=== PATIENT | female | born 1940 | race Caucasian/White ===

== ENCOUNTER → 2016-07-18 | Day surgery (SDC) | payer BC ==
[2016-07-10 12:28] VITALS: Ht 168.9 cm; Wt 61.4 kg
[~2016-07-18] VITALS: Ht 168.9 cm; Wt 61.4 kg
[~2016-07-18] MED LIST: ASCO500T16 PO; ASPEC81 PO; ASPI81TA28 PO; CHOL100010 PO; CHOL20009 PO; FENTANYL CITRATE INJ 50 MCG/1 ML 2 ML VIAL ONE; GLIM1TAB2 PO; LEVO-366 PO; LEVO75TA5 PO; LIDOCAINE HCL 2% 2 ML VIAL (20MG/ML) ONE; NAPR1TAB9 PO; PRED20TA PO; PROPOFOL IV EMULSION 10 MG/ML 20 ML VIAL IV ONE; SIMV20TA2 PO; SITA100T3 PO; SPRIN/30 INH
--- NOTE | 2016-07-18 09:51 | Endo History and Physical ---
History & Physical Date of Service: Jul 18, 2016. Chief Complaint: screening Referring Physician: Dr. Dominik Wilhelm History of Present Illness 76 yo CF who presents for screening colonoscopy. Past Medical History Diabetes, High Cholesterol, COPD, Thyroid Disease Past Surgical History Hx Cardiac Surgery: No Hx Internal Defibrillator: No Hx Pacemaker: No Hx Abdominal Surgery: Yes (TUBAL LIGATION) Hx of Implantable Prosthesis: No Hx Post-Op Nausea and Vomiting: No Hx Cancer Surgery: No Hx Thoracic Surgery: No Hx Orthopedic: Yes (BACK SURGERY) Hx Urinary Tract Surgery: No Family History None Social History Smoking Status: Current Every Day Smoker Hx Substance Use: No Hx Alcohol Use: No Allergies Coded Allergies: Metformin (Verified Adverse Reaction, Intermediate, NAUSEA AND DIARRHEA, ) Varenicline (Verified Adverse Reaction, Unknown, DEPRESSION, BAD DREAMS, ) Current Medications Reported Home Medications Medications Dose Route/Sig Max Daily Dose Days Date Category Spiriva Handihaler (Tiotropium [place]) 30 Puff/540 Mcg Aerp 1 Cap INH DAILY 07/10/16 Reported Januvia (Sitagliptin Phosphate) 100 Mg Tab 100 Mg PO QAM 07/10/16 Reported Vitamin D (Cholecalciferol) 1,000 Inter.unit Tab 2,000 Inter.unit PO BID 03/21/15 Reported Levothyroxine Sodium 75 Mcg Tab 75 Mcg PO QAM 03/21/15 Reported Glimepiride 1 Mg Tab 2 Tabs PO BID 12/01/13 Reported Zocor (Simvastatin) 20 Mg Tab 20 Mg PO HS 12/01/13 Reported Ascorbic Acid 500 Mg Tab 500 Mg PO HS 03/04/13 Reported Ecotrin Or Generic * (Aspirin) 81 Mg Ectab 81 Mg PO HS 02/09/08 Reported Vital Signs Weight (Kilograms): 61.36 Height (Feet): 5 Height (Inches): 6.5 Date Time Temp Pulse Resp B/P Pulse Ox O2 Delivery O2 Flow Rate FiO2 07/18/16 09:14 36.5 70 16 158/79 95 Room Air Physical Exam General Appearance: WD/WN, no apparent distress Respiratory/Chest: Auscultation: breath sounds normal Cardiovascular: Heart Auscultation: RRR Abdomen: Bowel Sounds: normal Inspection & Palpation: soft, non-distended, no tenderness, guarding & rebound Assessment and Plan Assessment: 76 yo CF who presents for screening colonoscopy. Plan: Proceed with colonoscopy.
--- NOTE | 2016-07-18 10:32 | Discharge Instructions ---
Endoscopy Patient Instructions Date / Procedure(s) Performed Jul 18, 2016. Colonoscopy Allergy Information Coded Allergies: Metformin (Verified Adverse Reaction, Intermediate, NAUSEA AND DIARRHEA, ) Varenicline (Verified Adverse Reaction, Unknown, DEPRESSION, BAD DREAMS, ) Discharge Date / Findings Jul 18, 2016. Rectal polyp Diverticulosis Medication Instructions Stopped Medication(s): stopped ASA Sunday OK to resume all medications today as prescribed Reported Home Medications Medications Dose Route/Sig Max Daily Dose Days Date Category Spiriva Handihaler (Tiotropium [place]) 30 Puff/540 Mcg Aerp 1 Cap INH DAILY 07/10/16 Reported Januvia (Sitagliptin Phosphate) 100 Mg Tab 100 Mg PO QAM 07/10/16 Reported Vitamin D (Cholecalciferol) 1,000 Inter.unit Tab 2,000 Inter.unit PO BID 03/21/15 Reported Levothyroxine Sodium 75 Mcg Tab 75 Mcg PO QAM 03/21/15 Reported Glimepiride 1 Mg Tab 2 Tabs PO BID 12/01/13 Reported Zocor (Simvastatin) 20 Mg Tab 20 Mg PO HS 12/01/13 Reported Ascorbic Acid 500 Mg Tab 500 Mg PO HS 03/04/13 Reported Ecotrin Or Generic * (Aspirin) 81 Mg Ectab 81 Mg PO HS 02/09/08 Reported Provider Instructions Activity Restrictions - No exercising or heavy lifting for 24 hours. - Do not drink alcohol the day of the procedure. - Do not drive a car or operate machinery until the day after the procedure. - Do not make any important decisions or sign important papers in 24 hours after the procedure. Following Day: - Return to full activity which may include returning to work/school. Diet Start your diet with liquids and light foods (jello, soup, juice, toast). Then eat your usual diet if not nauseated. Treatment For Common After Affects For mild abdominal pain, bloating, or excessive gas: - Rest - Eat lightly - Lie on right side Follow-Up Information Follow-up with Dr. Dominik Wilhelm as scheduled Anesthesia Information What You Should Know You have had a procedure that required some medicine to reduce anxiety and discomfort. This treatment is called moderate sedation. After receiving the treatment, you may be sleepy, but you will be able to breathe on your own. The effects of the treatment may last for several hours. Follow these instructions along with Activity/Diet recommendations noted above: * Do NOT do anything where dizziness or clumsiness would be dangerous. * Rest quietly at home today, then you can be up and about tomorrow. * Have a responsible person stay with you the rest of today. * You may have had an I.V. today. If so, you may take the dressing off later today. Recommendations Call your doctor if: * Trouble breathing * Continuous vomiting for more than 24 hours * Temperature above 101 degrees * Severe abdominal pain or bloating * Pain not relieved by pain medicine ordered * There is increased drainage or redness from any incision * A large amount of rectal bleeding greater than 2-3 tablespoons. (If you had a polyp/s removed or have hemorrhoids, a small amount of blood - from the rectum is to be expected.) * You have any unanswered questions or concerns. IN THE EVENT OF A SERIOUS EMERGENCY, GO TO THE NEAREST EMERGENCY ROOM Your discharge instructions were prepared by provider Justus Jordan. Patient Instructions Signature Page Madison Mckenna Patient (or Guardian) Signature/Date: I have read and understand the instructions given to me by my caregivers. Caregiver/RN/Doctor Signature/Date: The above-named patient and/or guardian has received patient instructions on this date. + Original Patient Signature Page (only) stays with chart. Please make copy for patient.
--- NOTE | 2016-07-18 10:40 | GI REPORT ---
Procedure Date: 07/18/2016 9:31 AM Procedure: Colonoscopy Indications: Screening for colorectal malignant neoplasm Medicines: Monitored Anesthesia Care Complications: No immediate complications. Estimated Blood Loss: Estimated blood loss: none. Procedure: Pre-Anesthesia Assessment: - Prior to the procedure, a History and Physical was performed, and patient medications and allergies were reviewed. The patient's tolerance of previous anesthesia was also reviewed. The risks and benefits of the procedure and the sedation options and risks were discussed with the patient. All questions were answered, and informed consent was obtained. Prior Anticoagulants: The patient has taken aspirin, last dose was 2 days prior to procedure. ASA Grade Assessment: III - A patient with severe systemic disease. After reviewing the risks and benefits, the patient was deemed in satisfactory condition to undergo the procedure. After I obtained informed consent, the scope was passed under direct vision. Throughout the procedure, the patient's blood pressure, pulse, and oxygen saturations were monitored continuously. The Scope was introduced through the anus and advanced to the terminal ileum. The colonoscopy was performed without difficulty. The patient tolerated the procedure well. The quality of the bowel preparation was good. The terminal ileum, ileocecal valve, appendiceal orifice, and rectum were photographed. Findings: Multiple small-mouthed diverticula were found in the sigmoid colon. A 8 mm polyp was found in the rectum. The polyp was sessile. The polyp was removed with a hot snare. Resection and retrieval were complete. Impression: - Diverticulosis in the sigmoid colon. - One 8 mm polyp in the rectum, removed with a hot snare. Resected and retrieved. Recommendation: - Resume previous diet. - Continue present medications. - Repeat colonoscopy for surveillance based on pathology results. - Return to primary care physician as previously scheduled. Justus Jordan DO 07/18/2016 10:39:28 AM This report has been signed electronically. Note Initiated On: 07/18/2016 9:31 AM
[2016-07-18 10:50] VITALS: BP 168/74; PULSE 56; O2SAT 96
--- NOTE | 2016-07-18 11:20 | Anesthesiology Progress Note ---
Anesthesia Post Op Note Date & Time Jul 18, 2016 at 11:21 Vital Signs Pain Intensity: 0 Vital Signs Past 12 Hours Date Time Temp Pulse Resp B/P Pulse Ox O2 Delivery O2 Flow Rate FiO2 07/18/16 10:50 56 16 168/74 96 Room Air 07/18/16 10:33 56 18 163/77 96 Room Air 07/18/16 10:18 63 18 121/59 95 Room Air 07/18/16 09:14 36.5 70 16 158/79 95 Room Air Notes Mental Status: alert / awake / arousable, participated in evaluation Pt Amnestic to Procedure: Yes Nausea / Vomiting: adequately controlled Pain: adequately controlled Airway Patency, RR, SpO2: stable & adequate BP & HR: stable & adequate Hydration State: stable & adequate Anesthetic Complications: no major complications apparent
== END | disposition home or self-care (01) ==
LOC: C.GI 08:44
PROVIDERS: ATTEND Internal Medicine
DX: Z12.11 Encounter for screening for malignant neoplasm of colon (principal); K62.1 Rectal polyp; K57.30 Diverticulosis of large intestine without perforation or abscess without bleeding; Z79.82 Long term (current) use of aspirin; Z88.8 Allergy status to other drugs, medicaments and biological substances

== ENCOUNTER → 2016-08-10 | Outpatient (CLI) | payer BC ==
[~2016-08-10] MED LIST changes: -FENTANYL CITRATE INJ 50 MCG/1 ML 2 ML VIAL ONE; -LIDOCAINE HCL 2% 2 ML VIAL (20MG/ML) ONE; -PROPOFOL IV EMULSION 10 MG/ML 20 ML VIAL IV ONE
[2016-08-10 10:40] LABS: ESTIMATED AVERAGE GLUCOSE 143 mg/dl; HA1C FLAG Normal (Normal)
== END | disposition home or self-care (01) ==
LOC: C.LAB 09:01
PROVIDERS: ATTEND Internal Medicine
DX: E11.9 Type 2 diabetes mellitus without complications (principal)

== ENCOUNTER → 2016-10-09 | Outpatient (CLI) | payer BC ==
[~2016-10-09] MED LIST changes: +GADAVIST IV PRN
[2016-10-09 10:07] LABS: BLOOD UREA NITROGEN 10 mg/dl (7-18); CREATININE 0.65 mg/dl (0.60-1.20)
--- NOTE | 2016-10-09 14:09 | DIAGNOSTIC IMAGING REPORT ---
MRI OF THE LUMBAR SPINE WITH AND WITHOUT CONTRAST CLINICAL HISTORY: Low back pain with bilateral radiculopathy. Prior lumbar spine surgery. COMPARISON STUDY: No previous studies for comparison. TECHNIQUE: Utilizing a 1.5 Annie magnet and dedicated coil, multiplanar, multiecho imaging of the lumbar spine was performed before and after uneventful IV administration of 6.5 mL of Gadavist. FINDINGS: For purposes of numbering on since exam, the L5-S1 disc space is assigned to axial image 27 of 30. Alignment of lumbar spine is anatomic. The conus terminates at the T12-L1 level. The paravertebral soft tissues are unremarkable. There are findings suggestive of a right hemilaminectomy at the L5-S1 level. L1-2: The central canal and neural foramen are patent. L2-3: There is minimal disc bulge. There is ligamentous hypertrophy. The central canal and neural foramen are patent. L3-4: There is disc bulge with a central annular tear. Facet arthrosis is noted. There is mild narrowing of the central canal, lateral recesses and neural foramen. L4-5: There is disc bulge with ligamentous hypertrophy and facet arthrosis. Note is made of an 8 x 6 mm T1 and T2 hypointense right paracentral abnormality which suggests disc material. There is severe narrowing of the central canal and lateral recesses at this level. L5-S1: There is disc space narrowing. There is no residual central canal stenosis. There is mild narrowing of both neural foramen. IMPRESSION: 1. Disc bulge with ligamentous hypertrophy and facet arthrosis at L4-L5 with an 8 mm x 6 mm right paracentral abnormality with inferior migration. This could reflect a sequestered disc fragment or extruded disc herniation. Severe narrowing of the central canal and lateral recesses at this level. 2. Otherwise, mild multilevel degenerative changes of the lumbar spine. 3. Findings suggestive of a right hemilaminectomy at the L5-S1 level. Electronically signed by: Miguel Angel Arguelles M.D. 10/09/2016 2:06 PM Dictated Date/Time: 10/09/2016 11:36 AM
== END | disposition home or self-care (01) ==
LOC: C.MRI 09:06
PROVIDERS: ATTEND Nurse Practitioner
DX: M54.40 Lumbago with sciatica, unspecified side (principal)

== ENCOUNTER 2016-10-29 20:40 | Emergency (ER) | payer BC ==
[~2016-10-29] VITALS: Ht 167.6 cm; Wt 65.7 kg
[~2016-10-29 20:40] MED LIST changes: -ASPI81TA28 PO; -CHOL20009 PO; -GADAVIST IV PRN; -LEVO-366 PO; -NAPR1TAB9 PO; -PRED20TA PO
[2016-10-29 20:43] VITALS: TEMP 36.6; Ht 167.6 cm; Wt 65.7 kg
[2016-10-29] MEDS ORDERED: ASPI81TA28 PO (21:20)
[2016-10-29] MEDS ORDERED: CHOL20009 PO (21:20)
[2016-10-29] MEDS ORDERED: NAPR1TAB9 PO (21:20)
--- NOTE | 2016-10-29 21:21 | EMERGENCY ROOM VISIT NOTE ---
History Report prepared by Julien: Sis Acevedo Under the Supervision of: Chastiy Rossi.O. First contact with patient: 20:49 Chief Complaint: COUGH Stated Complaint: COUGHING UP BLOOD History of Present Illness The patient is a 76 year old female who presents to the Emergency Room with complaints of a worsening cough that began 3-4 weeks ago. She states that her symptoms started with a sore throat. She developed a productive cough with green sputum. This morning she noticed blood in her sputum. Tonight she coughed up a dime-sized clot. The patient fees short of breath and has pain in her chest secondary to coughing. She is a former smoker and quit about 1 year ago. She currently uses Spiriva. She does have a history of pneumonia. The patient denies fevers, chills, rhinorrhea, nausea, vomiting, diarrhea, melena, and hematochezia. She denies any significant cardiac history. The patient has lower back pain and sciatica and follows with her PCP and pain management for that. She takes a daily baby aspirin and denies any other blood thinners. Source of History: patient, family (daughter) Onset: 3-4 weeks ago Position: chest Quality: other (cough) Timing: worsening Associated Symptoms: + SOB, + chest pain, + sorethroat, No chills, No diarrhea, No fevers, No hematochezia, No melena, No nausea, No vomiting Review of Systems See HPI for pertinent positives & negatives. A total of 10 systems reviewed and were otherwise negative. Past Medical & Surgical Medical Problems: (1) COPD (chronic obstructive pulmonary disease) (2) COPD exacerbation (3) DIAB EARL WO COMPL, TYPE II OR UNSPEC TYPE, NOT UNCNTRLD (4) HYPERLIPIDEMIA NEC/NOS (5) HYPOTHYROIDISM NOS (6) Hypoxia Family History No pertinent history stated. Social History Smoking Status: Former Smoker Alcohol Use: none Drug Use: none Marital Status: Housing Status: lives with significant other Current/Historical Medications Scheduled Ascorbic Acid (Ascorbic Acid), 500 MG PO HS Aspirin (Aspirin Ec), 81 MG PO DAILY Cholecalciferol (Vitamin D), 4,000 UNITS PO BID Glimepiride (Glimepiride), 2 TABS PO BID Levofloxacin (Levaquin), 750 MG PO DAILY Levothyroxine Sodium (Levothyroxine Sodium), 75 MCG PO QAM Naproxen (Aleve), 220 MG PO PRN UD Prednisone (Prednisone), 0 PO DAILY Simvastatin (Zocor), 20 MG PO HS Sitagliptin Phosphate (Januvia), 100 MG PO QAM Tiotropium [place] (Spiriva Handihaler), 1 CAP INH DAILY Allergies Coded Allergies: Metformin (Verified Adverse Reaction, Intermediate, NAUSEA AND DIARRHEA, ) Varenicline (Verified Adverse Reaction, Unknown, DEPRESSION, BAD DREAMS, ) Physical Exam Vital Signs Date Time Temp Pulse Resp B/P Pulse Ox O2 Delivery O2 Flow Rate FiO2 10/29/16 22:55 72 20 167/63 92 Room Air 10/29/16 22:28 66 20 154/71 92 Room Air 10/29/16 21:27 64 10/29/16 20:52 92 Room Air 10/29/16 20:43 36.6 66 24 176/84 92 Room Air Physical Exam GENERAL: alert, well appearing, well nourished, no distress, non-toxic EYE EXAM: normal conjunctiva, PERRL and EOM's grossly intact OROPHARYNX: no exudate, no erythema, lips, buccal mucosa, and tongue normal and mucous membranes are moist NECK: supple, no nuchal rigidity, no adenopathy, non-tender LUNGS: Markedly decreased breath sounds. No wheezes, rhonchi, or rales. During the exam the patient coughed up sputum that appears yellowish with small flecks of blood. Normal chest wall mechanics HEART: no murmurs, S1 normal and S2 normal ABDOMEN: abdomen soft, non-tender, normo-active bowel sounds, no masses, no rebound or guarding. BACK: Back is symmetrical on inspection and there is no deformity, no midline tenderness, no CVA tenderness. SKIN: no rashes and no bruising UPPER EXTREMITIES: upper extremities are grossly normal. LOWER EXTREMITIES: No pitting edema. NEURO EXAM: Normal sensorium, cranial nerves II-XII grossly intact, normal speech, no gross weakness of arms, no gross weakness of legs. Medical Decision & Procedures ER Provider Diagnostic Interpretation: Radiology results have been interpreted by the radiologist and reviewed by me. CHEST CTA for PULMONARY ARTERIES CT DOSE: 204.83 mGy.cm HISTORY: Hemoptysis. TECHNIQUE: Multiaxial CT images of the chest were performed following the intravenous administration of contrast to evaluate the pulmonary arteries. Maximal intensity projection images were also obtained. COMPARISON STUDY: Chest CT 04/11/2016. FINDINGS: No evidence for an aortic dissection or pulmonary embolus. Bilateral breast implants. The visualized liver and spleen are unremarkable. No pleural or pericardial effusions. No mediastinal or hilar lymphadenopathy. Mild emphysema. No pneumothorax. Stable 4 mm nodule within the left upper lobe in image 215. Opacified distal left lower lobe bronchus and left lower lobe segmental and subsegmental bronchi. There is small patchy airspace opacities within the center aspect of the left lower lobe. There are also a few opacified right lower lobe subsegmental bronchi. Linear density within the right upper lobe anteriorly. This favors scarring and is not significant changed. IMPRESSION: 1. No evidence for pulmonary embolus. 2. Opacified left lower lobe bronchus and left lower lobe segmental and subsegmental bronchi. There are also a few opacified right lower lobe subsegmental bronchi. Therefore, this favors an infectious process. There is also small focus of airspace opacity within the left lower lobe. However, an occult obstructing endobronchial lesion within the left lower lobe could also have a similar appearance. Therefore, 2-[address] follow-up or bronchoscopy is recommended for further evaluation. 3. Emphysema. Electronically signed by: Adilson Burgess M.D. 10/29/2016 10:32 PM Dictated Date/Time: 10/29/2016 10:23 PM Laboratory Results 10/29/16 21:16 Red Blood Count 4.08, Mean Corpuscular Volume 97.3, Mean Corpuscular Hemoglobin 32.4, Mean Corpuscular Hemoglobin Concent 33.2, Mean Platelet Volume 10.0, Neutrophils (%) (Auto) 54.4, Lymphocytes (%) (Auto) 35.3, Monocytes (%) (Auto) 7.4, Eosinophils (%) (Auto) 2.3, Basophils (%) (Auto) 0.3, Neutrophils # (Auto) 6.47, Lymphocytes # (Auto) 4.20, Monocytes # (Auto) 0.88, Eosinophils # (Auto) 0.27, Basophils # (Auto) 0.03 10/29/16 21:16 Test 10/29/16 21:16 White Blood Count 11.89 K/uL (4.8-10.8) Red Blood Count 4.08 M/uL (4.2-5.4) Hemoglobin 13.2 g/dL (12.0-16.0) Hematocrit 39.7 % (37-47) Mean Corpuscular Volume 97.3 fL (80-100) Mean Corpuscular Hemoglobin 32.4 pg (25-34) Mean Corpuscular Hemoglobin Concent 33.2 g/dl (32-36) Platelet Count 260 K/uL (130-400) Mean Platelet Volume 10.0 fL (7.4-10.4) Neutrophils (%) (Auto) 54.4 % Lymphocytes (%) (Auto) 35.3 % Monocytes (%) (Auto) 7.4 % Eosinophils (%) (Auto) 2.3 % Basophils (%) (Auto) 0.3 % Neutrophils # (Auto) 6.47 K/uL (1.4-6.5) Lymphocytes # (Auto) 4.20 K/uL (1.2-3.4) Monocytes # (Auto) 0.88 K/uL (0.11-0.59) Eosinophils # (Auto) 0.27 K/uL (0-0.5) Basophils # (Auto) 0.03 K/uL (0-0.2) RDW Standard Deviation 47.1 fL (36.4-46.3) RDW Coefficient of Variation 13.2 % (11.5-14.5) Immature Granulocyte % (Auto) 0.3 % Immature Granulocyte # (Auto) 0.04 K/uL (0.00-0.02) Prothrombin Time 10.7 SECONDS (9.0-12.0) Prothromb Time International Ratio 1.0 (0.9-1.1) Anion Gap 8.0 mmol/L (3-11) Est Creatinine Clear Calc Drug Dose 46.2 ml/min Estimated GFR () 65.8 Estimated GFR (Non- 56.7 BUN/Creatinine Ratio 13.1 (10-20) Calcium Level 9.2 mg/dl (8.5-10.1) Total Bilirubin 0.6 mg/dl (0.2-1) Aspartate Amino Transf (AST/SGOT) 14 U/L (15-37) Alanine Aminotransferase (ALT/SGPT) 17 U/L (12-78) Alkaline Phosphatase 57 U/L (45-117) Troponin I < 0.015 ng/ml (0-0.045) Pro-B-Type Natriuretic Peptide 140 pg/ml (0-1800) Total Protein 7.2 gm/dl (6.4-8.2) Albumin 3.7 gm/dl (3.4-5.0) Globulin 3.5 gm/dl (2.5-4.0) Albumin/Globulin Ratio 1.1 (0.9-2) Laboratory results per my review. Medications Administered Medications (Trade) Dose Ordered Sig/Leonidas Route Start Time Stop Time Status Last Admin Dose Admin Albuterol/ Ipratropium (Duoneb) 3 ml NOW STAT INH 10/29/16 21:33 10/29/16 21:34 DC 10/29/16 21:40 3 ML Albuterol/ Ipratropium (Duoneb) 3 ml NOW STAT INH 10/29/16 22:31 10/29/16 22:32 DC 10/29/16 22:38 3 ML Benzonatate (Tessalon Perles Cap) 100 mg NOW ONCE PO 10/29/16 22:45 10/29/16 22:46 DC 10/29/16 22:38 100 MG Levofloxacin (Levaquin Tab) 750 mg NOW STAT PO 10/29/16 22:42 10/29/16 22:43 DC 10/29/16 22:53 750 MG Albuterol (Ventolin Hfa Inhaler) 2 puffs NOW ONCE INH 10/29/16 23:00 10/29/16 23:01 DC 10/29/16 23:01 2 PUFFS Prednisone (PredniSONE TAB) 60 mg NOW STAT PO 10/29/16 22:54 10/29/16 22:56 DC 10/29/16 23:00 60 MG ECG Indication: SOB/dyspnea Rate (beats per minute): 62 Rhythm: normal sinus Findings: 1st degree AV block, RBBB (appearance of incomplete), no acute ischemic change, no ectopy, other (normal axis, normal intervals) ED Course 2048: The patient was evaluated in room A2. A complete history and physical exam was performed. 2132: Duoneb 3 ml INH 2230: Duoneb 3 ml ING 2238: I reassessed the patient at this time. She is feeling better and resting comfortably. I discussed the results and treatment plan with the patient. I answered all pertaining questions that she had. She expressed understanding and verbalized agreement. She would like to follow-up as an outpatient. The patient will be discharged home. 2242: Levofloxacin 750 mg PO 2244: Benzonatate 100 mg PO 4: Prednisone 60 mg PO 0: Albuterol 2 puffs INH 2313: I reassessed the patient and she is doing well after her second breathing treatment. She is moving more air and feeling better. Medical Decision Differential diagnoses includes but is not limited to pneumonia, bronchitis, COPD/Asthma exacerbation, pneumothorax, pulmonary embolism, congestive heart failure, acute coronary syndrome. Patient well-appearing here throughout, no increased work of breathing, no hypoxia, no fevers. Mild leukocytosis noted, however doubt bacteremia/sepsis. Discussed with patient and daughter affront starting with CAT scan of the chest to better evaluate her increasing cough as well as the hemoptysis. Patient with prior history of pneumonia and is a reformed smoker. Likely given chronicity of symptoms, hemoptysis secondary to irritation from frequent coughing. Patient with no other anticoagulation to put her at risk for additional bleeding. Patient with improved respiratory exam following nebulizer treatments. Was given instruction on MDI and spacer usage. 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 Discussed with patient and family all results, need for close follow-up to assure resolution of pneumonia, concern for other findings on CAT scan, possible need for bronchoscopy. Patient with no increased work of breathing while here and ambulate into the bathroom. Patient started on antibiotics, has previously used steroids with respiratory infections. Discussed with her risks of hyperglycemia, and need for more frequent blood glucose checks. Patient verbalized understanding of all this is due to daughter bedside, and they were agreeable with plan. Discussed symptoms to watch and return to the ER for, they verbalized understanding. Likely COPD exacerbation with pneumonia, concern for possible postobstructive pneumonia, no evidence for PE or cardiac etiology contributing to shortness of breath. Doubt ACS given chronicity of symptoms and negative troponin, BNP within normal range and no evidence of pulmonary edema Patient's risks include prior tobacco use and this was discussed with him at bedside. Labs otherwise reassuring, vital signs reassuring at bedside. Patient's curb 65 score 1, low risk. Impression Primary Impression: COPD exacerbation Additional Impressions: Pneumonia Hemoptysis Scribe Attestation The scribe's documentation has been prepared under my direction and personally reviewed by me in its entirety. I confirm that the note above accurately reflects all work, treatment, procedures, and medical decision making performed by me. Departure Information Dispostion Home / Self-Care Prescriptions Prednisone (Prednisone) 20 Mg Tab 0 PO DAILY, #18 TAB 3 DAILY FOR 3 DAYS, THEN 2 DAILY FOR 3 DAYS, THEN 1 DAILY FOR 3 DAYS. Prov: Charlotte Arellano, DO 10/29/16 Levofloxacin (Levaquin) 500 Mg Tab 750 MG PO DAILY for 5 Days, #8 TAB Prov: Charlotte Arellano, DO 10/29/16 Referrals Dominik Wilhelm M.D. (PCP) Forms HOME CARE DOCUMENTATION FORM, IMPORTANT VISIT INFORMATION Patient Instructions My [facility] Additional Instructions Please take the antibiotics and steroids as prescribed and continue using your regular home medications. Please drink plenty of water to stay well-hydrated. Please follow up with her family doctor this week as well as your lung specialist. You will need additional follow-up to assure that the infection has cleared, and also potential additional evaluation for the possible nodule noted on the CAT scan. If you have any worsening trouble breathing, worsening cough, develop fevers, vomiting, chest pain, diarrhea, or any other new concerns , please return the emergency room. Please keep the inhaler with you at all times, and use it with a spacer. You may use the inhaler up to every 4 hours as needed for trouble breathing in frequent coughing. Problem Qualifiers Additional Impressions: Pneumonia Pneumonia type: due to unspecified organism Laterality: bilateral Lung location: lower lobe of lung Qualified Codes: J18.9 - Pneumonia, unspecified organism
[2016-10-29] MEDS ORDERED: OPTIRAY 320 IV PRN (21:30)
[2016-10-29] MEDS ORDERED: ALBUT/IPRATROP 3MG/0.5MG NEB 3 ML VIAL INH STA ×2 (21:33→22:31)
[2016-10-29 21:35] LABS: BASO % 0.3 %; BASO ABS # 0.03 K/uL (0-0.2); COMPLETE YES; EOS % 2.3 %; HEMATOCRIT 39.7 % (37-47); IG% 0.3 %; LYMPH % 35.3 %; MEAN CELL VOLUME 97.3 fL (80-100); MEAN CORPUSCULAR HEMOGLOBIN 32.4 pg (25-34); MEAN CORPUSCULAR HGB CONC 33.2 g/dl (32-36); MONO % 7.4 %; NEUT % 54.4 %; PLATELET COUNT 260 K/uL (130-400); RED BLOOD COUNT 4.08 M/uL (4.2-5.4); WHITE BLOOD COUNT 11.89 K/uL (4.8-10.8)
[2016-10-29 21:43] LABS: PROTHROMBIN TIME (PATIENT) 10.7 SECONDS (9.0-12.0)
[2016-10-29 21:45] LABS: ALT/SGPT 17 U/L (12-78); BLOOD UREA NITROGEN 13 mg/dl (7-18); BUN/CREATININE RATIO 13.1 (10-20); CARBON DIOXIDE 30 mmol/L (21-32); CHLORIDE 106 mmol/L (98-107); CREATININE 0.97 mg/dl (0.60-1.20); GLUCOSE 123 mg/dl (70-99); POTASSIUM 4.1 mmol/L (3.5-5.1); SODIUM 144 mmol/L (136-145)
[2016-10-29 21:49] LABS: ALB/GLOB RATIO 1.1 (0.9-2); ALKALINE PHOSPHATASE 57 U/L (45-117); AST/SGOT 14 U/L (15-37)
[2016-10-29 22:26] LABS: CALCIUM 9.2 mg/dl (8.5-10.1)
--- NOTE | 2016-10-29 22:33 | DIAGNOSTIC IMAGING REPORT ---
CHEST CTA for PULMONARY ARTERIES CT DOSE: 204.83 mGy.cm HISTORY: Hemoptysis. TECHNIQUE: Multiaxial CT images of the chest were performed following the intravenous administration of contrast to evaluate the pulmonary arteries. Maximal intensity projection images were also obtained. COMPARISON STUDY: Chest CT 04/11/2016. FINDINGS: No evidence for an aortic dissection or pulmonary embolus. Bilateral breast implants. The visualized liver and spleen are unremarkable. No pleural or pericardial effusions. No mediastinal or hilar lymphadenopathy. Mild emphysema. No pneumothorax. Stable 4 mm nodule within the left upper lobe in image 215. Opacified distal left lower lobe bronchus and left lower lobe segmental and subsegmental bronchi. There is small patchy airspace opacities within the center aspect of the left lower lobe. There are also a few opacified right lower lobe subsegmental bronchi. Linear density within the right upper lobe anteriorly. This favors scarring and is not significant changed. IMPRESSION: 1. No evidence for pulmonary embolus. 2. Opacified left lower lobe bronchus and left lower lobe segmental and subsegmental bronchi. There are also a few opacified right lower lobe subsegmental bronchi. Therefore, this favors an infectious process. There is also small focus of airspace opacity within the left lower lobe. However, an occult obstructing endobronchial lesion within the left lower lobe could also have a similar appearance. Therefore, 2-[address] follow-up or bronchoscopy is recommended for further evaluation. 3. Emphysema. Electronically signed by: Adilson Burgess M.D. 10/29/2016 10:32 PM Dictated Date/Time: 10/29/2016 10:23 PM
[2016-10-29] MEDS ORDERED: LEVOFLOXACIN 250 MG TAB PO STA (22:42)
[2016-10-29] MEDS ORDERED: BENZONATATE 100MG CAP PO ONE (22:45)
[2016-10-29 22:55] VITALS: BP 167/63; PULSE 72; O2SAT 92
[2016-10-29] MEDS ORDERED: ALBUTEROL HFA 8 GM INHALER INH ONE (23:00)
[2016-10-29] MEDS ORDERED: LEVO-366 PO (23:05)
[2016-10-29] MEDS ORDERED: PRED20TA PO (23:05)
== END 2016-10-29 23:25 | disposition home or self-care (01) ==
LOC: C.EDB 20:42 → C.EDA 23:25
DX: J44.1 Chronic obstructive pulmonary disease with (acute) exacerbation (principal); J18.9 Pneumonia, unspecified organism; R04.2 Hemoptysis; M54.40 Lumbago with sciatica, unspecified side; E11.9 Type 2 diabetes mellitus without complications; E78.5 Hyperlipidemia, unspecified; E03.9 Hypothyroidism, unspecified; Z87.891 Personal history of nicotine dependence; Z79.82 Long term (current) use of aspirin

== ENCOUNTER → 2016-12-23 | Outpatient (CLI) | payer BC ==
[~2016-12-23] MED LIST changes: -ASPEC81 PO; +ASPI81TA28 PO; -CHOL100010 PO; +CHOL20009 PO; +NAPR1TAB9 PO; +PRED20TA PO
[2016-12-23 10:54] LABS: ESTIMATED AVERAGE GLUCOSE 160 mg/dl; HA1C FLAG Normal (Normal)
[2016-12-23 11:04] LABS: THYROID STIMULATING HORMONE 3.76 uIu/ml (0.300-4.500)
== END | disposition home or self-care (01) ==
LOC: C.LAB 09:06
PROVIDERS: ATTEND Internal Medicine
DX: E11.9 Type 2 diabetes mellitus without complications (principal); E03.9 Hypothyroidism, unspecified

== ENCOUNTER → 2017-02-12 | Outpatient (CLI) | payer BC ==
--- NOTE | 2017-02-12 11:27 | DIAGNOSTIC IMAGING REPORT ---
(CHEST) THORAX WITHOUT CLINICAL HISTORY: 76 years-old Female presenting with R93.[address]to be done in mid January. TECHNIQUE: Multidetector CT imaging of the chest was performed without the use of intravenous contrast. IV contrast: None. A dose lowering technique was used consistent with the principles of ALARA (as low as reasonably achievable). COMPARISON: 10/29/2016. CT DOSE (mGy.cm): The estimated cumulative dose is 213.86 mGy.cm. 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 On soft tissue windows, bilateral breast implants with densely calcified capsules. Normal thyroid and thoracic inlet. Scattered subcentimeter mediastinal lymph nodes, likely reactive. Evaluation of the dax is limited without intravenous contrast. Atherosclerosis of the aortic arch. Normal heart size. Coronary artery calcification. No pericardial or pleural effusion. Upper abdomen normal. On lung windows, focal irregular nodular consolidation in the perifissural right middle lobe, unchanged from prior and likely representing scarring. Mild emphysema. Left upper lobe subpleural solid 4 mm nodule (series 4 image 67), unchanged from prior. Airways patent. On bone windows, normal osseous structures. IMPRESSION: 1. Emphysema. 2. Persistent scarring in the right middle lobe. 3. Solid 4 mm pulmonary nodule in the left upper lobe stable since 10/29/2016. Follow-up per [employer] Society 2017 recommendations below. Please refer to below summary of Fleischner Society 2017 recommendations for follow-up of incidental CT nodules (H Tia et al. Guidelines for management of incidental pulmonary nodules detected on CT images: From the Fleischner Society 2017. Radiology 2017; 284: 228-243.) SOLID NODULES Single nodule; size <6 mm * Low risk patients: No routine follow-up * High risk patients: Optional CT at 12 months Single nodule; size 6-8 mm * Low risk patients: CT at 6-12 months, then consider CT at 18-24 months * High risk patients: CT at 6-12 months, then at 18-24 months Single nodule; size >8 mm * Either low or high risk patients: Considered CT at 3 months, PET/CT, or tissue sampling Multiple nodules; size <6 mm * Low risk patients: No routine follow up * High risk patients: Optional CT at 12 months Multiple nodules; size 6-8 mm * Low risk patients: CT at 3-6 months, then consider CT at 18-24 months * High risk patients: CT at 3-6 months, then at 18-24 months Multiple nodules; size >8 mm * Low risk patients: CT at 3-6 months, then consider at 18-24 months * High risk patients: CT at 3-6 months, then at 18-24 months Note: These guidelines apply to incidental nodules. These guidelines did not apply to patients younger than 35 years, immunocompromised patients, or patients with cancer. * Low risk patients: Minimal or absent history of smoking and/or other known risk factors * High risk patients: History of smoking, exposure to other carcinogens, emphysema, fibrosis, upper lobe location, family history of lung cancer, etc. * If a nodule up to 8 mm is partly solid or is ground glass further follow-up is required after 24 months to exclude possible slow growing adenocarcinoma SUBSOLID NODULES Single ground-glass nodule * Nodule size < 6 mm: No routine follow-up * Nodule size > or = 6 mm: CT at 6-12 months to confirm persistence, then CT every 2 years until 5 years Single part-solid nodule * Nodule size < 6 mm: No routine follow-up * Nodules size > or = 6 mm: CT at 3-6 months to confirm persistence. If unchanged and solid component remains < 6 mm, annual CT should be performed for 5 years Multiple nodules * Nodule size < 6 mm: CT at 3-6 months. If stable, consider CT at 2 and 4 years. * Nodules size > or = 6 mm: CT at 3-6 months. Subsequent management based on the most suspicious nodule(s) Electronically signed by: Sd Wright M.D. 02/12/2017 11:26 AM Dictated Date/Time: 02/12/2017 11:18 AM
== END | disposition home or self-care (01) ==
LOC: C.CTS 10:57
PROVIDERS: ATTEND Internal Medicine Pulmonary Disease
DX: R93.8 Abnormal findings on diagnostic imaging of other specified body structures (principal)

== ENCOUNTER → 2017-02-28 | Outpatient (CLI) | payer BC | LOC: C.LABBFT 15:29 | PROVIDERS: ATTEND Physician Assistant Medical | DX: J02.9 Acute pharyngitis, unspecified (principal) ==

== ENCOUNTER → 2017-04-26 | Outpatient (CLI) | payer BC ==
[2017-04-26 12:41] LABS: URINE APPEARANCE CLEAR (CLEAR); URINE BILIRUBIN NEG (NEG); URINE COLOR DK YELLOW; URINE EPITHELIAL CELL AUTO >30 /lpf (0-5); URINE NITRITE NEG (NEG); URINE SPECIFIC GRAVITY 1.029 (1.000-1.030); UROBILINOGEN NEG (NEG); ZZUR CULT IF INDIC CLEAN CATCH NO
[2017-04-26 12:42] LABS: BASO % 0.5 %; BASO ABS # 0.04 K/uL (0-0.2); COMPLETE YES; IG% 0.2 %; LYMPH % 28.3 %; LYMPH ABS # 2.38 K/uL (1.2-3.4); MEAN CELL VOLUME 98.3 fL (80-100); MEAN CORPUSCULAR HEMOGLOBIN 32.4 pg (25-34); MEAN PLATELET VOLUME 10.5 fL (7.4-10.4); MONO % 7.6 %; NEUT % 61.4 %; PLATELET COUNT 315 K/uL (130-400); RED BLOOD COUNT 4.07 M/uL (4.2-5.4); WHITE BLOOD COUNT 8.41 K/uL (4.8-10.8)
[2017-04-26 12:44] LABS: MANUAL MICROSCOPIC REQUIRED? NO; REVIEW REQ? NO
[2017-04-26 12:45] LABS: ALT/SGPT 22 U/L (12-78); AST/SGOT 18 U/L (15-37); BLOOD UREA NITROGEN 17 mg/dl (7-18); BUN/CREATININE RATIO 19.4 (10-20); CALCIUM 9.4 mg/dl (8.5-10.1); CARBON DIOXIDE 24 mmol/L (21-32); CHLORIDE 106 mmol/L (98-107); CREATININE 0.87 mg/dl (0.60-1.20); GLUCOSE 113 mg/dl (70-99); POTASSIUM 4.4 mmol/L (3.5-5.1); SODIUM 136 mmol/L (136-145)
[2017-04-26 12:47] LABS: ALB/GLOB RATIO 1.1 (0.9-2); ALKALINE PHOSPHATASE 66 U/L (45-117)
[2017-04-26 13:25] LABS: RATIO 7.5 mcg/mg (0-30.0)
[2017-04-26 13:44] LABS: ESTIMATED AVERAGE GLUCOSE 154 mg/dl; HA1C FLAG Normal (Normal)
== END | disposition home or self-care (01) ==
LOC: C.LABBFT 09:54
PROVIDERS: ATTEND Physician Assistant Medical
DX: D72.829 Elevated white blood cell count, unspecified (principal); N39.0 Urinary tract infection, site not specified; E11.8 Type 2 diabetes mellitus with unspecified complications; E55.9 Vitamin D deficiency, unspecified

== ENCOUNTER → 2017-05-21 | Outpatient (CLI) | payer BC ==
[~2017-05-21] MED LIST changes: -PRED20TA PO
[2017-05-21 14:30] LABS: CHOLESTEROL/HDL RATIO 2.7; THYROID STIMULATING HORMONE 6.36 uIu/ml (0.300-4.500)
== END | disposition home or self-care (01) ==
LOC: C.LABBFT 07:52
PROVIDERS: ATTEND Physician Assistant Medical
DX: E78.5 Hyperlipidemia, unspecified (principal); E03.9 Hypothyroidism, unspecified

== ENCOUNTER → 2017-05-24 | Outpatient (CLI) | payer BC ==
[2017-05-24 17:42] LABS: URINE APPEARANCE CLEAR (CLEAR); URINE BILIRUBIN NEG (NEG); URINE COLOR DK YELLOW; URINE EPITHELIAL CELL AUTO >30 /lpf (0-5); URINE NITRITE POS (NEG); UROBILINOGEN NEG (NEG); ZZUR CULT IF INDIC CLEAN CATCH YES
[2017-05-24 17:45] LABS: MANUAL MICROSCOPIC REQUIRED? NO; REVIEW REQ? NO
== END | disposition home or self-care (01) ==
LOC: C.LABSPEC 17:20
PROVIDERS: ATTEND Internal Medicine
DX: R39.9 Unspecified symptoms and signs involving the genitourinary system (principal)

== ENCOUNTER → 2017-09-20 | Outpatient (CLI) | payer BC ==
[2017-09-20 13:03] LABS: HEMOGLOBIN A1C 6.7 % (4.5-5.6)
== END | disposition home or self-care (01) ==
LOC: C.LABBFT 10:45
PROVIDERS: ATTEND Internal Medicine
DX: E03.9 Hypothyroidism, unspecified (principal); E11.8 Type 2 diabetes mellitus with unspecified complications

== ENCOUNTER 2018-09-16 05:57 | Inpatient (IN) ==
--- NOTE | 2018-09-03 08:54 | PAT Medication Instructions ---
Medication Instructions Date of Service September 03, 2018 Home Medications albuterol sulfate 1 puff INHALATION Q6H PRN ascorbic acid (vitamin C) 500 mg PO HS budesonide-formoterol [Symbicort] 2 puff INHALATION BID cholecalciferol (vitamin D3) 4,000 unit PO BID clopidogrel 75 mg PO QAM coQ10 (ubiquinol) 200 mg PO QPM glimepiride 1 mg PO BID levothyroxine 100 mcg PO QAM lisinopril 2.5 mg PO QAM simvastatin 40 mg PO HS sitagliptin [Januvia] 100 mg PO QAM [PreserVision AREDS-2] vit C,G-Wc-gvdcc-lutein-zeaxan 1 tab PO BID ASK your prescriber and surgeon clopidogrel 75 mg PO QAM STOP taking 2 weeks before surgery (or as soon as possible if surgery is within 2 weeks) coQ10 (ubiquinol) 200 mg PO QPM [PreserVision AREDS-2] vit C,L-Tc-tuiwk-lutein-zeaxan 1 tab PO BID DO NOT take the morning of surgery cholecalciferol (vitamin D3) 4,000 unit PO BID glimepiride 1 mg PO BID lisinopril 2.5 mg PO QAM sitagliptin [Januvia] 100 mg PO QAM Take morning of surgery With a small sip of water, OTHERWISE NOTHING TO EAT OR DRINK AFTER MIDNIGHT: albuterol sulfate 1 puff INHALATION Q6H PRN (use if needed; please bring with you to hospital day of surgery if possible) budesonide-formoterol [Symbicort] 2 puff INHALATION BID levothyroxine 100 mcg PO QAM Take evening before surgery albuterol sulfate 1 puff INHALATION Q6H PRN (if needed) ascorbic acid (vitamin C) 500 mg PO HS budesonide-formoterol [Symbicort] 2 puff INHALATION BID cholecalciferol (vitamin D3) 4,000 unit PO BID glimepiride 1 mg PO BID simvastatin 40 mg PO HS Other Notes If you have any questions please call us at [phone] or [phone] or [phone] or [phone]
--- NOTE | 2018-09-03 11:56 | Anesthesiology Consultation ---
Date of Service September 03, 2018 Assessment & Plan (1) Encounter for pre-operative examination: - Plavix instructions per surgeon/prescriber. - Check BSG AM DOS - PCP= 08/01/18= PCP feels that given patient's age, A1C is at goal ("around 7.5"). Most recent hgba1c on 07/26/18 was 7.4%. Diabetic regimen dosing adjusted. Chart Review Chart Review: Acceptable Risk for Surgery and Patient seen in Pre Admission Testing Teaching & Discussion Pre-Anesthesia Teaching/Discussion Notes: Instructed NPO after midnight before surgery,except medications with 15 cc of water. Medication instructions provided according to the PAT guidelines. History Surgery Operation Date: 09/16/18 07:30 Proposed Procedures p L4-L5 Laminectomy - Renan Serrano DO Height/Weight Height: 5 ft 6 in Weight: 62.8 kg Allergies Allergy/AdvReac Type Severity Reaction Status Date / Time metformin AdvReac Intermediate NAUSEA AND Verified 08/28/18 10:35 DIARRHEA varenicline AdvReac Unknown DEPRESSION, Verified 08/28/18 10:35 BAD DREAMS Medications Home Medications Medication Instructions Recorded Confirmed Last Taken albuterol sulfate 1 puff INHALATION Q6H PRN 08/28/18 08/28/18 Unknown ascorbic acid (vitamin C) 500 mg PO HS 08/28/18 08/28/18 Unknown budesonide-formoterol [Symbicort] 2 puff INHALATION BID 08/28/18 08/28/18 Unknown cholecalciferol (vitamin D3) 4,000 unit PO BID 08/28/18 08/28/18 Unknown [Vitamin D3] clopidogrel 75 mg PO QAM 08/28/18 08/28/18 Unknown coQ10 (ubiquinol) 200 mg PO QPM 08/28/18 08/28/18 Unknown glimepiride 1 mg PO BID 08/28/18 08/28/18 Unknown levothyroxine 100 mcg PO QAM 08/28/18 08/28/18 Unknown lisinopril 2.5 mg PO QAM 08/28/18 08/28/18 Unknown simvastatin 40 mg PO HS 08/28/18 08/28/18 Unknown sitagliptin [Januvia] 100 mg PO QAM 08/28/18 08/28/18 Unknown vit C,G-Oi-ruqxd-lutein-zeaxan 1 tab PO BID 08/28/18 08/28/18 Unknown [PreserVision AREDS-2] Past Medical History Medical History Chronic back pain RLE/HIP RADIATION Chronic obstructive pulmonary disease STABLE Diabetes mellitus, type 2 NIDDM Diverticular disease Hyperlipidemia Hypertension Hypothyroidism Right foot drop Stroke 10/2017- RESIDUAL RIGHT SIDED WEAKNESS REMAINS; ON PLAVIX Past Surgical History Surgical History History of augmentation of both breasts History of back surgery History of bilateral tubal ligation Past Anesthesia History No Hx of Anesthesia Complications and No Family Hx of Anesthesia Complications History of PONV No Motion Sickness Screening History of Motion Sickness: No Social History Smoking Status: Current every day smoker tobacco type: cigarettes Smoking cigarettes per day: 1/3 PPD (TRYING TO QUIT); TOTAL USE X 50+ YEARS Do You Dip or Chew Tobacco: No Hx Alcohol Use: No Hx Substance Use: No Exercise / Class Metabolic Activity III < 4 Walking/Shop/Light housework Review of Systems Patient denies chest pain, shortness of breath, cough, wheezing, palpitations. Physical Exam Vital Signs VITALS BP 117/54 P 56 TEMP 98.2 SP02 96%RA RESP 18 PHYSICAL Mildly decreased cervical extension. Full TMJ range of motion. TMD 3 finger breaths Mallampati Score 3 Dentition: full dentures upper/lower; edentulous Lungs: clear throughout to auscultation Cardiac: regular rate and rhythm, no murmurs noted Spine: normal Carotid arteries: negative bruit Extremities: no edema Testing Electrocardiogram Date: 11/06/17 NSR at 62bpm. iRBBB. NS ST/TWA. Chest X-Ray Date: 05/07/18 NAD. Calcified breast enlargement. Echocardiogram Date: 11/05/17 EF 60-65%. No RWMA. Grade I DD. No significant valvular disease. Stress Test Date: 12/02/13 Type: DSE Negative stress ECHO/EKG for ischemia at 102% MPHR. EF 70-75%. Mild MR. RVSP 34mmhg. Mild MR. Other Testing Carotid U/S= 11/05/17= B/L antegrade flow. No sonographic evidence of hemodynamically significant stenosis B/L carotids. Laboratory Results 09/03/18 12:26 09/03/18 12:26 PT 10.3 Seconds (9.0-12.0) 09/03/18 12: INR 1.0 (0.9-1.1) 09/03/18 12: APTT 24.0 Seconds (21.0-31.0) 09/03/18 12:26 07/26/18 HGBA1C 7.4% Surgeon made aware of elevated hgba1c/glucose
[2018-09-03 14:37] LABS: Basophils # (auto) 0.01 K/uL (0-0.2); Basophils % (auto) 0.1 %; Eosinophils # (auto) 0.08 K/uL (0-0.5); Eosinophils % (auto) 0.8 %; Hematocrit (blood only) 40.8 % (37-47); Hemoglobin 13.6 g/dL (12.0-16.0); Immature Granulocytes # (auto) 0.03 K/uL (0.00-0.02); Immature Granulocytes % (auto) 0.3 %; Lymphocytes # (auto) 2.08 K/uL (1.2-3.4); Lymphocytes % (auto) 21.1 %; Mean Corpuscular Hgb Conc 33.3 g/dL (32-36); Mean Corpuscular Volume 99.5 fL (80-100); Mean Platelet Volume 10.4 fL (7.4-10.4); Monocytes # (auto) 0.69 K/uL (0.11-0.59); Neutrophils # (auto) 6.98 K/uL (1.4-6.5); Neutrophils % (auto) 70.7 %; Platelet Count 259 K/uL (130-400); RDW Coefficient of Variation 12.9 % (11.5-14.5); RDW Standard Deviation 47.1 fL (36.4-46.3); White Blood Count 9.87 K/uL (4.8-10.8)
[2018-09-03 14:41] LABS: Partial Thromboplastin Ratio 0.9; Prothrombin Time 10.3 Seconds (9.0-12.0)
[2018-09-03 14:58] LABS: BUN Creatinine Ratio 18.4 (10-20); Calcium 9.1 mg/dl (8.5-10.1); Creatinine Clr Calc Pharmacy 66.8 ml/min; Est GFR (African American) 98.6; Potassium 4.2 mmol/L (3.5-5.1)
--- NOTE | 2018-09-13 12:13 | History and Physical Report ---
DATE OF ADMISSION: 09/16/2018 She is having spinal stenosis surgery, lumbar spine laminectomy L4-L5. She has failed conservative care. She has back and lower extremity difficulty, progressive weakness. PAST MEDICAL HISTORY: Diabetes, high cholesterol. PAST SURGICAL HISTORY: Back surgery 30 years ago. She is and 4 children. ALLERGIES: None. SOCIAL HISTORY: Is a smoker, very active lifestyle, 4 grown children. REVIEW OF SYSTEMS: No fever, sweats, chills. Ear, nose and throat negative. Denies chest pain, palpitations. Denies asthma, wheezing, shortness of breath. No nausea, vomiting. No urgency, frequency. She has numbness, tingling and weakness. MEDICATIONS: Glipizide, Januvia, Zocor, aspirin, levothyroxine. PHYSICAL EXAMINATION: GENERAL: She is 5' 5", 140, in moderate distress. VITAL SIGNS: Blood pressure 130/80, pulse 80, respiration 16. CARDIAC: Normal S1, S2, no S3. LUNGS: Clear to auscultation. No rales, rhonchi, wheezing. ABDOMEN: Soft, nontender, bowel sounds present. NEUROLOGIC: She has some decreased range of motion, pain with percussion. Weakness of dorsiflexion bilaterally. IMPRESSION: Severe spinal stenosis lumbar spine. PLAN: Laminectomy L4-L5 lumbar spine.
[2018-09-16] MEDS ORDERED: CEFAZOLIN 2000MG 2,000 MG/15 ML SYR IV SCH (06:00)
[2018-09-16] MEDS ORDERED: LR 15ML/HR IV SCH (06:00)
[2018-09-16] MEDS ORDERED: SODIUM CHLORIDE 0.9% 1,000 ML IV SCH (06:00)
[2018-09-16] MEDS ORDERED: HYDROmorphone INJ 1 MG/ML SYRINGE IV PRN ×3 (06:47→09:44)
[2018-09-16] MEDS ORDERED: ePHEDrine sulfate 50 MG/ML AMP IV PRN (06:47)
[2018-09-16] MEDS ORDERED: ATROPINE SULFATE 0.1 MG/ML 10ML SYR IV PRN (06:47)
[2018-09-16] MEDS ORDERED: PHENYLEPHRINE 100MCG/ML 5ML SYR IV PRN (06:47)
[2018-09-16] MEDS ORDERED: ONDANSETRON INJ 2 MG/ML 2 ML VIAL IV PRN (06:47)
[2018-09-16] MEDS ORDERED: MIDAZOLAM HCL 1 MG/ML 2ML VIAL ONE (06:53)
[2018-09-16] MEDS ORDERED: fentaNYL citrate 100 MCG/2 ML VIAL ONE (06:53)
[2018-09-16] MEDS ORDERED: ONDANSETRON INJ 2 MG/ML 2 ML VIAL ONE ×2 (06:53→17:47)
[2018-09-16] MEDS ORDERED: LIDOCAINE HCL 2% 2 ML VIAL/AMP(20MG/ML) INFIL ONE (06:53)
[2018-09-16] MEDS ORDERED: ROCURONIUM BROMIDE 10 MG/ML 5 ML VIAL ONE (06:53)
[2018-09-16] MEDS ORDERED: PROPOFOL IV EMULSION 10 MG/ML 20 ML VIAL IV ONE (06:53)
[2018-09-16] MEDS ORDERED: VANCOMYCIN HCL 1000MG/20ML VIAL ONE (06:57)
[2018-09-16] MEDS ORDERED: BUPIVACAINE/EPINEPHRINE 0.5% MPF 1:200,000 30 ML VIAL ONE (06:57)
[2018-09-16] MEDS ORDERED: GELATIN SPONGE SZ 100 ONE (06:58)
[2018-09-16] MEDS ORDERED: THROMBIN FOR SOLN 20000 UNIT KIT ONE ×2 (06:58→06:59)
[2018-09-16] MEDS ORDERED: BACITRACIN INJ 50,000 UNIT VIAL ONE (06:58)
--- NOTE | 2018-09-16 07:21 | History & Physical Bridge Note ---
Date of Service September 16, 2018 History & Physical Bridge Note I have examined the patient, reviewed the History & Physical and in the interval since the performance of the History & Physical I have noted the following changes of clinical significance: no changes noted
[2018-09-16] MEDS ORDERED: PHENYLEPHRINE HCL 10 MG/ML VIAL ONE (08:23)
[2018-09-16] MEDS ORDERED: GLYCOPYRROLATE 0.2 MG/ML VIAL ONE (08:23)
--- NOTE | 2018-09-16 08:49 | Post Operative Brief Note ---
Immediate Post Op Note v1 Date of Surgery September 16, 2018 Pre & Post Diagnosis Operation Date: 09/16/18 07:30 Pre-Op Diagnosis: Spinal Stenosis Post-Op Diagnosis: Spinal Stenosis Procedure Operation Date: 09/16/18 07:30 Actual Procedures p L4-L5 Laminectomy(Not Applicable) - Renan Serrano DO Surgeon Renan Serrano DO Dialysis Clinical Manager nimisha Estimated Blood Loss 50 Findings Consistent with Post-Op Diagnosis Drains Li Catheter and Hemovac Drain
[2018-09-16] MEDS: fentaNYL citrate 100 MCG/2 ML VIAL IV PRN ×3 (09:03→09:13)
[2018-09-16] MEDS ORDERED: OXYCODONE HCL IR 5 MG TAB (IMMEDIATE RELEASE) PO PRN (09:44)
[2018-09-16] MEDS ORDERED: MAGNESIUM HYDROXIDE SUSP 30 ML UDC PO PRN (09:44)
[2018-09-16] MEDS ORDERED: ALBUTEROL HFA 8 GM INHALER INH PRN (09:44)
--- NOTE | 2018-09-16 10:32 | Anesthesiology Progress Note ---
Date of Service September 16, 2018 Anesthesia Post Procedure Vital Signs Vital Signs: Temp Pulse Pulse Resp BP Pulse Ox 09/16/18 09:46 36.9 C 65 18 147/76 H 97 09/16/18 09:35 36.3 C L 59 L 16 147/69 H 98 09/16/18 09:25 63 16 146/55 H 97 09/16/18 09:15 58 L 16 168/61 H 100 09/16/18 09:05 63 16 173/74 H 99 09/16/18 08:58 36.4 C L 66 16 173/72 H 99 09/16/18 06:45 36.6 C 62 20 153/66 H 94 Pain Intensity Back: Pain Intensity: 7 Notes Mental Status: alert / awake / arousable Patient Amnestic to Procedure: Yes Nausea / Vomiting: adequately controlled Pain: adequately controlled Airway Patency, RR, SpO2: stable & adequate BP & HR: stable & adequate Hydration State: stable & adequate Anesthetic Complications: no major complications apparent
[2018-09-16] MEDS: OXYCODONE HCL IR 5 MG TAB (IMMEDIATE RELEASE) PO PRN ×2 (10:33→15:53)
--- NOTE | 2018-09-16 10:38 | Fluoroscopy Report ---
FL spine 1V any level CLINICAL HISTORY: 78 years-old Female presenting with SPINE. TECHNIQUE: 1 fluoroscopic image(s) recorded as part of an intraoperative procedure. COMPARISON: None. FINDINGS/IMPRESSION: Surgical instrumentation projects over the level of L5. Please see surgical report for further details. Fluoroscopy dosage (mGy): 0.58. Fluoroscopy time: 1.5 seconds. Number or time of high level fluoroscopy (HLF), digital spot, or digital subtraction images: 0. Electronically signed by: Sd Wright M.D. 09/16/2018 10:37 AM
--- NOTE | 2018-09-16 10:43 | Operative Report ---
DATE OF OPERATION: 09/16/2018 PREOPERATIVE DIAGNOSIS: Spinal stenosis, L4 and L5, 2-level stenosis. POSTOPERATIVE DIAGNOSIS: Spinal stenosis, L4 and L5, 2-level stenosis. PROCEDURE: Included a 2-level laminectomy L4-L5 lumbar spine, foraminotomy, partial facetectomy. SURGEON: Renan Serrano DO DYE LINE OPERATOR: Matthew Woodall PA-C. COMPLICATIONS: Zero. BLOOD LOSS: Less than 50. DESCRIPTION OF PROCEDURE: The patient was taken to the operating room, prepped and draped sterile. We made a skin incision, fascial incision, dissecting the soft tissue. We took off the entire lamina 5, entire lamina 4, foraminotomies, which would have covered the 5, the S1-5 and 4 nerve roots bilaterally. This is a full 2-level laminectomy. The nerve roots were free of fracture. There were no complications. No issues. We irrigated and closed in layers with 1 Vicryl, 2-0 and 3-0 nylon over a Hemovac drain and over vancomycin powder. Sterile dressing applied. The patient extubated to PACU stable. No apparent complications. I attest to the content of the Intraoperative Record and any orders documented therein. Any exception s are noted below.
[2018-09-16] MEDS: CEROVITE ADV FORMULA TAB PO SCH ×3 (11:08→21:12)
[2018-09-16] MEDS: SODIUM CHLORIDE 0.9% 1000ML 1,000 ML IV SCH ×2 (11:08→22:00)
[2018-09-16] MEDS: BUDESONIDE/FORMOTEROL FUMARATE 160/4.5 60 PUFFS/INHALER INH SCH ×2 (11:08→21:09)
[2018-09-16] MEDS: CHOLECALCIFEROL 1,000 UNITS TAB PO SCH ×3 (11:08→21:12)
[2018-09-16] MEDS: LISINOPRIL 2.5 MG TAB PO SCH (11:09)
[2018-09-16] MEDS: LEVOTHYROXINE SODIUM 100 MCG TABLET PO SCH (11:10)
[2018-09-16] MEDS ORDERED: SITAGLIPTIN PHOSPHATE 100 MG TAB PO SCH (12:00)
[2018-09-16] MEDS: GLIMEPIRIDE 2 MG TAB PO SCH ×2 (13:47→18:19)
[2018-09-16] MEDS: CLOPIDOGREL BISULFATE 75 MG TAB PO SCH (13:47)
[2018-09-16] MEDS: ACETAMINOPHEN 1,000 MG/100 ML VIAL IV PRN (13:50)
[2018-09-16] MEDS: CEFAZOLIN 2000MG 2,000 MG/15 ML SYR IV SCH ×2 (15:03→22:00)
[2018-09-16] MEDS ORDERED: Nursing to Pharmacy Communication ONE (16:20)
[2018-09-16] MEDS ORDERED: PHARMACY GLYCEMIC MGMT CONSULT PRN (16:35)
[2018-09-16] MEDS: INSULIN ASPART 100 UNITS/ML 3 ML PEN SC SCH ×2 (18:18→21:07)
[2018-09-16] MEDS ORDERED: NON-FORMULARY MEDICATION (Coq10 (Ubiquinol) 200 MG) PO SCH (21:00)
[2018-09-16] MEDS: INSULIN GLARGINE SOLOSTAR 100 UNITS/ML 3 ML PEN SC SCH ×2 (21:07→21:16)
[2018-09-16] MEDS: DOCUSATE SODIUM 100 MG CAP PO SCH (21:08)
[2018-09-16] MEDS: ASCORBIC ACID 500 MG TAB PO SCH ×2 (21:09→21:12)
[2018-09-16] MEDS: SIMVASTATIN 40 MG TAB PO SCH (21:10)
[2018-09-16] MEDS ORDERED: METOCLOPRAMIDE HCL INJ 5 MG/ML 2 ML VIAL IV PRN (22:12)
[2018-09-17] MEDS: ACETAMINOPHEN 1,000 MG/100 ML VIAL IV PRN ×3 (03:48→23:37)
[2018-09-17] MEDS: CEFAZOLIN 2000MG 2,000 MG/15 ML SYR IV SCH (06:09)
[2018-09-17] MEDS: LEVOTHYROXINE SODIUM 100 MCG TABLET PO SCH (06:09)
--- NOTE | 2018-09-17 07:10 | Anesthesiology Progress Note ---
Date of Service September 17, 2018 Anesthesia Post Procedure Vital Signs Vital Signs: Temp Pulse Pulse Resp BP BP Pulse Ox 09/17/18 05:00 37.4 C 09/17/18 03:33 38.3 C H 71 15 149/79 H 97 09/16/18 22:58 37.4 C 68 14 132/65 94 09/16/18 19:00 36.8 C 93 H 17 127/68 93 09/16/18 15:50 95 09/16/18 14:59 37.0 C 59 L 17 111/70 97 09/16/18 12:41 36.7 C 59 L 16 145/70 H 100 09/16/18 11:47 59 L 16 131/71 92 09/16/18 10:41 36.4 C L 63 18 155/77 H 98 09/16/18 10:15 62 20 144/69 H 97 09/16/18 09:46 36.9 C 65 18 147/76 H 97 09/16/18 09:35 36.3 C L 59 L 16 147/69 H 98 09/16/18 09:25 63 16 146/55 H 97 09/16/18 09:15 58 L 16 168/61 H 100 09/16/18 09:05 63 16 173/74 H 99 09/16/18 08:58 36.4 C L 66 16 173/72 H 99 Notes Mental Status: alert / awake / arousable Patient Amnestic to Procedure: Yes Nausea / Vomiting: adequately controlled Pain: adequately controlled Airway Patency, RR, SpO2: stable & adequate BP & HR: stable & adequate Hydration State: stable & adequate Anesthetic Complications: no major complications apparent and Pt Satisfied with anesthetic care
--- NOTE | 2018-09-17 08:11 | Progress Note ---
DATE: 09/17/2018 SUBJECTIVE: [place] is doing poorly on today's date, nausea, vomiting, aches and pains, myalgias. Flu-like symptoms. REVIEW OF SYSTEMS: No fever, but does have a slight temperature elevation. OBJECTIVE: VITAL SIGNS: Blood pressure normal, temperature slightly elevated, O2 sat normal, on nasal cannula. ABDOMEN: Soft, nontender. Wound protected. Li catheter in place. ASSESSMENT: Lumbar spine surgery, fairly rigorous surgery done yesterday along with flu-like symptoms along with other medical problems including diabetes, hypertension, chronic obstructive pulmonary disease, and prior stroke. PLAN: Includes IV hydration. We will keep her n.p.o. We will get flu management involved. She does have medicine on board for her medical well being. Hopefully, get her squared away in next 24-48 hours. Hopefully, get her discharged home by Sunday or of this week.
[2018-09-17] MEDS: DOCUSATE SODIUM 100 MG CAP PO SCH ×2 (08:30→21:09)
[2018-09-17] MEDS: CEROVITE ADV FORMULA TAB PO SCH ×2 (08:30→21:16)
[2018-09-17] MEDS: LACTATED RINGER'S 1,000 ML IV SCH ×3 (08:30→23:37)
[2018-09-17] MEDS: CLOPIDOGREL BISULFATE 75 MG TAB PO SCH (08:31)
[2018-09-17] MEDS: CHOLECALCIFEROL 1,000 UNITS TAB PO SCH ×2 (08:31→21:16)
[2018-09-17] MEDS: BUDESONIDE/FORMOTEROL FUMARATE 160/4.5 60 PUFFS/INHALER INH SCH ×2 (08:31→21:16)
[2018-09-17] MEDS: LISINOPRIL 2.5 MG TAB PO SCH (08:32)
[2018-09-17] MEDS: INSULIN GLARGINE SOLOSTAR 100 UNITS/ML 3 ML PEN SC SCH (08:38)
[2018-09-17] MEDS: INSULIN ASPART 100 UNITS/ML 3 ML PEN SC SCH ×4 (08:39→21:42)
[2018-09-17 13:35] LABS: Basophils # (auto) 0.02 K/uL (0-0.2); Basophils % (auto) 0.1 %; Eosinophils # (auto) 0.01 K/uL (0-0.5); Eosinophils % (auto) 0.1 %; Hematocrit (blood only) 33.7 % (37-47); Hemoglobin 11.3 g/dL (12.0-16.0); Immature Granulocytes # (auto) 0.07 K/uL (0.00-0.02); Immature Granulocytes % (auto) 0.4 %; Lymphocytes # (auto) 2.21 K/uL (1.2-3.4); Lymphocytes % (auto) 12.9 %; Mean Corpuscular Hgb Conc 33.5 g/dL (32-36); Mean Corpuscular Volume 97.1 fL (80-100); Mean Platelet Volume 9.3 fL (7.4-10.4); Monocytes # (auto) 1.56 K/uL (0.11-0.59); Monocytes % (auto) 9.1 %; Neutrophils # (auto) 13.32 K/uL (1.4-6.5); Neutrophils % (auto) 77.4 %; Platelet Count 239 K/uL (130-400); RDW Coefficient of Variation 12.7 % (11.5-14.5); RDW Standard Deviation 44.6 fL (36.4-46.3); Red Blood Count 3.47 M/uL (4.2-5.4); White Blood Count 17.19 K/uL (4.8-10.8)
[2018-09-17 13:49] LABS: Influenza A virus by PCR Neg for Influ A (Neg); Influenza B virus by PCR Neg for Influ B (Neg)
[2018-09-17 13:57] LABS: BUN Creatinine Ratio 11.5 (10-20); Calcium 8.9 mg/dl (8.5-10.1); Creatinine Clr Calc Pharmacy 80.4 ml/min; Est GFR (African American) 104.8; Est GFR (Non-African American) 90.4; Potassium 3.8 mmol/L (3.5-5.1)
--- NOTE | 2018-09-17 15:01 | Consultation ---
Date of Consultation September 17, 2018 Assessment & Plan (1) Post-operative state: L4-L5 laminectomy 09/17 Monitor for post op acute blood loss - hgb was 13.3, now 11 Repeat CBC, prp am Randolph regimen, DVT proph, pain control per pcp (2) Metabolic encephalopathy: Patient is lethargic, has leukocytosis, was febrile this morning, with one episode of vomiting. She did have contact over the weekend with grandchildren who had a recent stomach bug. - stat CT head - U/A, BC - last narcotic intake was around 4 am, no pinpoint pupils or decrease in respiratory status to indicate narcotic overdose - Flu PCR is negative (3) COPD (chronic obstructive pulmonary disease): continue home inhalers (4) DMII (diabetes mellitus, type 2): blood sugars stable - continue sitagliptin, glimeperide, ss BSGs ac & hs History of Present Illness Attending Physician: Renan Serrano, DO History of Present Illness Consulted by surgery as patient was nauseas, febrile, with aches and chills. She is lethargic but able to answer some questions, knows she is in the hospital but is unable to follow more than a handful of commands. Her daughter lives across the street from her and is her frequent fast food supervisor. She did mention that the patient's pcp has expressed concern for underlying dementia but that she has never seen her like this, she is able to live on her own. Son is the POA Pmhx: DMII, CVA last year with right side mild hemiparesis, fall with fractured ribs, hypothyroid, COPD Social: lives alone but with frequent stays with grandchildren and also her daughter lives across the street, smoker, no alcohol Allergies Allergy/AdvReac Type Severity Reaction Status Date / Time metformin AdvReac Intermediate NAUSEA AND Verified 09/16/18 06:38 DIARRHEA varenicline AdvReac Unknown DEPRESSION, Verified 09/16/18 06:38 BAD DREAMS Home Medications Home Medications Medication Instructions Recorded Confirmed Type albuterol sulfate 1 puff INHALATION Q6H PRN 08/28/18 09/16/18 History ascorbic acid (vitamin C) 500 mg PO HS 08/28/18 09/16/18 History budesonide-formoterol [Symbicort] 2 puff INHALATION BID 08/28/18 09/16/18 History cholecalciferol (vitamin D3) 4,000 unit PO BID 08/28/18 09/16/18 History [Vitamin D3] clopidogrel 75 mg PO QAM 08/28/18 09/16/18 History coQ10 (ubiquinol) 200 mg PO QPM 08/28/18 09/16/18 History glimepiride 1 mg PO BID 08/28/18 09/16/18 History levothyroxine 100 mcg PO QAM 08/28/18 09/16/18 History lisinopril 2.5 mg PO QAM 08/28/18 09/16/18 History simvastatin 40 mg PO HS 08/28/18 09/16/18 History sitagliptin [Januvia] 100 mg PO QAM 08/28/18 09/16/18 History vit C,U-Cl-exozk-lutein-zeaxan 1 tab PO BID 08/28/18 09/16/18 History [PreserVision AREDS-2] Patient History Social History Preferred Language: Persian Communication Ability: Effective 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 Beliefs That Will Affect Care: None Current Living Situation: Family Other Information That Helps Us Care for You: No Feels Safe at Home: Yes Safety Concerns: Feels Safe At This Time Smoking Status: Current every day smoker Hx Alcohol Use: No Hx Substance Use: No Review of Systems Patient is unable to give a review of systems Physical Exam Vital Signs (Past 24 Hours): Last Vital Signs Temp 37.1 C 09/17/18 07:23 Pulse 60 09/17/18 07:23 Resp 16 09/17/18 07:23 BP 120/66 09/17/18 07:23 Pulse Ox 99 09/17/18 07:23 Results & Data Laboratory Results Abnormal lab results 09/16/18 09/16/18 09/17/18 Range/Units 17:27 20:42 08:07 WBC (4.8-10.8) K/uL RBC (4.2-5.4) M/uL Hgb (12.0-16.0) g/dL Hct (37-47) % Immature Gran # (Auto) (0.00-0.02) K/uL Neut # (Auto) (1.4-6.5) K/uL [place] # (Auto) (0.11-0.59) K/uL BUN (7-18) mg/dl Creatinine (0.6-1.2) mg/dl Glucose (70-99) mg/dl POC Glucose 189 H 159 H 181 H (70-99) 09/17/18 09/17/18 09/17/18 Range/Units 11:56 13:25 13:25 WBC 17.19 H (4.8-10.8) K/uL RBC 3.47 L (4.2-5.4) M/uL Hgb 11.3 L (12.0-16.0) g/dL Hct 33.7 L (37-47) % Immature Gran # (Auto) 0.07 H (0.00-0.02) K/uL Neut # (Auto) 13.32 H (1.4-6.5) K/uL [place] # (Auto) 1.56 H (0.11-0.59) K/uL BUN 6 L (7-18) mg/dl Creatinine 0.54 L (0.6-1.2) mg/dl Glucose 151 H (70-99) mg/dl POC Glucose 158 H (70-99)
[2018-09-17 15:10] LABS: Appearance Urine Clear (Clear); Bilirubin Urine Negative (Negative); Blood Urine Negative (Negative); Color Urine Yellow; Glucose Urine UA Negative (Negative); Ketones Urine Trace (Negative); Leukocyte Esterase Urine Negative (Negative); Nitrite Urine Negative (Negative); Protein Urine Negative (Negative); Specific Gravity Urine 1.021 (1.000-1.030); Urobilinogen Urine Negative (Negative)
--- NOTE | 2018-09-17 15:43 | CT Scan Report ---
CT head/brain wo con CLINICAL HISTORY: 78 years-old Female with AMS. Acutely altered mental status TECHNIQUE: Multiple axial CT images of the head were obtained without contrast. A dose lowering tech nique was utilized adhering to the principles of ALARA. CT DOSE: 1277.12 mGycm COMPARISON: CT head 03/18/2018. FINDINGS: No acute intracranial hemorrhage, midline shift, intracranial mass, hydrocephalus, territorial ischem ia or abnormal extra-axial collection. Age-related involutional changes with extensive chronic microv ascular ischemic changes. Remote lacunar infarction of the left thalamus. Senescent calcifications of the lentiform nuclei. Study is mildly motion degraded. Cerebral vascular calcifications noted. The calvarium is intact. Mild mucosal thickening of the ethmoid air cells. Mastoid air cells and mid dle ear cavities are clear. Soft tissues and orbits are unremarkable. IMPRESSION: No acute intracranial abnormality. The above report was generated using voice recognition software. It may contain grammatical, syntax o r spelling errors. Electronically signed by: Pedro Palacios M.D. 09/17/2018 3:42 PM
--- NOTE | 2018-09-17 16:36 | Pharmacy Report ---
Glycemic Control Consultation - Date of Service September 17, 2018 - Scope Scope: Glycemic Pharmacist consulted by Dr Serrano on 09-16 for glycemic control and to write orders per [facility] inpatient glycemic control protocol - Objective Weight: 62.732 kg Accuchecks BSG (last 24hrs): 09/16/18 09/16/18 09/17/18 17:27 20:42 08:07 Glucose POC Glucose 189 H 159 H 181 H 09/17/18 09/17/18 11:56 13:25 Glucose 151 H POC Glucose 158 H Laboratory Data (last 24hrs): 09/17/18 13:25 Potassium 3.8 Carbon Dioxide 27 Anion Gap 4.0 Creatinine 0.54 L Est Cr Clr Drug Dosing 80.4 - Recent Pertinent Medications Outpatient Anti-diabetic Regimen: * glimeperide 1 mg daily, januvia 100 mg QAM * A1c = 7.4 % 07-26-18 Risk Factors for Insulin Resistance: * Steroids: none * Recent Surgery: s/p laminectomy 09/16 * Diet: T2DM - Assessment & Plan Assessment & Plan: ASSESSMENT: * 78 year old female now s/p laminectomy. Patient type 2 DM managed on only orals at home * S/P procedure patient not feeling well/flu like symptoms - no appetite reported per nurse and some N/V * Fasting BSG this am elevated at 181 mg/dL - Lantus dose of 10 units last evening was refused by the patient, will give 10 units this am * Will continue same CF/CR and trend PLAN FOR INPATIENT GLYCEMIC CONTROL: * Basal insulin * Lantus 10 Qam * Bolus insulin * NovoLog per scale ACHS or Q6hrs while NPO * Goal Range: Low 110 mg/dL - High 140 mg/dL * Correction Factor: 35 mg/dL/unit * Nutritional / Prandial insulin per carb ratio of 1 unit per 12 grams CHO consumed * Please note that the plan above was derived based on current level of insulin resistance and hospital stress. These recommendations are appropriate for inpatient admission only. Plan of care upon discharge will need to be reassessed to avoid potential outpatient hypo/hyperglycemia. Thank you.
[2018-09-17] MEDS: ONDANSETRON INJ 2 MG/ML 2 ML VIAL IV PRN (16:57)
--- NOTE | 2018-09-17 17:35 | XRay Report ---
SINGLE VIEW CHEST CLINICAL HISTORY: Fever. Change in mental status. FINDINGS: An AP, portable, upright chest radiograph is compared to study dated 05/07/2018 and correla vicente with chest CT dated 03/18/2018. The examination is significantly degraded by portable technique an d patient rotation. The cardiomediastinal silhouette is unremarkable, noting atherosclerotic calcifi cation of the thoracic aorta. Emphysema and chronic interstitial thickening are again noted. There is no airspace consolidation or large pleural effusion. No pneumothorax is seen. The skeletal structure s are osteopenic. The bony thorax is grossly intact. Calcified breast implants are noted. IMPRESSION: Emphysematous change with no acute cardiopulmonary abnormality. Electronically signed by: David Alford M.D. 09/17/2018 5:33 PM
--- NOTE | 2018-09-17 18:59 | Operative Report ---
DATE OF OPERATION: 09/16/2018 ADDENDUM This is a full 2-level laminectomy. The nerve roots were free of pressure. There were no apparent nerve root injury. There were no complications. We irrigated and closed in layers with Vicryl suture, 2-0 and 3-0 nylon over Hemovac drain and vancomycin powder. Sterile dressings applied. The patient was extubated to PACU stable. No apparent complications. Sponge and needle count correct at the close of the procedure. BLOOD LOSS: Less than 50 mL I attest to the content of the Intraoperative Record and any orders documented therein. Any exception s are noted below.
[2018-09-17] MEDS: SIMVASTATIN 40 MG TAB PO SCH (21:10)
[2018-09-17] MEDS: ASCORBIC ACID 500 MG TAB PO SCH (21:16)
[2018-09-18] MEDS: OXYCODONE HCL IR 5 MG TAB (IMMEDIATE RELEASE) PO PRN (02:07)
[2018-09-18] MEDS ORDERED: BISACODYL 5 MG TABEC PO PRN (06:00)
[2018-09-18] MEDS: LEVOTHYROXINE SODIUM 100 MCG TABLET PO SCH ×2 (06:20→06:26)
[2018-09-18 08:36] LABS: Basophils # (auto) 0.01 K/uL (0-0.2); Basophils % (auto) 0.1 %; Eosinophils # (auto) 0.05 K/uL (0-0.5); Eosinophils % (auto) 0.4 %; Hematocrit (blood only) 33.5 % (37-47); Immature Granulocytes # (auto) 0.05 K/uL (0.00-0.02); Immature Granulocytes % (auto) 0.4 %; Lymphocytes # (auto) 1.55 K/uL (1.2-3.4); Lymphocytes % (auto) 11.5 %; Mean Corpuscular Hgb Conc 32.8 g/dL (32-36); Mean Corpuscular Volume 97.4 fL (80-100); Mean Platelet Volume 9.9 fL (7.4-10.4); Monocytes # (auto) 1.28 K/uL (0.11-0.59); Monocytes % (auto) 9.5 %; Neutrophils # (auto) 10.52 K/uL (1.4-6.5); Neutrophils % (auto) 78.1 %; Platelet Count 217 K/uL (130-400); RDW Coefficient of Variation 12.5 % (11.5-14.5); RDW Standard Deviation 44.9 fL (36.4-46.3); Red Blood Count 3.44 M/uL (4.2-5.4); White Blood Count 13.46 K/uL (4.8-10.8)
[2018-09-18] MEDS: LACTATED RINGER'S 1,000 ML IV SCH (09:13)
[2018-09-18] MEDS: CLOPIDOGREL BISULFATE 75 MG TAB PO SCH (09:14)
[2018-09-18] MEDS: BUDESONIDE/FORMOTEROL FUMARATE 160/4.5 60 PUFFS/INHALER INH SCH ×2 (09:14→21:42)
[2018-09-18] MEDS: DOCUSATE SODIUM 100 MG CAP PO SCH ×2 (09:14→21:42)
[2018-09-18] MEDS: CEROVITE ADV FORMULA TAB PO SCH ×2 (09:14→21:42)
[2018-09-18] MEDS: LISINOPRIL 2.5 MG TAB PO SCH (09:15)
[2018-09-18] MEDS: CHOLECALCIFEROL 1,000 UNITS TAB PO SCH ×2 (09:15→21:43)
[2018-09-18] MEDS: TRAMADOL HCL 50 MG TABLET PO PRN (09:17)
[2018-09-18] MEDS: INSULIN GLARGINE SOLOSTAR 100 UNITS/ML 3 ML PEN SC SCH (09:18)
[2018-09-18] MEDS: INSULIN ASPART 100 UNITS/ML 3 ML PEN SC SCH ×4 (09:19→21:12)
[2018-09-18 09:24] LABS: Calcium 8.6 mg/dl (8.5-10.1); Creatinine Clr Calc Pharmacy 103.3 ml/min; Est GFR (African American) 113.8; Est GFR (Non-African American) 98.2; Potassium 3.8 mmol/L (3.5-5.1)
--- NOTE | 2018-09-18 10:29 | Progress Note ---
DATE: 09/18/2018 SUBJECTIVE: She is somewhat somnolent today. I think she has too many narcotics on board. She did ambulate yesterday. She is arousable. She has no fever, sweats, chills. Neurologically intact except for old CVA. IMPRESSION: 1. Status post lumbar spine decompression laminectomy, multiple levels for spinal stenosis. 2. Diabetes mellitus. 3. Also, metabolic encephalopathy secondary to the narcotics. PLAN: We will get her dressing changed today, up on her feet hopefully discharged home later today or tomorrow. I think she will stabilize. She does want to go home versus rehab.
--- NOTE | 2018-09-18 10:32 | Pharmacy Report ---
Pharmacy Glycemic Short Note 2 - Date of Service September 18, 2018 - Glycemic Short BSG Results (Last 24 hours): 09/17/18 09/17/18 09/17/18 11:56 13:25 16:50 Glucose 151 H POC Glucose 158 H 146 H 09/17/18 09/18/18 09/18/18 20:35 08:02 08:14 Glucose 128 H POC Glucose 129 H 150 H ASSESSMENT: * 78 year old female now s/p laminectomy. Patient type 2 DM managed on only orals at home * S/P procedure patient not feeling well/flu like symptoms - no appetite reported per nurse and some N/V * Fasting BSG this am elevated at 181 mg/dL - Lantus dose of 10 units last evening was refused by the patient, will give 10 units this am * Will continue same CF/CR and trend 4-3: * Patient now POD 2 of laminectomy - patient received total of 15 units of insulin yesterday, of which 10 units were basal * Fasting this am 128 mg/dL - patient's diet has been not very good and BSGs trending down yesterday; will decrease Lantus to 8 units daily for this morning * BSGs yesterday 158-146-129 mg/dL - continue same CF/CR PLAN FOR INPATIENT GLYCEMIC CONTROL: * Basal insulin - decrease * Lantus 8 units Qam * Bolus insulin - no change * NovoLog per scale ACHS or Q6hrs while NPO * Goal Range: Low 110 mg/dL - High 140 mg/dL * Correction Factor: 35 mg/dL/unit * Nutritional / Prandial insulin per carb ratio of 1 unit per 12 grams CHO consumed
[2018-09-18 14:32] LABS: HCO3 ABG 26 mmol/L (19-24); Oxygen Saturation ABG 94.8 % (90-95); PCO2 ABG 40 mmHg (35-46); PO2 ABG 75 mm/Hg (80-95); pH ABG 7.43 (7.35-7.45)
[2018-09-18 14:33] LABS: Allen Test Pos (Pos)
[2018-09-18 15:05] LABS: Albumin Level 2.6 gm/dl (3.4-5.0); Total Protein 6.4 gm/dl (6.4-8.2)
[2018-09-18 16:21] LABS: Bilirubin Direct 0.3 mg/dl (0-0.2)
--- NOTE | 2018-09-18 16:21 | Hospitalist Progress Note ---
Date of Service September 18, 2018 Assessment & Plan (1) Post-operative state: L4-L5 laminectomy 09/17 Monitor for post op acute blood loss - hgb was 13.3, now 11 Repeat CBC, prp am Bowel regimen, DVT proph, pain control per pcp (2) Metabolic encephalopathy: Patient is lethargic with some improvement today, febrile overnight but not again during the day, no further vomiting - leukocytosis spontaneously decreased today from 17 to 13. - She did have contact over the weekend with grandchildren who had a recent stomach bug. - CT head was negative for acute, CXR negative for acute, U/A without apparent infection - BC pending, procalcitonin wnl, LFTs normal except slightly elevated direct bili, ammonia wnl - Flu PCR is negative (3) COPD (chronic obstructive pulmonary disease): continue home inhalers (4) DMII (diabetes mellitus, type 2): blood sugars stable - continue sitagliptin, glimeperide, ss BSGs ac & hs Subjective Ms. Mckenna's mental status has improved somewhat, she is able to answer questions, however she remains very lethargic. Febrile overnight but not again during the day, no further vomiting. I did spend time in the room with the two sons and daughter answering questions and updating them on their mother's condition. Review of Systems All systems reviewed & are unremarkable except as noted in HPI & below Physical Exam Vital Signs (Past 24 Hours): Last Vital Signs Temp 36.6 C 09/18/18 15:43 Pulse 76 09/18/18 15:43 Resp 17 09/18/18 15:43 BP 173/71 H 09/18/18 15:43 Pulse Ox 97 09/18/18 15:43 Physical Exam: General: no distress Eyes: normal inspection, PERLL Respiratory: chest non tender, clear to auscultation, normal breath sounds, no respiratory distress, no accessory muscle use Cardiac: regular rate and rhythm, no rub or gallop, no murmur, no edema, no jvd GI/: active bowel sounds, no abd pain or tenderness, soft, non distended Extremities: normal range of motion, normal strength, non tender Neuro/Psych: alert and oriented x 3, normal mood and affect Skin: normal color, dry Results & Data Laboratory Results Abnormal lab results 09/17/18 09/18/18 09/18/18 Range/Units 20:35 08:02 08:14 WBC 13.46 H (4.8-10.8) K/uL RBC 3.44 L (4.2-5.4) M/uL Hgb 11.0 L (12.0-16.0) g/dL Hct 33.5 L (37-47) % Immature Gran # (Auto) 0.05 H (0.00-0.02) K/uL Neut # (Auto) 10.52 H (1.4-6.5) K/uL [place] # (Auto) 1.28 H (0.11-0.59) K/uL ABG pO2 (80-95) mm/Hg ABG HCO3 (19-24) mmol/L BUN (7-18) mg/dl Creatinine (0.6-1.2) mg/dl Glucose (70-99) mg/dl POC Glucose 129 H 150 H (70-99) Direct Bilirubin (0-0.2) mg/dl Albumin (3.4-5.0) gm/dl 09/18/18 09/18/18 09/18/18 Range/Units 08:14 12:24 14:19 WBC (4.8-10.8) K/uL RBC (4.2-5.4) M/uL Hgb (12.0-16.0) g/dL Hct (37-47) % Immature Gran # (Auto) (0.00-0.02) K/uL Neut # (Auto) (1.4-6.5) K/uL [place] # (Auto) (0.11-0.59) K/uL ABG pO2 (80-95) mm/Hg ABG HCO3 (19-24) mmol/L BUN 5 L (7-18) mg/dl Creatinine 0.42 L (0.6-1.2) mg/dl Glucose 128 H (70-99) mg/dl POC Glucose 147 H (70-99) Direct Bilirubin (0-0.2) mg/dl Albumin 2.6 L (3.4-5.0) gm/dl 09/18/18 09/18/18 09/18/18 Range/Units 14:19 15:52 17:02 WBC (4.8-10.8) K/uL RBC (4.2-5.4) M/uL Hgb (12.0-16.0) g/dL Hct (37-47) % Immature Gran # (Auto) (0.00-0.02) K/uL Neut # (Auto) (1.4-6.5) K/uL [place] # (Auto) (0.11-0.59) K/uL ABG pO2 75 L (80-95) mm/Hg ABG HCO3 26 H (19-24) mmol/L BUN (7-18) mg/dl Creatinine (0.6-1.2) mg/dl Glucose (70-99) mg/dl POC Glucose 152 H (70-99) Direct Bilirubin 0.3 H (0-0.2) mg/dl Albumin (3.4-5.0) gm/dl
[2018-09-18] MEDS: ASCORBIC ACID 500 MG TAB PO SCH (21:43)
[2018-09-18] MEDS: SIMVASTATIN 40 MG TAB PO SCH (21:43)
[2018-09-18] MEDS: ACETAMINOPHEN 1,000 MG/100 ML VIAL IV PRN (23:39)
[2018-09-19] MEDS: LEVOTHYROXINE SODIUM 100 MCG TABLET PO SCH (05:21)
[2018-09-19 05:46] LABS: Basophils # (auto) 0.02 K/uL (0-0.2); Basophils % (auto) 0.1 %; Eosinophils # (auto) 0.04 K/uL (0-0.5); Eosinophils % (auto) 0.3 %; Hematocrit (blood only) 31.1 % (37-47); Hemoglobin 10.4 g/dL (12.0-16.0); Immature Granulocytes # (auto) 0.05 K/uL (0.00-0.02); Immature Granulocytes % (auto) 0.3 %; Lymphocytes % (auto) 18.6 %; Mean Corpuscular Hgb Conc 33.4 g/dL (32-36); Mean Corpuscular Volume 96.3 fL (80-100); Mean Platelet Volume 9.6 fL (7.4-10.4); Monocytes # (auto) 1.52 K/uL (0.11-0.59); Monocytes % (auto) 9.7 %; Neutrophils # (auto) 11.09 K/uL (1.4-6.5); Platelet Count 233 K/uL (130-400); RDW Coefficient of Variation 12.3 % (11.5-14.5); RDW Standard Deviation 43.6 fL (36.4-46.3); Red Blood Count 3.23 M/uL (4.2-5.4); White Blood Count 15.62 K/uL (4.8-10.8)
[2018-09-19 06:10] LABS: Albumin Level 2.5 gm/dl (3.4-5.0); BUN Creatinine Ratio 21.8 (10-20); Calcium 8.8 mg/dl (8.5-10.1); Creatinine Clr Calc Pharmacy 98.6 ml/min; Est GFR (African American) 112.1; Est GFR (Non-African American) 96.7; Potassium 3.6 mmol/L (3.5-5.1)
[2018-09-19 06:12] LABS: Albumin Globulin Ratio 0.6 (0.9-2); Bilirubin,Total 0.9 mg/dl (0.2-1); Globulin 3.9 gm/dl (2.5-4.0); Total Protein 6.4 gm/dl (6.4-8.2)
[2018-09-19] MEDS: ONDANSETRON INJ 2 MG/ML 2 ML VIAL IV PRN (08:31)
--- NOTE | 2018-09-19 08:48 | XRay Report ---
XR chest 1V portable HISTORY: fever COMPARISON: None. FINDINGS: The lungs are clear. Cardiac silhouette is normal in size. No pleural effusions. No pneumot horax. Bilateral calcified breast implants are again noted. IMPRESSION: No acute process. Electronically signed by: Adilson Burgess M.D. 09/19/2018 8:47 AM
[2018-09-19] MEDS: DOCUSATE SODIUM 100 MG CAP PO SCH ×2 (09:47→22:42)
[2018-09-19] MEDS: CEROVITE ADV FORMULA TAB PO SCH ×2 (09:47→22:42)
[2018-09-19] MEDS: CHOLECALCIFEROL 1,000 UNITS TAB PO SCH ×2 (09:47→22:43)
[2018-09-19] MEDS: CLOPIDOGREL BISULFATE 75 MG TAB PO SCH (09:49)
[2018-09-19] MEDS: BUDESONIDE/FORMOTEROL FUMARATE 160/4.5 60 PUFFS/INHALER INH SCH ×3 (09:49→23:44)
[2018-09-19] MEDS: LISINOPRIL 2.5 MG TAB PO SCH (09:49)
[2018-09-19] MEDS: INSULIN ASPART 100 UNITS/ML 3 ML PEN SC SCH ×4 (09:50→21:06)
[2018-09-19] MEDS: INSULIN GLARGINE SOLOSTAR 100 UNITS/ML 3 ML PEN SC SCH (09:50)
[2018-09-19] MEDS: ACETAMINOPHEN 1,000 MG/100 ML VIAL IV PRN ×2 (13:01→21:14)
--- NOTE | 2018-09-19 14:02 | Pharmacy Report ---
Pharmacy Glycemic Short Note 2 - Date of Service September 19, 2018 - Glycemic Short BSG Results (Last 24 hours): 09/18/18 09/18/18 09/19/18 17:02 20:07 05:19 Glucose 134 H POC Glucose 152 H 126 H 09/19/18 09/19/18 08:05 12:02 Glucose POC Glucose 147 H 136 H ASSESSMENT: * BSGs over the preceding 24hrs look good: [id number]/dL. She required 11 units of insulin 09/18/18. Appetite remains poor. Will continue with standing insulin orders. PLAN FOR INPATIENT GLYCEMIC CONTROL: * Hold out pt PO medications * Basal insulin - decrease * Lantus 8 units QAM * Bolus insulin - no change * NovoLog per scale ACHS or Q6hrs while NPO * Goal Range: Low 110 mg/dL - High 140 mg/dL * Correction Factor: 35 mg/dL/unit * Nutritional / Prandial insulin per carb ratio of 1 unit per 12 grams CHO consumed
--- NOTE | 2018-09-19 15:07 | Progress Note ---
DATE: 09/19/2018 SUBJECTIVE: She is arousable this morning, not alert, pain controlled. No shortness of breath or chest pain. OBJECTIVE: Vital signs stable, regular rate rhythm, temperature slightly elevated. Wound is pristine. ASSESSMENT: Fever of unknown origin, post lumbar spine surgery, confusion secondary to narcotics. PLAN: Includes increase ambulation. Hold on narcotics, physical therapy, possible rehab placement. I anticipate she will start to clear up mentally in the next 48 hours.
--- NOTE | 2018-09-19 15:33 | Hospitalist Progress Note ---
Date of Service September 19, 2018 Assessment & Plan (1) Post-operative state: L4-L5 laminectomy 09/17 Monitor for post op acute blood loss - hgb was 13 pre op and is now 10.4 Repeat CBC, prp am Bowel regimen, DVT proph, pain control per primary (2) Metabolic encephalopathy: Patient is lethargic, febrile overnight again - leukocytosis spontaneously decreased today from 17 to 13 but increased again to 15. - She did have contact over the weekend with grandchildren who had a recent stomach bug. - CT head was negative for acute, CXR negative for acute, repeat CXR negative for acute, U/A without apparent infection - procalcitonin wnl, LFTs normal, ammonia wnl - Flu PCR is negative - BC negative, recollected 09/19 due to ongoing fevers - discussed with Dr. Serrano concerning these findings, at this time he feels infection at the surgical site is unlikely given the time frame and imaging of the back is not necessary. - Cdiff pending - Sed rate 81 - will order echocardiogram (3) COPD (chronic obstructive pulmonary disease): continue home inhalers (4) DMII (diabetes mellitus, type 2): blood sugars stable - continue sitagliptin, glimeperide, ss BSGs ac & hs Subjective Ms. Mckenna continues to be very lethargic, barely waking up when I examine her. She is oriented and denies nausea or pain but is unable to stay awake for further ROS. I did spend time last evening updating the daughter and two sons and answering all of their questions. I saw them again this evening bedside to update and answer questions. They were very pleased that she was able to eat and talk them. Physical Exam Vital Signs (Past 24 Hours): Last Vital Signs Temp 36.6 C 09/19/18 15:00 Pulse 64 09/19/18 15:00 Resp 18 09/19/18 15:00 BP 146/62 H 09/19/18 15:00 Pulse Ox 97 09/19/18 15:00 Physical Exam: General: no distress Eyes: normal inspection, PERLL Respiratory: chest non tender, clear to auscultation, normal breath sounds, no respiratory distress, no accessory muscle use Cardiac: regular rate and rhythm, no rub or gallop, no murmur, no edema, no jvd GI/: active bowel sounds, no abd pain or tenderness, soft, non distended Extremities: normal range of motion, baseline mild left hemiparesis, non tender Neuro/Psych: lethargic, oriented x3 Skin: normal color, dry, incision site well approximate, small amount of serosanguineous drainage, no erythema Results & Data Laboratory Results Abnormal lab results 09/18/18 09/18/18 09/18/18 Range/Units 15:52 17:02 20:07 WBC (4.8-10.8) K/uL RBC (4.2-5.4) M/uL Hgb (12.0-16.0) g/dL Hct (37-47) % Immature Gran # (Auto) (0.00-0.02) K/uL Neut # (Auto) (1.4-6.5) K/uL [place] # (Auto) (0.11-0.59) K/uL ESR (0-21) mm/hr Creatinine (0.6-1.2) mg/dl BUN/Creatinine Ratio (10-20) Glucose (70-99) mg/dl POC Glucose 152 H 126 H (70-99) Direct Bilirubin 0.3 H (0-0.2) mg/dl Albumin (3.4-5.0) gm/dl Albumin/Globulin Ratio (0.9-2) 09/19/18 09/19/18 09/19/18 Range/Units 05:19 05:19 05:19 WBC 15.62 H (4.8-10.8) K/uL RBC 3.23 L (4.2-5.4) M/uL Hgb 10.4 L (12.0-16.0) g/dL Hct 31.1 L (37-47) % Immature Gran # (Auto) 0.05 H (0.00-0.02) K/uL Neut # (Auto) 11.09 H (1.4-6.5) K/uL [place] # (Auto) 1.52 H (0.11-0.59) K/uL ESR 81 H (0-21) mm/hr Creatinine 0.44 L (0.6-1.2) mg/dl BUN/Creatinine Ratio 21.8 H (10-20) Glucose 134 H (70-99) mg/dl POC Glucose (70-99) Direct Bilirubin (0-0.2) mg/dl Albumin 2.5 L (3.4-5.0) gm/dl Albumin/Globulin Ratio 0.6 L (0.9-2) 09/19/18 09/19/18 Range/Units 08:05 12:02 WBC (4.8-10.8) K/uL RBC (4.2-5.4) M/uL Hgb (12.0-16.0) g/dL Hct (37-47) % Immature Gran # (Auto) (0.00-0.02) K/uL Neut # (Auto) (1.4-6.5) K/uL [place] # (Auto) (0.11-0.59) K/uL ESR (0-21) mm/hr Creatinine (0.6-1.2) mg/dl BUN/Creatinine Ratio (10-20) Glucose (70-99) mg/dl POC Glucose 147 H 136 H (70-99) Direct Bilirubin (0-0.2) mg/dl Albumin (3.4-5.0) gm/dl Albumin/Globulin Ratio (0.9-2)
[2018-09-19] MEDS: SIMVASTATIN 40 MG TAB PO SCH (22:43)
[2018-09-19] MEDS: ASCORBIC ACID 500 MG TAB PO SCH (22:43)
[2018-09-20] MEDS: LEVOTHYROXINE SODIUM 100 MCG TABLET PO SCH (05:16)
[2018-09-20 06:11] LABS: Basophils # (auto) 0.01 K/uL (0-0.2); Basophils % (auto) 0.1 %; Eosinophils # (auto) 0.12 K/uL (0-0.5); Eosinophils % (auto) 1.1 %; Hematocrit (blood only) 31.8 % (37-47); Hemoglobin 10.9 g/dL (12.0-16.0); Immature Granulocytes # (auto) 0.05 K/uL (0.00-0.02); Immature Granulocytes % (auto) 0.5 %; Lymphocytes # (auto) 1.37 K/uL (1.2-3.4); Lymphocytes % (auto) 12.5 %; Mean Corpuscular Hgb Conc 34.3 g/dL (32-36); Mean Corpuscular Volume 96.1 fL (80-100); Mean Platelet Volume 9.7 fL (7.4-10.4); Monocytes # (auto) 0.96 K/uL (0.11-0.59); Monocytes % (auto) 8.7 %; Neutrophils # (auto) 8.48 K/uL (1.4-6.5); Neutrophils % (auto) 77.1 %; Platelet Count 268 K/uL (130-400); RDW Coefficient of Variation 12.1 % (11.5-14.5); RDW Standard Deviation 42.7 fL (36.4-46.3); Red Blood Count 3.31 M/uL (4.2-5.4); White Blood Count 10.99 K/uL (4.8-10.8)
[2018-09-20] MEDS: ACETAMINOPHEN 1,000 MG/100 ML VIAL IV PRN (07:50)
[2018-09-20] MEDS: LISINOPRIL 2.5 MG TAB PO SCH (07:51)
[2018-09-20] MEDS: CEROVITE ADV FORMULA TAB PO SCH ×2 (08:42→21:20)
[2018-09-20] MEDS: CHOLECALCIFEROL 1,000 UNITS TAB PO SCH ×2 (08:42→21:19)
[2018-09-20] MEDS: BUDESONIDE/FORMOTEROL FUMARATE 160/4.5 60 PUFFS/INHALER INH SCH ×2 (08:43→21:25)
[2018-09-20] MEDS: CLOPIDOGREL BISULFATE 75 MG TAB PO SCH (08:44)
[2018-09-20] MEDS: DOCUSATE SODIUM 100 MG CAP PO SCH ×2 (08:44→21:20)
[2018-09-20] MEDS: INSULIN ASPART 100 UNITS/ML 3 ML PEN SC SCH ×4 (08:46→21:27)
[2018-09-20] MEDS: INSULIN GLARGINE SOLOSTAR 100 UNITS/ML 3 ML PEN SC SCH (08:47)
--- NOTE | 2018-09-20 10:02 | Pharmacy Report ---
Pharmacy Glycemic Short Note 2 - Date of Service September 20, 2018 - Glycemic Short BSG Results (Last 24 hours): 09/19/18 09/19/18 09/19/18 12:02 17:16 20:57 POC Glucose 136 H 194 H 177 H 09/20/18 08:10 POC Glucose 177 H ASSESSMENT: * 78yo T2DM female with excellent outpatient control per recent A1c. Pt is maintained on oral antidiabetic agents as an outpatient. * Outpatient oral antidiabetic agents on hold for admission - pharmacy is ti trating weight based SQ basal bolus insulin regimen per BSG trends * Patient has been requrig ~ 16 units of insulin per day with near adequate control * BSGs ranging = 136-194 mg/dl * Goal BSG range = 110- 140 mg/dl * AM fasting BSG is elevated today at 177 mg/dl and trending upwards from 147 mg/dl yesterday --> will increase basal insulin dosing slightly * Pt with erratic PO intake- only consumes about 1 meal/day. No changes needed to prandial insulin coverage. PLAN FOR INPATIENT GLYCEMIC CONTROL: * Hold out pt PO medications * Basal insulin - increase from 8 units to 10 units daily * Lantus 10 units QAM * Bolus insulin - no change * NovoLog per scale ACHS or Q6hrs while NPO * Goal Range: Low 110 mg/dL - High 140 mg/dL * Correction Factor: 35 mg/dL/unit * Nutritional / Prandial insulin per carb ratio of 1 unit per 12 grams CHO consumed
[2018-09-20] MEDS ORDERED: INSULIN GLARGINE SOLOSTAR 100 UNITS/ML 3 ML PEN SC SCH (12:00)
--- NOTE | 2018-09-20 13:32 | Hospitalist Progress Note ---
Date of Service September 20, 2018 Assessment & Plan (1) Post-operative state: L4-L5 laminectomy 09/17 Monitor for post op acute blood loss - hgb has been stable post op Bowel regimen, DVT proph, pain control per primary (2) Metabolic encephalopathy: Patient is lethargic, febrile overnight again - leukocytosis spontaneously decreased to 10.99 from 17 09/17 - She did have contact over the weekend with grandchildren who had a recent stomach bug. - CT head was negative for acute, CXR negative for acute, repeat CXR negative for acute, U/A without apparent infection - procalcitonin wnl, LFTs normal, ammonia wnl - Flu PCR is negative - BC negative, recollected 09/19 due to ongoing fevers - discussed with Dr. Serrano concerning these findings, at this time he feels infection at the surgical site is unlikely given the time frame and imaging of the back is not necessary. - Cdiff pending - Sed rate 81 - echo showed no obvious vegetations, type I DD (3) COPD (chronic obstructive pulmonary disease): continue home inhalers (4) DMII (diabetes mellitus, type 2): blood sugars stable - continue sitagliptin, glimeperide, ss BSGs ac & hs Subjective Continues to be lethargic. Up to a chair with daughter at bedside. Oriented but not awake enough to answer more questions. Physical Exam Vital Signs (Past 24 Hours): Last Vital Signs Temp 36.4 C L 09/20/18 11:02 Pulse 79 09/20/18 07:25 Resp 18 09/20/18 07:25 BP 127/62 09/20/18 11:02 Pulse Ox 92 09/20/18 07:25 Physical Exam: General: no distress Eyes: normal inspection, PERLL Respiratory: chest non tender, clear to auscultation, normal breath sounds, no respiratory distress, no accessory muscle use Cardiac: regular rate and rhythm, no rub or gallop, no murmur, no edema, no jvd GI/: active bowel sounds, no abd pain or tenderness, soft, non distended Extremities: normal range of motion, normal strength, non tender Neuro/Psych: lethargic and oriented x 3 Skin: normal color, dry Results & Data Laboratory Results Abnormal lab results 09/19/18 09/19/18 09/19/18 Range/Units 05:19 17:16 20:57 WBC (4.8-10.8) K/uL RBC (4.2-5.4) M/uL Hgb (12.0-16.0) g/dL Hct (37-47) % Immature Gran # (Auto) (0.00-0.02) K/uL Neut # (Auto) (1.4-6.5) K/uL [place] # (Auto) (0.11-0.59) K/uL ESR 81 H (0-21) mm/hr POC Glucose 194 H 177 H (70-99) 09/20/18 09/20/18 09/20/18 Range/Units 05:32 08:10 12:01 WBC 10.99 H (4.8-10.8) K/uL RBC 3.31 L (4.2-5.4) M/uL Hgb 10.9 L (12.0-16.0) g/dL Hct 31.8 L (37-47) % Immature Gran # (Auto) 0.05 H (0.00-0.02) K/uL Neut # (Auto) 8.48 H (1.4-6.5) K/uL [place] # (Auto) 0.96 H (0.11-0.59) K/uL ESR (0-21) mm/hr POC Glucose 177 H 229 H (70-99)
[2018-09-20] MEDS: ASCORBIC ACID 500 MG TAB PO SCH (21:19)
[2018-09-20] MEDS: SIMVASTATIN 40 MG TAB PO SCH (21:19)
[2018-09-20] MEDS: TRAMADOL HCL 50 MG TABLET PO PRN (23:46)
[2018-09-21 05:51] LABS: Basophils # (auto) 0.02 K/uL (0-0.2); Basophils % (auto) 0.2 %; Eosinophils # (auto) 0.13 K/uL (0-0.5); Eosinophils % (auto) 1.5 %; Hematocrit (blood only) 30.9 % (37-47); Hemoglobin 10.5 g/dL (12.0-16.0); Immature Granulocytes # (auto) 0.03 K/uL (0.00-0.02); Immature Granulocytes % (auto) 0.4 %; Lymphocytes # (auto) 2.11 K/uL (1.2-3.4); Lymphocytes % (auto) 24.8 %; Mean Corpuscular Volume 95.7 fL (80-100); Mean Platelet Volume 9.5 fL (7.4-10.4); Monocytes # (auto) 0.75 K/uL (0.11-0.59); Monocytes % (auto) 8.8 %; Neutrophils # (auto) 5.46 K/uL (1.4-6.5); Neutrophils % (auto) 64.3 %; Platelet Count 285 K/uL (130-400); Red Blood Count 3.23 M/uL (4.2-5.4)
[2018-09-21] MEDS: LEVOTHYROXINE SODIUM 100 MCG TABLET PO SCH (06:01)
[2018-09-21] MEDS ORDERED: INSULIN GLARGINE SOLOSTAR 100 UNITS/ML 3 ML PEN SC SCH (09:00)
[2018-09-21] MEDS: CLOPIDOGREL BISULFATE 75 MG TAB PO SCH (09:16)
[2018-09-21] MEDS: LISINOPRIL 2.5 MG TAB PO SCH (09:16)
[2018-09-21] MEDS: CEROVITE ADV FORMULA TAB PO SCH ×2 (09:17→20:22)
[2018-09-21] MEDS: CHOLECALCIFEROL 1,000 UNITS TAB PO SCH ×2 (09:17→20:22)
[2018-09-21] MEDS: DOCUSATE SODIUM 100 MG CAP PO SCH ×2 (09:17→20:22)
[2018-09-21] MEDS: BUDESONIDE/FORMOTEROL FUMARATE 160/4.5 60 PUFFS/INHALER INH SCH ×2 (09:17→20:22)
[2018-09-21] MEDS: INSULIN GLARGINE SOLOSTAR 100 UNITS/ML 3 ML PEN SC SCH (09:18)
[2018-09-21] MEDS: INSULIN ASPART 100 UNITS/ML 3 ML PEN SC SCH ×4 (09:19→22:31)
--- NOTE | 2018-09-21 09:46 | Hospitalist Progress Note ---
Date of Service September 21, 2018 Assessment & Plan (1) Post-operative state: L4-L5 laminectomy 09/17 Monitor for post op acute blood loss - hgb has been stable post op around 10.5 Bowel regimen, DVT proph, pain control per primary (2) Metabolic encephalopathy: Resolved - No further fevers in the last 24 hours, BC x 4 4/ and / ngtd, WBCs wnl down from 17 without abx treatment as source of infection was not found - She did have contact over the weekend with grandchildren who had a recent stomach bug. - CT head was negative for acute, CXR negative for acute, repeat CXR negative for acute, U/A without apparent infection - procalcitonin wnl, LFTs normal, ammonia wnl - Flu PCR is negative - discussed with Dr. Serrano concerning these findings, at this time he feels infection at the surgical site is unlikely given the time frame and imaging of the back is not necessary. - Sed rate 81 - echo showed no obvious vegetations, type I DD, EF 55% (3) COPD (chronic obstructive pulmonary disease): continue home inhalers (4) DMII (diabetes mellitus, type 2): blood sugars stable - continue sitagliptin, glimeperide, ss BSGs ac & hs (5) Thrush: Probably secondary to steroid inhalers - Nystatin QID for 14 days Thank you for involving us in Ms. Mckenna's care, medicine will sign off at this time. Subjective Ms. Mckenna is up to a chair, awake, alert and conversant. She has pain in her back but otherwise has no complaints, eating breakfast. Family at bedside. Review of Systems All systems reviewed & are unremarkable except as noted in HPI & below Physical Exam Vital Signs (Past 24 Hours): Last Vital Signs Temp 36.8 C 09/21/18 07:02 Pulse 56 L 09/21/18 07:02 Resp 18 09/21/18 07:02 BP 158/76 H 09/21/18 07:02 Pulse Ox 96 09/21/18 07:02 Physical Exam: General: no distress Eyes: normal inspection, PERLL Respiratory: chest non tender, clear to auscultation, normal breath sounds, no respiratory distress, no accessory muscle use Cardiac: regular rate and rhythm, no rub or gallop, no murmur, no edema, no jvd GI/: active bowel sounds, no abd pain or tenderness, soft, non distended Extremities: normal range of motion, normal strength, non tender Neuro/Psych: alert and oriented x 3, normal mood and affect, CN II -XII intact Skin: normal color, dry Results & Data Laboratory Results Abnormal lab results 09/20/18 09/20/18 09/20/18 Range/Units 12:01 17:05 20:31 RBC (4.2-5.4) M/uL Hgb (12.0-16.0) g/dL Hct (37-47) % Immature Gran # (Auto) (0.00-0.02) K/uL [place] # (Auto) (0.11-0.59) K/uL POC Glucose 229 H 146 H 159 H (70-99) 09/21/18 09/21/18 Range/Units 05:15 08:07 RBC 3.23 L (4.2-5.4) M/uL Hgb 10.5 L (12.0-16.0) g/dL Hct 30.9 L (37-47) % Immature Gran # (Auto) 0.03 H (0.00-0.02) K/uL [place] # (Auto) 0.75 H (0.11-0.59) K/uL POC Glucose 209 H (70-99)
[2018-09-21 10:24] LABS: BUN Creatinine Ratio 34.1 (10-20); Calcium 8.7 mg/dl (8.5-10.1); Creatinine Clr Calc Pharmacy 144.7 ml/min; Est GFR (African American) 127.1; Est GFR (Non-African American) 109.7; Potassium 3.7 mmol/L (3.5-5.1)
--- NOTE | 2018-09-21 11:47 | Pharmacy Report ---
Glycemic Control Progress Note - Date of Service September 21, 2018 - Scope Glycemic Pharmacist consulted for glycemic control to write orders per [facility] inpatient glycemic control protocol. - Objective Accuchecks BSG(last 24 hours):: 09/20/18 09/20/18 09/20/18 12:01 17:05 20:31 Glucose POC Glucose 229 H 146 H 159 H 09/21/18 09/21/18 05:20 08:07 Glucose 169 H POC Glucose 209 H - Recent Pertinent Medications The patient is currently receiving: * Basal insulin: Lantus 10 units every 24 hours IN THE MORNING * Correctional Insulin: Novolog Correction per scale ACHS Goal Range: Low 110 mg/dL - High 140 mg/dL Correction Factor: 35 mg/dL/unit * Prandial insulin: Per carb ratio of 1 unit per 12 grams CHO consumed - Outpatient Anti-Diabetic Meds Glimepiride 1 mg daily Januvia 100 mg daily - Assessment & Plan ASSESSMENT: * See progress note from 09/17/18 for more background info, in short: * Pt receiving SQ basal bolus insulin regimen for hyperglycemia secondary to baseline DM (outpatient regimen on hold) and s/p laminectomy on 09/16/18. * Patient is currently receiving an average of 19 units of insulin per day * 10 units of basal insulin * 9 units of prandial/correctional insulin * BSGs ranging 146 - 229 mg/dl over the past 24hrs (only one blood sugar over 200 mg/dL) * Changes needed to insulin regimen: * AM Fasting BSG = 209 mg/dl. This is above goal range for patient based on inpatient targets and co-morbidities. Therefore Basal insulin will be increased by 20% to 12 units daily. * Post-prandial BSGs are in range therefore no changes needed to CF/CR. Patient has not had much of a diet recently so it has been difficult to see the full effects of this. Will monitor. * Total daily dose = 20-30 units. PLAN FOR INPATIENT GLYCEMIC CONTROL: * Increasing Lantus to 12 units SQ AM * Continuing correction factor of 35 mg/dl/unit * Continuing carb ratio of 1 unit per 12 grams CHO consumed * Continuing goal range of Low 110 mg/dL - High 140 mg/dL * Restart Januvia 100 mg PO Daily RECOMMENDATIONS FOR DISCHARGE: * A1C reasonably controlled in 78 y/o patient. Consider d/c of glimepiride secondary to risk of hypoglycemia in the elderly. * Please note that the plan above was derived based on current level of insulin resistance and hospital stress. These recommendations are appropriate for inpatient admission only. Plan of care upon discharge will need to be reassessed to avoid potential outpatient hypo/hyperglycemia. Thank you.
[2018-09-21] MEDS ORDERED: SITAGLIPTIN PHOSPHATE 100 MG TAB PO ONE (12:00)
[2018-09-21] MEDS: NYSTATIN SUSP 500,000 U/5 ML UDC PO SCH ×3 (12:54→20:22)
[2018-09-21] MEDS: ACETAMINOPHEN 1,000 MG/100 ML VIAL IV PRN (20:21)
[2018-09-21] MEDS: ASCORBIC ACID 500 MG TAB PO SCH (20:22)
[2018-09-21] MEDS: SIMVASTATIN 40 MG TAB PO SCH (20:22)
[2018-09-22] MEDS: LEVOTHYROXINE SODIUM 100 MCG TABLET PO SCH (05:33)
[2018-09-22 05:50] LABS: Basophils # (auto) 0.02 K/uL (0-0.2); Basophils % (auto) 0.2 %; Eosinophils # (auto) 0.16 K/uL (0-0.5); Eosinophils % (auto) 1.8 %; Hematocrit (blood only) 34.2 % (37-47); Hemoglobin 11.6 g/dL (12.0-16.0); Immature Granulocytes # (auto) 0.02 K/uL (0.00-0.02); Immature Granulocytes % (auto) 0.2 %; Lymphocytes # (auto) 2.19 K/uL (1.2-3.4); Lymphocytes % (auto) 24.6 %; Mean Corpuscular Hgb Conc 33.9 g/dL (32-36); Mean Corpuscular Volume 95.8 fL (80-100); Mean Platelet Volume 9.1 fL (7.4-10.4); Monocytes # (auto) 0.87 K/uL (0.11-0.59); Monocytes % (auto) 9.8 %; Neutrophils # (auto) 5.66 K/uL (1.4-6.5); Neutrophils % (auto) 63.4 %; Platelet Count 351 K/uL (130-400); RDW Standard Deviation 42.4 fL (36.4-46.3); Red Blood Count 3.57 M/uL (4.2-5.4); White Blood Count 8.92 K/uL (4.8-10.8)
[2018-09-22] MEDS: LISINOPRIL 2.5 MG TAB PO SCH (07:00)
[2018-09-22] MEDS: ACETAMINOPHEN 1,000 MG/100 ML VIAL IV PRN (08:09)
[2018-09-22] MEDS: CLOPIDOGREL BISULFATE 75 MG TAB PO SCH (09:12)
[2018-09-22] MEDS: CEROVITE ADV FORMULA TAB PO SCH ×2 (09:13→20:18)
[2018-09-22] MEDS: CHOLECALCIFEROL 1,000 UNITS TAB PO SCH ×2 (09:14→20:18)
[2018-09-22] MEDS: SITAGLIPTIN PHOSPHATE 100 MG TAB PO SCH (09:14)
[2018-09-22] MEDS: DOCUSATE SODIUM 100 MG CAP PO SCH ×2 (09:15→20:18)
[2018-09-22] MEDS: BUDESONIDE/FORMOTEROL FUMARATE 160/4.5 60 PUFFS/INHALER INH SCH ×2 (09:18→20:19)
[2018-09-22] MEDS: NYSTATIN SUSP 500,000 U/5 ML UDC PO SCH ×4 (09:20→20:18)
[2018-09-22] MEDS: INSULIN ASPART 100 UNITS/ML 3 ML PEN SC SCH ×4 (09:22→21:56)
[2018-09-22] MEDS: INSULIN GLARGINE SOLOSTAR 100 UNITS/ML 3 ML PEN SC SCH (09:23)
[2018-09-22] MEDS: SIMVASTATIN 40 MG TAB PO SCH (20:18)
[2018-09-22] MEDS: ASCORBIC ACID 500 MG TAB PO SCH (20:18)
[2018-09-23] MEDS: LEVOTHYROXINE SODIUM 100 MCG TABLET PO SCH (05:57)
[2018-09-23] MEDS: LISINOPRIL 2.5 MG TAB PO SCH (06:35)
[2018-09-23] MEDS: CLOPIDOGREL BISULFATE 75 MG TAB PO SCH (07:45)
[2018-09-23] MEDS: CHOLECALCIFEROL 1,000 UNITS TAB PO SCH (07:45)
[2018-09-23] MEDS: NYSTATIN SUSP 500,000 U/5 ML UDC PO SCH ×2 (07:53→12:44)
[2018-09-23] MEDS: SITAGLIPTIN PHOSPHATE 100 MG TAB PO SCH (07:53)
[2018-09-23] MEDS: BUDESONIDE/FORMOTEROL FUMARATE 160/4.5 60 PUFFS/INHALER INH SCH (07:53)
[2018-09-23] MEDS: DOCUSATE SODIUM 100 MG CAP PO SCH (07:53)
[2018-09-23] MEDS: CEROVITE ADV FORMULA TAB PO SCH (07:53)
--- NOTE | 2018-09-23 07:56 | Discharge Summary ---
SUBJECTIVE: She is alert, oriented. Minimal complaints today. She is still slightly weak. She is up, taking p.o. She is ambulatory. OBJECTIVE: Vital signs stable. Wound clean, dry. 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 She is improved, stable. My opinion is she is stable for rehabilitation extended care type placement. Hopefully we can get her to rehab today, tomorrow, or the latest on Sunday. Prescriptions on her chart. Instructions as well provided. I should see her back in the office in approximately 10 days and the appointment probably is already made. Please call if any problems arise. The back brace should be worn when ambulatory.
[2018-09-23] MEDS: INSULIN ASPART 100 UNITS/ML 3 ML PEN SC SCH ×2 (08:02→12:43)
[2018-09-23] MEDS ORDERED: INSULIN GLARGINE SOLOSTAR 100 UNITS/ML 3 ML PEN SC SCH (09:00)
[2018-09-23] MEDS: TRAMADOL HCL 50 MG TABLET PO PRN ×2 (09:20→15:26)
--- NOTE | 2018-09-23 12:21 | Pharmacy Report ---
Glycemic Control Progress Note - Date of Service September 23, 2018 - Scope Glycemic Pharmacist consulted for glycemic control to write orders per [facility] inpatient glycemic control protocol. - Objective Accuchecks BSG(last 24 hours):: 09/22/18 09/22/18 09/23/18 17:00 21:25 06:26 POC Glucose 157 H 149 H 180 H 09/23/18 12:04 POC Glucose 170 H - Recent Pertinent Medications The patient is currently receiving: * Basal insulin: Lantus 12-15 units every 24 hours in the morning * Correctional Insulin: Novolog Correction per scale ACHS Goal Range: Low 110 mg/dL - High 140 mg/dL Correction Factor: 35 mg/dL/unit * Prandial insulin: Per carb ratio of 1 unit per 12 grams CHO consumed * Oral Agents: - Outpatient Anti-Diabetic Meds glimepiride 1 mg daily Januvia 100 mg daily - Assessment & Plan ASSESSMENT: * See progress note from 09/17/18 for more background info, in short: * Pt receiving SQ basal bolus insulin regimen for hyperglycemia secondary to baseline DM (outpatient regimen on hold). * Patient is currently receiving an average of 21 units of insulin per day * 12 units of basal insulin * 9 units of prandial/correctional insulin * BSGs ranging 149 - 196 mg/dl over the past 24hrs * Changes needed to insulin regimen: * AM Fasting BSG = 180 mg/dl. This is in slightly above goal range for patient based on inpatient targets and co-morbidities. Therefore Basal insulin was increased to 15 units today. Scale set up for tomorrow morning that includes 12, 15, and 18 units. Possibly Lantus is not lasting the full day for the patient. * Post-prandial BSGs are in range therefore no changes needed to CF/CR. * Total daily dose = 30 units. * Additional notes / comments: Januvia 100 mg daily PLAN FOR INPATIENT GLYCEMIC CONTROL: * Increasing Lantus to 12-18 units SQ daily * Lantus 12 units if blood sugar under 110 mg/dL * Lantus 15 units if blood sugar 110-160 mg/dL * Lantus 18 units if blood sugar over 160 mg/dL * Continuing correction factor of 35 mg/dl/unit * Continuing carb ratio of 1 unit per 12 grams CHO consumed * Continuing goal range of Low 110 mg/dL - High 140 mg/dL RECOMMENDATIONS FOR DISCHARGE: * A1C reasonably controlled in 78 y/o patient. Consider d/c of glimepiride secondary to risk of hypoglycemia in the elderly. Thank you.
--- NOTE | 2018-09-23 15:27 | Progress Note ---
DATE: 09/23/2018 SUBJECTIVE: She is alert, oriented this morning, stable, blood pressure controlled. OBJECTIVE: Vital signs stable, afebrile. ASSESSMENT: Status post lumbar spine decompression surgery, hypertension, chronic obstructive pulmonary disease, stroke, diabetes and hypothyroidism. PLAN: She is stable for discharge now. We will put an order for discharge and hopefully get her a bed placement either on today or tomorrow morning.
== END 2018-09-23 17:55 | disposition home health service (06) | DRG 515 ==
LOC: 3E 05:57 → ASU 05:57

== ENCOUNTER 2018-12-14 10:46 | Inpatient (IN) ==
[2018-12-14] MEDS ORDERED: methylPREDNISolone 125 MG/2 ML VIAL IV STA (11:36)
[2018-12-14] MEDS ORDERED: ALBUT/IPRATROP 3MG/0.5MG NEB 3 ML VIAL NEB ONE (11:36)
--- NOTE | 2018-12-14 11:37 | XRay Report ---
SINGLE VIEW CHEST CLINICAL HISTORY: Atypical chest pain. FINDINGS: 2 AP, portable, upright chest radiographs are compared to study dated 09/19/2018 and correlat ed with chest CT dated 03/18/2018. The examination is significantly degraded by portable technique, ap ical lordotic positioning, and patient rotation. The cardiomediastinal silhouette is unremarkable, n oting atherosclerotic calcification of the thoracic aorta. Emphysema and chronic interstitial thicken ing are again noted. There is no airspace consolidation or large pleural effusion. Bibasilar scarring /atelectasis is observed. No pneumothorax is seen. The skeletal structures are osteopenic. The bony t horax is grossly intact. Calcified breast implants are noted. IMPRESSION: Emphysematous change with no acute cardiopulmonary abnormality. Electronically signed by: David Alford M.D. 12/14/2018 11:36 AM
[2018-12-14 12:09] LABS: Basophils # (auto) 0.03 K/uL (0-0.2); Basophils % (auto) 0.2 %; Eosinophils # (auto) 0.08 K/uL (0-0.5); Eosinophils % (auto) 0.6 %; Hematocrit (blood only) 39.6 % (37-47); Hemoglobin 13.1 g/dL (12.0-16.0); Immature Granulocytes # (auto) 0.05 K/uL (0.00-0.02); Immature Granulocytes % (auto) 0.4 %; Lymphocytes # (auto) 2.85 K/uL (1.2-3.4); Lymphocytes % (auto) 22.6 %; Mean Corpuscular Hgb Conc 33.1 g/dL (32-36); Mean Corpuscular Volume 96.8 fL (80-100); Mean Platelet Volume 10.1 fL (7.4-10.4); Monocytes % (auto) 7.1 %; Neutrophils # (auto) 8.71 K/uL (1.4-6.5); Neutrophils % (auto) 69.1 %; Platelet Count 231 K/uL (130-400); RDW Coefficient of Variation 12.9 % (11.5-14.5); RDW Standard Deviation 45.7 fL (36.4-46.3); Red Blood Count 4.09 M/uL (4.2-5.4); White Blood Count 12.62 K/uL (4.8-10.8)
[2018-12-14 12:13] LABS: Base Excess VBG 2.4 mEq/L; HCO3 VBG 29 mmol/L; PCO2 VBG 52 mmHg (38-50); PO2 VBG 26 mmHg; pH VBG 7.36 (7.36-7.41)
[2018-12-14 12:14] LABS: Oxygen Saturation VBG < 60.0 %
[2018-12-14 12:27] LABS: Alanine Aminotransferase 14 U/L (12-78); Albumin Level 3.4 gm/dl (3.4-5.0); Aspartate Aminotransferase 15 U/L (15-37); BUN Creatinine Ratio 19.2 (10-20); Blood Urea Nitrogen 14 mg/dl (7-18); Calcium 9.1 mg/dl (8.5-10.1); Carbon Dioxide 30 mmol/L (21-32); Chloride 106 mmol/L (98-107); Est GFR (African American) 89.9; Est GFR (Non-African American) 77.6; Glucose 250 mg/dl (70-99); Potassium 3.9 mmol/L (3.5-5.1); Sodium 140 mmol/L (136-145)
[2018-12-14 12:32] LABS: Albumin Globulin Ratio 0.9 (0.9-2); Alkaline Phosphatase 72 U/L (45-117); Bilirubin,Total 1.2 mg/dl (0.2-1); NT Pro B Type Natriuretic Pept 109 pg/ml (0-1800); Total Protein 7.4 gm/dl (6.4-8.2); Troponin I < 0.015 ng/ml (0-0.045)
[2018-12-14 14:51] LABS: Appearance Urine Clear (Clear); Bacteria Urine Automated 3+ (Negative); Bilirubin Urine Negative (Negative); Blood Urine Negative (Negative); Color Urine Dark Yellow; Epithelial Cell Urine Auto >30 /lpf (0-5); Glucose Urine UA Negative (Negative); Ketones Urine Trace (Negative); Leukocyte Esterase Urine 1+ (Negative); Nitrite Urine Positive (Negative); Protein Urine Negative (Negative); RBC Urine Automated 0-4 /hpf (0-4); Specific Gravity Urine 1.032 (1.000-1.030); Urobilinogen Urine Negative (Negative)
[2018-12-14 15:07] LABS: Renal Epithelial Cells Urine 0-5 /lpf (0-5)
[2018-12-14] MEDS ORDERED: LEVOFLOXACIN/D5W 750 MG/150 ML BAG IV STA (15:47)
--- NOTE | 2018-12-14 16:44 | History & Physical Report ---
Date of Service December 14, 2018 Assessment & Plan (1) COPD exacerbation: Treat underlying bronchitis. Administer arformoterol and budesonide nebulizers. Intravenous methylprednisolone Present on Admission?: Yes (2) Acute bronchitis: Is produced. Intravenous Levaquin Present on Admission?: Yes (3) Acute respiratory failure with hypoxia: Supplemental oxygen to maintain saturation greater than 90%. Wean off as tolerated Present on Admission?: Yes (4) Chest pain: Probably from transient hypoxia. Telemetry. Serial troponins. Serial EKGs. Cardiac echo Present on Admission?: Yes (5) Diabetes mellitus with neuropathy: ADA diet. Continue medical management. Sliding scale coverage as needed Present on Admission?: Yes (6) UTI (urinary tract infection): Obtain urine culture. Levaquin therapy Present on Admission?: Yes (7) DVT prophylaxis: Lovenox subcu History of Present Illness Chief Complaint: Shortness of breath, wheezing, nonproductive cough, chest pain Primary Care Provider: Dominik Wilhelm MD 78-year-old female with COPD. She has had a nonproductive cough for the past several days with worsening wheezing and shortness of breath. Today she had an episode of chest discomfort associated with the shortness of breath that resolved with rest. No radiation of chest discomfort and no diaphoresis. She only had one episode of chest discomfort. There are no acute EKG changes. Chest x-ray is negative for pneumonia but she appears to have bronchitis with acute exacerbation of COPD. Room air oxygen saturation is 86% with ambulation consistent with acute hypoxic respiratory failure. There is also evidence of UTI. She is admitted for further evaluation and treatment. Allergies Allergy/AdvReac Type Severity Reaction Status Date / Time metformin AdvReac Intermediate NAUSEA AND Verified 10/11/18 07:54 DIARRHEA varenicline AdvReac Unknown DEPRESSION, Verified 10/11/18 07:54 BAD DREAMS Home Medications Home Medications Medication Instructions Recorded Confirmed Type Januvia 100 mg PO QAM 08/28/18 12/14/18 History PreserVision AREDS-2 1 tab PO BID 08/28/18 12/14/18 History Symbicort 2 puff INHALATION BID 08/28/18 12/14/18 History Vitamin D3 4,000 unit PO BID 08/28/18 12/14/18 History albuterol sulfate 1 puff INHALATION Q6H PRN 08/28/18 12/14/18 History ascorbic acid (vitamin C) 500 mg PO HS 08/28/18 12/14/18 History clopidogrel 75 mg PO QAM 08/28/18 12/14/18 History coQ10 (ubiquinol) 200 mg PO QPM 08/28/18 12/14/18 History glimepiride 1 mg PO BID 08/28/18 12/14/18 History levothyroxine 100 mcg PO QAM 08/28/18 12/14/18 History lisinopril 2.5 mg PO QAM 08/28/18 12/14/18 History tramadol [Ultram] 50 mg PO Q6H PRN #40 tab 09/21/18 12/14/18 Rx nystatin 1 dose PO UD PRN 10/11/18 12/14/18 History acetaminophen 500 mg tablet 500 mg PO BID tab 11/22/18 12/14/18 History simvastatin 40 mg tablet 40 mg PO HS #90 tab 11/28/18 12/14/18 Rx Past Med/Surg History Medical History Vitamin D deficiency (Acute) Spinal stenosis (Acute) SDAT (senile dementia of Alzheimer's type) (Acute) Osteopenia (Acute) Nicotine dependence (Acute) Lung nodule (Acute) Lumbar canal stenosis (Acute) Low back pain (Acute) Ischemic stroke (Acute) Insomnia (Acute) Hyperplastic colon polyp (Acute) Emphysema, unspecified (Acute) Diverticulosis (Acute) Discoid lupus erythematosus (Acute) Disc degeneration, lumbar (Acute) Diabetes mellitus with neuropathy (Acute) 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) Depression (Acute) Carotid artery plaque (Acute) Anemia (Acute) Allergic rhinitis due to pollen (Acute) Allergic rhinitis due to dust (Acute) Eye swelling, right Chronic back pain RLE/HIP RADIATION Chronic obstructive pulmonary disease STABLE Diabetes mellitus, type 2 NIDDM Diverticular disease Hyperlipidemia Hypertension Hypothyroidism No pertinent family history Right foot drop Stroke 10/2017- RESIDUAL RIGHT SIDED WEAKNESS REMAINS; ON [facility] Surgical History History of augmentation of both breasts History of back surgery History of bilateral tubal ligation Family History Other No pertinent family history Social History Preferred Language: Hebrew Communication Ability: Effective Beliefs That Will Affect Care: None Current Living Situation: Family Feels Safe at Home: Yes Smoking Status: Current every day smoker Tobacco Type: cigarettes Cigarettes Per Day: 1/3 PPD (TRYING TO QUIT); TOTAL USE X 50+ YEARS Hx Alcohol Use: No Hx Substance Use: No Review of Systems Review of Systems: Constitutional-no fever or chills ENT-no blurred vision, no double vision, no epistaxis, no sore throat Respiratory-nonproductive cough, wheezing, shortness of breath Cardiac-no palpitations, no syncope. One episode of chest discomfort today when she was short of breath with ambulation GI-no nausea, vomiting, diarrhea, melena, hematochezia -no urinary retention, no urinary incontinence, no dysuria, no hematuria Musculoskeletal-no joint pain, no muscle tenderness Skin-no bruising, no rashes, no pruritus Neuro-no isolated weakness, no paresthesia, no weakness Psych-no depression, no anxiety Physical Exam Physical Exam: General-alert and oriented x3, no fevers, no chills HEENT-head atraumatic and normocephalic, TMs intact bilaterally, pupils equal and reactive to light, extraocular muscles intact Neck-no lymphadenopathy or thyromegaly, trachea midline Chest-diminished breath sounds bilaterally. Faint bilateral and expiratory wheezes. Faint midline rhonchi. No inspiratory rales. No dullness to percussion Cardiac-regular rate and rhythm, normal S1 and S2. Grade 1/6 systolic blowing murmur Abdomen-normal bowel sounds, nontender, no hepatosplenomegaly Extremities-no cyanosis, clubbing, or edema Neuro-cranial nerves II through XII intact, motor and sensory function within normal limits, strength symmetrical 5/5, no focal deficits Psych-normal affect, normal mood Results & Data Vital Signs (Past 12 Hours) Vital Signs Temp Pulse Pulse Pulse Resp Resp BP 12/14/18 16:01 93 H 23 181/126 H 12/14/18 16:00 96 H 18 12/14/18 15:30 90 22 160/83 H 12/14/18 15:01 93 H 23 12/14/18 15:00 91 H 24 148/70 H 12/14/18 14:37 103 H 117 H 16 24 12/14/18 14:01 12/14/18 14:00 160/84 H 12/14/18 13:31 12/14/18 13:30 151/77 H 12/14/18 13:01 67 26 H 12/14/18 13:00 67 24 153/74 H 12/14/18 12:35 63 25 H 147/73 H 12/14/18 12:30 65 19 12/14/18 12:26 66 18 12/14/18 12:09 66 28 H 12/14/18 11:40 68 20 12/14/18 11:04 36.7 C 91 H 20 114/65 Pulse Ox Pulse Ox 12/14/18 16:01 92 12/14/18 16:00 93 12/14/18 15:30 94 12/14/18 15:01 12/14/18 15:00 12/14/18 14:37 86 L 12/14/18 14:01 86 L 12/14/18 14:00 87 L 12/14/18 13:31 100 12/14/18 13:30 100 12/14/18 13:01 100 12/14/18 13:00 100 12/14/18 12:35 100 12/14/18 12:30 100 12/14/18 12:26 100 12/14/18 12:09 100 12/14/18 11:40 99 12/14/18 11:04 94 Laboratory Results 12/14/18 11:49 12/14/18 11:49 PG Care Time/CCT Total # of Minutes Spent Total Time Spent with Patient: Total time spent is greater than 50% in coordination of care (as documented) at patient's floor/unit and/or counseling patient:
[2018-12-14] MEDS ORDERED: ALUMINUM/MAGNESIUM SUSP 30 ML UDC PO PRN (17:54)
[2018-12-14] MEDS ORDERED: TRAMADOL HCL 50 MG TABLET PO PRN (17:54)
[2018-12-14] MEDS ORDERED: ACETAMINOPHEN 325 MG TAB PO PRN (17:54)
[2018-12-14] MEDS ORDERED: ONDANSETRON INJ 2 MG/ML 2 ML VIAL IV PRN (17:54)
[2018-12-14] MEDS ORDERED: DEXTROSE 50% 50 ML SYRINGE IV PRN (18:15)
[2018-12-14] MEDS ORDERED: CARBOHYDRATES FOR HYPOGLYCEMIA PO PRN (18:15)
[2018-12-14] MEDS ORDERED: GLUCOSE 10 TABS/TUBE PO PRN (18:15)
[2018-12-14] MEDS ORDERED: GLUCAGON FOR INJ 1 MG VIAL IM PRN (18:15)
[2018-12-14] MEDS ORDERED: GLUCOSE 40% GEL 15 GM TUBE PO PRN (18:15)
[2018-12-14] MEDS: ARFORMOTEROL TART 15MCG/2ML VIAL INH SCH (19:12)
[2018-12-14] MEDS: BUDESONIDE 0.5 MG/2 ML VIAL (PULMICORT) NEB SCH (19:12)
[2018-12-14] MEDS ORDERED: PHARMACY GLYCEMIC MGMT CONSULT PRN (19:36)
[2018-12-14] MEDS: methylPREDNISolone 40 MG in SYRINGE 0 ML IV SCH (19:36)
[2018-12-14] MEDS: INSULIN GLARGINE SOLOSTAR 100 UNITS/ML 3 ML PEN SC SCH (20:02)
[2018-12-14] MEDS: INSULIN ASPART 100 UNITS/ML 3 ML PEN SC SCH (20:04)
[2018-12-14] MEDS ORDERED: NON-FORMULARY MEDICATION (Coq10 (Ubiquinol) 200 MG) PO SCH (21:00)
[2018-12-14] MEDS ORDERED: GLIMEPIRIDE 2 MG TAB PO SCH (21:00)
[2018-12-14] MEDS: CHOLECALCIFEROL 1,000 UNITS TAB PO SCH (21:03)
[2018-12-14] MEDS: ASCORBIC ACID 500 MG TAB PO SCH (21:03)
[2018-12-14] MEDS: SIMVASTATIN 40 MG TAB PO SCH (21:03)
--- NOTE | 2018-12-14 21:17 | Emergency Department Note ---
Entered by Tyesha Guzman acting as a scribe for History of Present Illness General Chief complaint: Shortness of Breath/Dyspnea Stated complaint: SOB Time Seen by Provider: 12/14/18 11:11 Source: patient History of Present Illness Onset (ago): day(s) 2 Location: chest Pain Consistency: + other (persistent) Maximum Pain Intensity: 0 Quality: + other (shortness of breath) Exacerbated By: + movement (exertion) Associated symptoms: + denies other symptoms (nausea, abdominal pain), + loss of appetite and + other (bilateral ankle swelling) The patient is a 78 year old female that is presenting to the Emergency Room with complaints of persistent shortness of breath over the past 2 days. The patient reports that she has been unable to catch her breath and that her symptoms worsen with any exertion. She states that she has no energy. She notes that she feels like someone is sitting on her chest. The patient reports that she has an associated loss of appetite. She denies any nausea or abdominal pain. She notes that her bilateral ankles have become swollen over the past week. She denies taking any diuretics. The patient states that she has a history of COPD and emphysema. She notes that she is not followed by a development geologist currently. She states that she has run out of her inhaler medication recently. The patient denies using oxygen at home. She notes that she takes Plavix. She reports that she will be seeing her PCP next month for a regular appointment. Home Medications Home Medications Medication Instructions Recorded Confirmed Type Januvia 100 mg PO QAM 08/28/18 12/14/18 History PreserVision AREDS-2 1 tab PO BID 08/28/18 12/14/18 History Symbicort 2 puff INHALATION BID 08/28/18 12/14/18 History Vitamin D3 4,000 unit PO BID 08/28/18 12/14/18 History albuterol sulfate 1 puff INHALATION Q6H PRN 08/28/18 12/14/18 History ascorbic acid (vitamin C) 500 mg PO HS 08/28/18 12/14/18 History clopidogrel 75 mg PO QAM 08/28/18 12/14/18 History coQ10 (ubiquinol) 200 mg PO QPM 08/28/18 12/14/18 History glimepiride 1 mg PO BID 08/28/18 12/14/18 History levothyroxine 100 mcg PO QAM 08/28/18 12/14/18 History lisinopril 2.5 mg PO QAM 08/28/18 12/14/18 History tramadol [Ultram] 50 mg PO Q6H PRN #40 tab 09/21/18 12/14/18 Rx nystatin 1 dose PO UD PRN 10/11/18 12/14/18 History acetaminophen 500 mg tablet 500 mg PO BID tab 11/22/18 12/14/18 History simvastatin 40 mg tablet 40 mg PO HS #90 tab 11/28/18 12/14/18 Rx Allergies Allergy/AdvReac Type Severity Reaction Status Date / Time metformin AdvReac Intermediate NAUSEA AND Verified 10/11/18 07:54 DIARRHEA varenicline AdvReac Unknown DEPRESSION, Verified 10/11/18 07:54 BAD DREAMS Past Med/Surg History Medical History UTI (urinary tract infection) (Acute) Chest pain (Acute) Acute respiratory failure with hypoxia (Acute) Acute bronchitis (Acute) COPD exacerbation (Acute) Vitamin D deficiency (Acute) Spinal stenosis (Acute) SDAT (senile dementia of Alzheimer's type) (Acute) Osteopenia (Acute) Nicotine dependence (Acute) Lung nodule (Acute) Lumbar canal stenosis (Acute) Low back pain (Acute) Ischemic stroke (Acute) Insomnia (Acute) Hyperplastic colon polyp (Acute) Emphysema, unspecified (Acute) Diverticulosis (Acute) Discoid lupus erythematosus (Acute) Disc degeneration, lumbar (Acute) 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) Depression (Acute) Carotid artery plaque (Acute) Anemia (Acute) Allergic rhinitis due to pollen (Acute) Allergic rhinitis due to dust (Acute) Eye swelling, right Chronic back pain RLE/HIP RADIATION Chronic obstructive pulmonary disease STABLE Diabetes mellitus, type 2 NIDDM Diverticular disease Hyperlipidemia Hypertension Hypothyroidism No pertinent family history Right foot drop Stroke 10/2017- RESIDUAL RIGHT SIDED WEAKNESS REMAINS; ON PLAVIX Surgical History History of augmentation of both breasts History of back surgery History of bilateral tubal ligation Family History Other No pertinent family history Social History Preferred Language: [place] Communication Ability: Effective Beliefs That Will Affect Care: None Current Living Situation: Family Other Information That Helps Us Care for You: No Feels Safe at Home: Yes Safety Concerns: Feels Safe At This Time Smoking Status: Current every day smoker Tobacco Type: cigarettes Cigarettes Per Day: 1/3 PPD (TRYING TO QUIT); TOTAL USE X 50+ YEARS Do You Dip or Chew Tobacco: No Second Hand Exposure: No Tobacco Cessation Education Requested by Patient: No Hx Alcohol Use: No Hx Substance Use: No Review of Systems See HPI for pertinent positives & negatives. and A total of 10 systems reviewed and were otherwise negative Physical Exam Vital Signs Vital Signs - 24 hr 12/14/18 11:04 12/14/18 11:12 12/14/18 11:40 Temperature 36.7 C Temperature Source Oral Sepsis Recent Fever Within 48 Hours No Sepsis New/Unexplained Change in Mental Status No Sepsis Action Taken by Nursing No Action Required Pulse Rate 91 H 68 Pulse Rate [Apical] Pulse Rate [Exercises] Pulse Rate from SpO2 Sensor Pulse Rhythm Regular Respiratory Rate 20 20 Respiratory Rate [Exercises] Respiratory Effort / Characteristics Respiratory Depth Normal Blood Pressure 114/65 Blood Pressure Mean 81 Blood Pressure Position Sitting Pulse Oximetry 94 99 Pulse Oximetry [Exercises] Oxygen Delivery Method Room Air Room Air Nasal Cannula Oxygen Flow Rate 2 12/14/18 12:09 12/14/18 12:26 12/14/18 12:30 Temperature Temperature Source Sepsis Recent Fever Within 48 Hours Sepsis New/Unexplained Change in Mental Status Sepsis Action Taken by Nursing Pulse Rate 66 65 Pulse Rate [Apical] 66 Pulse Rate [Exercises] Pulse Rate from SpO2 Sensor 66 64 Pulse Rhythm Respiratory Rate 28 H 18 19 Respiratory Rate [Exercises] Respiratory Effort / Characteristics Spontaneous Respiratory Depth Blood Pressure Blood Pressure Mean Blood Pressure Position Pulse Oximetry 100 100 100 Pulse Oximetry [Exercises] Oxygen Delivery Method Nasal Cannula Nasal Cannula Nebulizer Oxygen Flow Rate 2 2 12/14/18 12:35 12/14/18 13:00 12/14/18 13:01 Temperature Temperature Source Sepsis Recent Fever Within 48 Hours Sepsis New/Unexplained Change in Mental Status Sepsis Action Taken by Nursing Pulse Rate 63 67 67 Pulse Rate [Apical] Pulse Rate [Exercises] Pulse Rate from SpO2 Sensor 63 68 67 Pulse Rhythm Respiratory Rate 25 H 24 26 H Respiratory Rate [Exercises] Respiratory Effort / Characteristics Respiratory Depth Blood Pressure 147/73 H 153/74 H Blood Pressure Mean 97 100 Blood Pressure Position Pulse Oximetry 100 100 100 Pulse Oximetry [Exercises] Oxygen Delivery Method Nebulizer Nebulizer Nebulizer Oxygen Flow Rate 12/14/18 13:30 12/14/18 13:31 12/14/18 14:00 Temperature Temperature Source Sepsis Recent Fever Within 48 Hours Sepsis New/Unexplained Change in Mental Status Sepsis Action Taken by Nursing Pulse Rate Pulse Rate [Apical] Pulse Rate [Exercises] Pulse Rate from SpO2 Sensor 87 84 95 H Pulse Rhythm Respiratory Rate Respiratory Rate [Exercises] Respiratory Effort / Characteristics Respiratory Depth Blood Pressure 151/77 H 160/84 H Blood Pressure Mean 101 109 Blood Pressure Position Pulse Oximetry 100 100 87 L Pulse Oximetry [Exercises] Oxygen Delivery Method Nebulizer Nasal Cannula Oxygen Flow Rate 2 12/14/18 14:01 12/14/18 14:37 12/14/18 15:00 Temperature Temperature Source Sepsis Recent Fever Within 48 Hours Sepsis New/Unexplained Change in Mental Status Sepsis Action Taken by Nursing Pulse Rate 103 H 91 H Pulse Rate [Apical] Pulse Rate [Exercises] 117 H Pulse Rate from SpO2 Sensor 97 H Pulse Rhythm Respiratory Rate 16 24 Respiratory Rate [Exercises] 24 Respiratory Effort / Characteristics Respiratory Depth Blood Pressure 148/70 H Blood Pressure Mean 96 Blood Pressure Position Pulse Oximetry 86 L Pulse Oximetry [Exercises] 86 L Oxygen Delivery Method Nasal Cannula Nasal Cannula Nasal Cannula Oxygen Flow Rate 2 2 2 12/14/18 15:01 12/14/18 15:30 12/14/18 16:00 Temperature Temperature Source Sepsis Recent Fever Within 48 Hours Sepsis New/Unexplained Change in Mental Status Sepsis Action Taken by Nursing Pulse Rate 93 H 90 96 H Pulse Rate [Apical] Pulse Rate [Exercises] Pulse Rate from SpO2 Sensor 89 97 H Pulse Rhythm Respiratory Rate 23 22 18 Respiratory Rate [Exercises] Respiratory Effort / Characteristics Respiratory Depth Blood Pressure 160/83 H Blood Pressure Mean 108 Blood Pressure Position Pulse Oximetry 94 93 Pulse Oximetry [Exercises] Oxygen Delivery Method Nasal Cannula Nasal Cannula Nasal Cannula Oxygen Flow Rate 2 2 2 12/14/18 16:01 12/14/18 16:02 12/14/18 16:11 Temperature Temperature Source Sepsis Recent Fever Within 48 Hours Sepsis New/Unexplained Change in Mental Status Sepsis Action Taken by Nursing Pulse Rate 93 H 94 H 89 Pulse Rate [Apical] Pulse Rate [Exercises] Pulse Rate from SpO2 Sensor 93 H 93 H 90 Pulse Rhythm Respiratory Rate 23 21 22 Respiratory Rate [Exercises] Respiratory Effort / Characteristics Respiratory Depth Blood Pressure 181/126 H 139/65 Blood Pressure Mean 144 89 Blood Pressure Position Pulse Oximetry 92 93 94 Pulse Oximetry [Exercises] Oxygen Delivery Method Nasal Cannula Oxygen Flow Rate 2 12/14/18 16:30 12/14/18 16:31 12/14/18 17:00 Temperature Temperature Source Sepsis Recent Fever Within 48 Hours Sepsis New/Unexplained Change in Mental Status Sepsis Action Taken by Nursing Pulse Rate 92 H 95 H 90 Pulse Rate [Apical] Pulse Rate [Exercises] Pulse Rate from SpO2 Sensor 92 H 91 H 90 Pulse Rhythm Respiratory Rate 21 14 21 Respiratory Rate [Exercises] Respiratory Effort / Characteristics Respiratory Depth Blood Pressure 150/59 H 134/60 Blood Pressure Mean 89 84 Blood Pressure Position Pulse Oximetry 95 87 L 97 Pulse Oximetry [Exercises] Oxygen Delivery Method Oxygen Flow Rate 12/14/18 17:01 Temperature Temperature Source Sepsis Recent Fever Within 48 Hours Sepsis New/Unexplained Change in Mental Status Sepsis Action Taken by Nursing Pulse Rate 92 H Pulse Rate [Apical] Pulse Rate [Exercises] Pulse Rate from SpO2 Sensor 92 H Pulse Rhythm Respiratory Rate 22 Respiratory Rate [Exercises] Respiratory Effort / Characteristics Respiratory Depth Blood Pressure Blood Pressure Mean Blood Pressure Position Pulse Oximetry 96 Pulse Oximetry [Exercises] Oxygen Delivery Method Oxygen Flow Rate GENERAL: Awake, alert, dyspnic, in no distress HENT: Normocephalic, atraumatic. Oropharynx with dry mucous membranes and otherwise unremarkable. EYES: Normal conjunctiva. Sclera non-icteric. NECK: Supple. No nuchal rigidity. FROM. No JVD. RESPIRATORY: Diminished breath sounds throughout with scant intermittent wheezes. CARDIAC: Regular rate, normal rhythm. Extremities warm and well perfused. Pulses equal. ABDOMEN: Soft, non-distended. No tenderness to palpation. No rebound or guarding. No masses. RECTAL: Deferred. MUSCULOSKELETAL: Chest examination reveals no tenderness. The back is symmetrical on inspection without obvious abnormality. There is no CVA ten derness to palpation. No joint edema. LOWER EXTREMITIES: Calves are equal size bilaterally and non-tender. No edema. No discoloration. NEURO: Normal sensorium. No sensory or motor deficits noted. SKIN: No rash or jaundice noted. Course 1127:The patient was evaluated in room C10. A complete history and physical examination was performed. 1418: I reevaluated the patient at this time and updated her on her current lab and imaging results. She is undergoing an ambulatory trial at this time. Administered Medications Arformoterol Tartrate (Brovana Neb) 15 mcg INH BIDR BRINDA Stop: 01/13/19 19:59 Last Admin: 12/14/18 19:12 Dose: 15 mcg Documented by: [id number] Ascorbic Acid (Vitamin C) 500 mg PO HS BRINDA Stop: 01/13/19 20:59 Last Admin: 12/14/18 21:03 Dose: 500 mg Documented by: [id number] Budesonide (Pulmicort Respules) 0.5 mg NEB BIDR BRINDA Stop: 01/13/19 19:59 Last Admin: 12/14/18 19:12 Dose: 0.5 mg Documented by: [id number] Methylprednisolone 40 mg/ (Syringe) 0.64 mls @ 1.5 mls/min IV Q8H BRINDA Stop: 01/13/19 19:59 Last Admin: 12/14/18 19:36 Dose: 1.5 mls/min Documented by: [id number] Insulin Aspart (Novolog Flexpen) 0 units SC ACHS BRINDA Stop: 01/13/19 20:59 Last Admin: 12/14/18 20:04 Dose: 7 units Documented by: [id number] Cosigned by: [id number] Insulin Glargine (Lantus Solostar Pen) 0 units SC BID BRINDA; Protocol Stop: 01/13/19 20:59 Last Admin: 12/14/18 20:02 Dose: 10 units Documented by: [id number] Cosigned by: [id number] Simvastatin (Zocor) 40 mg PO HS BRINDA Stop: 01/13/19 20:59 Last Admin: 12/14/18 21:03 Dose: 40 mg Documented by: [id number] Vitamin D (Vitamin D3) 4,000 units PO BID BRINDA Stop: 01/13/19 20:59 Last Admin: 12/14/18 21:03 Dose: 4,000 units Documented by: [id number] Discontinued Medications Albuterol (Duoneb) 12 ml NEB ONE ONE Stop: 12/14/18 11:37 Last Admin: 12/14/18 12:20 Dose: 12 ml Documented by: [id number] Levofloxacin/Dextrose (Levaquin/D5w) 750 mg in 150 mls @ 100 mls/hr IV NOW STA Stop: 12/14/18 17:16 Last Infusion: 12/14/18 17:54 Dose: 0 mls/hr Documented by: [id number] Admin: 12/14/18 16:03 Dose: 100 mls/hr Documented by: [id number] Methylprednisolone (Solumedrol) 125 mg IV NOW STA Stop: 12/14/18 11:37 Last Admin: 12/14/18 12:35 Dose: 125 mg Documented by: [id number] Medical Decision Making Differential Diagnosis Differential diagnosis: Etiologies such as infections, reactive airway disease, COPD, pneumonia, pleural effusion, pulmonary edema, ARDS, pneumothorax, CHF, cardiac ischemia, cardiac tamponade, dysrhythmia, anemia, pulmonary embolism, musculoskeletal, gastrointestinal process, as well as others were entertained. Medical Records Attestation: I reviewed the patient's medical records. Home Medications Current Medication List: was personally reviewed by me Laboratory Data Attestation: I reviewed the patient's lab results. Result diagrams: 12/14/18 11:49 12/14/18 11:49 Lab Results 12/14/18 12/14/18 12/14/18 Range/Units 11:49 11:49 12:02 WBC 12.62 H (4.8-10.8) K/uL RBC 4.09 L (4.2-5.4) M/uL Hgb 13.1 (12.0-16.0) g/dL Hct 39.6 (37-47) % MCV 96.8 (80-100) fL MCH 32.0 (25-34) pg MCHC 33.1 (32-36) g/dL RDW Std Deviation 45.7 (36.4-46.3) fL RDW Coeff of Campbell 12.9 (11.5-14.5) % Plt Count 231 (130-400) K/uL MPV 10.1 (7.4-10.4) fL Immature Gran % (Auto) 0.4 % Neut % (Auto) 69.1 % Lymph % (Auto) 22.6 % [place] % (Auto) 7.1 % Eos % (Auto) 0.6 % Baso % (Auto) 0.2 % Immature Gran # (Auto) 0.05 H (0.00-0.02) K/uL Neut # (Auto) 8.71 H (1.4-6.5) K/uL Lymph # (Auto) 2.85 (1.2-3.4) K/uL [place] # (Auto) 0.90 H (0.11-0.59) K/uL Eos # (Auto) 0.08 (0-0.5) K/uL Baso # (Auto) 0.03 (0-0.2) K/uL VBG pH 7.36 (7.36-7.41) VBG pCO2 52 H (38-50) mmHg VBG pO2 26 mmHg VBG HCO3 29 mmol/L VBG O2 Saturation < 60.0 % VBG Base Excess 2.4 mEq/L Barometric Pressure 733.2 mm/Hg Sodium 140 (136-145) mmol/L Potassium 3.9 (3.5-5.1) mmol/L Chloride 106 (98-107) mmol/L Carbon Dioxide 30 (21-32) mmol/L Anion Gap 4.0 (3-11) BUN 14 (7-18) mg/dl Creatinine 0.74 (0.6-1.2) mg/dl Est Cr Clr Drug Dosing Not Reportable Est GFR ( Amer) 89.9 Est GFR (Non-Af Amer) 77.6 BUN/Creatinine Ratio 19.2 (10-20) Glucose 250 H (70-99) mg/dl Calcium 9.1 (8.5-10.1) mg/dl Magnesium 2.0 (1.8-2.4) mg/dl Total Bilirubin 1.2 H (0.2-1) mg/dl AST 15 (15-37) U/L ALT 14 (12-78) U/L Alkaline Phosphatase 72 (45-117) U/L Troponin I < 0.015 (0-0.045) ng/ml NT-Pro-B Natriuret Pep 109 (0-1800) pg/ml Total Protein 7.4 (6.4-8.2) gm/dl Albumin 3.4 (3.4-5.0) gm/dl Globulin 4.0 (2.5-4.0) gm/dl Albumin/Globulin Ratio 0.9 (0.9-2) Lipase 95 (73-393) U/L Urine Color Urine Appearance (Clear) Urine pH (4.5-7.5) Ur Specific [place] (1.000-1.030) Urine Protein (Negative) Urine Glucose (UA) (Negative) Urine Ketones (Negative) Urine Blood (Negative) Urine Nitrite (Negative) Urine Bilirubin (Negative) Urine Urobilinogen (Negative) Ur Leukocyte Esterase (Negative) Urine WBC (Auto) (0-5) /hpf Urine RBC (Auto) (0-4) /hpf U Hyaline Cast (Auto) (0-5) /lpf U Epithel Cells (Auto) (0-5) /lpf Urine Bacteria (Auto) (Negative) Ur Renal Epithelial Cell (0-5) /lpf 12/14/18 Range/Units 14:25 WBC (4.8-10.8) K/uL RBC (4.2-5.4) M/uL Hgb (12.0-16.0) g/dL Hct (37-47) % MCV (80-100) fL MCH (25-34) pg MCHC (32-36) g/dL RDW Std Deviation (36.4-46.3) fL RDW Coeff of Campbell (11.5-14.5) % Plt Count (130-400) K/uL MPV (7.4-10.4) fL Immature Gran % (Auto) % Neut % (Auto) % Lymph % (Auto) % [place] % (Auto) % Eos % (Auto) % Baso % (Auto) % Immature Gran # (Auto) (0.00-0.02) K/uL Neut # (Auto) (1.4-6.5) K/uL Lymph # (Auto) (1.2-3.4) K/uL [place] # (Auto) (0.11-0.59) K/uL Eos # (Auto) (0-0.5) K/uL Baso # (Auto) (0-0.2) K/uL VBG pH (7.36-7.41) VBG pCO2 (38-50) mmHg VBG pO2 mmHg VBG HCO3 mmol/L VBG O2 Saturation % VBG Base Excess mEq/L Barometric Pressure mm/Hg Sodium (136-145) mmol/L Potassium (3.5-5.1) mmol/L Chloride (98-107) mmol/L Carbon Dioxide (21-32) mmol/L Anion Gap (3-11) BUN (7-18) mg/dl Creatinine (0.6-1.2) mg/dl Est Cr Clr Drug Dosing Est GFR ( Amer) Est GFR (Non-Af Amer) BUN/Creatinine Ratio (10-20) Glucose (70-99) mg/dl Calcium (8.5-10.1) mg/dl Magnesium (1.8-2.4) mg/dl Total Bilirubin (0.2-1) mg/dl AST (15-37) U/L ALT (12-78) U/L Alkaline Phosphatase (45-117) U/L Troponin I (0-0.045) ng/ml NT-Pro-B Natriuret Pep (0-1800) pg/ml Total Protein (6.4-8.2) gm/dl Albumin (3.4-5.0) gm/dl Globulin (2.5-4.0) gm/dl Albumin/Globulin Ratio (0.9-2) Lipase (73-393) U/L Urine Color Dark Yellow Urine Appearance Clear (Clear) Urine pH 5.0 (4.5-7.5) Ur Specific [place] 1.032 H (1.000-1.030) Urine Protein Negative (Negative) Urine Glucose (UA) Negative (Negative) Urine Ketones Trace H (Negative) Urine Blood Negative (Negative) Urine Nitrite Positive A (Negative) Urine Bilirubin Negative (Negative) Urine Urobilinogen Negative (Negative) Ur Leukocyte Esterase 1+ H (Negative) Urine WBC (Auto) 10-30 H (0-5) /hpf Urine RBC (Auto) 0-4 (0-4) /hpf U Hyaline Cast (Auto) 10-30 H (0-5) /lpf U Epithel Cells (Auto) >30 H (0-5) /lpf Urine Bacteria (Auto) 3+ H (Negative) Ur Renal Epithelial Cell 0-5 (0-5) /lpf Imaging Data Radiologist's Impression: Radiology results as stated below per my review and the radiologist's interpretation: SINGLE VIEW CHEST CLINICAL HISTORY: Atypical chest pain. FINDINGS: 2 AP, portable, upright chest radiographs are compared to study dated 09/19/2018 and correlated with chest CT dated 03/18/2018. The examination is significantly degraded by portable technique, apical lordotic positioning, and patient rotation. The cardiomediastinal silhouette is unremarkable, noting atherosclerotic calcification of the thoracic aorta. Emphysema and chronic interstitial thickening are again noted. There is no airspace consolidation or large pleural effusion. Bibasilar scarring/atelectasis is observed. No pneumothorax is seen. The skeletal structures are osteopenic. The bony thorax is grossly intact. Calcified breast implants are noted. IMPRESSION: Emphysematous change with no acute cardiopulmonary abnormality. Electronically signed by: David Alford M.D. 12/14/2018 11:36 AM ECG Data Attestation: I personally reviewed and interpreted this ECG as follows: Indication: SOB/dyspnea Rate (beats per minute): 70 Rhythm: normal sinus Findings: + RBBB (incomplete); no PAC, no PVC, no ST depression, no ST elevation, no acute ischemic change and no ectopy Comparison ECG Date: from (11/06/17) Change: no significant change Blood Pressure Blood Pressure Findings: Elevated blood pressure Blood Pressure Disposition: elevated BP felt to be situational MDM Narrative The patient is a pleasant 78 y/o woman with a pmhx of COPD/emphysema who presents to the emergency department with generalized weakness and sob that has worsened over the past several days per HPI. On arrival the patient is mildly dyspneic but in NAD, AFVSS. Patient appears clinically dry. On exam patient has diminished breath sounds throughout with intermittent wheezes. EKG without ev idence of acute ischemia. CXR negative. WBC 12.5, nonspecific. H/H and platelets wnl. VBG with pCO2 52 but otherwise unremarkable. Glucose 250s and Chemistry without acidosis. Troponin negative. UA with nitrite positive. LE1+ and 3+ bacteria albeit with >30 epitheleal cells. Patient feeling improved after solumedrol and continuous duoneb. However, upon ambulatory trial with pulse ox she became dyspneic and desaturated to 87%. Thus, reasonable to admit patient for further management given patient is not currently on home O2. Patient treated with Levoquin to cover COPDE flare and likely UTI. Case was [place] [facility] [place] who will evaluate the patient for admission. Impression & Plan COPD exacerbation, Acute UTI (urinary tract infection) Discharge Plan Visit Data *Final* Discharge Date/Time: 12/14/18 17:08 Chief Complaint: Shortness of Breath/Dyspnea Stated Complaint: SOB ED Provider: Pasha Campo Discharge Problem: COPD exacerbation, Acute UTI (urinary tract infection) Patient Disposition: Admitted As Inpatient Discharge Instructions Interventions: ED Discharge Assessment Last Done: 12/14/18 17:08 The scribe's documentation has been prepared under my direction and personally reviewed by me in its entirety. I confirm that the note above accurately reflects all work, treatment, procedures, and medical decision making performed by me.
[2018-12-15] MEDS: INSULIN ASPART 100 UNITS/ML 3 ML PEN SC SCH ×6 (00:01→22:21)
[2018-12-15] MEDS ORDERED: LORazepam 0.5 MG TAB PO STA (00:21)
[2018-12-15] MEDS ORDERED: INSULIN ASPART 100 UNITS/ML 3 ML PEN SC SCH (02:00)
[2018-12-15] MEDS: methylPREDNISolone 40 MG in SYRINGE 0 ML IV SCH ×3 (04:06→20:03)
[2018-12-15] MEDS: LEVOTHYROXINE SODIUM 100 MCG TABLET PO SCH (05:47)
[2018-12-15] MEDS: ARFORMOTEROL TART 15MCG/2ML VIAL INH SCH ×2 (07:17→19:29)
[2018-12-15] MEDS: BUDESONIDE 0.5 MG/2 ML VIAL (PULMICORT) NEB SCH ×2 (07:17→19:35)
[2018-12-15] MEDS: INSULIN GLARGINE SOLOSTAR 100 UNITS/ML 3 ML PEN SC SCH ×2 (08:31→22:21)
[2018-12-15] MEDS: CHOLECALCIFEROL 1,000 UNITS TAB PO SCH ×2 (08:37→22:22)
[2018-12-15] MEDS: CLOPIDOGREL BISULFATE 75 MG TAB PO SCH (08:37)
[2018-12-15] MEDS: LISINOPRIL 2.5 MG TAB PO SCH (08:38)
[2018-12-15] MEDS ORDERED: SITAGLIPTIN PHOSPHATE 100 MG TAB PO SCH (09:00)
--- NOTE | 2018-12-15 09:39 | Pharmacy Report ---
Glycemic Control Consultation - Date of Service December 15, 2018 - Scope Scope: Glycemic Pharmacist consulted by Dr Rivera on 12/15 for glycemic control and to write orders per [facility] inpatient glycemic control protocol - Objective Weight: 57.1 kg Accuchecks BSG (last 24hrs): 12/14/18 12/14/18 12/14/18 11:49 17:48 17:49 Glucose 250 H POC Glucose 372 H* 397 H* 12/14/18 12/14/18 12/14/18 19:49 19:54 23:54 Glucose POC Glucose 406 H* 349 H* 319 H* 12/14/18 12/15/18 12/15/18 23:57 03:48 07:04 Glucose POC Glucose 298 H 230 H 203 H Laboratory Data (last 24hrs): 12/14/18 11:49 Potassium 3.9 Carbon Dioxide 30 Anion Gap 4.0 Creatinine 0.74 Est Cr Clr Drug Dosing Not Reportable - Recent Pertinent Medications Outpatient Anti-diabetic Regimen: * Amaryl 1 mg BID * Januvia 100 mg qAM * A1c = pending The patient is currently receiving: * Basal insulin: Lantus 10 units every 12 hours for BSG > 180 mg/dL * Correctional Insulin: Novolog Correction per scale ACHS Goal Range: Low 120 mg/dL - High 160 mg/dL Correction Factor: 30 mg/dL/unit * Prandial insulin: Per carb ratio of 1 unit per 10 grams CHO consumed * Oral Agents: None at this time Risk Factors for Insulin Resistance: * Steroids: Solu-medrol 40 mg IV q8h (rec'd 125 mg yesterday ~1200) * Infection: on Levaquin for COPD exac * Diet: type 2 diabetes - Assessment & Plan Assessment & Plan: ASSESSMENT: * 78 y/o female admitted 12/14 for COPD exacerbation. PMH includes type 2 diabetes, managed on two oral agents. Unknown outpatient control so A1c ordered to assess this. * Pt is maintained on oral antidiabetic agents as an outpatient * Oral agents are not recommended for inpatient use d/t drug interactions, changing PO intake, and difficulty titrating for acute hyper/hypoglycemia. ADA recommends re-initiating outpatient oral agents 1-2 days prior to discharge if/when appropriate if they were held on admission. * Will hold oral agents for admission and utilize SQ basal bolus insulin regimen which is the recommended regimen for inpatient glycemic control. * Weight based insulin dosing was initiated last evening. BSGs were still elevated last evening but were improving and patient was due to receive additional Lantus this AM so no changes were made to insulin regimen. Pre- lunch BSG was significantly elevated at 383 mg/dL. 6 unit IV bolus was given and recheck of BSG down to 242 mg/dL. Based upon her weight and previous insulin requirements (~10-15 units of basal without steroids), I'm surprised that she needs such aggressive doses. Would anticipate reductions once BSGs start to improve. * Of note, confirmed with Dr. Pilo frederick for pharmacy to continue managing PLAN FOR INPATIENT GLYCEMIC CONTROL: * Continue to hold outpatient oral diabetes medications * Basal insulin - adjust scale to provide weight based dosing per stress level of 1, 2, or 3: * Lantus BID as per the following scale: * 5 units for BSG < 150 * 10 units for BSG 150 - 200 * 15 units for BSG > 200 * Give additional 5 units x 1 now to have more basal on board * Bolus insulin - continue CF/CR as tightened by provider. These are aggressive so will need to adjust once BSGs controlled * NovoLog per scale ACHS or Q6hrs while NPO * Goal Range: Low 110 mg/dL - High 150 mg/dL * Correction Factor: 20 mg/dL/unit * Nutritional / Prandial insulin per carb ratio of 1 unit per 8 grams CHO consumed * Discharge recommendations will be provided once A1c available * Please note that the plan above was derived based on current level of insulin resistance and hospital stress. These recommendations are appropriate for inpatient admission only. Plan of care upon discharge will need to be reassessed to avoid potential outpatient hypo/hyperglycemia. Thank you.
[2018-12-15] MEDS ORDERED: INSULIN HUMAN REGULAR PER UNIT 6 UNITS in SYRINGE 5.94 ML IV ONE (12:30)
--- NOTE | 2018-12-15 14:23 | Hospitalist Progress Note ---
Date of Service December 15, 2018 Assessment & Plan (1) COPD exacerbation: Treat underlying bronchitis. Administer arformoterol and budesonide nebulizers. Intravenous methylprednisolone continue Solu Medrol today, change to Prednisone tomorrow plan for taper on discharge continue Levaquin for 5-7 days, minimal sputum production today (2) Acute bronchitis: will treat with Prednisone and Levaquin as above albuterol at home (3) Acute respiratory failure with hypoxia: Supplemental oxygen to maintain saturation greater than 90% will order two step for tomorrow to see if she qualifies for home oxygen (4) Chest pain: troponin negative echocardiogram with EF of 55% and no wall motion abnormalities can transfer to medical floor (5) Diabetes mellitus with neuropathy: ADA diet. Continue medical management. Sliding scale coverage as needed hyperglycemia due to steroids pharmacy was consulted overnight managing with Lantus and Novolog holding oral agents (6) UTI (urinary tract infection): urine culture growing gram negative bacilli and alpha strep not enterococcus continue on Levaquin follow up on the final sensitivities (7) DVT prophylaxis: Lovenox subcu Plan: transfer to medical floor check 2 step in the morning consult nurse navigator to check cost of Advair vs Symbicort since patient cannot affort Symbicort look into any discounts likely okay for discharge tomorrow afternoon on Prednisone and Levaquin, possibly oxygen PT/OT consulted Subjective talked with patient and her family at the bedside today she is feeling better overall, breathing a little easier coughing intermittently but no sputum production no fever, vitals stable, on 2L [place] does not use oxygen at home, family asks if we can test her for home oxygen sugar quite high at 383, will adjust insulin per patient, she does not have her Symbicort because she cannot afford it she was using samples from doctor's office but ran out she has never tried Advair, suggested looking into cost of it will consult nurse navigator to check into cost patient would like to go home tomorrow discussed that she should be stable Review of Systems Review of Systems: All systems reviewed & are unremarkable except as noted in HPI & below Constitutional: + insomnia (likely from steroids); no fever, no chills, no sweats, no fatigue and no weakness Respiratory: + cough and + dyspnea on exertion; no dyspnea and no sputum production Cardiovascular: + edema (mild, intermittent); no chest pain Gastrointestinal: no abdominal pain, no nausea, no vomiting, no constipation and no diarrhea/loose stools Physical Exam Constitutional: WD/WN, vitals as above + thin Eyes: PERRL, conjunctivae normal, anicteric sclerae ENMT: external ear and nose normal, oropharynx normal Neck: trachea midline, no thyromegaly Respiratory: normal respiratory effort; no respiratory distress Auscultation: + diminished lung sounds; no rhonchi and no wheezes Cardiovascular: Rate/Rhythm: regular rate and regular rhythm Heart Sounds: normal S1 and normal S2; no murmur Extremities: normal capillary refill and + edema (mild in ankles) Gastrointestinal (Abdomen): normal bowel sounds, soft, nontender, no hepatosplenomegaly Musculoskeletal: no cyanosis or clubbing, extremities motor strength 5/5 Skin: no rashes, warm and dry Neurologic: patellar DTR's 2+ bilat, sensation intact and PERRL, EOMI, accommodation nl, no face palsy, no dysarthria Psychiatric: A+Ox3, euthymic affect Lymphatic: no cervical or axillary lymphadenopathy Results & Data Vital Signs (Past 12 Hours) Vital Signs Temp Pulse Pulse Resp BP Pulse Ox 12/15/18 11:07 36.6 C 72 20 152/72 H 98 12/15/18 11:06 69 12/15/18 07:23 36.4 C L 64 20 153/66 H 100 12/15/18 07:19 71 16 96 12/15/18 04:06 36.7 C 67 20 134/75 97 Laboratory Results Laboratory Results - last 24 hr 12/14/18 12/14/18 12/14/18 14:25 17:48 17:49 POC Glucose 372 H* 397 H* Estimat Average Glucose Hemoglobin A1c Troponin I Urine Color Dark Yellow Urine Appearance Clear Urine pH 5.0 Ur Specific [place] 1.032 H Urine Protein Negative Urine Glucose (UA) Negative Urine Ketones Trace H Urine Blood Negative Urine Nitrite Positive A Urine Bilirubin Negative Urine Urobilinogen Negative Ur Leukocyte Esterase 1+ H Urine WBC (Auto) 10-30 H Urine RBC (Auto) 0-4 U Hyaline Cast (Auto) 10-30 H U Epithel Cells (Auto) >30 H Urine Bacteria (Auto) 3+ H Ur Renal Epithelial Cell 0-5 12/14/18 12/14/18 12/14/18 19:49 19:54 21:42 POC Glucose 406 H* 349 H* Estimat Average Glucose Hemoglobin A1c Troponin I < 0.015 Urine Color Urine Appearance Urine pH Ur Specific [place] Urine Protein Urine Glucose (UA) Urine Ketones Urine Blood Urine Nitrite Urine Bilirubin Urine Urobilinogen Ur Leukocyte Esterase Urine WBC (Auto) Urine RBC (Auto) U Hyaline Cast (Auto) U Epithel Cells (Auto) Urine Bacteria (Auto) Ur Renal Epithelial Cell 12/14/18 12/14/18 12/15/18 23:54 23:57 03:48 POC Glucose 319 H* 298 H 230 H Estimat Average Glucose Hemoglobin A1c Troponin I Urine Color Urine Appearance Urine pH Ur Specific [place] Urine Protein Urine Glucose (UA) Urine Ketones Urine Blood Urine Nitrite Urine Bilirubin Urine Urobilinogen Ur Leukocyte Esterase Urine WBC (Auto) Urine RBC (Auto) U Hyaline Cast (Auto) U Epithel Cells (Auto) Urine Bacteria (Auto) Ur Renal Epithelial Cell 12/15/18 12/15/18 12/15/18 06:29 06:29 07:04 POC Glucose 203 H Estimat Average Glucose Pending Hemoglobin A1c Pending Troponin I < 0.015 Urine Color Urine Appearance Urine pH Ur Specific [place] Urine Protein Urine Glucose (UA) Urine Ketones Urine Blood Urine Nitrite Urine Bilirubin Urine Urobilinogen Ur Leukocyte Esterase Urine WBC (Auto) Urine RBC (Auto) U Hyaline Cast (Auto) U Epithel Cells (Auto) Urine Bacteria (Auto) Ur Renal Epithelial Cell 12/15/18 12/15/18 11:39 11:40 POC Glucose 340 H* 383 H* Estimat Average Glucose Hemoglobin A1c Troponin I Urine Color Urine Appearance Urine pH Ur Specific [place] Urine Protein Urine Glucose (UA) Urine Ketones Urine Blood Urine Nitrite Urine Bilirubin Urine Urobilinogen Ur Leukocyte Esterase Urine WBC (Auto) Urine RBC (Auto) U Hyaline Cast (Auto) U Epithel Cells (Auto) Urine Bacteria (Auto) Ur Renal Epithelial Cell Medications Administered Current Inpatient Medications Acetaminophen (Tylenol) 650 mg PO Q4H PRN PRN Reason: Pain or Fever Stop: 01/13/19 17:53 Al Hydrox/Mg Hydrox/Simethicone (Maalox) 15 ml PO Q4H PRN PRN Reason: Dyspepsia Stop: 01/13/19 17:53 Arformoterol Tartrate (Brovana Neb) 15 mcg INH BIDR BRINDA Stop: 01/13/19 19:59 Last Admin: 12/15/18 07:17 Dose: 15 mcg Documented by: Ascorbic Acid (Vitamin C) 500 mg PO HS [facility] Stop: 01/13/19 20:59 Last Admin: 12/14/18 21:03 Dose: 500 mg Documented by: Budesonide (Pulmicort Respules) 0.5 mg NEB BIDR [facility] Stop: 01/13/19 19:59 Last Admin: 12/15/18 07:17 Dose: 0.5 mg Documented by: Clopidogrel Bisulfate (Plavix) 75 mg PO QAM [facility] Stop: 01/14/19 08:59 Last Admin: 12/15/18 08:37 Dose: 75 mg Documented by: Dextrose (Dextrose 50%) 25 - 50 ml IV UD PRN; Protocol PRN Reason: Hypoglycemia Protocol Stop: 01/13/19 18:14 Glimepiride (Amaryl) 1 mg PO BID [facility] Stop: 01/13/19 20:59 Glucagon (Glucagen) 1 mg IM UD PRN; Protocol PRN Reason: Hypoglycemia Protocol Stop: 01/13/19 18:14 Glucose (Glucose 40%) 15 - 30 gm PO UD PRN; Protocol PRN Reason: Hypoglycemia Protocol Stop: 01/13/19 18:14 Glucose (Dex4 Glucose) 4 - 8 tabs PO UD PRN; Protocol PRN Reason: Hypoglycemia Protocol Stop: 01/13/19 18:14 Methylprednisolone 40 mg/ (Syringe) 0.64 mls @ 1.5 mls/min IV Q8H [facility] Stop: 01/13/19 19:59 Last Admin: 12/15/18 12:46 Dose: 1.5 mls/min Documented by: Levofloxacin/Dextrose (Levaquin/D5w) 750 mg in 150 mls @ 100 mls/hr IV Q24H [facility] Stop: 12/21/18 15:59 Insulin Aspart (Novolog Flexpen) 0 units SC ACHS [facility] Stop: 01/13/19 20:59 Last Admin: 12/15/18 12:45 Dose: 13 units Documented by: Insulin Glargine (Lantus Solostar Pen) 0 units SC BID [facility]; Protocol Stop: 01/13/19 20:59 Last Admin: 12/15/18 08:31 Dose: 10 units Documented by: Levothyroxine Sodium (Synthroid) 100 mcg PO DAILYBB [facility] Stop: 01/14/19 06:29 Last Admin: 12/15/18 05:47 Dose: 100 mcg Documented by: Lisinopril (Zestril) 2.5 mg PO QAM [facility] Stop: 01/14/19 08:59 Last Admin: 12/15/18 08:38 Dose: 2.5 mg Documented by: Miscellaneous (Order Awaiting Action) 1 ea N/A QS BRINDA Stop: 01/14/19 00:00 Last Admin: 12/15/18 11:14 Dose: Not Given Documented by: Miscellaneous (Carbohydrates For Hypoglycemia) 15 - 30 gm PO UD PRN PRN Reason: Hypoglycemia Treatment Stop: 01/13/19 18:14 Miscellaneous Information (Consult Glycemic Management Pharmacy) 1 ea N/A UD PRN PRN Reason: Consult Stop: 01/13/19 19:35 Ondansetron HCl (Zofran) 4 mg IV Q6H PRN PRN Reason: Nausea Stop: 01/13/19 17:53 Simvastatin (Zocor) 40 mg PO HS [facility] Stop: 01/13/19 20:59 Last Admin: 12/14/18 21:03 Dose: 40 mg Documented by: Sitagliptin Phosphate (Januvia) 100 mg PO QAM [facility] Stop: 01/14/19 08:59 Tramadol HCl (Ultram) 50 mg PO Q6H PRN PRN Reason: pain Stop: 01/13/19 17:53 Vitamin D (Vitamin D3) 4,000 units PO BID [facility] Stop: 01/13/19 20:59 Last Admin: 12/15/18 08:37 Dose: 4,000 units Documented by: PG Care Time/CCT Total # of Minutes Spent Total Time Spent with Patient: Total time spent is greater than 50% in coordination of care (as documented) at patient's floor/unit and/or counseling patient:
[2018-12-15] MEDS ORDERED: INSULIN GLARGINE SOLOSTAR 100 UNITS/ML 3 ML PEN SC ONE (15:15)
[2018-12-15] MEDS ORDERED: LEVOFLOXACIN/D5W 750 MG/150 ML BAG IV SCH (16:00)
[2018-12-15] MEDS: ASCORBIC ACID 500 MG TAB PO SCH (22:22)
[2018-12-15] MEDS: SIMVASTATIN 40 MG TAB PO SCH (22:23)
--- NOTE | 2018-12-15 22:32 | Progress Note ---
Date of Service December 15, 2018 Received page from the patient's nurse that the patient was requesting to go home this evening. Spoke with the patient's nurse on the nursing floor prior to speaking with the patient and family. She says that the patient seemed to rather abruptly decide that she wanted to go home this evening. She left her own room and semi-bar ricaded herself in a different hospital room for over half an hour. Apparently her family then arrived and the patient was convinced to go out to the waiting room to meet with them. She also mentions that patient may think that her current hospital room is haunted. In brief review of the medical record, patient was admitted for a COPD exacerbation. She is also being treated for UTI. No noted mention of mental status changes during this hospitalization. I met with the patient and three family members in the waiting room on the second floor. Patient is presently in her wheelchair in her hospital gown, awake, alert, but unable to obtain full orientation due to her refusal to answer basic questions. She would repeatedly states that she wants to go home and that she does not want to explain herself. When asked how she would get a hold of home oxygen, she says that she can go to [facility] and obtain it herself. When asked how she can get steroids and antibiotics to go home with, she either remains silent or again said she could figure down on her own because she can take care of herself. Her family present states combination that she is "scared" and that "she thinks you [the hospital] is going to kill her". When asked to elaborate, no specifics were given. One family member does believe that she is not thinking clearly due to the higher dose of prednisone that she received for her COPD. For exam purposes, she is presently speaking easily in full sentences off of any oxygen. She does not appear in any acute physical distress. Most recent vitals include a respiratory rate in the teens and oxygen sat of 90% on room air. Plan: - We had an extensive 15+ minute discussion that her being discharged from the hospital AMA overnight is both unsafe and not advised. Review of her medical record mentions that she is on track for likely hospital discharge tomorrow anyway. If she were willing to stay for another 12+ hours she would likely go home on all of her post hospitalization medications safely. - It is difficult to tell if the patient is overtly delirious, though she does not respond to questions logically. She definitely is not acting in a manner that is safe towards herself though does not seem to be a direct threat to herself. - Ultimately, the patient agreed to stay in the hospital as long as her son could remain in her side. She prefers to spend her time in the waiting room watching TV. They were offered to switch hospital rooms, which they will think about. Anamika Freire, PGY3 Overnight call Results & Data Vital Signs (Past 12 Hours) Vital Signs Temp Pulse Pulse Pulse Resp BP Pulse Ox 12/15/18 19:36 78 16 90 12/15/18 17:58 36.6 C 65 16 132/72 95 12/15/18 11:07 36.6 C 72 20 152/72 H 98 12/15/18 11:06 69
[2018-12-16] MEDS: methylPREDNISolone 40 MG in SYRINGE 0 ML IV SCH (03:58)
[2018-12-16] MEDS: LEVOTHYROXINE SODIUM 100 MCG TABLET PO SCH (06:04)
[2018-12-16 06:42] LABS: Estimated Average Glucose 174 mg/dl; Hemoglobin A1C 7.7 % (4.5-5.6)
[2018-12-16] MEDS: BUDESONIDE 0.5 MG/2 ML VIAL (PULMICORT) NEB SCH (07:17)
[2018-12-16] MEDS: ARFORMOTEROL TART 15MCG/2ML VIAL INH SCH (07:17)
[2018-12-16] MEDS ORDERED: INSULIN HUMAN NPH SC SCH (08:00)
[2018-12-16] MEDS: INSULIN ASPART 100 UNITS/ML 3 ML PEN SC SCH (08:04)
[2018-12-16] MEDS: LISINOPRIL 2.5 MG TAB PO SCH (08:05)
[2018-12-16] MEDS: INSULIN GLARGINE SOLOSTAR 100 UNITS/ML 3 ML PEN SC SCH (08:05)
[2018-12-16] MEDS: CHOLECALCIFEROL 1,000 UNITS TAB PO SCH (08:06)
[2018-12-16] MEDS: CLOPIDOGREL BISULFATE 75 MG TAB PO SCH (08:24)
[2018-12-16 08:29] LABS: Hematocrit (blood only) 38.8 % (37-47); Hemoglobin 13.4 g/dL (12.0-16.0); Mean Corpuscular Hgb Conc 34.5 g/dL (32-36); Mean Platelet Volume 9.9 fL (7.4-10.4); Platelet Count 319 K/uL (130-400); RDW Coefficient of Variation 12.9 % (11.5-14.5); Red Blood Count 4.04 M/uL (4.2-5.4); White Blood Count 30.41 K/uL (4.8-10.8)
--- NOTE | 2018-12-16 08:34 | Pharmacy Report ---
Pharmacy Glycemic Short Note 2 - Date of Service December 16, 2018 - Glycemic Short BSG Results (Last 24 hours): 12/15/18 12/15/18 12/15/18 11:39 11:40 14:20 POC Glucose 340 H* 383 H* 242 H 12/15/18 12/15/18 12/16/18 16:23 22:16 07:44 POC Glucose 205 H 217 H 208 H OUTPATIENT ANTIDIABETIC REGIMEN: * Amaryl 1 mg BID * Januvia 100 mg qAM * A1c = 7.7% on 12/15/18 ASSESSMENT: 12/16 * [place] rec'd 47 units of insulin yesterday (only 15 of this was basal). Patient refused both Lantus + Novolog at HS last night; therefore, BSGs remain elevated this AM. * Solu-medrol 40 mg q8h changed to prednisone 60 mg qAM. Patient rec'd last dose of Solu-medrol at 0400 this AM so I expect this to hang on through this evening. * Will continue with same Lantus dose this AM to cover basal needs + remaining Solu-medrol on board. Will also provide NPH 0.4 units/kg to cover prednisone 60 mg, as this best mimics the PK of once daily prednisone. 12/15 * 78 y/o female admitted 12/14 for COPD exacerbation. PMH includes type 2 diabetes, managed on two oral agents. Unknown outpatient control so A1c ordered to assess this. * Pt is maintained on oral antidiabetic agents as an outpatient * Oral agents are not recommended for inpatient use d/t drug interactions, changing PO intake, and difficulty titrating for acute hyper/hypoglycemia. ADA recommends re-initiating outpatient oral agents 1-2 days prior to discharge if/when appropriate if they were held on admission. * Will hold oral agents for admission and utilize SQ basal bolus insulin regimen which is the recommended regimen for inpatient glycemic control. * Weight based insulin dosing was initiated last evening. BSGs were still elevated last evening but were improving and patient was due to receive additional Lantus this AM so no changes were made to insulin regimen. Pre- lunch BSG was significantly elevated at 383 mg/dL. 6 unit IV bolus was given and recheck of BSG down to 242 mg/dL. Based upon her weight and previous insulin requirements (~10-15 units of basal without steroids), I'm surprised that she needs such aggressive doses. Would anticipate reductions once BSGs start to improve. * Of note, confirmed with Dr. Pilo frederick for pharmacy to continue managing PLAN FOR INPATIENT GLYCEMIC CONTROL: * Continue to hold outpatient oral diabetes medications * NPH 22 units qAM (to cover prednisone 60 mg) * Basal insulin * Lantus qAM per the following scale: * 5 units for BSG < 150 * 10 units for BSG 150-200 * 15 units for BSG > 200 * Bolus insulin * NovoLog per scale ACHS or Q6hrs while NPO * Goal Range: Low 110 mg/dL - High 150 mg/dL * Correction Factor: 20 mg/dL/unit * Nutritional / Prandial insulin per carb ratio of 1 unit per 8 grams CHO consumed PLAN FOR DISCHARGE: * A1c of 7.7% indicates adequate glycemic control for patient's age/comorbidities * Continue Amaryl and Januvia as an outpatient
[2018-12-16 08:45] LABS: BUN Creatinine Ratio 25.6 (10-20); Calcium 9.8 mg/dl (8.5-10.1); Creatinine Clr Calc Pharmacy 54.3 ml/min; Est GFR (African American) 85.7; Potassium 4.4 mmol/L (3.5-5.1)
[2018-12-16] MEDS ORDERED: predniSONE 20 MG TAB PO SCH (09:00)
[2018-12-16] MEDS ORDERED: levoFLOXacin 750 MG TAB PO SCH (11:00)
--- NOTE | 2018-12-16 14:00 | Discharge Summary ---
Date of Service December 16, 2018 Admission HPI Per Admitting Provider 78-year-old female with COPD. She has had a nonproductive cough for the past several days with worsening wheezing and shortness of breath. Today she had an episode of chest discomfort associated with the shortness of breath that resolved with rest. No radiation of chest discomfort and no diaphoresis. She only had one episode of chest discomfort. There are no acute EKG changes. Chest x-ray is negative for pneumonia but she appears to have bronchitis with acute exacerbation of COPD. Room air oxygen saturation is 86% with ambulation consistent with acute hypoxic respiratory failure. There is also evidence of UTI. She is admitted for further evaluation and treatment. Admission Exam Per Admitting Provider General-alert and oriented x3, no fevers, no chills HEENT-head atraumatic and normocephalic, TMs intact bilaterally, pupils equal and reactive to light, extraocular muscles intact Neck-no lymphadenopathy or thyromegaly, trachea midline Chest-diminished breath sounds bilaterally. Faint bilateral and expiratory wheezes. Faint midline rhonchi. No inspiratory rales. No dullness to percussion Cardiac-regular rate and rhythm, normal S1 and S2. Grade 1/6 systolic blowing murmur Abdomen-normal bowel sounds, nontender, no hepatosplenomegaly Extremities-no cyanosis, clubbing, or edema Neuro-cranial nerves II through XII intact, motor and sensory function within normal limits, strength symmetrical 5/5, no focal deficits Psych-normal affect, normal mood Principal Diagnosis COPD exacerbation Discharge Exam General: Resting comfortably in no apparent distress HEENT: NC/AT; PERRLA with EOMI; Surrency conjunctiva, MMM. No erythema of posterior pharynx Neck: Supple and nontender Cardiac: RRR w/o murmurs, gallops or rubs Lungs: CTA bilaterally Abdomen: Bowel normoactive X 4; Nontender to palpation Extremities: Warm. No edema present Neuro: No focal weakness Skin: No rash Discharge Data Allergies Allergy/AdvReac Type Severity Reaction Status Date / Time metformin AdvReac Intermediate NAUSEA AND Verified 10/11/18 07:54 DIARRHEA varenicline AdvReac Unknown DEPRESSION, Verified 10/11/18 07:54 BAD DREAMS Consultations 12/14/18 15:41 ED Decision to Admit Stat 12/15/18 17:54 Consult [facility] home staging specialist Routine Ordered Studies CXR 12/14/18 Hospital Course (1) COPD exacerbation: In setting of underlying bronchitis/COPD. Improved with IV Solu-medrol 40 mg IV q8hr -- converted to Prednisone 60 mg daily on discharge, will complete taper. Received Arformoterol and budesonide nebs -- will use Symbicort BID at home. Levaquin for a 7 day course. Follow up with PCP as outpatient. (2) Acute bronchitis: Treatment as noted above. Albuterol prn at home. (3) Acute respiratory failure with hypoxia: Required oxygen during this admission -- 2-step completed, did not qualify for home oxygen. (4) Chest pain: Troponin negative Echocardiogram with EF of 55% and no wall motion abnormalities (5) Diabetes mellitus with neuropathy: Hyperglycemia coverage with SSI. Pharmacy consulted for management. Will resume home meds at discharge. (6) UTI (urinary tract infection): UC positive for E. coli and Alpha strep. Will complete course of Levaquin PO. (7) Stroke: Continued statin and plavix as prescribed. (8) Hypothyroidism: Continued Levothyroxine. Most recent TSH was 0.9 in October 2018. (9) DVT prophylaxis: SubQ Lovenox. Discharged to home with PT/OT on 12/16/18. Total Time Total Time Spent Total Time Spent (In Minutes): >30 minutes Discharge Plan Discharge Items Patient Disposition: Home - Home Health Services Reason For Visit: EXACERBATION COPD, HYPOXIA Discharge Diagnosis: COPD Exacerbation, UTI Condition: Good Discharge Goals: Diagnostic testing, Improve disease control, Improve function, Increase independence, Improve nutritional status and Prevent disease Activity: As commented below Activity Comment: Use walker with ambulation. Exercise/Sports: Gradually increase as tolerated Non-emergency contact: Primary Care Provider Call non-emergency contact if: you have any medication questions, your symptoms worsen, your pain is not controlled, your pain is worsening, your pain is unusual for you, your pain is concerning for you and you have a fever Follow-up/Referrals: Alan Wilhelm MD [Primary Care Provider] - 12/17/18 3:00 pm (Please, follow up at Dr. Wilhelm's office TOMORROW, December AT 3:00 PM, with his associate, Krystal Saenz PA-C. *If you need to change this appointment, call the office at [phone].) Diet: Carb Consistent or DM2 Addtl Provider Instructions: 1. COPD Exacerbation * Please continue Prednisone taper as follows: - Prednisone 60 mg daily on 12/17/18. - Prednisone 50 mg daily on 12/18/18. - Prednisone 40 mg daily on 12/19/18. - Prednisone 30 mg daily on 12/20/18. - Prednisone 20 mg daily on 12/21/18. - Prednisone 10 mg daily on 12/22/18 then discontinue taper. * Continue Levaquin 750 mg daily to complete course of treatment for COPD and UTI (first dose on 12/17/18) * Prescription for Symbicort inhaler -- to be used twice daily -- was sent to your pharmacy. * Please follow up with PCP as outpatient. 2. UTI * Please continue course of treatment for UTI. * It is recommended to take a probiotic daily in the setting of antibiotics. 3. Home nursing has been arranged for physical and occupational therapy support. 4. Prescriptions for new meds (Levaquin, Prednisone taper and Symbicort) were sent to [facility] on [facility] [facility]. Prescriptions: New levofloxacin 750 mg Tablet 750 mg PO DAILY@1100 5 Days Qty: 5 RF: 0 Symbicort 160-4.5 mcg/actuation HFA aerosol inhaler 2 puffs INH BID Qty: 6 RF: 1 prednisone 20 mg tablet 60 mg PO DAILY Qty: 11 RF: 0 Continued simvastatin 40 mg tablet 40 mg PO HS Qty: 90 RF: 3 clopidogrel 75 mg Tablet 75 mg PO QAM RF: 0 glimepiride 1 mg Tablet 1 mg PO BID RF: 0 levothyroxine 100 mcg Tablet 100 mcg PO QAM RF: 0 ascorbic acid (vitamin C) 500 mg Tablet 500 mg PO HS RF: 0 lisinopril 2.5 mg Tablet 2.5 mg PO QAM RF: 0 Januvia 100 mg Tablet 100 mg PO QAM RF: 0 Vitamin D3 4,000 unit Capsule 4,000 unit PO BID RF: 0 coQ10 (ubiquinol) 200 mg Capsule 200 mg PO QPM RF: 0 albuterol sulfate 90 mcg/actuation Hfa Aerosol Inhaler 1 puff INHALATION Q6H PRN (Reason: Wheezing) RF: 0 PreserVision AREDS-2 [phone]-[id number]-mg Capsule 1 tab PO BID RF: 0 tramadol [Ultram] 50 mg tablet 50 mg PO Q6H PRN (Reason: pain) Qty: 40 RF: 0 Discontinued acetaminophen 500 mg tablet 500 mg PO BID RF: 0 Symbicort 160-4.5 mcg/actuation Hfa Aerosol Inhaler 2 puff INHALATION BID RF: 0 nystatin 100,000 unit/mL suspension 1 dose PO UD PRN (Reason: thrush) RF: 0 Stand-Alone Forms: My [facility] Discharge Orders: Discharge Order (Routine); Ordered 12/16/18 Ordered By: Marga Feliz Admission Data Admit Date/Time: 12/14/18 17:38 Attending Provider: Marga Feliz Admit Provider: Dg Rivera Primary Care Provider: Alan Wilhelm Other Providers: Dg Rivera Service: Medical Other Interventions: Discharge Summary Assessment (RN) Last Done: 12/16/18 10:50 Pending Studies at Discharge: No DC Date/Time DO NOT enter until pt leaves facility: 12/16/18 11:22 Supervising Physician Co-Signing Physician Notes PA Supervision Note: I personally saw and examined the patient. I verified all green points and agree with DARWIN Freeman with the following exceptions and/or additions: Patient much improved, not short of breath or coughing. Vitals reviewed Gen: AAOx3, NAD HEENT: Anicteric sclerae, EOMI CV: RRR no mgr nl S1S2 Pulm: Diminished throughout, no wheezes Abd: +BS soft NT ND no masses or hernias Ext: No edema, 2+ DP pulses Skin: No rashes, warm/dry Neuro: Full strength throughout 78-year-old female here with COPD exacerbation-much improved -DC home on p.o. steroids and antibiotics as above and close follow-up with PCP
== END 2018-12-16 11:22 | disposition home health service (06) | DRG 190 ==
LOC: ED 10:46 → 2S 17:08 → SUATTDRO 17:38 → 2W 12-15 17:50

== ENCOUNTER 2019-08-08 07:02 | Inpatient (IN) ==
[2019-08-08] MEDS ORDERED: ACETAMINOPHEN 500 MG TAB PO STA (07:06)
[2019-08-08] MEDS ORDERED: ONDANSETRON INJ 2 MG/ML 2 ML VIAL IV STA (07:06)
[2019-08-08 07:25] LABS: Basophils # (auto) 0.02 K/uL (0-0.2); Basophils % (auto) 0.2 %; Eosinophils # (auto) 0.09 K/uL (0-0.5); Eosinophils % (auto) 0.7 %; Hemoglobin 13.8 g/dL (12.0-16.0); Immature Granulocytes # (auto) 0.12 K/uL (0.00-0.02); Immature Granulocytes % (auto) 0.9 %; Lymphocytes # (auto) 2.33 K/uL (1.2-3.4); Lymphocytes % (auto) 17.9 %; Mean Corpuscular Hemoglobin 32.1 pg (25-34); Mean Corpuscular Hgb Conc 32.9 g/dL (32-36); Mean Corpuscular Volume 97.7 fL (80-100); Mean Platelet Volume 9.5 fL (7.4-10.4); Monocytes # (auto) 0.68 K/uL (0.11-0.59); Monocytes % (auto) 5.2 %; Neutrophils # (auto) 9.81 K/uL (1.4-6.5); Neutrophils % (auto) 75.1 %; Platelet Count 353 K/uL (130-400); RDW Coefficient of Variation 13.3 % (11.5-14.5); RDW Standard Deviation 47.2 fL (36.4-46.3); White Blood Count 13.05 K/uL (4.8-10.8)
--- NOTE | 2019-08-08 07:32 | XRay Report ---
XR chest 1V portable CLINICAL HISTORY: weakness COMPARISON STUDY: 12/14/2018 FINDINGS: The heart is normal in size. There are bilateral breast prostheses. There is no failure. Th ere is no focal pulmonary consolidation. There are no pleural effusions. There is underlying emphysem a.[Incidental note is made of left shoulder calcific tendinopathy IMPRESSION: No active disease in the chest. ACT 112: Negative or not required by law. Electronically signed by: To Espinal M.D. 08/08/2019 7:31 AM
[2019-08-08] MEDS: HYDROmorphone INJ 0.5 MG/0.5 ML SYR IV PRN ×2 (07:38→08:01)
[2019-08-08 07:42] LABS: Alanine Aminotransferase 20 U/L (12-78); Albumin Level 3.8 gm/dl (3.4-5.0); Aspartate Aminotransferase 23 U/L (15-37); BUN Creatinine Ratio 21.3 (10-20); Blood Urea Nitrogen 16 mg/dl (7-18); Calcium 9.4 mg/dl (8.5-10.1); Carbon Dioxide 27 mmol/L (21-32); Chloride 107 mmol/L (98-107); Est GFR (African American) 89.3; Est GFR (Non-African American) 77.1; Glucose 162 mg/dl (70-99); Potassium 4.7 mmol/L (3.5-5.1); Sodium 138 mmol/L (136-145)
[2019-08-08 07:53] LABS: Albumin Globulin Ratio 0.9 (0.9-2); Alkaline Phosphatase 67 U/L (45-117); Bilirubin,Total 0.8 mg/dl (0.2-1); Creatine Kinase 111 U/L (26-192); Globulin 4.3 gm/dl (2.5-4.0); Total Protein 8.1 gm/dl (6.4-8.2); Troponin I < 0.015 ng/ml (0-0.045)
--- NOTE | 2019-08-08 08:52 | CT Scan Report ---
CT head/brain wo con CLINICAL HISTORY: Head pain status post trauma COMPARISON STUDY: 06/24/2019 TECHNIQUE: Axial CT of the brain is performed from the vertex to the skull base. IV contrast was not administered for this examination. A dose lowering technique was utilized adhering to the principles of ALARA. CT DOSE: FINDINGS: No intra or extra-axial mass lesions are visualized. There is no CT evidence of acute cortical infarc tion. There is no evidence of midline shift. There is no acute hemorrhage. No calvarial fractures ar e visualized. There are moderate extensive patchy white matter hypodensities likely on a small vessel basis. There is basal ganglial mineralization. There are a few scattered lacunar infarcts. There is no evidence of pathologic ventricular dilatation. There is no evidence of acute sinusitis IMPRESSION: No acute intracranial findings ACT 112: Negative or not required by law. Electronically signed by: To Espinal M.D. 08/08/2019 8:51 AM
--- NOTE | 2019-08-08 08:54 | CT Scan Report ---
CT SCAN OF THE CERVICAL SPINE CLINICAL HISTORY: Fall. COMPARISON STUDY: CT of the cervical spine dated 06/24/2019. TECHNIQUE: CT scan of the cervical spine is performed from the skull base to the upper thoracic spine . Images are reviewed in the axial, sagittal, and coronal planes. IV contrast was not administered fo r this examination. A dose lowering technique was utilized adhering to the principles of ALARA. FINDINGS: Skeletal structures: The skeletal structures are osteopenic. There is no evidence of fracture or subl uxation involving the cervical spine. Vertebral body height is maintained. There is minimal anterolis thesis at C4-C5. Alignment is otherwise preserved. There is straightening of the cervical lordosis. A nterior osteophytes are seen throughout. The odontoid process and lateral masses are intact. The atla ntoaxial articulation is preserved noting productive degenerative change. The spinous processes appea r intact. There is a minimal chronic superior endplate compression deformity of T1. There is mild to moderate multilevel cervical spondylosis. Uncovertebral and facet arthropathy contribute to neural fo raminal stenosis at several levels in the lower cervical region. Intervertebral discs: There is moderate disc space narrowing seen at C5-C6. Mild disc space narrowing is seen at the remaining cervical levels. Central canal: Posterior disc osteophyte complexes at C4-C5, C5-C6, and C6-C7 likely contribute to mi ld multilevel acquired compromise of the central canal. Soft tissues: The prevertebral and paraspinous soft tissues are within normal limits. The thyroid gla nd is atrophic. There is atherosclerotic calcification of the carotid bulbs. Calvarium: The visualized calvarium at the skull base appears intact. Brain parenchyma: Partially visualized brain parenchyma the skull base is within normal limits. Sinuses and mastoids: The visualized paranasal sinuses are clear. The mastoid air cells are well pneu matized. Lung apices: Emphysematous change is noted at the lung apices. Apical lung parenchyma is clear as vis ualized. IMPRESSION: 1. There is no evidence of fracture or subluxation involving the cervical spine. 2. Osteopenia and spondylotic change as above. 3. Emphysema. ACT 112: Negative or not required by law. Electronically signed by: David Alford M.D. 08/08/2019 8:53 AM
--- NOTE | 2019-08-08 08:56 | CT Scan Report ---
CT thoracic spine wo con CT DOSE: CLINICAL HISTORY: Thoracic spine pain status post trauma TECHNIQUE: Helical images were acquired in the transverse plane. Sagittal and coronal reformatted helena ges were acquired. A dose lowering technique was utilized adhering to the principles of ALARA. COMPARISON STUDY: None. FINDINGS: There is pulmonary emphysema. There is no pneumothorax. There are dependent atelectatic changes. Ther e is lower lobe mucus plugging. There is an acute T12 compression fracture with 4 mm of retropulsion. The vertebral body has lost rosibel roximately 50% of its height. IMPRESSION: 1. Acute T12 compression fracture with 50% loss in height, and 4 mm of retropulsion. ACT 112: Negative or not required by law. Electronically signed by: To Espinal M.D. 08/08/2019 8:55 AM
--- NOTE | 2019-08-08 08:59 | CT Scan Report ---
CT pelvis wo con CLINICAL HISTORY: 79 years-old Female presenting with Pt c/o fall, back pain. TECHNIQUE: Multidetector CT of the pelvis was performed without the use of intravenous contrast. IV c ontrast: None. One or more dose lowering techniques were used consistent with the principles of ALARA (as low as reasonably achievable), including automatic exposure control, mA or kV adjustment to rj vidual patient size, and/or use of iterative reconstruction. COMPARISON: CT of the abdomen and pelvis from 06/24/2019. CT DOSE (mGy.cm): The estimated cumulative dose is 2572.18 mGy.cm. FINDINGS: [employer] topogram: Bilateral calcified breast implants. Severe osteopenia, this mildly limits evaluation especially for nondisplaced fracture. Bone island no vicente in the left ilium. Sacroiliac joints, hip joints, and pubic symphysis congruent. Degenerative tay nges of the lower lumbar spine. Femoral necks intact. Heterogeneity of the medullary bone of the sacr al ala suggest fractures, the appearance from prior. These are poorly delineated and appear to be jus t lateral to the neural foramina. These may be subacute. Remainder of the bony pelvis intact. Limited evaluation of the intrapelvic contents demonstrates extensive atherosclerosis. No extraperito morgan pelvic hematoma. Diverticulosis of the sigmoid colon. No pericolonic inflammatory change. Normal noncontrast appearance of the uterus and ovaries. The appendix is normal. No gross lymphadenopathy. No free fluid. IMPRESSION: 1. Bilateral sacral alar fractures, which are likely subacute though new since prior CT in June. 2. Osteopenia. 3. Remainder of the pelvis intact. ACT 112: Negative or not required by law. Electronically signed by: Sd Wright M.D. 08/08/2019 8:57 AM
[2019-08-08] MEDS ORDERED: ALBUT/IPRATROP 3MG/0.5MG NEB 3 ML VIAL NEB ONE (09:52)
--- NOTE | 2019-08-08 09:59 | CT Scan Report ---
CT SCAN OF THE LUMBAR SPINE WITHOUT IV CONTRAST CLINICAL HISTORY: Fall. Low back pain. COMPARISON STUDY: MRI of the lumbar spine dated 08/13/2018. Abdominal CT dated 06/24/2019. TECHNIQUE: CT scan of the lumbar spine is performed from the lower thoracic spine to the upper lumbar spine. Images are reviewed in the axial, sagittal, and coronal planes. IV contrast was not administe red for this examination. A dose lowering technique was utilized adhering to the principles of ALARA. FINDINGS: The skeletal structures are osteopenic. There is a mild to moderate acute superior endplate compression fracture of T12 with associated paravertebral edema. Small fragments are retropulsed by up to 4 mm. There is no evidence of fracture or malalignment involving the lumbar spine. Vertebral porter dy height and alignment are maintained. The transverse processes and remaining spinous processes are intact. There is evidence of laminectomy at L5. No spondylolysis is seen. No lytic or blastic lesions are identified. Anterior and lateral marginal osteophytes are seen throughout. There is advanced dis c space narrowing at L5-S1. Mild to moderate disc space narrowing is seen at L4-L5 with associated en dplate sclerosis. There is no evidence of high-grade central canal stenosis by CT. Small posterior di sc osteophyte complexes are seen at all lumbar levels. Bilateral sacral insufficiency fractures are s uggested. A 10 mm bone island is noted in the medial left ilium. Mild degenerative changes are also s een in the sacroiliac joints. The paraspinous soft tissues are normal as imaged. Advanced atheroscler otic calcification is noted in the abdominal aorta. Numerous calcified gallstones are observed. Lung bases are clear as imaged. IMPRESSION: 1. There is no evidence of fracture or malalignment involving the lumbar spine. 2. There is a mild to moderate acute superior endplate compression fracture of T12 with minimally ret ropulsed fragments. 3. Suspect bilateral sacral insufficiency fractures. 4. Osteopenia and spondylotic change as above. 5. Cholelithiasis. ACT 112: Negative or not required by law. Dictated: 08/08/2019 8:53 AM Transcribed: 08/08/2019 9:49 AM Ines [id number] [email or web address] Electronically signed by: David Alford M.D. 08/08/2019 9:58 AM
--- NOTE | 2019-08-08 12:05 | History & Physical Report ---
Date of Service August 08, 2019 Assessment & Plan (1) Fall: 79-year-old female with history of hypertension/hyperlipidemia/COPD/diabetes presenting after mechanical fall in the home resulting in fracture of T12 vertebrae as well as sacral insufficiency fractures -Admit to medical floor Pain control PT/OT evaluation Case management Present on Admission?: Yes (2) T12 vertebral fracture: Patient with superior endplate fracture at T12. With minimal retropulsion Pain control PT/OT/case management Present on Admission?: Yes (3) Sacral fracture: After mechanical fall Pain control Present on Admission?: Yes (4) Hypoxia: Patient with hypoxia ER, 83% on room air. She was placed on supplemental oxygen and given an albuterol nebulizer treatment with improvement Continue supplemental O2 for goal of 80 to 92% in a patient with COPD Continue Symbicort Duo nebs and albuterol Present on Admission?: Yes (5) Hyperlipidemia: Chronic. Stable. Continue simvastatin Present on Admission?: Yes (6) DMII (diabetes mellitus, type 2): Chronic. Blood sugar well controlled on home medications per report. Patient is on sitagliptin and glimepiride Hold p.o. medications while inpatient Lantus 5 units twice daily with insulin sliding scale, goal blood sugar 100-1 40 Present on Admission?: Yes (7) COPD (chronic obstructive pulmonary disease): As above. Nebs, supplemental oxygen Present on Admission?: Yes (8) Hypothyroidism: Chronic. Stable. Continue Synthroid (9) Stroke: Patient with prior stroke. Continue Plavix and statin F/E/N -Hep-Lock. Monitor electrolytes. Consistent carb diet as tolerated ProphylaxisSCDs CodeDNR Dispositionadmit to medical floor History of Present Illness Chief Complaint: Mechanical fall Primary Care Provider: Dominik Wilhelm MD Clovis Ji is a pleasant 79-year-old female with history of hypertension/hyperlipidemia/diabetes/COPD presenting after mechanical fall at home resulting in T12 endplate as well as sacral insufficiency fractures. Patient got up this morning around 0530 and tried to use the bathroom. She thinks she may have slipped and fallen off the very tall bed and landed on her backside. Denies loss of consciousness, head trauma. No chest pain/palpitations/seizure activity. Patient lives with her son and [id number] who found her on the ground in considerable back pain. They helped her to the bed. Patient with mild shortness of breath after her fall and used her inhaler at home with some relief. She is complaining of significant back pain as well as skin tear on her right hand. No additional complaints at this time. Patient mildly hypoxic in the ER to 83%. ER course: Tylenol, albuterol, Dilaudid, supplemental oxygen Allergies Allergy/AdvReac Type Severity Reaction Status Date / Time metformin AdvReac Intermediate NAUSEA AND Verified 08/08/19 08:06 DIARRHEA varenicline AdvReac Unknown DEPRESSION, Verified 08/08/19 08:06 BAD DREAMS Home Medications Home Medications Medication Instructions Recorded Confirmed Type Vitamin D3 4,000 unit PO BID 08/28/18 08/08/19 History ascorbic acid (vitamin C) 500 mg PO DAILY 08/28/18 08/08/19 History levothyroxine 100 mcg PO QAM 08/28/18 08/08/19 History simvastatin 40 mg tablet 40 mg PO HS #90 tab 11/28/18 08/08/19 Rx blood sugar diagnostic #10 ea 12/17/18 07/29/19 History lancets 33 gauge #100 ea 12/17/18 07/29/19 History sitagliptin 100 mg tablet 100 mg PO DAILY #90 tab 02/28/19 08/08/19 Rx clopidogrel 75 mg tablet 75 mg PO DAILY #90 tab 03/24/19 08/08/19 Rx cyclobenzaprine 5 mg PO TID PRN 06/06/19 08/08/19 History glimepiride 2 mg tablet See Rx Instructions PO .COMPLEX 06/17/19 08/08/19 Rx #225 tab albuterol sulfate 90 mcg/actuation 1 puff INHALATION Q6H PRN #8.5 gm 06/30/19 08/08/19 Rx aerosol inhaler budesonide-formoterol HFA 160 2 puffs INH BID #6 gm 06/30/19 08/08/19 Rx mcg-4.5 mcg/actuation aerosol inhaler sulfamethoxazole 800 1 tab PO BID 7 Days #14 tab 07/29/19 08/08/19 Rx mg-trimethoprim 160 mg tablet Past Med/Surg History Medical History Acute bronchitis (Acute) Acute respiratory failure with hypoxia (Acute) Allergic rhinitis due to dust (Acute) Allergic rhinitis due to pollen (Acute) Anemia (Acute) Carotid artery plaque (Acute) Chest pain (Acute) Chronic back pain RLE/HIP RADIATION Chronic obstructive pulmonary disease STABLE COPD exacerbation (Acute) Depression (Acute) 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) Diabetes mellitus, type 2 NIDDM Disc degeneration, lumbar (Acute) Discoid lupus erythematosus (Acute) Diverticular disease Diverticulosis (Acute) Emphysema, unspecified (Acute) Eye swelling, right Hyperlipidemia (Chronic) Hyperplastic colon polyp (Acute) Hypertension Hypothyroidism Insomnia (Acute) Ischemic stroke (Acute) Low back pain (Acute) Lumbar canal stenosis (Acute) Lung nodule (Acute) Nicotine dependence (Acute) No pertinent family history Osteopenia (Acute) Right foot drop SDAT (senile dementia of Alzheimer's type) (Chronic) Spinal stenosis (Acute) Stroke 10/2017- RESIDUAL RIGHT SIDED WEAKNESS REMAINS; ON PLAVIX UTI (urinary tract infection) (Acute) Vitamin D deficiency (Acute) Surgical History History of augmentation of both breasts History of back surgery History of bilateral tubal ligation Family History Other No pertinent family history Social History Preferred Language: [place] Communication Ability: Effective Strip Machine Tender Required: No Beliefs That Will Affect Care: None marital status: / Current Living Situation: Family Feels Safe at Home: Yes Smoking Status: Current every day smoker Tobacco Type: cigarettes ; Cigarettes Per Day: 1/3 PPD (TRYING TO QUIT); TOTAL USE X 50+ YEARS ; Second Hand Exposure: No ; Hx Alcohol Use: No Hx Substance Use: No Review of Systems Review of Systems: All systems reviewed & are unremarkable except as noted in HPI & below Physical Exam Physical Exam: General: patient resting comfortably, NAD, non-toxic in appearance, AA&O x 4, facemask for nebulizer treatment in place Skin: warm, dry,no rashes or lesions, tear on right hand covered. No bleeding HEENT: NC/AT, PERRL, EOMI, anicteric sclera, conjunctiva without injection, external ear normal to inspection and nontender, nares patent, moist mucus membranes, dentition intact, no oropharyngeal lesions, neck supple, trachea midline, no LAD, no thyromegaly, no JVD Heart: +S1/S2, regular, no m/r/g Lungs: equal air entry bilaterally, no rales/rhonchi/wheezes Abd: +BS, soft, NT/ND, no masses/organomegaly/ascites Ext: warm, 2+ pulses in UE/LE bilaterally, no clubbing/cyanosis or edema Neuro: nonfocal, patient AA&O x 4, speech intact, no facial droop, moving all extremities on command with equal strength 5/5 Results & Data Vital Signs (Past 12 Hours) Vital Signs Temp Pulse Pulse Resp BP BP Pulse Ox 08/08/19 10:59 60 20 109/61 100 08/08/19 10:04 56 L 18 100 08/08/19 09:09 83 L 08/08/19 09:04 83 16 136/61 83 L 08/08/19 07:00 36.5 C 65 16 159/79 H 100 Laboratory Results Lab Results 08/08/19 08/08/19 Range/Units 07:15 07:15 WBC 13.05 H (4.8-10.8) K/uL RBC 4.30 (4.2-5.4) M/uL Hgb 13.8 (12.0-16.0) g/dL Hct 42.0 (37-47) % MCV 97.7 (80-100) fL MCH 32.1 (25-34) pg MCHC 32.9 (32-36) g/dL RDW Std Deviation 47.2 H (36.4-46.3) fL RDW Coeff of Campbell 13.3 (11.5-14.5) % Plt Count 353 (130-400) K/uL MPV 9.5 (7.4-10.4) fL Immature Gran % (Auto) 0.9 % Neut % (Auto) 75.1 % Lymph % (Auto) 17.9 % [place] % (Auto) 5.2 % Eos % (Auto) 0.7 % Baso % (Auto) 0.2 % Immature Gran # (Auto) 0.12 H (0.00-0.02) K/uL Neut # (Auto) 9.81 H (1.4-6.5) K/uL Lymph # (Auto) 2.33 (1.2-3.4) K/uL [place] # (Auto) 0.68 H (0.11-0.59) K/uL Eos # (Auto) 0.09 (0-0.5) K/uL Baso # (Auto) 0.02 (0-0.2) K/uL Sodium 138 (136-145) mmol/L Potassium 4.7 (3.5-5.1) mmol/L Chloride 107 (98-107) mmol/L Carbon Dioxide 27 (21-32) mmol/L Anion Gap 4.0 (3-11) BUN 16 (7-18) mg/dl Creatinine 0.74 (0.6-1.2) mg/dl Est Cr Clr Drug Dosing Not Reportable Est GFR ( Amer) 89.3 Est GFR (Non-Af Amer) 77.1 BUN/Creatinine Ratio 21.3 H (10-20) Glucose 162 H (70-99) mg/dl Calcium 9.4 (8.5-10.1) mg/dl Total Bilirubin 0.8 (0.2-1) mg/dl AST 23 (15-37) U/L ALT 20 (12-78) U/L Alkaline Phosphatase 67 (45-117) U/L Total Creatine Kinase 111 (26-192) U/L Troponin I < 0.015 (0-0.045) ng/ml Total Protein 8.1 (6.4-8.2) gm/dl Albumin 3.8 (3.4-5.0) gm/dl Globulin 4.3 H (2.5-4.0) gm/dl Albumin/Globulin Ratio 0.9 (0.9-2) TSH 1.330 (0.300-4.500) uIu/ml Diagnostic Findings CT SCAN OF THE CERVICAL SPINE CLINICAL HISTORY: Fall. COMPARISON STUDY: CT of the cervical spine dated 06/24/2019. TECHNIQUE: CT scan of the cervical spine is performed from the skull base to the upper thoracic spine. Images are reviewed in the axial, sagittal, and coronal planes. IV contrast was not administered for this examination. A dose lowering technique was utilized adhering to the principles of ALARA. FINDINGS: Skeletal structures: The skeletal structures are osteopenic. There is no evidence of fracture or subluxation involving the cervical spine. Vertebral body height is maintained. There is minimal anterolisthesis at C4-C5. Alignment is otherwise preserved. There is straightening of the cervical lordosis. Anterior osteophytes are seen throughout. The odontoid process and lateral masses are intact. The atlantoaxial articulation is preserved noting productive degenerative change. The spinous processes appear intact. There is a minimal chronic superior endplate compression deformity of T1. There is mild to moderate multilevel cervical spondylosis. Uncovertebral and facet arthropathy contribute to neural foraminal stenosis at several levels in the lower cervical region. Intervertebral discs: There is moderate disc space narrowing seen at C5-C6. Mild disc space narrowing is seen at the remaining cervical levels. Central canal: Posterior disc osteophyte complexes at C4-C5, C5-C6, and C6-C7 likely contribute to mild multilevel acquired compromise of the central canal. Soft tissues: The prevertebral and paraspinous soft tissues are within normal limits. The thyroid gland is atrophic. There is atherosclerotic calcification of the carotid bulbs. Calvarium: The visualized calvarium at the skull base appears intact. Brain parenchyma: Partially visualized brain parenchyma the skull base is within normal limits. Sinuses and mastoids: The visualized paranasal sinuses are clear. The mastoid air cells are well pneumatized. Lung apices: Emphysematous change is noted at the lung apices. Apical lung parenchyma is clear as visualized. IMPRESSION: 1. There is no evidence of fracture or subluxation involving the cervical spine. 2. Osteopenia and spondylotic change as above. 3. Emphysema. ACT 112: Negative or not required by law. Electronically signed by: David Alford M.D. 08/08/2019 8:53 AM Dictated: 08/08/19 0849 Transcribed: 08/08/[address] head/brain wo con CLINICAL HISTORY: Head pain status post trauma COMPARISON STUDY: 06/24/2019 TECHNIQUE: Axial CT of the brain is performed from the vertex to the skull base. IV contrast was not administered for this examination. A dose lowering technique was utilized adhering to the principles of ALARA. CT DOSE: FINDINGS: No intra or extra-axial mass lesions are visualized. There is no CT evidence of acute cortical infarction. There is no evidence of midline shift. There is no acute hemorrhage. No calvarial fractures are visualized. There are moderate extensive patchy white matter hypodensities likely on a small vessel basis. There is basal ganglial mineralization. There are a few scattered lacunar infarcts. There is no evidence of pathologic ventricular dilatation. There is no evidence of acute sinusitis IMPRESSION: No acute intracranial findings ACT 112: Negative or not required by law. Electronically signed by: To Espinal M.D. 08/08/2019 8:51 AM Dictated: 08/08/[address] SCAN OF THE LUMBAR SPINE WITHOUT IV CONTRAST CLINICAL HISTORY: Fall. Low back pain. COMPARISON STUDY: MRI of the lumbar spine dated 08/13/2018. Abdominal CT dated 06/24/2019. TECHNIQUE: CT scan of the lumbar spine is performed from the lower thoracic spine to the upper lumbar spine. Images are reviewed in the axial, sagittal, and coronal planes. IV contrast was not administered for this examination. A dose lowering technique was utilized adhering to the principles of ALARA. FINDINGS: The skeletal structures are osteopenic. There is a mild to moderate acute superior endplate compression fracture of T12 with associated paravertebral edema. Small fragments are retropulsed by up to 4 mm. There is no evidence of fracture or malalignment involving the lumbar spine. Vertebral body height and alignment are maintained. The transverse processes and remaining spinous processes are intact. There is evidence of laminectomy at L5. No spondylolysis is seen. No lytic or blastic lesions are identified. Anterior and lateral marginal osteophytes are seen throughout. There is advanced disc space narrowing at L5-S1. Mild to moderate disc space narrowing is seen at L4-L5 with associated endplate sclerosis. There is no evidence of high-grade central canal stenosis by CT. Small posterior disc osteophyte complexes are seen at all lumbar levels. Bilateral sacral insufficiency fractures are suggested. A 10 mm bone island is noted in the medial left ilium. Mild degenerative changes are also seen in the sacroiliac joints. The paraspinous soft tissues are normal as imaged. Advanced atherosclerotic calcification is noted in the abdominal aorta. Numerous calcified gallstones are observed. Lung bases are clear as imaged. IMPRESSION: 1. There is no evidence of fracture or malalignment involving the lumbar spine. 2. There is a mild to moderate acute superior endplate compression fracture of T12 with minimally retropulsed fragments. 3. Suspect bilateral sacral insufficiency fractures. 4. Osteopenia and spondylotic change as above. 5. Cholelithiasis. ACT 112: Negative or not required by law. Dictated: 08/08/2019 8:53 AM Transcribed: 08/08/2019 9:49 AM Ines [id number] LEANN_Josh Electronically signed by: David Alford M.D. 08/08/2019 9:58 AM Dictated: 08/08/[address] thoracic spine wo con CT DOSE: CLINICAL HISTORY: Thoracic spine pain status post trauma TECHNIQUE: Helical images were acquired in the transverse plane. Sagittal and coronal reformatted images were acquired. A dose lowering technique was utilized adhering to the principles of ALARA. COMPARISON STUDY: None. FINDINGS: There is pulmonary emphysema. There is no pneumothorax. There are dependent atelectatic changes. There is lower lobe mucus plugging. There is an acute T12 compression fracture with 4 mm of retropulsion. The vertebral body has lost approximately 50% of its height. IMPRESSION: 1. Acute T12 compression fracture with 50% loss in height, and 4 mm of retropulsion. ACT 112: Negative or not required by law. Electronically signed by: To Espinal M.D. 08/08/2019 8:55 AM Dictated: 08/08/19850 Transcribed: 08/08/19850 CT pelvis wo con CLINICAL HISTORY: 79 years-old Female presenting with Pt c/o fall, back pain. TECHNIQUE: Multidetector CT of the pelvis was performed without the use of intravenous contrast. IV contrast: None. One or more dose lowering techniques were used consistent with the principles of ALARA (as low as reasonably achievable), including automatic exposure control, mA or kV adjustment to individual patient size, and/or use of iterative reconstruction. COMPARISON: CT of the abdomen and pelvis from 06/24/2019. CT DOSE (mGy.cm): The estimated cumulative dose is 2572.18 mGy.cm. FINDINGS: Hand Drawer In topogram: Bilateral calcified breast implants. Severe osteopenia, this mildly limits evaluation especially for nondisplaced fracture. Bone island noted in the left ilium. Sacroiliac joints, hip joints, and pubic symphysis congruent. Degenerative changes of the lower lumbar spine. Femoral necks intact. Heterogeneity of the medullary bone of the sacral ala suggest fractures, the appearance from prior. These are poorly delineated and appear to be just lateral to the neural foramina. These may be subacute. Remainder of the bony pelvis intact. Limited evaluation of the intrapelvic contents demonstrates extensive atherosc lerosis. No extraperitoneal pelvic hematoma. Diverticulosis of the sigmoid colon. No pericolonic inflammatory change. Normal noncontrast appearance of the uterus and ovaries. The appendix is normal. No gross lymphadenopathy. No free fluid. IMPRESSION: 1. Bilateral sacral alar fractures, which are likely subacute though new since prior CT in June. 2. Osteopenia. 3. Remainder of the pelvis intact. ACT 112: Negative or not required by law. Electronically signed by: Sd Wright M.D. 08/08/2019 8:[address] [facility], [place] [phone] XRay Report Patient: CLOVIS JI Date: 08/08/19 MR#: [id number] Acct ID:[id number] Date: 1940City Zip: [place] [address] Age: 79Location: ED Sex: F Room/Bed: Att Phy:Diagnosis: FALL Sonia Phy: Dominik Wilhelm MDService Date: 08/08/19 Fam Phy:Interpreting Phy: To Espinal MD Admit Phy: Ordering Phy: Julio Oliva MD cc: ~ XR chest 1V portable CLINICAL HISTORY: weakness COMPARISON STUDY: 12/14/2018 FINDINGS: The heart is normal in size. There are bilateral breast prostheses. There is no failure. There is no focal pulmonary consolidation. There are no pleural effusions. There is underlying emphysema.[Incidental note is made of left shoulder calcific tendinopathy IMPRESSION: No active disease in the chest. ACT 112: Negative or not required by law. Electronically signed by: To Espinal M.D. 08/08/2019 7:31 AM Dictated: 08/08/19730 Transcribed: 08/08/19730* ECG Additional Comments: This study shows sinus bradycardia 57 bpm, normal axis, MD = 196, QRS = 108, QTc = 401, incomplete right bundle branch present, no acute ischemic changes Code Status & VTE Plan Code Status DNR VTE Prophylaxis Plan VTE Prophylaxis will be ordered: Yes PG Care Time/CCT Total # of Minutes Spent Total Time Spent with Patient: Total time spent is greater than 50% in coordination of care (as documented) at patient's floor/unit and/or counseling patient: Coding Level of Care Code 31206 Initial Inpt Care Lvl 3 Diagnoses Fall W19.XXXA Encounter type: initial encounter T12 vertebral fracture S22.089A Encounter type: initial encounter Fracture type: closed Fracture morphology: unspecified fracture morphology Sacral fracture S32.10XA Encounter type: initial encounter Hypoxia R09.02 Hyperlipidemia E78.5 Hyperlipidemia type: unspecified DMII (diabetes mellitus, type 2) E11.9 Diabetes mellitus terminal makeup operator insulin use: without terminal makeup operator use Diabetes mellitus complication status: without complication COPD (chronic obstructive pulmonary disease) J44.9 COPD type: unspecified COPD Hypothyroidism E03.9 Hypothyroidism type: unspecified Stroke I63.9 CVA mechanism: unspecified (1) Stroke CVA mechanism: unspecified Qualified Code(s): I63.9 - Cerebral infarction, unspecified (2) Hypothyroidism Hypothyroidism type: unspecified Qualified Code(s): E03.9 - Hypothyroidism, unspecified (3) Hyperlipidemia Hyperlipidemia type: unspecified Qualified Code(s): E78.5 - Hyperlipidemia, unspecified (4) DMII (diabetes mellitus, type 2) Diabetes mellitus terminal makeup operator insulin use: without skilled nursing use Diabetes mellitus complication status: without complication Qualified Code(s): E11.9 - Type 2 diabetes mellitus without complications (5) COPD (chronic obstructive pulmonary disease) COPD type: unspecified COPD Qualified Code(s): J44.9 - Chronic obstructive pulmonary disease, unspecified (6) Fall Encounter type: initial encounter Qualified Code(s): W19.XXXA - Unspecified fall, initial encounter (7) T12 vertebral fracture Encounter type: initial encounter Fracture type: closed Fracture morphology: unspecified fracture morphology Qualified Code(s): S22.089A - Unspecified fracture of T11-T12 vertebra, initial encounter for closed fracture (8) Sacral fracture Encounter type: initial encounter
[2019-08-08] MEDS ORDERED: DEXTROSE 50% 50 ML SYRINGE IV PRN (12:29)
[2019-08-08] MEDS ORDERED: GLUCOSE 40% GEL 15 GM TUBE PO PRN (12:29)
[2019-08-08] MEDS ORDERED: GLUCOSE 10 TABS/TUBE PO PRN (12:29)
[2019-08-08] MEDS ORDERED: CARBOHYDRATES FOR HYPOGLYCEMIA PO PRN (12:29)
[2019-08-08] MEDS ORDERED: GLUCAGON FOR INJ 1 MG VIAL SQ PRN (12:29)
[2019-08-08] MEDS ORDERED: ALBUTEROL 0.5% NEB SOLN 2.5 MG/0.5 ML VIAL NEB PRN (12:29)
[2019-08-08] MEDS: ALBUT/IPRATROP 3MG/0.5MG NEB 3 ML VIAL NEB SCH ×2 (13:31→20:25)
--- NOTE | 2019-08-08 15:34 | Emergency Department Note ---
Entered by Stephanie Flanagan acting as a scribe for Julio Oliva MD History of Present Illness General Chief complaint: Fall Time Seen by Provider: 08/08/19 07:02 Source: patient and EMS Mode of arrival: EMS Limitations: no limitations History of Present Illness Provider complaint: Fall Onset (ago): hour(s) 1 Location: back Pain Consistency: + other (episode) Current Pain Intensity: 10 Quality: + other (fall) Associated symptoms: + other (Additional symptoms: tailbone pain, back pain) The patient is a 79 year old female with a history of COPD, emphysema, diabetes, hyperlipidemia, diverticulosis, lumbar disc degeneration, back surgery, ischemic stroke, and senile dementia of Alzheimers type who presents to the Emergency Room with complaints of an episode of a fall occurring 1 hour prior to arrival. Per EMS, the patient fell out of her bed at home and subsequently complained of tailbone and back pain. The patient reports that she hit her head during this fall, and she currently rates her pain a 10/10. Home Medications Home Medications Medication Instructions Recorded Confirmed Type Vitamin D3 4,000 unit PO BID 08/28/18 08/08/19 History ascorbic acid (vitamin C) 500 mg PO DAILY 08/28/18 08/08/19 History levothyroxine 100 mcg PO QAM 08/28/18 08/08/19 History simvastatin 40 mg tablet 40 mg PO HS #90 tab 11/28/18 08/08/19 Rx blood sugar diagnostic #10 ea 12/17/18 07/29/19 History lancets 33 gauge #100 ea 12/17/18 07/29/19 History sitagliptin 100 mg tablet 100 mg PO DAILY #90 tab 02/28/19 08/08/19 Rx clopidogrel 75 mg tablet 75 mg PO DAILY #90 tab 03/24/19 08/08/19 Rx cyclobenzaprine 5 mg PO TID PRN 06/06/19 08/08/19 History glimepiride 2 mg tablet See Rx Instructions PO .COMPLEX 06/17/19 08/08/19 Rx #225 tab albuterol sulfate 90 mcg/actuation 1 puff INHALATION Q6H PRN #8.5 gm 06/30/19 08/08/19 Rx aerosol inhaler budesonide-formoterol HFA 160 2 puffs INH BID #6 gm 06/30/19 08/08/19 Rx mcg-4.5 mcg/actuation aerosol inhaler sulfamethoxazole 800 1 tab PO BID 7 Days #14 tab 07/29/19 08/08/19 Rx mg-trimethoprim 160 mg tablet Allergies Allergy/AdvReac Type Severity Reaction Status Date / Time metformin AdvReac Intermediate NAUSEA AND Verified 08/08/19 08:06 DIARRHEA varenicline AdvReac Unknown DEPRESSION, Verified 08/08/19 08:06 BAD DREAMS Past Med/Surg History Medical History Acute bronchitis (Acute) Acute respiratory failure with hypoxia (Acute) Allergic rhinitis due to dust (Acute) Allergic rhinitis due to pollen (Acute) Anemia (Acute) Carotid artery plaque (Acute) Chest pain (Acute) Chronic back pain RLE/HIP RADIATION Chronic obstructive pulmonary disease STABLE COPD exacerbation (Acute) Depression (Acute) 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) Diabetes mellitus, type 2 NIDDM Disc degeneration, lumbar (Acute) Discoid lupus erythematosus (Acute) Diverticular disease Diverticulosis (Acute) Emphysema, unspecified (Acute) Eye swelling, right Hyperlipidemia (Chronic) Hyperplastic colon polyp (Acute) Hypertension Hypothyroidism Insomnia (Acute) Ischemic stroke (Acute) Low back pain (Acute) Lumbar canal stenosis (Acute) Lung nodule (Acute) Nicotine dependence (Acute) No pertinent family history Osteopenia (Acute) Right foot drop SDAT (senile dementia of Alzheimer's type) (Chronic) Spinal stenosis (Acute) Stroke 10/2017- RESIDUAL RIGHT SIDED WEAKNESS REMAINS; ON PLAVIX UTI (urinary tract infection) (Acute) Vitamin D deficiency (Acute) Surgical History History of augmentation of both breasts History of back surgery History of bilateral tubal ligation Family History Other No pertinent family history Social History Preferred Language: Bahamian Communication Ability: Effective Gantry Rigger Required: No Beliefs That Will Affect Care: None marital status: / Current Living Situation: Family Current Living Situation Comment: currently lives with son and [id number] Feels Safe at Home: Yes Smoking Status: Current every day smoker Tobacco Type: cigarettes ; Cigarettes Per Day: 2 ; Second Hand Exposure: No ; Hx Alcohol Use: No Hx Substance Use: No Review of Systems See HPI for pertinent positives & negatives. and A total of 10 systems reviewed and were otherwise negative Physical Exam Vital Signs Vital Signs - 24 hr 08/08/19 07:00 08/08/19 09:04 08/08/19 09:09 Temperature 36.5 C Temperature Source Oral Pulse Rate 65 Pulse Rate [Finger] 83 Respiratory Rate 16 16 Respiratory Effort / Characteristics Blood Pressure 159/79 H Blood Pressure [Right Arm] 136/61 Blood Pressure Mean 105 Blood Pressure Mean [Right Arm] 86 Pulse Oximetry 100 83 L 83 L Oxygen Delivery Method Room Air Room Air Nasal Cannula Oxygen Flow Rate 3 Sepsis Recent Fever Within 48 Hours No Sepsis New/Unexplained Change in Mental Status No Sepsis Action Taken by Nursing No Action Required Pulse Oximetry Post Tiitration 97 08/08/19 10:04 Temperature Temperature Source Pulse Rate Pulse Rate [Finger] 56 L Respiratory Rate 18 Respiratory Effort / Characteristics Non-Labored Spontaneous Blood Pressure Blood Pressure [Right Arm] Blood Pressure Mean Blood Pressure Mean [Right Arm] Pulse Oximetry 100 Oxygen Delivery Method Nasal Cannula Oxygen Flow Rate 3 Sepsis Recent Fever Within 48 Hours Sepsis New/Unexplained Change in Mental Status Sepsis Action Taken by Nursing Pulse Oximetry Post Tiitration GENERAL: Awake, alert, well-appearing, in no acute distress HENT: Normocephalic, atraumatic. Oropharynx unremarkable. EYES: Normal conjunctiva. Sclera non-icteric. NECK: Supple. No nuchal rigidity. FROM. No JVD. RESPIRATORY: Clear to auscultation. CARDIAC: Regular rate, normal rhythm. Extremities warm and well perfused. Pulses equal. ABDOMEN: Soft, non-distended. No tenderness to palpation. No rebound or guarding. No masses. RECTAL: Deferred. MUSCULOSKELETAL: Chest examination reveals no tenderness. The back is symmetrical on inspection without obvious abnormality. There is no CVA tenderness to palpation. Tenderness to the L1 and bilateral pelvis areas. No joint edema. LOWER EXTREMITIES: Calves are equal size bilaterally and non-tender. No edema. No discoloration. NEURO: Normal sensorium. No sensory or motor deficits noted. SKIN: No rash or jaundice noted. Course Course 07: The patient was evaluated in room C3, and a complete history and physical examination were performed. 0926: I checked on the patient and updated her on her results. She verbalized agreement to the treatment plan. 0952: I discussed the patient's case with Dr. Daigle - Rasheed. Dr. Daigle will evaluate the patient for further management. Consultations Consultation #1: I discussed the patient's case with Dr. Daigle - Rasheed. Dr. Daigle will evaluate the patient for further management. Time: 09:52 Administered Medications Albuterol (Duoneb) 3 ml NEB [id number] BRINDA Stop: 09/07/19 12:59 Last Admin: 08/08/19 13:31 Dose: 3 ml Documented by: [id number] Discontinued Medications Acetaminophen (Tylenol) 1,000 mg PO NOW STA Stop: 08/08/19 07:07 Last Admin: 08/08/19 07:38 Dose: 1,000 mg Documented by: [id number] Albuterol (Duoneb) 12 ml NEB ONE ONE Stop: 08/08/19 09:53 Last Admin: 08/08/19 10:00 Dose: 12 ml Documented by: [id number] Hydromorphone HCl (Dilaudid) 0.25 mg IV Q15M PRN PRN Reason: Pain Stop: 08/22/19 07:05 Last Admin: 08/08/19 08:01 Dose: 0.25 mg Documented by: [id number] Admin: 08/08/19 07:38 Dose: 0.25 mg Documented by: [id number] Ondansetron HCl (Zofran) 4 mg IV NOW STA Stop: 08/08/19 07:07 Last Admin: 08/08/19 07:38 Dose: 4 mg Documented by: [id number] Medical Decision Making Differential Diagnosis Differential diagnosis: Etiologies such as fracture, dislocation, intra-abdominal, pneumothorax, intrathoracic, intracranial, neurologic, as well as other traumatic pathologies were entertained. Medical Records Attestation: I reviewed the patient's medical records. Home Medications Current Medication List: was personally reviewed by me Laboratory Data Attestation: I reviewed the patient's lab results. Result diagrams: 08/08/19 07:15 08/08/19 07:15 Lab Results 08/08/19 08/08/19 Range/Units 07:15 07:15 WBC 13.05 H (4.8-10.8) K/uL RBC 4.30 (4.2-5.4) M/uL Hgb 13.8 (12.0-16.0) g/dL Hct 42.0 (37-47) % MCV 97.7 (80-100) fL MCH 32.1 (25-34) pg MCHC 32.9 (32-36) g/dL RDW Std Deviation 47.2 H (36.4-46.3) fL RDW Coeff of Campbell 13.3 (11.5-14.5) % Plt Count 353 (130-400) K/uL MPV 9.5 (7.4-10.4) fL Immature Gran % (Auto) 0.9 % Neut % (Auto) 75.1 % Lymph % (Auto) 17.9 % [place] % (Auto) 5.2 % Eos % (Auto) 0.7 % Baso % (Auto) 0.2 % Immature Gran # (Auto) 0.12 H (0.00-0.02) K/uL Neut # (Auto) 9.81 H (1.4-6.5) K/uL Lymph # (Auto) 2.33 (1.2-3.4) K/uL [place] # (Auto) 0.68 H (0.11-0.59) K/uL Eos # (Auto) 0.09 (0-0.5) K/uL Baso # (Auto) 0.02 (0-0.2) K/uL Sodium 138 (136-145) mmol/L Potassium 4.7 (3.5-5.1) mmol/L Chloride 107 (98-107) mmol/L Carbon Dioxide 27 (21-32) mmol/L Anion Gap 4.0 (3-11) BUN 16 (7-18) mg/dl Creatinine 0.74 (0.6-1.2) mg/dl Est Cr Clr Drug Dosing Not Reportable Est GFR ( Amer) 89.3 Est GFR (Non-Af Amer) 77.1 BUN/Creatinine Ratio 21.3 H (10-20) Glucose 162 H (70-99) mg/dl Calcium 9.4 (8.5-10.1) mg/dl Total Bilirubin 0.8 (0.2-1) mg/dl AST 23 (15-37) U/L ALT 20 (12-78) U/L Alkaline Phosphatase 67 (45-117) U/L Total Creatine Kinase 111 (26-192) U/L Troponin I < 0.015 (0-0.045) ng/ml Total Protein 8.1 (6.4-8.2) gm/dl Albumin 3.8 (3.4-5.0) gm/dl Globulin 4.3 H (2.5-4.0) gm/dl Albumin/Globulin Ratio 0.9 (0.9-2) TSH 1.330 (0.300-4.500) uIu/ml Imaging Data Radiologist's Impression: Radiology results as stated below per my review and the radiologist's interpretation: CT head/brain wo con CLINICAL HISTORY: Head pain status post trauma COMPARISON STUDY: 06/24/2019 TECHNIQUE: Axial CT of the brain is performed from the vertex to the skull base. IV contrast was not administered for this examination. A dose lowering technique was utilized adhering to the principles of ALARA. CT DOSE: FINDINGS: No intra or extra-axial mass lesions are visualized. There is no CT evidence of acute cortical infarction. There is no evidence of midline shift. There is no acute hemorrhage. No calvarial fractures are visualized. There are moderate extensive patchy white matter hypodensities likely on a small vessel basis. There is basal ganglial mineralization. There are a few scattered lacunar infarcts. There is no evidence of pathologic ventricular dilatation. There is no evidence of acute sinusitis IMPRESSION: No acute intracranial findings ACT 112: Negative or not required by law. Electronically signed by: To Espinal M.D. 08/08/2019 8:51 AM XR chest 1V portable CLINICAL HISTORY: weakness COMPARISON STUDY: 12/14/2018 FINDINGS: The heart is normal in size. There are bilateral breast prostheses. There is no failure. There is no focal pulmonary consolidation. There are no pleural effusions. There is underlying emphysema.[Incidental note is made of left shoulder calcific tendinopathy IMPRESSION: No active disease in the chest. ACT 112: Negative or not required by law. Electronically signed by: To Espinal M.D. 08/08/2019 7:[address] SCAN OF THE CERVICAL SPINE CLINICAL HISTORY: Fall. COMPARISON STUDY: CT of the cervical spine dated 06/24/2019. TECHNIQUE: CT scan of the cervical spine is performed from the skull base to the upper thoracic spine. Images are reviewed in the axial, sagittal, and coronal planes. IV contrast was not administered for this examination. A dose lowering technique was utilized adhering to the principles of ALARA. FINDINGS: Skeletal structures: The skeletal structures are osteopenic. There is no evidence of fracture or subluxation involving the cervical spine. Vertebral body height is maintained. There is minimal anterolisthesis at C4-C5. Alignment is otherwise preserved. There is straightening of the cervical lordosis. Anterior osteophytes are seen throughout. The odontoid process and lateral masses are intact. The atlantoaxial articulation is preserved noting productive degenerative change. The spinous processes appear intact. There is a minimal chronic superior endplate compression deformity of T1. There is mild to moderate multilevel cervical spondylosis. Uncovertebral and facet arthropathy contribute to neural foraminal stenosis at several levels in the lower cervical region. Intervertebral discs: There is moderate disc space narrowing seen at C5-C6. Mild disc space narrowing is seen at the remaining cervical levels. Central canal: Posterior disc osteophyte complexes at C4-C5, C5-C6, and C6-C7 likely contribute to mild multilevel acquired compromise of the central canal. Soft tissues: The prevertebral and paraspinous soft tissues are within normal limits. The thyroid gland is atrophic. There is atherosclerotic calcification of the carotid bulbs. Calvarium: The visualized calvarium at the skull base appears intact. Brain parenchyma: Partially visualized brain parenchyma the skull base is within normal limits. Sinuses and mastoids: The visualized paranasal sinuses are clear. The mastoid air cells are well pneumatized. Lung apices: Emphysematous change is noted at the lung apices. Apical lung parenchyma is clear as visualized. IMPRESSION: 1. There is no evidence of fracture or subluxation involving the cervical spine. 2. Osteopenia and spondylotic change as above. 3. Emphysema. ACT 112: Negative or not required by law. Electronically signed by: David Alford M.D. 08/08/2019 8:[address] thoracic spine wo con CT DOSE: CLINICAL HISTORY: Thoracic spine pain status post trauma TECHNIQUE: Helical images were acquired in the transverse plane. Sagittal and coronal reformatted images were acquired. A dose lowering technique was utilized adhering to the principles of ALARA. COMPARISON STUDY: None. FINDINGS: There is pulmonary emphysema. There is no pneumothorax. There are dependent atelectatic changes. There is lower lobe mucus plugging. There is an acute T12 compression fracture with 4 mm of retropulsion. The vertebral body has lost approximately 50% of its height. IMPRESSION: 1. Acute T12 compression fracture with 50% loss in height, and 4 mm of retropulsion. ACT 112: Negative or not required by law. Electronically signed by: To Espinal M.D. 08/08/2019 8:[address] SCAN OF THE LUMBAR SPINE WITHOUT IV CONTRAST CLINICAL HISTORY: Fall. Low back pain. COMPARISON STUDY: MRI of the lumbar spine dated 08/13/2018. Abdominal CT dated 06/24/2019. TECHNIQUE: CT scan of the lumbar spine is performed from the lower thoracic spine to the upper lumbar spine. Images are reviewed in the axial, sagittal, and coronal planes. IV contrast was not administered for this examination. A dose lowering technique was utilized adhering to the principles of ALARA. FINDINGS: The skeletal structures are osteopenic. There is a mild to moderate acute superior endplate compression fracture of T12 with associated paravertebral edema. Small fragments are retropulsed by up to 4 mm. There is no evidence of fracture or malalignment involving the lumbar spine. Vertebral body height and alignment are maintained. The transverse processes and remaining spinous processes are intact. There is evidence of laminectomy at L5. No spondylolysis is seen. No lytic or blastic lesions are identified. Anterior and lateral marginal osteophytes are seen throughout. There is advanced disc space narrowing at L5-S1. Mild to moderate disc space narrowing is seen at L4-L5 with associated endplate sclerosis. There is no evidence of high-grade central canal stenosis by CT. Small posterior disc osteophyte complexes are seen at all lumbar levels. Bilateral sacral insufficiency fractures are suggested. A 10 mm bone island is noted in the medial left ilium. Mild degenerative changes are also seen in the sacroiliac joints. The paraspinous soft tissues are normal as imaged. Advanced atherosclerotic calcification is noted in the abdominal aorta. Numerous calcified gallstones are observed. Lung bases are clear as imaged. IMPRESSION: 1. There is no evidence of fracture or malalignment involving the lumbar spine. 2. There is a mild to moderate acute superior endplate compression fracture of T12 with minimally retropulsed fragments. 3. Suspect bilateral sacral insufficiency fractures. 4. Osteopenia and spondylotic change as above. 5. Cholelithiasis. ACT 112: Negative or not required by law. Dictated: 08/08/2019 8:53 AM Transcribed: 08/08/2019 9:49 AM Ines [id number] Electronically signed by: David Alford M.D. 08/08/2019 9:[address] pelvis wo con CLINICAL HISTORY: 79 years-old Female presenting with Pt c/o fall, back pain. TECHNIQUE: Multidetector CT of the pelvis was performed without the use of intravenous contrast. IV contrast: None. One or more dose lowering techniques were used consistent with the principles of ALARA (as low as reasonably achievable), including automatic exposure control, mA or kV adjustment to individual patient size, and/or use of iterative reconstruction. COMPARISON: CT of the abdomen and pelvis from 06/24/2019. CT DOSE (mGy.cm): The estimated cumulative dose is 2572.18 mGy.cm. 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 Severe osteopenia, this mildly limits evaluation especially for nondisplaced fracture. Bone island noted in the left ilium. Sacroiliac joints, hip joints, and pubic symphysis congruent. Degenerative changes of the lower lumbar spine. Femoral necks intact. Heterogeneity of the medullary bone of the sacral ala suggest fractures, the appearance from prior. These are poorly delineated and appear to be just lateral to the neural foramina. These may be subacute. Remainder of the bony pelvis intact. Limited evaluation of the intrapelvic contents demonstrates extensive atherosclerosis. No extraperitoneal pelvic hematoma. Diverticulosis of the sigmoid colon. No pericolonic inflammatory change. Normal noncontrast appearance of the uterus and ovaries. The appendix is normal. No gross lymphadenopathy. No free fluid. IMPRESSION: 1. Bilateral sacral alar fractures, which are likely subacute though new since prior CT in June. 2. Osteopenia. 3. Remainder of the pelvis intact. ACT 112: Negative or not required by law. Electronically signed by: Sd Wright M.D. 08/08/2019 8:57 AM ECG Data Attestation: I personally reviewed and interpreted this ECG as follows: Indication: + other (fall) Rate (beats per minute): 66 Rhythm: + sinus rhythm ECG ST segments: no ST depression and no ST elevation ECG Findings: + PACs and + Other (QT-c is 406) Comparison ECG Date: from (12/15/2018) Change: the following changes noted (now has PACs) Blood Pressure Blood Pressure Findings: Elevated blood pressure Blood Pressure Disposition: further management by hospitalist MDM Narrative This is a 79-year-old female who presents emergency department complaining of fall. The patient has a T12 fracture as well as bilateral sacral trang fractures. I did discuss these findings with the family. The patient was given Dilaudid here in the emergency department. She is requiring oxygen therefore was given a DuoNeb breathing treatment. Because of the patient's oxygen re quirements as well as pain needs I did discuss the case with the hospitalist service who did agree to admit the patient. Family was in agreement with the treatment plan. Impression & Plan COPD exacerbation, T12 vertebral fracture, Sacral fracture, Fall Discharge Plan Visit Data *Final* Discharge Date/Time: 08/08/19 11:46 Chief Complaint: Fall ED Provider: Julio Oliva Discharge Problem: COPD exacerbation, T12 vertebral fracture, Sacral fracture, Fall Patient Disposition: Admitted As Inpatient Discharge Instructions Interventions: ED Discharge Assessment Last Done: 08/08/19 11:46 Discharge Problem: T12 vertebral fracture Qualifiers: Encounter type: initial encounter Fracture type: closed Fracture morphology: other fracture Qualified Code(s): S22.088A - Other fracture of T11-T12 vertebra, initial encounter for closed fracture Sacral fracture Qualifiers: Encounter type: initial encounter Zone of sacrum fracture: unspecified portion of sacrum Fracture type: closed Qualified Code(s): S32.10XA - Unspecified fracture of sacrum, initial encounter for closed fracture Fall Qualifiers: Encounter type: initial encounter Qualified Code(s): W19.XXXA - Unspecified fall, initial encounter The scribe's documentation has been prepared under my direction and personally reviewed by me in its entirety. I confirm that the note above accurately reflects all work, treatment, procedures, and medical decision making performed by me.
[2019-08-08] MEDS: CLOPIDOGREL BISULFATE 75 MG TAB PO SCH (15:43)
[2019-08-08] MEDS: INSULIN ASPART 100 UNITS/ML 3 ML PEN SC SCH ×3 (15:43→21:12)
[2019-08-08] MEDS: OXYCODONE HCL IR 5 MG TAB (IMMEDIATE RELEASE) PO PRN ×2 (15:58→20:05)
[2019-08-08] MEDS: ONDANSETRON INJ 2 MG/ML 2 ML VIAL IV PRN (19:40)
[2019-08-08] MEDS: ACETAMINOPHEN 325 MG TAB PO PRN (20:07)
[2019-08-08] MEDS: SIMVASTATIN 40 MG TAB PO SCH (21:11)
[2019-08-08] MEDS: INSULIN GLARGINE SOLOSTAR 100 UNITS/ML 3 ML PEN SC SCH (21:13)
--- NOTE | 2019-08-08 21:56 | Electrocardiogram Report ---
Test Reason : Blood Pressure : / mmHG Vent. Rate : 057 BPM Atrial Rate : 057 BPM P-R Int : 196 ms QRS Dur : 108 ms QT Int : 412 ms P-R-T Axes : 076 047 037 degrees QTc Int : 401 ms Sinus bradycardia Incomplete right bundle branch block Borderline ECG When compared with ECG of 24-JUN-2019 19:58, Premature atrial complexes are no longer Present Borderline criteria for Inferior infarct are no longer Present Confirmed by Blane Henning ([id number]) on 08/08/2019 9:56:24 PM Referred By: REFERRED SELF Confirmed By:Blane eHnning
[2019-08-09] MEDS: ACETAMINOPHEN 325 MG TAB PO PRN ×2 (00:20→05:06)
[2019-08-09] MEDS: OXYCODONE HCL IR 5 MG TAB (IMMEDIATE RELEASE) PO PRN ×3 (00:20→09:42)
[2019-08-09] MEDS: LEVOTHYROXINE SODIUM 100 MCG TABLET PO SCH (05:06)
[2019-08-09] MEDS: ONDANSETRON INJ 2 MG/ML 2 ML VIAL IV PRN ×2 (05:14→16:52)
[2019-08-09] MEDS: ALBUT/IPRATROP 3MG/0.5MG NEB 3 ML VIAL NEB SCH ×3 (06:53→19:23)
[2019-08-09] MEDS: CYCLOBENZAPRINE HCL 10 MG TAB PO PRN ×2 (08:18→16:51)
[2019-08-09 08:47] LABS: BUN Creatinine Ratio 23.9 (10-20); Calcium 9.7 mg/dl (8.5-10.1); Creatinine Clr Calc Pharmacy 75.5 ml/min; Est GFR (African American) 102.8; Est GFR (Non-African American) 88.7; Potassium 4.2 mmol/L (3.5-5.1)
[2019-08-09] MEDS: INSULIN GLARGINE SOLOSTAR 100 UNITS/ML 3 ML PEN SC SCH ×2 (09:43→21:20)
[2019-08-09] MEDS: FLUTICASONE/VILANTEROL 100/25MCG 14 PUFFS/INHALER INH SCH (09:43)
[2019-08-09] MEDS: CLOPIDOGREL BISULFATE 75 MG TAB PO SCH (09:44)
[2019-08-09] MEDS: INSULIN ASPART 100 UNITS/ML 3 ML PEN SC SCH ×4 (09:45→21:20)
--- NOTE | 2019-08-09 13:56 | Hospitalist Progress Note ---
Date of Service August 09, 2019 Assessment & Plan (1) Fall: 79-year-old female with history of hypertension/hyperlipidemia/COPD/diabetes presenting after mechanical fall in the home resulting in fracture of T12 vertebrae as well as sacral insufficiency fractures T12 Vertebral fracture: - Patient with superior endplate fracture at T12. With minimal retropulsion - Pain control with Oxycodone Q4h PRN, Flexeril Q8h PRN; Fortical daily, and Tylenol Q6h scheduled - PT/OT evaluation - Case management Sacral fracture: - as above Hypoxia: - resolved, likely 2/2 acute pain from fractures Hyperlipidemia: - continue home meds T2DM: - hold home - SSI as needed COPD: - Continue supplemental O2 for goal of 80 to 92% in a patient with COPD - Continue Symbicort - Duo nebs and albuterol Diet: Carb consistent Code: DNR/DNI (2) T12 vertebral fracture: (3) Sacral fracture: (4) Hypoxia: (5) Hyperlipidemia: (6) DMII (diabetes mellitus, type 2): (7) COPD (chronic obstructive pulmonary disease): (8) Hypothyroidism: (9) Stroke: Admission and Anticipated Discharge Date Admission Date: August 08, 2019 Supervising Physician Co-Signing Physician Notes I personally examined the patient and verified all green points of history and exam, discussed case, and agree with decision making with Dr Whitten. pain uncontrolled. tried therapy - was too painful to do much. vitals noted nad but laying quite still in bed does appear somewhat uncomfortable even this way. heent nc at mmm breathing unlabored no accessory muscles good effort skin no rashes no pallor or icterus osteoporotic T12 and sacral fractures - pain control (change to scheduled tylenol, lidocaine patch, flexeril, micalcin nasal; try to minimize narcotics - quite concerned about severe constipation risk) - PT/OT, anticipate need for rehab. outpt re-eval of bone health and management once she's had a chance to heal from this more. Subjective Patient continues to have higher pain than would be productive for daily movement around; family remains concerned that when she previously had to go to a physical therapy place in the past she did not consistently do therapy and it took her much longer to get through her strength up. Review of Systems Review of Systems: All systems reviewed & are unremarkable except as noted in Subjective Physical Exam Constitutional: WD/WN, vitals as above + thin Eyes: PERRL, conjunctivae normal, anicteric sclerae Respiratory: normal respiratory effort, lungs clear to auscultation Cardiovascular: RRR, no murmur, no edema Gastrointestinal (Abdomen): normal bowel sounds, soft, nontender, no hepatosplenomegaly Musculoskeletal: Spine: + limited thoraco-lumbar ROM (2/2 pain) Extremities: strength 5/5 throughout Results & Data ([facility]) Vital Signs (Past 12 Hours) Vital Signs Temp Pulse Resp BP Pulse Ox 08/09/19 13:30 61 16 92 08/09/19 07:05 37.2 C 56 L 17 155/79 H 100 08/09/19 06:54 56 L 16 97 Laboratory Results 08/09/19 08/09/19 08/09/19 Range/Units 11:55 08:20 08:00 Sodium 136 (136-145) mmol/L Potassium 4.2 (3.5-5.1) mmol/L Chloride 105 (98-107) mmol/L Carbon Dioxide 27 (21-32) mmol/L Anion Gap 4.0 (3-11) BUN 14 (7-18) mg/dl Creatinine 0.56 L (0.6-1.2) mg/dl Est Cr Clr Drug Dosing 75.5 ml/min Est GFR ( Amer) 102.8 Est GFR (Non-Af Amer) 88.7 BUN/Creatinine Ratio 23.9 H (10-20) Glucose 141 H (70-99) mg/dl POC Glucose 195 H 140 H (70-99) mg/dl Calcium 9.7 (8.5-10.1) mg/dl 08/08/19 08/08/19 Range/Units 20:36 17:27 Sodium (136-145) mmol/L Potassium (3.5-5.1) mmol/L Chloride (98-107) mmol/L Carbon Dioxide (21-32) mmol/L Anion Gap (3-11) BUN (7-18) mg/dl Creatinine (0.6-1.2) mg/dl Est Cr Clr Drug Dosing ml/min Est GFR ( Amer) Est GFR (Non-Af Amer) BUN/Creatinine Ratio (10-20) Glucose (70-99) mg/dl POC Glucose 208 H 195 H (70-99) mg/dl Calcium (8.5-10.1) mg/dl Medications Administered Current Inpatient Medications Acetaminophen (Tylenol) 650 mg PO Q6H [facility] Stop: 09/08/19 14:59 Albuterol (Duoneb) 3 ml NEB Q6RWA [facility] Stop: 09/07/19 12:59 Last Admin: 08/09/19 13:29 Dose: 3 ml Documented by: Albuterol (Ventolin 0.5% 2.5mg/0.5ml) 2.5 mg NEB Q2H PRN PRN Reason: SOB/Wheeze Stop: 09/07/19 12:28 Calcitonin [place] (Fortical) 1 sprays NA Q24H [facility] Stop: 09/08/19 14:29 Clopidogrel Bisulfate (Plavix) 75 mg PO DAILY [facility] Stop: 09/07/19 12:28 Last Admin: 08/09/19 09:44 Dose: 75 mg Documented by: Cyclobenzaprine HCl (Flexeril) 10 mg PO TID PRN PRN Reason: Spasms Stop: 09/07/19 12:28 Last Admin: 08/09/19 08:18 Dose: 10 mg Documented by: Dextrose (Dextrose 50%) 25 - 50 ml IV UD PRN; Protocol PRN Reason: Hypoglycemia Protocol Stop: 09/07/19 12:28 Fluticasone/Vilanterol (Breo Ellipta 100/25 Mcg Inh) 1 puffs INH DAILY [facility] Stop: 09/08/19 08:59 Last Admin: 08/09/19 09:43 Dose: 1 puffs Documented by: Glucagon (Glucagen) 1 mg SQ UD PRN; Protocol PRN Reason: Hypoglycemia Protocol Stop: 09/07/19 12:28 Glucose (Dex4 Glucose) 4 - 8 tabs PO UD PRN; Protocol PRN Reason: Hypoglycemia Protocol Stop: 09/07/19 12:28 Glucose (Glucose 40%) 15 - 30 gm PO UD PRN; Protocol PRN Reason: Hypoglycemia Protocol Stop: 09/07/19 12:28 Insulin Aspart (Novolog Flexpen) 0 units SC ACHS [facility] Stop: 09/07/19 12:59 Last Admin: 08/09/19 13:23 Dose: 2 units Documented by: Insulin Glargine (Lantus Solostar Pen) 5 units SC BID [facility] Stop: 09/07/19 20:59 Last Admin: 08/09/19 09:43 Dose: 5 units Documented by: Levothyroxine Sodium (Synthroid) 100 mcg PO DAILYBB [facility] Stop: 09/08/19 06:29 Last Admin: 08/09/19 05:06 Dose: 100 mcg Documented by: Lidocaine (Lidoderm 5%) 1 patch TD QAM [facility] Stop: 09/09/19 08:59 Miscellaneous (Carbohydrates For Hypoglycemia) 15 - 30 gm PO UD PRN PRN Reason: Hypoglycemia Protocol Stop: 09/07/19 12:28 Miscellaneous (Remove Lidoderm Patch) 1 ea N/A DAILY@2100 [facility] Stop: 09/08/19 20:59 Ondansetron HCl (Zofran) 4 mg IV Q6H PRN PRN Reason: Nausea Stop: 09/07/19 12:28 Last Admin: 08/09/19 05:14 Dose: 4 mg Documented by: Oxycodone HCl (Roxicodone Immediate Rel) 5 mg PO Q6H PRN PRN Reason: Pain Stop: 08/22/19 12:28 Simvastatin (Zocor) 40 mg PO HS [facility] Stop: 09/07/19 20:59 Last Admin: 08/08/19 21:11 Dose: 40 mg Documented by: Resident Activity Tracking Resident Involvement: Resident Care Provided Care Provided: Adult Hospital Medicine (1) DMII (diabetes mellitus, type 2) Diabetes mellitus complication status: without complication 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 insulin use: without longterm use Qualified Code(s): E11.9 - Type 2 diabetes mellitus without complications (2) Hyperlipidemia Hyperlipidemia type: unspecified Qualified Code(s): E78.5 - Hyperlipidemia, unspecified (3) Hypothyroidism Hypothyroidism type: unspecified Qualified Code(s): E03.9 - Hypothyroidism, unspecified (4) T12 vertebral fracture Encounter type: initial encounter Fracture morphology: other fracture Fracture type: closed Qualified Code(s): S22.088A - Other fracture of T11-T12 vertebra, initial encounter for closed fracture (5) COPD (chronic obstructive pulmonary disease) COPD type: unspecified COPD Qualified Code(s): J44.9 - Chronic obstructive pulmonary disease, unspecified (6) Sacral fracture Encounter type: initial encounter Fracture type: closed Zone of sacrum fracture: unspecified portion of sacrum Qualified Code(s): S32.10XA - Unspecif ied fracture of sacrum, initial encounter for closed fracture (7) Fall Encounter type: initial encounter Qualified Code(s): W19.XXXA - Unspecified fall, initial encounter (8) Stroke CVA mechanism: unspecified Qualified Code(s): I63.9 - Cerebral infarction, unspecified
[2019-08-09] MEDS ORDERED: OXYCODONE HCL IR 5 MG TAB (IMMEDIATE RELEASE) PO PRN (14:10)
[2019-08-09] MEDS ORDERED: ACETAMINOPHEN 325 MG TAB PO SCH (15:00)
--- NOTE | 2019-08-09 15:44 | Billing Data ---
Date of Service August 09, 2019 Coding Level of Care Code 93972 Subseq Hosp Care Lvl 3
[2019-08-09] MEDS: ACETAMINOPHEN 325 MG TAB PO SCH ×2 (16:51→21:19)
[2019-08-09] MEDS: CALCITONIN SALMON NA 200 IU/AC 3.7 ML BTL SCH (16:52)
[2019-08-09] MEDS: SIMVASTATIN 40 MG TAB PO SCH (21:19)
[2019-08-10] MEDS: ACETAMINOPHEN 325 MG TAB PO SCH ×4 (04:08→20:26)
[2019-08-10] MEDS: LEVOTHYROXINE SODIUM 100 MCG TABLET PO SCH (06:19)
[2019-08-10] MEDS: ALBUT/IPRATROP 3MG/0.5MG NEB 3 ML VIAL NEB SCH ×3 (06:28→18:49)
[2019-08-10] MEDS: LIDOCAINE 5% 1 PATCH TD SCH (08:08)
[2019-08-10] MEDS: OXYCODONE HCL IR 5 MG TAB (IMMEDIATE RELEASE) PO PRN ×2 (08:08→21:02)
[2019-08-10] MEDS: FLUTICASONE/VILANTEROL 100/25MCG 14 PUFFS/INHALER INH SCH (08:09)
[2019-08-10] MEDS: CLOPIDOGREL BISULFATE 75 MG TAB PO SCH (08:09)
[2019-08-10] MEDS: ONDANSETRON INJ 2 MG/ML 2 ML VIAL IV PRN ×2 (08:10→21:02)
[2019-08-10] MEDS: INSULIN ASPART 100 UNITS/ML 3 ML PEN SC SCH ×4 (09:57→20:57)
[2019-08-10] MEDS: INSULIN GLARGINE SOLOSTAR 100 UNITS/ML 3 ML PEN SC SCH ×2 (09:58→20:56)
[2019-08-10] MEDS: CALCITONIN SALMON NA 200 IU/AC 3.7 ML BTL SCH (13:43)
[2019-08-10] MEDS: CYCLOBENZAPRINE HCL 10 MG TAB PO PRN (14:17)
--- NOTE | 2019-08-10 14:48 | Hospitalist Progress Note ---
Date of Service August 10, 2019 Assessment & Plan (1) Fall: 79-year-old female with history of hypertension/hyperlipidemia/COPD/diabetes presenting after mechanical fall in the home resulting in fracture of T12 vertebrae as well as sacral insufficiency fractures T12 Vertebral fracture: - Patient with superior endplate fracture at T12. With minimal retropulsion - Pain control with Oxycodone Q6h PRN, Flexeril Q8h PRN; Fortical daily, and Tylenol Q6h scheduled - PT/OT evaluation - Case management Sacral fracture: - as above Hypoxia: - repeat episode during hospital stay down to 85%, but has no pulmonary symptoms - likely 2/2 acute pain from fractures Hyperlipidemia: - continue home meds T2DM: - hold home - SSI as needed COPD: - Continue supplemental O2 for goal of 80 to 92% in a patient with COPD - Continue Symbicort - Duo nebs and albuterol Diet: Carb consistent Code: DNR/DNI Admission and Anticipated Discharge Date Admission Date: August 08, 2019 Supervising Physician Co-Signing Physician Notes I personally examined the patient and verified all green points of history and exam, discussed case, and agree with decision making with Dr Whitten. pain uncontrolled. tried therapy - was too painful to do much. vitals noted sitting up in chair eating some. appearing comfortable. lungs quite diminished throughout no r/r/w moderate effort at best - asked to de monstrate incentive spirometry, and while she uses properly as far as inhaling and trying to float the yellow ball, she does a quite poor job of being able to hold inspiratory effort. osteoporotic T12 and sacral fractures - pain control improving (continue current course but if still significant pain with movement over next 24-48hrs would consult orthotics for bracing); outpt w/u/RX for bone health hypoxia - clear lungs on exam, no respiratory symptoms - strongly suspect atelectasis. serial exams, follow clinically, O2/supportive care, encourage IS use, encourage activity. dispo - for SNF or rehab once pain control more reasonable. Subjective Patient continues to have higher pain than would be productive for daily movement around. Had one episode today where she went to the bathroom and desated to 85%; was not taking deep breaths during this time and required 2L NC for improvement. Review of Systems Review of Systems: All systems reviewed & are unremarkable except as noted in Subjective Physical Exam Constitutional: WD/WN, vitals as above + thin Eyes: PERRL, conjunctivae normal, anicteric sclerae Respiratory: + abnormal respiratory effort (minimal effort) Auscultation: + crackles and + wheezes Cardiovascular: RRR, no murmur, no edema Gastrointestinal (Abdomen): normal bowel sounds, soft, nontender, no hepatosplenomegaly Musculoskeletal: Spine: + limited thoraco-lumbar ROM (2/2 pain) Extremities: strength 5/5 throughout Results & Data ([facility]) Vital Signs (Past 12 Hours) Vital Signs Temp Pulse Resp BP Pulse Ox 08/10/19 13:25 64 18 92 08/10/19 07:01 36.5 C 60 16 149/70 H 97 08/10/19 06:30 86 16 96 Laboratory Results 08/10/19 08/10/19 08/09/19 Range/Units 12:13 08:10 20:50 POC Glucose 224 H 157 H 145 H (70-99) mg/dl 08/09/19 Range/Units 17:12 POC Glucose 150 H (70-99) mg/dl Medications Administered Current Inpatient Medications Acetaminophen (Tylenol) 650 mg PO Q6H [facility] Stop: 09/08/19 14:59 Last Admin: 08/10/19 14:17 Dose: 650 mg Documented by: Albuterol (Duoneb) 3 ml NEB Q6RWA [facility] Stop: 09/07/19 12:59 Last Admin: 08/10/19 13:23 Dose: 3 ml Documented by: Albuterol (Ventolin 0.5% 2.5mg/0.5ml) 2.5 mg NEB Q2H PRN PRN Reason: SOB/Wheeze Stop: 09/07/19 12:28 Calcitonin [place] (Fortical) 1 sprays NA Q24H [facility] Stop: 09/08/19 14:29 Last Admin: 08/10/19 13:43 Dose: 1 sprays Documented by: Clopidogrel Bisulfate (Plavix) 75 mg PO DAILY [facility] Stop: 09/07/19 12:28 Last Admin: 08/10/19 08:09 Dose: 75 mg Documented by: Cyclobenzaprine HCl (Flexeril) 10 mg PO TID PRN PRN Reason: Spasms Stop: 09/07/19 12:28 Last Admin: 02/23/20 14:17 Dose: 10 mg Documented by: Dextrose (Dextrose 50%) 25 - 50 ml IV UD PRN; Protocol PRN Reason: Hypoglycemia Protocol Stop: 09/07/19 12:28 Fluticasone/Vilanterol (Breo Ellipta 100/25 Mcg Inh) 1 puffs INH DAILY [facility] Stop: 09/08/19 08:59 Last Admin: 08/10/19 08:09 Dose: 1 puffs Documented by: Glucagon (Glucagen) 1 mg SQ UD PRN; Protocol PRN Reason: Hypoglycemia Protocol Stop: 09/07/19 12:28 Glucose (Dex4 Glucose) 4 - 8 tabs PO UD PRN; Protocol PRN Reason: Hypoglycemia Protocol Stop: 09/07/19 12:28 Glucose (Glucose 40%) 15 - 30 gm PO UD PRN; Protocol PRN Reason: Hypoglycemia Protocol Stop: 09/07/19 12:28 Insulin Aspart (Novolog Flexpen) 0 units SC ACHS [facility] Stop: 09/07/19 12:59 Last Admin: 08/10/19 13:41 Dose: 2 units Documented by: Insulin Glargine (Lantus Solostar Pen) 5 units SC BID [facility] Stop: 09/07/19 20:59 Last Admin: 08/10/19 09:58 Dose: 5 units Documented by: Levothyroxine Sodium (Synthroid) 100 mcg PO DAILYBB [facility] Stop: 09/08/19 06:29 Last Admin: 08/10/19 06:19 Dose: 100 mcg Documented by: Lidocaine (Lidoderm 5%) 1 patch TD QAM [facility] Stop: 09/09/19 08:59 Last Admin: 08/10/19 08:08 Dose: 1 patch Documented by: Miscellaneous (Carbohydrates For Hypoglycemia) 15 - 30 gm PO UD PRN PRN Reason: Hypoglycemia Protocol Stop: 09/07/19 12:28 Miscellaneous (Remove Lidoderm Patch) 1 ea N/A DAILY@2100 [facility] Stop: 09/08/19 20:59 Last Admin: 08/09/19 21:28 Dose: Not Given Documented by: Ondansetron HCl (Zofran) 4 mg IV Q6H PRN PRN Reason: Nausea Stop: 09/07/19 12:28 Last Admin: 08/10/19 08:10 Dose: 4 mg Documented by: Oxycodone HCl (Roxicodone Immediate Rel) 5 mg PO Q6H PRN PRN Reason: Breakthrough Pain Stop: 08/22/19 12:28 Last Admin: 08/10/19 08:08 Dose: 5 mg Documented by: Simvastatin (Zocor) 40 mg PO HS [facility] Stop: 09/07/19 20:59 Last Admin: 08/09/19 21:19 Dose: 40 mg Documented by: Resident Activity Tracking Resident Involvement: Resident Care Provided Care Provided: Adult Hospital Medicine (1) Fall Encounter type: initial encounter Qualified Code(s): W19.XXXA - Unspecified fall, initial encounter
--- NOTE | 2019-08-10 15:48 | Billing Data ---
Date of Service August 10, 2019 Coding Level of Care Code 34244 Subseq Hosp Care Lvl 3
[2019-08-10] MEDS: SIMVASTATIN 40 MG TAB PO SCH (20:26)
[2019-08-10] MEDS: HEPARIN SOD 5,000 UNIT/0.5 ML VIAL SQ SCH (20:56)
[2019-08-10] MEDS: POLYETHYLENE (MIRALAX) 17 GM PACK PO SCH (23:11)
[2019-08-11] MEDS: ACETAMINOPHEN 325 MG TAB PO SCH ×4 (03:31→21:12)
[2019-08-11] MEDS: LEVOTHYROXINE SODIUM 100 MCG TABLET PO SCH (05:33)
[2019-08-11] MEDS: ALBUT/IPRATROP 3MG/0.5MG NEB 3 ML VIAL NEB SCH ×3 (07:14→19:57)
[2019-08-11] MEDS: LIDOCAINE 5% 1 PATCH TD SCH (07:49)
[2019-08-11] MEDS: OXYCODONE HCL IR 5 MG TAB (IMMEDIATE RELEASE) PO PRN ×2 (07:55→13:56)
[2019-08-11] MEDS: POLYETHYLENE (MIRALAX) 17 GM PACK PO SCH ×2 (08:49→21:10)
[2019-08-11] MEDS: CLOPIDOGREL BISULFATE 75 MG TAB PO SCH (08:50)
[2019-08-11] MEDS: FLUTICASONE/VILANTEROL 100/25MCG 14 PUFFS/INHALER INH SCH (08:51)
[2019-08-11] MEDS: HEPARIN SOD 5,000 UNIT/0.5 ML VIAL SQ SCH ×2 (08:51→21:08)
[2019-08-11] MEDS: INSULIN GLARGINE SOLOSTAR 100 UNITS/ML 3 ML PEN SC SCH ×2 (08:52→21:09)
[2019-08-11] MEDS: INSULIN ASPART 100 UNITS/ML 3 ML PEN SC SCH ×5 (08:55→21:11)
[2019-08-11] MEDS ORDERED: OXYCODONE HCL IR 5 MG TAB (IMMEDIATE RELEASE) PO PRN (10:41)
--- NOTE | 2019-08-11 10:55 | Hospitalist Progress Note ---
Date of Service August 11, 2019 Assessment & Plan (1) Fall: 79-year-old female with PMH HTN, HLD, COPD, DM2, Hypothyroidism admitted for management after mechanical fall at home resulting in T12 Vertebral fracture and bilateral sacral ala fractures. 1) Pain Management for T12 Vertebral fracture, Sacral Fractures - Bilateral sacral alar fractures, which are likely subacute though new since prior CT in June. - Pain control with Oxycodone Q6h PRN, Flexeril 10 mg TID and Tylenol Q6h scheduled, Calcitonin spray QD for fracture pain, Lidocaine patch. - Ordered 5 mg Oxy BID prior to rehab or PRN breakthrough pain for additional coverage - PT on 08/09: would benefit from acute rehab. They will continue daily OOB exercises. - OT to see daily to help with right sided weakness secondary to previous stroke - Case management consulted for discharge placement - will need a DEXA scan outpatient for osteopenia shown on XR 2) COPD - daily Breo Ellipta, Duoneb Q2H PRN - supplemental O2 for sat <92 - brief hypoxic episode likely 2/2 pain. resolved. 3) Hypothyroidism - home 100 levothyroxine dose 4) Hx of Stroke, atherosclerosis - continue home plavix 75 mg - Simvastatin 40 5) DM2 - SSI DVT PPX: heparin 5,000u SQ BID GI PPX: none Diet: Carb consistent Code: DNR/DNI Dispo: Acute rehab vs SNF depending on case management and PT progress Admission and Anticipated Discharge Date Admission Date: August 08, 2019 Supervising Physician Co-Signing Physician Notes Attending attestation Pt seen and examined in concert with Dr. Cordero. In agreement with the documented findings as noted in the resident documentation with any exceptions or additions as noted here. Laying in bed, pain at 4/10 in good position on q6 hour pain medication with flare to 8/10 with activity including physical therapy. On examination, S1/S2 nl RRR no MCG. CTAB. Abd NT/ND BS+ve T12 vertebral fracture, sacral fracture - defers increased pain mgmt at time of evaluation, but willing to have extra q12h PRN for PT and other flare. encouraged participation in PT. Else see resident documentation as noted. Subjective 79 yo F with PMH HTN, HLD, COPD, DM who was admitted to the hospital for management after a mechanical fall at home. Today improving pain control but she is unsure if she would require additional pain medication to aid with physical therapy and movement. Review of Systems Constitutional: no fever, no chills, no body aches and no fatigue Respiratory: no cough and no dyspnea Cardiovascular: no chest pain, no dyspnea and no edema Gastrointestinal: no abdominal pain, no nausea, no vomiting, no constipation and no diarrhea/loose stools Genitourinary: no dysuria Physical Exam Constitutional: cooperative; no acute distress and not ill appearing Neck: normal visual inspection Respiratory: normal respiratory effort and able to speak in complete sentences; no respiratory distress, no labored breathing, no retractions, no cough and no audible wheezes Auscultation: lungs clear to auscultation bilaterally; no crackles, no rales, no rhonchi and no wheezes Cardiovascular: Rate/Rhythm: regular rate and regular rhythm Heart Sounds: normal S1 and normal S2; no gallop, no murmur and no cardiac rub Vessels: posterior tibial pulses present Extremities: no pedal edema and no edema Gastrointestinal (Abdomen): Inspection/Auscultation: abdomen normal to inspection and normal bowel sounds; abdomen not distended Percu ssion/Palpation: abdomen soft; abdomen nontender, no guarding, abdomen not rigid and no abdominal mass Results & Data ([facility]) Vital Signs (Past 12 Hours) Vital Signs Temp Pulse Resp BP BP Pulse Ox 08/11/19 10:32 90 08/11/19 07:42 36.6 C 58 L 16 155/66 H 90 08/11/19 07:15 73 16 95 08/10/19 23:05 36.6 C 68 16 148/75 H 93 08/11/19 08/11/19 08/10/19 Range/Units 12:00 08:06 20:38 POC Glucose 177 H 158 H 126 H (70-99) mg/dl 08/10/19 Range/Units 17:11 POC Glucose 182 H (70-99) mg/dl Resident Activity Tracking Resident Involvement: Resident Care Provided Care Provided: Adult Hospital Medicine (1) Fall Encounter type: initial encounter Qualified Code(s): W19.XXXA - Unspecified fall, initial encounter
[2019-08-11] MEDS: CALCITONIN SALMON NA 200 IU/AC 3.7 ML BTL SCH (13:56)
[2019-08-11] MEDS ORDERED: MAGNESIUM HYDROXIDE SUSP 30 ML UDC PO ONE (17:41)
[2019-08-11] MEDS: ONDANSETRON INJ 2 MG/ML 2 ML VIAL IV PRN (17:47)
[2019-08-11] MEDS ORDERED: LIDOCAINE 5% 1 PATCH TD SCH (19:00)
[2019-08-11] MEDS: DOCUSATE SODIUM 100 MG CAP PO SCH (21:08)
[2019-08-11] MEDS: SIMVASTATIN 40 MG TAB PO SCH (21:12)
[2019-08-11] MEDS ORDERED: Nursing to Pharmacy Communication SCH (22:00)
[2019-08-12] MEDS: OXYCODONE HCL IR 5 MG TAB (IMMEDIATE RELEASE) PO PRN ×2 (02:00→11:38)
[2019-08-12] MEDS: ACETAMINOPHEN 325 MG TAB PO SCH ×3 (03:06→13:55)
[2019-08-12] MEDS: LEVOTHYROXINE SODIUM 100 MCG TABLET PO SCH (05:41)
[2019-08-12] MEDS: ALBUT/IPRATROP 3MG/0.5MG NEB 3 ML VIAL NEB SCH (07:01)
[2019-08-12] MEDS: INSULIN ASPART 100 UNITS/ML 3 ML PEN SC SCH ×2 (09:39→13:54)
[2019-08-12] MEDS: FLUTICASONE/VILANTEROL 100/25MCG 14 PUFFS/INHALER INH SCH (09:40)
[2019-08-12] MEDS: CLOPIDOGREL BISULFATE 75 MG TAB PO SCH (09:40)
[2019-08-12] MEDS: LIDOCAINE 5% 1 PATCH TD SCH (09:41)
[2019-08-12] MEDS: HEPARIN SOD 5,000 UNIT/0.5 ML VIAL SQ SCH (09:42)
[2019-08-12] MEDS: DOCUSATE SODIUM 100 MG CAP PO SCH (09:42)
[2019-08-12] MEDS: INSULIN GLARGINE SOLOSTAR 100 UNITS/ML 3 ML PEN SC SCH (09:43)
[2019-08-12] MEDS: POLYETHYLENE (MIRALAX) 17 GM PACK PO SCH (09:43)
[2019-08-12] MEDS ORDERED: ALBUT/IPRATROP 3MG/0.5MG NEB 3 ML VIAL NEB PRN (10:49)
[2019-08-12] MEDS: CALCITONIN SALMON NA 200 IU/AC 3.7 ML BTL SCH (13:55)
--- NOTE | 2019-08-12 14:33 | Electrocardiogram Report ---
Test Reason : Blood Pressure : / mmHG Vent. Rate : 070 BPM Atrial Rate : 070 BPM P-R Int : 192 ms QRS Dur : 130 ms QT Int : 404 ms P-R-T Axes : 056 -42 022 degrees QTc Int : 436 ms Sinus rhythm with occasional Premature ventricular complexes Left axis deviation Right bundle branch block Possible Inferior infarct , age undetermined Abnormal ECG When compared with ECG of 08-AUG-2019 07:51, Premature ventricular complexes are now Present Borderline criteria for Inferior infarct are now Present Confirmed by Dominik Gordon ([id number] on 08/12/2019 2:32:53 PM Referred By: REFERRED SELF Confirmed By:Stewart Gordon
[2019-08-12] MEDS ORDERED: POLYETHYLENE (MIRALAX) 17 GM PACK PO SCH (14:45)
[2019-08-12] MEDS ORDERED: MAGNESIUM HYDROXIDE SUSP 30 ML UDC PO SCH (15:00)
--- NOTE | 2019-08-12 15:55 | Discharge Summary ---
Date of Service August 12, 2019 Admission HPI Per Admitting Provider Madison Mckenna is a pleasant 79-year-old female with history of hypertension/hyperlipidemia/diabetes/COPD presenting after mechanical fall at home resulting in T12 endplate as well as sacral insufficiency fractures. Patient got up this morning around 0530 and tried to use the bathroom. She thinks she may have slipped and fallen off the very tall bed and landed on her backside. Denies loss of consciousness, head trauma. No chest pain/palpitations/seizure activity. Patient lives with her son and [id number] who found her on the ground in considerable back pain. They helped her to the bed. Patient with mild shortness of breath after her fall and used her inhaler at home with some relief. She is complaining of significant back pain as well as skin tear on her right hand. No additional complaints at this time. Patient mildly hypoxic in the ER to 83%. ER course: Tylenol, albuterol, Dilaudid, supplemental oxygen Admission Exam Per Admitting Provider Physical Exam: General: patient resting comfortably, NAD, non-toxic in appearance, AA&O x 4, facemask for nebulizer treatment in place Skin: warm, dry,no rashes or lesions, tear on right hand covered. No bleeding HEENT: NC/AT, PERRL, EOMI, anicteric sclera, conjunctiva without injection, external ear normal to inspection and nontender, nares patent, moist mucus membranes, dentition intact, no oropharyngeal lesions, neck supple, trachea midline, no LAD, no thyromegaly, no JVD Heart: +S1/S2, regular, no m/r/g Lungs: equal air entry bilaterally, no rales/rhonchi/wheezes Abd: +BS, soft, NT/ND, no masses/organomegaly/ascites Ext: warm, 2+ pulses in UE/LE bilaterally, no clubbing/cyanosis or edema Neuro: nonfocal, patient AA&O x 4, speech intact, no facial droop, moving all extremities on command with equal strength 5/5 Principal Diagnosis Mechanical fall, T12 fracture, Sacral Fractures Discharge Exam Constitutional cooperative; no acute distress and not ill appearing Neck normal visual inspection Respiratory normal respiratory effort and able to speak in complete sentences; no respiratory distress, no labored breathing, no retractions, no cough and no audible wheezes Auscultation: lungs clear to auscultation bilaterally; no crackles, no rales, no rhonchi and no wheezes Cardiovascular Rate/Rhythm: regular rate and regular rhythm Heart Sounds: normal S1 and normal S2; no gallop, no murmur and no cardiac rub Vessels: posterior tibial pulses present Extremities: no pedal edema and no edema Gastrointestinal (Abdomen) Inspection/Auscultation: abdomen normal to inspection and normal bowel sounds; abdomen not distended Percussion/Palpation: abdomen soft; abdomen nontender, no guarding, abdomen not rigid and no abdominal mass Discharge Data Allergies Allergy/AdvReac Type Severity Reaction Status Date / Time metformin AdvReac Intermediate NAUSEA AND Verified 08/08/19 08:06 DIARRHEA varenicline AdvReac Unknown DEPRESSION, Verified 08/08/19 08:06 BAD DREAMS Consultations 08/08/19 09:53 ED Decision to Admit Stat 08/10/19 12:06 Consult Case Management - Discharge Planning Routine Ordered Studies 08/08/19 07:05 CT cervical spine wo con Stat CT head/brain wo con Stat CT lumbar spine wo con Stat CT thoracic spine wo con Stat 08/08/19 07:06 CT pelvis wo con Stat Hospital Course (1) Fall: 79-year-old female with PMH HTN, HLD, COPD, DM2, Hypothyroidism admitted for management after mechanical fall at home resulting in T12 Vertebral fracture and bilateral sacral ala fractures. 1) Pain Management for T12 Vertebral fracture, Sacral Fractures - Bilateral sacral alar fractures, which are likely subacute though new since prior CT in June. - Pain control with 5 Oxycodone Q6h PRN, Flexeril 10 mg TID and Tylenol Q6h scheduled, Calcitonin spray QD for fracture pain, Lidocaine patch. - will need a DEXA scan outpatient for osteopenia shown on XR All other medical conditions managed per home medication regimens. Discharged home with home PT and nursing. Total Time Total Time Spent Total Time Spent (In Minutes): Discharge Plan Discharge Items Patient Disposition: Home - Home Health Services Reason For Visit: MECHANICAL FALL, SACRAL AND T12 FRACTURES Discharge Diagnosis: Mechanical fall, T12 fracture, sacral fractures Activity: As commented below Lifting: Gradually increase as tolerated Non-emergency contact: Primary Care Provider Call non-emergency contact if: your pain is not controlled, your pain is worsening and your pain is unusual for you Follow-up/Referrals: Alan Wilhelm MD [Primary Care Provider] - 09/04/19 2:30 pm (With Dr Wilhelm) Diet: Regular Addtl Attending Provider Instructions: You were brought to the hospital for a fall you suffered at home which resulted in fractures in your spine and both sides of your pelvis. The most important part of recooperation from fractures like this is pain management and pa rticipation in physical therapy to regain your strength. You can use the prescribed pain medications to help reduce the pain of doing the PT exercises. Follow up with your primary care provider in the next few weeks to ensure proper return to strength. Pending Studies at Discharge: No Stand-Alone Forms: [facility], Smoking Cessation Medications and DC Order Prescriptions: New acetaminophen [Mapap (acetaminophen)] 325 mg Tablet 650 mg PO Q6H 30 Days Qty: 240 RF: 0 polyethylene glycol 3350 [Miralax] 17 gram Powder In Packet 34 gm PO BID 30 Days RF: 0 calcitonin (salmon) 200 unit/actuation [place],Non-Aerosol 1 spray NA Q24H 30 Days Qty: 1 RF: 0 lidocaine 5 % Adhesive Patch,Medicated 1 patch transdermal QAM 30 Days Qty: 30 RF: 0 docusate sodium 100 mg Capsule 100 mg PO BID 30 Days Qty: 60 RF: 0 Continued simvastatin 40 mg tablet 40 mg PO HS Qty: 90 RF: 3 Januvia 100 mg tablet 100 mg PO DAILY Qty: 90 RF: 3 clopidogrel 75 mg tablet 75 mg PO DAILY Qty: 90 RF: 3 glimepiride 2 mg tablet See Rx Instructions PO .COMPLEX Qty: 225 RF: 1 albuterol sulfate 90 mcg/actuation HFA aerosol inhaler 1 puff INHALATION Q6H PRN (Reason: Wheezing) Qty: 8.5 RF: 3 Symbicort 160-4.5 mcg/actuation HFA aerosol inhaler 2 puffs INH BID Qty: 6 RF: 1 levothyroxine 100 mcg Tablet 100 mcg PO QAM RF: 0 ascorbic acid (vitamin C) 500 mg Tablet 500 mg PO DAILY RF: 0 Vitamin D3 4,000 unit Capsule 4,000 unit PO BID RF: 0 cyclobenzaprine 10 mg Tablet 5 mg PO TID PRN (Reason: Spasms) RF: 0 Discontinued (DME) lancets [OneTouch Delica Lancets] 33 gauge misc See Dose Instructions .ROUTE .MEDSUPPLY Qty: 100 RF: 0 (DME) Easy Touch Test Strip strip See Dose Instructions .ROUTE .MEDSUPPLY Qty: 10 RF: 0 sulfamethoxazole-trimethoprim [Bactrim DS] 800-160 mg tablet 1 tab PO BID 7 Days Qty: 14 RF: 0 Discharge Orders: Discharge Order (Routine); Ordered 08/12/19 Ordered By: Fiona Troncoso/Other Patient Handouts: Diet High Fiber Dc, Falls Risks Prevent Admission Data Admit Date/Time: 08/08/19 10:58 Attending Provider: Alan Corbin Admit Provider: Aarti Abraham Primary Care Provider: Alan Wilhelm Other Interventions: Discharge Summary Assessment (RN) Last Done: 08/12/19 16:14 DC Date/Time DO NOT enter until pt leaves facility: 08/12/19 17:25 Supervising Physician Co-Signing Physician Notes Attending attestation Pt seen and examined in concert with Dr. Cordero. In agreement with the documented findings as noted in the resident documentation with any exceptions or additions as noted here. Resting in bed with minimal pain at rest with current pain management regimen. Not tolerating working with PT well 2/2 pain but also not using optimal pain mgmt regimen On examination, S1/S2 nl RRR no MCG. CTAB. Abd NT/ND BS+ve. Str 5/5 bilateral LE. T12 vertebral fracture, sacral fracture - would likely benefit from scheduled pain regimen at 5mg oxycodone q6h. Would certainly benefit from home PT as family defers facility rehabilitation. Else see resident documentation as noted. Time spent: 20 minutes. Resident Activity Tracking Resident Involvement: Resident Care Provided Care Provided: Adult Hospital Medicine
== END 2019-08-12 17:25 | disposition home health service (06) | DRG 543 ==
LOC: ED 07:02 → SUATTDRO 10:58 → 3W 10:58

== ENCOUNTER 2019-10-30 13:33 | Inpatient (IN) ==
[2019-10-30] MEDS ORDERED: ACETAMINOPHEN 500 MG TAB PO STA (13:55)
[2019-10-30] MEDS ORDERED: MoRPHine SULFATE 2 MG/ML CARP IV STA (13:55)
--- NOTE | 2019-10-30 14:13 | Emergency Department Note ---
History of Present Illness General Chief complaint: Hip Pain Stated complaint: FALL, R HIP PAIN Time Seen by Provider: 10/30/19 13:46 History of Present Illness Maximum Pain Intensity: 10 79-year-old female who presents to the emergency department via private transportation for evaluation of injuries after she lost her balance while walking on gravel, and fell onto her right side. The patient complains mostly of right hip pain. She does report hitting her head, but denies any loss of consciousness. The patient also denies any significant neck or back pain. She reports mild discomfort in the left elbow and left third finger, as well as right knee. The patient currently rates her discomfort a 10 out of 10. The patient reports that she is on a blood thinner, but does not know the name of it. Home Medications Home Medications Medication Instructions Recorded Confirmed Type Vitamin D3 4,000 unit PO BID 08/28/18 10/30/19 History ascorbic acid (vitamin C) 500 mg PO QAM 08/28/18 10/30/19 History Januvia 100 mg PO QAM 08/17/19 10/30/19 History clopidogrel [Plavix] 75 mg PO QAM 08/17/19 10/30/19 History lisinopril 2.5 mg PO QAM 08/17/19 10/30/19 History levothyroxine 100 mcg tablet 100 mcg PO QAM #90 tab 10/13/19 10/30/19 Rx Saccharomyces boulardii [Florastor] 250 mg PO BID #20 cap 10/26/19 10/30/19 Rx cefdinir 300 mg PO BID 7 Days #14 cap 10/26/19 10/30/19 Rx coQ10 (ubiquinol) 200 mg PO QAM 10/26/19 10/30/19 History glimepiride 3 mg PO QAM 10/26/19 10/30/19 History vitamins A,C,Z-pscm-sevpmh 1 cap PO QPM 10/26/19 10/30/19 History [PreserVision AREDS] acetaminophen 500 mg tablet 1,000 mg PO Q8H PRN 10/30/19 10/30/19 History albuterol sulfate [Ventolin HFA] 1 puff INHALATION Q6H PRN 10/30/19 10/30/19 History budesonide-formoterol HFA 160 2 puffs INH BID #6 gm 10/30/19 10/30/19 Rx mcg-4.5 mcg/actuation aerosol inhaler glimepiride 2 mg PO HS 10/30/19 10/30/19 History simvastatin [Zocor] 40 mg PO HS 10/30/19 10/30/19 History Allergies Allergy/AdvReac Type Severity Reaction Status Date / Time metformin AdvReac Intermediate NAUSEA AND Verified 10/30/19 10:12 DIARRHEA varenicline AdvReac Unknown DEPRESSION, Verified 10/30/19 14:55 BAD DREAMS Past Med/Surg History Medical History Acute bronchitis (Acute) Acute respiratory failure with hypoxia (Acute) Allergic rhinitis due to dust (Acute) Allergic rhinitis due to pollen (Acute) Anemia (Acute) Carotid artery plaque (Acute) Chest pain (Acute) Chronic back pain RLE/HIP RADIATION Chronic obstructive pulmonary disease STABLE COPD exacerbation Depression (Acute) 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) Diabetes mellitus, type 2 NIDDM Disc degeneration, lumbar (Acute) Discoid lupus erythematosus (Acute) Diverticular disease Diverticulosis (Acute) Emphysema, unspecified (Acute) Eye swelling, right Fracture, intertrochanteric, right femur Gallstones Hyperlipidemia (Chronic) Hyperplastic colon polyp (Acute) Hypertension Hypothyroidism Insomnia (Acute) Ischemic stroke (Acute) Low back pain (Acute) Lumbar canal stenosis (Acute) Lung nodule (Acute) Nicotine dependence (Acute) No pertinent family history Osteopenia (Acute) Right foot drop SDAT (senile dementia of Alzheimer's type) (Chronic) Spinal stenosis (Acute) Stroke 10/2017- RESIDUAL RIGHT SIDED WEAKNESS REMAINS; ON PLAVIX UTI (urinary tract infection) (Acute) UTI (urinary tract infection) Vitamin D deficiency (Acute) Surgical History History of augmentation of both breasts History of back surgery History of bilateral tubal ligation Family History Mother Diabetes Stroke Other No pertinent family history Denies family history of Heart disease Colorectal cancer Hypertension Social History Preferred Language: Czech Communication Ability: Effective Bone Char Operator Required: No Beliefs That Will Affect Care: None marital status: / Current Living Situation: Family Current Living Situation Comment: Lives with son and his Feels Safe at Home: Yes Smoking Status: Former smoker Tobacco Type: cigarettes ; Cigarettes Per Day: 2 ; Second Hand Exposure: No ; Hx Alcohol Use: No Hx Substance Use: No Review of Systems 10 system review was performed and was negative except for pertinent positives and negatives as indicated in history of present illness Physical Exam Vital Signs Vital Signs - 24 hr 10/30/19 13:35 10/30/19 14:42 10/30/19 15:46 Temperature 36.3 C L Temperature Source Oral Pulse Rate 56 L Pulse Rate [Apical] 62 62 Pulse Rhythm Regular Pulse Rhythm [Apical] Regular Pulse Strength Normal Respiratory Rate 18 16 18 Respiratory Effort / Characteristics Non-Labored Spontaneous Non-Labored Spontaneous Respiratory Depth Normal Normal Respiratory Pattern Regular Regular Blood Pressure 192/84 H Blood Pressure [Right Arm] 196/83 H 208/90 H Blood Pressure Mean 120 Blood Pressure Mean [Right Arm] 120 129 Blood Pressure Position Sitting Pulse Oximetry 95 95 93 Oxygen Delivery Method Room Air Room Air Room Air Sepsis Recent Fever Within 48 Hours No Sepsis New/Unexplained Change in Mental Status No Sepsis Action Taken by Nursing No Action Required CONSTITUTIONAL: Healthy and well nourished. Alert and oriented X 3. GCS 15. Patient appears in moderate discomfort. HEENT: Normocephalic, atraumatic. Pupils equal, round and reactive. No evidence for scalp lacerations, hematoma, subconjunctival hemorrhage, epistaxis or hemotympanum. NECK: Patient has mild generalized tenderness to palpation of the neck RESPIRATORY: Clear to auscultation bilaterally with no wheezing, crackles, rhonchi or stridor. CARDIOVASCULAR: Regular rate and rhythm with no murmurs, rubs or gallops. GASTROINTESTINAL: Bowel sounds present in all quadrants. Soft and nontender to palpation. MUSCULOSKELETAL: Complete and comprehensive musculoskeletal exam was performed. Examination shows an externally rotated and shortened right lower extremity. The patient has mild tenderness to palpation, soft tissue edema and ecchymosis over the right anterolateral knee. Any attempted logroll worsens the patient's discomfort. Pelvis appears stable with rock. Examination of the left lower extremity does not show any tenderness to palpation, ecchymosis or abrasions. Patient has no focal tenderness to palpation through the thoracolumbar spine, ribs or shoulders. She has an abrasion over the left posterior elbow and left middle finger. I am able to flex and extend the left elbow without discomfort. Right upper extremity is normal on exam. INTEGUMENTARY: No rash or other significant dermatologic conditions noted. HEMATOLOGIC: No ecchymosis or petechiae. PSYCHIATRIC: Positive affect. NEUROLOGIC: Upper and lower extremities are sensory intact. Course Course Patient history and physical exam were performed. Nurse's notes were reviewed. Vital signs were reviewed, showing an elevated blood pressure of 192/84. The patient is mildly bradycardic with good O2 saturation on room air. Review of m edical records shows that the patient was just here 4 days ago for a UTI, lower abdominal pain, nausea, vomiting and back pain. It also appears that the patient was provided a prescription for cefdinir for her UTI. Additional review of medical records shows that the patient was also here on 08/19/2019 after suffering rib injuries when her hand slipped while getting out of a chair, and landing on her ribs. The patient denies any current right rib pain or shortness of breath. Given concern for hip fracture, IV access was established, and labs were drawn. The patient was administered oral Tylenol, as well as IV morphine for the pain. An ECG was also performed, showing a mild sinus bradycardia with incomplete right bundle branch block. A portable chest x-ray does not show any pneumothorax or consolidations. Noncontrast CT of the head and cervical spine did not show any acute intracrani al bleed, skull fracture or cervical fracture/subluxations. X-rays of the lumbar spine shows an increased T12 compression fracture when compared to a most recent x-ray. X-rays of the right knee and left middle finger were reviewed and were normal. X-rays of the right hip shows a comminuted intertrochanteric fracture. After the patient returned from imaging, she complained of worsening pain. She was administered additional IV morphine and Zofran. Findings were discussed with Dr. Larios, ED attending physician, who recommended consultation with orthopedics. The case was then discussed with Dr. Larsen, [facility], who will further follow-up with the patient after admission. The case was further discussed with Dr. Mcgill, [facility] hospitalist. Please see their dictations for further treatment and final disposition.. Administered Medications Hydralazine HCl (Hydralazine Hcl) 5 mg IV Q4H PRN PRN Reason: SBP > 190 or DBP > 110 Stop: 11/29/19 17:54 Last Admin: 10/30/19 18:52 Dose: 5 mg Documented by: [id number] Insulin Aspart (Novolog Flexpen) 0 units SC ACHS BRINDA Stop: 11/29/19 20:59 Last Admin: 10/30/19 20:31 Dose: 2 units Documented by: [id number] Cosigned by: [id number] Simvastatin (Zocor) 40 mg PO HS BRINDA Stop: 11/29/19 19:59 Last Admin: 10/30/19 20:31 Dose: 40 mg Documented by: [id number] Discontinued Medications Acetaminophen (Tylenol) 1,000 mg PO NOW STA Stop: 10/30/19 13:56 Last Admin: 10/30/19 14:12 Dose: 1,000 mg Documented by: [id number] Diphtheria/Pertussis/Tetanus Vacc (Adacel) 0.5 ml IM .ONCE ONE Stop: 10/30/19 15:32 Last Admin: 10/30/19 15:44 Dose: 0.5 ml Documented by: [id number] Morphine Sulfate (Morphine Sulfate) 2 mg IV NOW STA Stop: 10/30/19 13:56 Last Admin: 10/30/19 14:11 Dose: 2 mg Documented by: [id number] Morphine Sulfate (Morphine Sulfate) 4 mg IV NOW STA Stop: 10/30/19 15:30 Last Admin: 10/30/19 15:45 Dose: 4 mg Documented by: [id number] Medical Decision Making Medical Records Attestation: I reviewed the patient's medical records. Home Medications Current Medication List: was personally reviewed by me Laboratory Data Attestation: I reviewed the patient's lab results. Result diagrams: 10/30/19 14:10 10/30/19 14:10 Lab Results 10/30/19 10/30/19 10/30/19 Range/Units 14:10 14:10 14:10 WBC 11.79 H (4.8-10.8) K/uL RBC 3.99 L (4.2-5.4) M/uL Hgb 12.8 (12.0-16.0) g/dL Hct 38.7 (37-47) % MCV 97.0 (80-100) fL MCH 32.1 (25-34) pg MCHC 33.1 (32-36) g/dL RDW Std Deviation 47.7 H (36.4-46.3) fL RDW Coeff of Campbell 13.4 (11.5-14.5) % Plt Count 281 (130-400) K/uL MPV 10.0 (7.4-10.4) fL Immature Gran % (Auto) 0.4 % Neut % (Auto) 73.0 % Lymph % (Auto) 20.3 % [place] % (Auto) 5.7 % Eos % (Auto) 0.4 % Baso % (Auto) 0.2 % Immature Gran # (Auto) 0.05 H (0.00-0.02) K/uL Neut # (Auto) 8.61 H (1.4-6.5) K/uL Lymph # (Auto) 2.39 (1.2-3.4) K/uL [place] # (Auto) 0.67 H (0.11-0.59) K/uL Eos # (Auto) 0.05 (0-0.5) K/uL Baso # (Auto) 0.02 (0-0.2) K/uL PT 11.0 (9.0-12.0) Seconds INR 1.0 (0.9-1.1) APTT 22.3 (21.0-31.0) Seconds PTT Ratio 0.8 Sodium 141 (136-145) mmol/L Potassium 3.9 (3.5-5.1) mmol/L Chloride 107 (98-107) mmol/L Carbon Dioxide 26 (21-32) mmol/L Anion Gap 8.0 (3-11) BUN 15 (7-18) mg/dl Creatinine 0.64 (0.6-1.2) mg/dl Est Cr Clr Drug Dosing 61.7 ml/min Est GFR ( Amer) 98.4 Est GFR (Non-Af Amer) 84.9 BUN/Creatinine Ratio 22.9 H (10-20) Glucose 193 H (70-99) mg/dl Calcium 9.1 (8.5-10.1) mg/dl Urine Color Urine Appearance (Clear) Urine pH (4.5-7.5) Ur Specific [place] (1.000-1.030) Urine Protein (Negative) Urine Glucose (UA) (Negative) Urine Ketones (Negative) Urine Blood (Negative) Urine Nitrite (Negative) Urine Bilirubin (Negative) Urine Urobilinogen (Negative) Ur Leukocyte Esterase (Negative) Urine WBC (Auto) (0-5) /hpf Urine RBC (Auto) (0-4) /hpf U Hyaline Cast (Auto) (0-5) /lpf U Epithel Cells (Auto) (0-5) /lpf Urine Bacteria (Auto) (Negative) 10/30/19 Range/Units 16:29 WBC (4.8-10.8) K/uL RBC (4.2-5.4) M/uL Hgb (12.0-16.0) g/dL Hct (37-47) % MCV (80-100) fL MCH (25-34) pg MCHC (32-36) g/dL RDW Std Deviation (36.4-46.3) fL RDW Coeff of Campbell (11.5-14.5) % Plt Count (130-400) K/uL MPV (7.4-10.4) fL Immature Gran % (Auto) % Neut % (Auto) % Lymph % (Auto) % [place] % (Auto) % Eos % (Auto) % Baso % (Auto) % Immature Gran # (Auto) (0.00-0.02) K/uL Neut # (Auto) (1.4-6.5) K/uL Lymph # (Auto) (1.2-3.4) K/uL [place] # (Auto) (0.11-0.59) K/uL Eos # (Auto) (0-0.5) K/uL Baso # (Auto) (0-0.2) K/uL PT (9.0-12.0) Seconds INR (0.9-1.1) APTT (21.0-31.0) Seconds PTT Ratio Sodium (136-145) mmol/L Potassium (3.5-5.1) mmol/L Chloride (98-107) mmol/L Carbon Dioxide (21-32) mmol/L Anion Gap (3-11) BUN (7-18) mg/dl Creatinine (0.6-1.2) mg/dl Est Cr Clr Drug Dosing ml/min Est GFR ( Amer) Est GFR (Non-Af Amer) BUN/Creatinine Ratio (10-20) Glucose (70-99) mg/dl Calcium (8.5-10.1) mg/dl Urine Color Yellow Urine Appearance Clear (Clear) Urine pH 6.5 (4.5-7.5) Ur Specific [place] 1.020 (1.000-1.030) Urine Protein Negative (Negative) Urine Glucose (UA) Negative (Negative) Urine Ketones Trace H (Negative) Urine Blood 2+ H (Negative) Urine Nitrite Negative (Negative) Urine Bilirubin Negative (Negative) Urine Urobilinogen Negative (Negative) Ur Leukocyte Esterase Negative (Negative) Urine WBC (Auto) 1-5 (0-5) /hpf Urine RBC (Auto) 10-30 H (0-4) /hpf U Hyaline Cast (Auto) 1-5 (0-5) /lpf U Epithel Cells (Auto) 10-20 H (0-5) /lpf Urine Bacteria (Auto) Negative (Negative) Imaging Data Attestation: I personally reviewed and interpreted this imaging study as follows: My Impression: My interpretation of reportable chest x-ray does not show any pneumothorax or consolidations. My interpretation of a noncontrast CT of the head and cervical spine does not show any acute fractures, subluxations or intracranial bleed. My interpretation of lumbar spine x-rays shows an increased compression deformity of T12 when compared to a prior x-ray. My interpretation o right knee and left middle finger x-rays does not show any acute fractures or dislocations. My interpretation of right hip x-rays with a pelvic view confirms a comminuted intertrochanteric fracture. Radiologist reports were reviewed. Radiologist's Impression: XR chest 1V not portable CLINICAL HISTORY: 79 years-old Female presenting with s/p fall. TECHNIQUE: Portable upright AP view of the chest was obtained. COMPARISON: 08/19/2019. FINDINGS: Atherosclerosis of the aortic arch. Cardiac silhouette enlarged. Lungs are hyperinflated. Heterogeneity lung parenchyma. Evaluation of the lungs degraded by calcified breast implants. No focal opacity. No pleural effusion or pneumothorax. Osteopenia may be present. Upper abdomen normal. IMPRESSION: 1. Findings suggest emphysema. No focal infiltrate to suggest pneumonia. 2. No gross evidence of acute injury. CT head/brain wo con CLINICAL HISTORY: 79 years-old Female presenting with CHI/neck pain s/p fall. TECHNIQUE: Multidetector CT imaging of the head was performed without the use of intravenous contrast. IV contrast: None. One or more dose lowering techniques were used consistent with the principles of ALARA (as low as reasonably achievable), including automatic exposure control, mA or kV adjustment to individual patient size, and/or use of iterative reconstruction. COMPARISON: 08/08/2019. CT DOSE (mGy.cm): The estimated cumulative dose is 894.25. FINDINGS: Frog Shaker topogram: The patient is edentulous. Proportional ventricular and sulcal prominence, likely age-related parenchymal volume loss. No hemorrhage. Periventricular and subcortical white matter hypoattenuation, nonspecific but likely indicative of chronic small vessel ischemic change. Multiple lacunar infarcts in the bilateral basal ganglia, left greater than right. Senescent calcifications in the globus pallidus. No acute territorial infarct. No mass effect or midline shift. No extra-axial fluid collection. Paranasal sinuses and mastoid air cells clear. Calvarium intact. IMPRESSION: 1. Chronic small vessel ischemic change and bilateral basal ganglia old lacunar infarcts, unchanged. No acute intracranial abnormality. CT cervical spine wo con CLINICAL HISTORY: 79 years-old Female presenting with CHI/neck pain s/p fall. TECHNIQUE: Multidetector CT of the cervical spine was performed without the use of intravenous contrast. IV contrast: None. One or more dose lowering techniques were used consistent with the principles of ALARA (as low as reasonably achievable), including automatic exposure control, mA or kV adjustment to individual patient size, and/or use of iterative reconstruction. COMPARISON: 08/08/2019. CT DOSE (mGy.cm): The estimated cumulative dose is 894.25 mGy.cm. FINDINGS: Frog Shaker topogram: Unremarkable. Straightening of normal cervical lordosis. Trace anterolisthesis of C4 on C5 may be present, degenerative in etiology. Vertebral bodies otherwise maintain normal height and alignment. Intervertebral disc height loss at several levels, greatest at C5-6, which is moderate in severity. Disc osteophyte complexes primarily from C4-5 through C6-7. Moderate spinal canal narrowing at C5-6 related to posterior bony spurring. Moderate degenerative changes of the atlantodental articulation. Facet arthropathy and uncovertebral hypertrophy noted more so on the right with osseous neural foraminal narrowing greatest on the right at C4-5 and C5-6. No acute fracture or subluxation. Visualized portion of the skull base intact. Paraspinal soft tissues within normal limits. Atherosclerosis. Advanced emphysema at the lung apices. Esophagus mildly distended with gas and fluid.. IMPRESSION: 1. No acute osseous injury of the cervical spine. 2. Multilevel degenerative changes with osseous spinal canal and neural foraminal narrowing. LUMBAR SPINE 5 VIEWS CLINICAL HISTORY: Fall. FINDINGS: 5 views of the lumbar spine are correlated with CT of the lumbar spine dated 08/08/2019. The skeletal structures are osteopenic. There is no radiographic evidence of fracture or malalignment involving the lumbar spine. There is a moderate chronic compression deformity of T12. The degree of collapse has increased from 08/08/2019. Vertebral body height and alignment are maintained throughout the lumbar spine. Mild lumbar levocurvature is noted. Anterior and lateral marginal osteophytes are seen throughout. The transverse and spinous processes are intact. There is no evidence of spondylolysis. There is advanced disc space narrowing at L5-S1. Moderate disc space narrowing is seen at L4-L5. Mild disc space narrowing is noted at the remaining lumbar levels. Small posterior disc osteophyte complexes are noted at most lumbar levels. The visualized bony pelvis appears intact. Sclerotic change is noted in the sacroiliac joints. There are numerous pelvic phleboliths. There is a nonobstructed abdominal bowel gas pattern. Advanced atherosclerotic calcification is noted in the abdominal aorta. Numerous calcified gallstones are seen in the right upper quadrant. IMPRESSION: 1. There is no radiographic evidence of acute fracture involving the lumbar spine. 2. There is a chronic compression deformity of T12. The degree of collapse has increased from 08/08/2019. 3. Cholelithiasis. RIGHT KNEE 2 VIEWS CLINICAL HISTORY: Fall. Right knee pain. FINDINGS: AP and crosstable lateral views of the right knee are obtained. No prior studies are available for comparison at the time of dictation. The skeletal structures are osteopenic. No fracture is seen. There is mild tricomp artmental degenerative joint space narrowing, greatest at the patellofemoral articulation. There are tiny medial marginal osteophytes. Chondrocalcinosis is noted in the medial and lateral compartments. A calcified fabella is incidentally noted. There is no joint effusion. Mild prepatellar soft tissue swelling is observed. IMPRESSION: No acute bony abnormality is identified. XR finger(s) LT min 2V CLINICAL HISTORY: 79 years-old Female presenting with L 3rd finger injury s/p fall. TECHNIQUE: Frontal, oblique and lateral views of the left third finger were obtained. COMPARISON: None. FINDINGS: No acute fracture or malalignment. No advanced degenerative change. No radiographic soft tissue abnormality. IMPRESSION: No acute osseous injury. SINGLE VIEW PELVIS; 2 VIEWS RIGHT HIP CLINICAL HISTORY: Fall with right hip pain. FINDINGS: An AP supine view of the pelvis with AP and frog-leg views of the right hip are correlated with pelvic CT dated 10/26/2019. The skeletal structures are osteopenic. There is a comminuted intertrochanteric fracture of the right femur with overlying soft tissue edema. No fracture is seen involving the left hip or the bony pelvis. Moderate degenerative joint space narrowing is seen in the hips. There is degenerative sclerosis in the sacroiliac joints. Lumbosacral spondylosis is partially imaged. Numerous phleboliths are observed in the pelvis. IMPRESSION: 1. There is a comminuted intertrochanteric fracture of the right femur. 2. No additional fracture is seen involving the left hip or the bony pelvis. ECG Data Attestation: I personally reviewed and interpreted this ECG as follows: Indication: + other (Preop) Rate (beats per minute): 59 Rhythm: + sinus bradycardia ECG Intervals/blocks: + Right Bundle branch block (Incomplete) and + Normal QT Comparison ECG Date: from (08/19/2019) Change: the following changes noted (Improvement of inferior T wave inversions) Blood Pressure Blood Pressure Findings: Elevated blood pressure Blood Pressure Disposition: further management by hospitalist SHANIKA Wilson Patient presents to the emergency department for evaluation of injuries sustained from a mechanical fall. The patient does have a right intertrochanteric hip fracture, as well as a progression of a T12 compression fracture seen on her most recent x-ray of the back. Fortunately the patient does not have an intracranial bleed or cervical spine injury. Additional x-rays were performed without any other acute findings. Impression & Plan Closed intertrochanteric fracture of right hip, T12 compression fracture, Contusion of right knee, Abrasion of left middle finger, Status post fall Discharge Plan Visit Data *Final* Discharge Date/Time: 10/30/19 17:06 Chief Complaint: Hip Pain Stated Complaint: FALL, R HIP PAIN ED Provider: Renan Larios ED Midlevel Provider: Adrian Russell Discharge Problem: Closed intertrochanteric fracture of right hip, T12 compression fracture, Contusion of right knee, Abrasion of left middle finger, Status post fall Patient Disposition: Admitted As Inpatient Discharge Instructions Interventions: ED Discharge Assessment Last Done: 10/30/19 17:06 Discharge Problem: Closed intertrochanteric fracture of right hip Qualifiers: Encounter type: initial encounter Fracture alignment: nondisplaced Qualified Code(s): S72.144A - Nondisplaced intertrochanteric fracture of right femur, initial encounter for closed fracture T12 compression fracture Qualifiers: Encounter type: initial encounter Qualified Code(s): S22.080A - Wedge compression fracture of T11-T12 vertebra, initial encounter for closed fracture Contusion of right knee Qualifiers: Encounter type: initial encounter Qualified Code(s): S80.01XA - Contusion of right knee, initial encounter Abrasion of left middle finger Qualifiers: Encounter type: initial encounter Qualified Code(s): S60.413A - Abrasion of left middle finger, initial encounter
[2019-10-30 14:20] LABS: Basophils # (auto) 0.02 K/uL (0-0.2); Basophils % (auto) 0.2 %; Eosinophils # (auto) 0.05 K/uL (0-0.5); Eosinophils % (auto) 0.4 %; Hematocrit (blood only) 38.7 % (37-47); Hemoglobin 12.8 g/dL (12.0-16.0); Immature Granulocytes # (auto) 0.05 K/uL (0.00-0.02); Immature Granulocytes % (auto) 0.4 %; Lymphocytes # (auto) 2.39 K/uL (1.2-3.4); Lymphocytes % (auto) 20.3 %; Mean Corpuscular Hemoglobin 32.1 pg (25-34); Mean Corpuscular Hgb Conc 33.1 g/dL (32-36); Monocytes # (auto) 0.67 K/uL (0.11-0.59); Monocytes % (auto) 5.7 %; Neutrophils # (auto) 8.61 K/uL (1.4-6.5); Platelet Count 281 K/uL (130-400); RDW Coefficient of Variation 13.4 % (11.5-14.5); RDW Standard Deviation 47.7 fL (36.4-46.3); Red Blood Count 3.99 M/uL (4.2-5.4); White Blood Count 11.79 K/uL (4.8-10.8)
[2019-10-30 14:37] LABS: BUN Creatinine Ratio 22.9 (10-20); Calcium 9.1 mg/dl (8.5-10.1); Creatinine Clr Calc Pharmacy 61.7 ml/min; Est GFR (African American) 98.4; Est GFR (Non-African American) 84.9; Potassium 3.9 mmol/L (3.5-5.1)
--- NOTE | 2019-10-30 14:57 | CT Scan Report ---
CT head/brain wo con CLINICAL HISTORY: 79 years-old Female presenting with CHI/neck pain s/p fall. TECHNIQUE: Multidetector CT imaging of the head was performed without the use of intravenous contrast . IV contrast: None. One or more dose lowering techniques were used consistent with the principles of ALARA (as low as reasonably achievable), including automatic exposure control, mA or kV adjustment t o individual patient size, and/or use of iterative reconstruction. COMPARISON: 08/08/2019. CT DOSE (mGy.cm): The estimated cumulative dose is 894.25. 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 Proportional ventricular and sulcal prominence, likely age-related parenchymal volume loss. No hemorr michele. Periventricular and subcortical white matter hypoattenuation, nonspecific but likely indicative of chronic small vessel ischemic change. Multiple lacunar infarcts in the bilateral basal ganglia, l eft greater than right. Senescent calcifications in the globus pallidus. No acute territorial infarct . No mass effect or midline shift. No extra-axial fluid collection. Paranasal sinuses and mastoid air cells clear. Calvarium intact. IMPRESSION: 1. Chronic small vessel ischemic change and bilateral basal ganglia old lacunar infarcts, unchanged. No acute intracranial abnormality. ACT 112: Negative or not required by law. Electronically signed by: Sd Wright M.D. 10/30/2019 2:55 PM
--- NOTE | 2019-10-30 15:04 | CT Scan Report ---
CT cervical spine wo con CLINICAL HISTORY: 79 years-old Female presenting with CHI/neck pain s/p fall. TECHNIQUE: Multidetector CT of the cervical spine was performed without the use of intravenous contra st. IV contrast: None. One or more dose lowering techniques were used consistent with the principles of ALARA (as low as reasonably achievable), including automatic exposure control, mA or kV adjustment to individual patient size, and/or use of iterative reconstruction. COMPARISON: 08/08/2019. CT DOSE (mGy.cm): The estimated cumulative dose is 894.25 mGy.cm. FINDINGS: Sap Functional Analyst topogram: Unremarkable. Straightening of normal cervical lordosis. Trace anterolisthesis of C4 on C5 may be present, degenera tive in etiology. Vertebral bodies otherwise maintain normal height and alignment. Intervertebral dis c height loss at several levels, greatest at C5-6, which is moderate in severity. Disc osteophyte com plexes primarily from C4-5 through C6-7. Moderate spinal canal narrowing at C5-6 related to posterior bony spurring. Moderate degenerative changes of the atlantodental articulation. Facet arthropathy an d uncovertebral hypertrophy noted more so on the right with osseous neural foraminal narrowing greate st on the right at C4-5 and C5-6. No acute fracture or subluxation. Visualized portion of the skull base intact. Paraspinal soft tissues within normal limits. Atherosclerosis. Advanced emphysema at the lung apices. Esophagus mildly distended with gas and fluid.. IMPRESSION: 1. No acute osseous injury of the cervical spine. 2. Multilevel degenerative changes with osseous spinal canal and neural foraminal narrowing. ACT 112: Negative or not required by law. Electronically signed by: Sd Wright M.D. 10/30/2019 3:02 PM
--- NOTE | 2019-10-30 15:27 | XRay Report ---
XR chest 1V not portable CLINICAL HISTORY: 79 years-old Female presenting with s/p fall. TECHNIQUE: Portable upright AP view of the chest was obtained. COMPARISON: 08/19/2019. FINDINGS: Atherosclerosis of the aortic arch. Cardiac silhouette enlarged. Lungs are hyperinflated. Heterogenei ty lung parenchyma. Evaluation of the lungs degraded by calcified breast implants. No focal opacity. No pleural effusion or pneumothorax. Osteopenia may be present. Upper abdomen normal. IMPRESSION: 1. Findings suggest emphysema. No focal infiltrate to suggest pneumonia. 2. No gross evidence of acute injury. ACT 112: Negative or not required by law. Electronically signed by: Sd Wright M.D. 10/30/2019 3:26 PM
[2019-10-30] MEDS ORDERED: MoRPHine SULFATE 4 MG/ML 1 ML CARP\\VIAL IV STA (15:29)
--- NOTE | 2019-10-30 15:29 | XRay Report ---
RIGHT KNEE 2 VIEWS CLINICAL HISTORY: Fall. Right knee pain. FINDINGS: AP and crosstable lateral views of the right knee are obtained. No prior studies are availa ble for comparison at the time of dictation. The skeletal structures are osteopenic. No fracture is s een. There is mild tricompartmental degenerative joint space narrowing, greatest at the patellofemora l articulation. There are tiny medial marginal osteophytes. Chondrocalcinosis is noted in the medial and lateral compartments. A calcified fabella is incidentally noted. There is no joint effusion. Mild prepatellar soft tissue swelling is observed. IMPRESSION: No acute bony abnormality is identified. Electronically signed by: David Alford M.D. 10/30/2019 3:28 PM
[2019-10-30] MEDS ORDERED: DIPHTHERIA/TETANUS/PERTUSSIS 0.5 ML SYR/VIAL IM ONE (15:31)
--- NOTE | 2019-10-30 15:31 | XRay Report ---
SINGLE VIEW PELVIS; 2 VIEWS RIGHT HIP CLINICAL HISTORY: Fall with right hip pain. FINDINGS: An AP supine view of the pelvis with AP and frog-leg views of the right hip are correlated with pelvic CT dated 10/26/2019. The skeletal structures are osteopenic. There is a comminuted intertr ochanteric fracture of the right femur with overlying soft tissue edema. No fracture is seen involvin g the left hip or the bony pelvis. Moderate degenerative joint space narrowing is seen in the hips. T here is degenerative sclerosis in the sacroiliac joints. Lumbosacral spondylosis is partially imaged. Numerous phleboliths are observed in the pelvis. IMPRESSION: 1. There is a comminuted intertrochanteric fracture of the right femur. 2. No additional fracture is seen involving the left hip or the bony pelvis. Electronically signed by: David Alford M.D. 10/30/2019 3:30 PM
--- NOTE | 2019-10-30 15:33 | XRay Report ---
XR finger(s) LT min 2V CLINICAL HISTORY: 79 years-old Female presenting with L 3rd finger injury s/p fall. TECHNIQUE: Frontal, oblique and lateral views of the left third finger were obtained. COMPARISON: None. FINDINGS: No acute fracture or malalignment. No advanced degenerative change. No radiographic soft tissue abnor mality. IMPRESSION: No acute osseous injury. ACT 112: Negative or not required by law. Electronically signed by: Sd Wright M.D. 10/30/2019 3:31 PM
--- NOTE | 2019-10-30 15:34 | XRay Report ---
LUMBAR SPINE 5 VIEWS CLINICAL HISTORY: Fall. FINDINGS: 5 views of the lumbar spine are correlated with CT of the lumbar spine dated 08/08/2019. Th e skeletal structures are osteopenic. There is no radiographic evidence of fracture or malalignment i nvolving the lumbar spine. There is a moderate chronic compression deformity of T12. The degree of co llapse has increased from 08/08/2019. Vertebral body height and alignment are maintained throughout th e lumbar spine. Mild lumbar levocurvature is noted. Anterior and lateral marginal osteophytes are see n throughout. The transverse and spinous processes are intact. There is no evidence of spondylolysis. There is advanced disc space narrowing at L5-S1. Moderate disc space narrowing is seen at L4-L5. Mil d disc space narrowing is noted at the remaining lumbar levels. Small posterior disc osteophyte compl exes are noted at most lumbar levels. The visualized bony pelvis appears intact. Sclerotic change is noted in the sacroiliac joints. There are numerous pelvic phleboliths. There is a nonobstructed abdom inal bowel gas pattern. Advanced atherosclerotic calcification is noted in the abdominal aorta. Numer ous calcified gallstones are seen in the right upper quadrant. IMPRESSION: 1. There is no radiographic evidence of acute fracture involving the lumbar spine. 2. There is a chronic compression deformity of T12. The degree of collapse has increased from 08/08/19 20. 3. Cholelithiasis. ACT 112: Negative or not required by law. Electronically signed by: David Alford M.D. 10/30/2019 3:33 PM
[2019-10-30 16:21] LABS: Partial Thromboplastin Ratio 0.8; Partial Thromboplastin Time 22.3 Seconds (21.0-31.0)
[2019-10-30 16:38] LABS: Appearance Urine Clear (Clear); Bacteria Urine Automated Negative (Negative); Bilirubin Urine Negative (Negative); Blood Urine 2+ (Negative); Color Urine Yellow; Glucose Urine UA Negative (Negative); Ketones Urine Trace (Negative); Leukocyte Esterase Urine Negative (Negative); Nitrite Urine Negative (Negative); Protein Urine Negative (Negative); Urobilinogen Urine Negative (Negative); pH Urine 6.5 (4.5-7.5)
--- NOTE | 2019-10-30 16:43 | Emergency Department Note ---
ED Visit Note The patient was seen and examined with Adrian Russell PA-C. I agree with the history, physical and findings. Please see the note for disposition and details. Patient has a hip fracture. She will be admitted to the hospital. Currently she is comfortable after morphine. .
--- NOTE | 2019-10-30 16:53 | History & Physical Report ---
Date of Service October 30, 2019 Assessment & Plan (1) Fracture, intertrochanteric, right femur: X-ray on admission shows a comminuted intertrochanteric fracture of the right femur. Due to mechanical fall. Patient did not lose consciousness and had no prodrome to indicate an underlying cause. - NPO at present - Orthopedics consulted - Dr. Larsen notified by the ED. - Cordero pre-operative score is 1.5% (ASA 3, partially dependant), making her moderate risk of MACE; however, given morbidity/mortality of not doing surgery, I believe it is logical to proceed if patient and family aware of risks. - Hold Plavix for now - Pain control (2) Urinary tract infection: Seen in the ED on 10/26/2019 for abdominal pain that had been ongoing for 2 months after a fall. She was diagnosed with a UTI when her UA showed bacteria, but the patient doesn't really endorse dysuria to me today. Her urine was once again sampled and at this point is clean. - Hold any abx as I feel it is not unlikely that she is getting treated for asymptomatic bacteruria (3) Low back pain: Ongoing since a fall in 06/2019. Plan had been for a Pain Management referral. - Defer pain management consult for now - Pain control for femur and back (4) Hypothyroidism: TSH was 1.3 most recently. - Continue home levothyroxine 100 mcg daily (5) SDAT (senile dementia of Alzheimer's type): Noted on problem list. Patient is somewhat circumferential, but tells an accurate history. - Monitor (6) Ischemic stroke: Presumably why is she is on Plavix. No present exam findings to indicate current CVA. - Hold Plavix for now; restart as able - Continue statin (7) Hyperlipidemia: - Continue statin (8) DMII (diabetes mellitus, type 2): A1c was 6.5% on most recent check. - Hold home oral medications - Sliding scale insulin (9) COPD (chronic obstructive pulmonary disease): On home maintenance inhaler and albuterol PRN. No wheezing on exam and no reported shortness of breath. - Continue home maintenance inhaler - Albuterol PRN (10) DVT prophylaxis: SCDs - Low DVT risk per admission calculator & possible need for surgery History of Present Illness Primary Care Provider: Dominik Wilhelm MD 79yo F w/ hx of diabetes who presents with right femur fracture after a mechanical fall. Patient was seen by her PCP this morning for ongoing lower back pain as well as ED follow-up for a potential UTI. She was referred to urology for recurrent UTIs, and to pain management for ongoing lower back pain after a fall in June 2019. Per the patient, she and the family went to a farm to look at livestock. The patient had a mechanical fall she walked on the farm. She reports that her right foot slid up on some loose stone and came out from under her. She denies any chest pain, palpitations, lightheadedness, dizziness, or other symptoms prior to the fall. She reports that she did strike her head when she fell, but did not suffer any loss of consciousness. She has some scrapes on her right elbow and right finger, but otherwise appears uninjured from the fall apart from her right hip fracture. Allergies Allergy/AdvReac Type Severity Reaction Status Date / Time metformin AdvReac Intermediate NAUSEA AND Verified 10/30/19 10:12 DIARRHEA varenicline AdvReac Unknown DEPRESSION, Verified 10/30/19 14:55 BAD DREAMS Home Medications Home Medications Medication Instructions Recorded Confirmed Type Vitamin D3 4,000 unit PO BID 08/28/18 10/30/19 History ascorbic acid (vitamin C) 500 mg PO QAM 08/28/18 10/30/19 History Januvia 100 mg PO QAM 08/17/19 10/30/19 History clopidogrel [Plavix] 75 mg PO QAM 08/17/19 10/30/19 History lisinopril 2.5 mg PO QAM 08/17/19 10/30/19 History levothyroxine 100 mcg tablet 100 mcg PO QAM #90 tab 10/13/19 10/30/19 Rx Saccharomyces boulardii [Florastor] 250 mg PO BID #20 cap 10/26/19 10/30/19 Rx cefdinir 300 mg PO BID 7 Days #14 cap 10/26/19 10/30/19 Rx coQ10 (ubiquinol) 200 mg PO QAM 10/26/19 10/30/19 History glimepiride 3 mg PO QAM 10/26/19 10/30/19 History vitamins A,C,B-hzud-vjnsdn 1 cap PO QPM 10/26/19 10/30/19 History [PreserVision AREDS] acetaminophen 500 mg tablet 1,000 mg PO Q8H PRN 10/30/19 10/30/19 History albuterol sulfate [Ventolin HFA] 1 puff INHALATION Q6H PRN 10/30/19 10/30/19 History budesonide-formoterol HFA 160 2 puffs INH BID #6 gm 10/30/19 10/30/19 Rx mcg-4.5 mcg/actuation aerosol inhaler glimepiride 2 mg PO HS 10/30/19 10/30/19 History simvastatin [Zocor] 40 mg PO HS 10/30/19 10/30/19 History Past Med/Surg History Medical History Acute bronchitis (Acute) Acute respiratory failure with hypoxia (Acute) Allergic rhinitis due to dust (Acute) Allergic rhinitis due to pollen (Acute) Anemia (Acute) Carotid artery plaque (Acute) Chest pain (Acute) Chronic back pain RLE/HIP RADIATION Chronic obstructive pulmonary disease STABLE COPD exacerbation Depression (Acute) 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) Diabetes mellitus, type 2 NIDDM Disc degeneration, lumbar (Acute) Discoid lupus erythematosus (Acute) Diverticular disease Diverticulosis (Acute) Emphysema, unspecified (Acute) Eye swelling, right Fracture, intertrochanteric, right femur Gallstones Hyperlipidemia (Chronic) Hyperplastic colon polyp (Acute) Hypertension Hypothyroidism Insomnia (Acute) Ischemic stroke (Acute) Low back pain (Acute) Lumbar canal stenosis (Acute) Lung nodule (Acute) Nicotine dependence (Acute) No pertinent family history Osteopenia (Acute) Right foot drop SDAT (senile dementia of Alzheimer's type) (Chronic) Spinal stenosis (Acute) Stroke 10/2017- RESIDUAL RIGHT SIDED WEAKNESS REMAINS; ON PLAVIX UTI (urinary tract infection) (Acute) UTI (urinary tract infection) Vitamin D deficiency (Acute) Surgical History History of augmentation of both breasts History of back surgery History of bilateral tubal ligation Family History Mother Diabetes Stroke Other No pertinent family history Denies family history of Heart disease Colorectal cancer Hypertension Social History Preferred Language: Togolese Communication Ability: Effective Valve Steamer Required: No Beliefs That Will Affect Care: None marital status: / Current Living Situation: Family Current Living Situation Comment: currently lives with son and [id number] Feels Safe at Home: Yes Smoking Status: Current some day smoker Tobacco Type: cigarettes ; Cigarettes Per Day: 2 ; Second Hand Exposure: No ; Hx Alcohol Use: No Hx Substance Use: No Review of Systems Review of Systems: All systems reviewed & are unremarkable except as noted in HPI & below Physical Exam Constitutional: WD/WN, vitals as above + acute distress and + frail appearing Eyes: EOM intact bilaterally; no conjunctival abnormality ENMT: external ear and nose normal, oropharynx normal Neck: trachea midline, no thyromegaly normal visual inspection Respiratory: normal respiratory effort, lungs clear to auscultation no respiratory distress Cardiovascular: RRR, no murmur, no edema Gastrointestinal (Abdomen): Inspection/Auscultation: abdomen normal to inspection; abdomen not distended Musculoskeletal: no cyanosis or clubbing, extremities motor strength 5/5 Skin: no rashes, warm and dry Trauma: + evidence of skin trauma and + abrasion (Right fingers) Neurologic: moves all extremities and awake Psychiatric: Orientation: alert, oriented to person and cooperative Results & Data Results & Data ([facility]) Vital Signs (Past 12 Hours) Vital Signs Temp Pulse Pulse Resp BP BP Pulse Ox 10/30/19 15:46 62 18 208/90 H 93 10/30/19 14:42 62 16 196/83 H 95 10/30/19 13:35 36.3 C L 56 L 18 192/84 H 95 Code Status & VTE Plan VTE Prophylaxis Plan VTE Prophylaxis will be ordered: Yes PG Care Time/CCT Total # of Minutes Spent Total Time Spent with Patient: Total time spent is greater than 50% in coordination of care (as documented) at patient's floor/unit and/or counseling patient: Coding Level of Care Code 75895 Initial Inpt Care Lvl 3 Diagnoses Fracture, intertrochanteric, right femur S72.141A Urinary tract infection N30.00 Hematuria presence: without hematuria Urinary tract infection type: acute cystitis Low back pain M54.5 Hypothyroidism E03.9 Hypothyroidism type: unspecified SDAT (senile dementia of Alzheimer's type) G30.1; F02.80 Ischemic stroke I63.9 Hyperlipidemia E78.5 Hyperlipidemia type: unspecified DMII (diabetes mellitus, type 2) E11.9 Diabetes mellitus longterm insulin use: without 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 use Diabetes mellitus complication status: without complication COPD (chronic obstructive pulmonary disease) J44.9 COPD type: unspecified COPD DVT prophylaxis Z29.9 (1) Urinary tract infection Hematuria presence: without hematuria Urinary tract infection type: acute cystitis Qualified Code(s): N30.00 - Acute cystitis without hematuria (2) Hypothyroidism Hypothyroidism type: unspecified Qualified Code(s): E03.9 - Hypothyroidism, unspecified (3) Hyperlipidemia Hyperlipidemia type: unspecified Qualified Code(s): E78.5 - Hyperlipidemia, unspecified (4) DMII (diabetes mellitus, type 2) Diabetes mellitus longterm insulin use: without longterm use Diabetes mellitus complication status: without complication Qualified Code(s): E11.9 - Type 2 diabetes mellitus without complications (5) COPD (chronic obstructive pulmonary disease) COPD type: unspecified COPD Qualified Code(s): J44.9 - Chronic obstructive pulmonary disease, unspecified
--- NOTE | 2019-10-30 16:53 | Orthopedic Consultation ---
Date of Consultation October 30, 2019 Assessment & Plan (1) T12 vertebral fracture: Acuity uncertain but can be treated with with pain management and mobilization. May benefit from TLSO. Consult physical therapy. (2) Fracture, intertrochanteric, right femur: Unstable fracture pattern that is most optimally treated with closed or open reduction and internal fixation with trochanteric fixation nail. Recommend inpatient admission, medical optimization and clearance, and scheduling for surgery as soon as medically ready. Remain NPO at midnight. Will tentatively post for surgery tomorrow with [facility] -myself or Dr. Casey. Her son states that she was on Plavix for her history of stroke, affecting her right side. Please hold the Plavix for now. Patient was able to provide only minimal history. I did reach out to her son, Eric, by telephone this evening. I reviewed the dx, prognosis, and recommended treatment for intertrochanteric hip fractures. I discussed that risks and benefits for surgery include but are not limited to, infection, NV injury, arthrofibrosis, nonunion, malunion, progressive hip osteoarthritis, symptomatic hardware, and complications related to venous thromboembolism and anesthesia. We also discussed that she may need inpatient rehab or [facility] facility following her inpatient stay which may last from 2 to 5 days. He was agreeable proceed with surgery. He demonstrated good understanding of the risks and benefits involved. He stated that he remains available by phone whenever needed. He would like to visit if possible with his mother, but is understanding of the COVID-19 restrictions on visitors. History of Present Illness Reason for Consultation: right intertrochanteric hip fracture History of Present Illness 79 yo F with multiple managed medical comorbidities fell today while walking on gravel, resulting in a hard landing onto her hip and inability to ambulate. She was brought to the ED where a right intertrochantic fracture and worsening T12 compression fracture were diagnosed. Her condition was discussed with her son, Eric Toribio, by telephone this evening. He described that she has had some back pain since at least June related to a compression fracture. She did have spine surgery several years ago by Dr. Serrano here at [facility]. He was concerned that she would have a fall because she refused to use a walker and her back pain was interfering with her ability to ambulate. She did not use an assist device to ambulate most recently. She does live with her son, Eric, assist with her care. Allergies Allergy/AdvReac Type Severity Reaction Status Date / Time metformin AdvReac Intermediate NAUSEA AND Verified 10/30/19 10:12 DIARRHEA varenicline AdvReac Unknown DEPRESSION, Verified 10/30/19 14:55 BAD DREAMS Home Medications Home Medications Medication Instructions Recorded Confirmed Type Vitamin D3 4,000 unit PO BID 08/28/18 10/30/19 History ascorbic acid (vitamin C) 500 mg PO QAM 08/28/18 10/30/19 History Januvia 100 mg PO QAM 08/17/19 10/30/19 History clopidogrel [Plavix] 75 mg PO QAM 08/17/19 10/30/19 History lisinopril 2.5 mg PO QAM 08/17/19 10/30/19 History levothyroxine 100 mcg tablet 100 mcg PO QAM #90 tab 10/13/19 10/30/19 Rx Saccharomyces boulardii [Florastor] 250 mg PO BID #20 cap 10/26/19 10/30/19 Rx cefdinir 300 mg PO BID 7 Days #14 cap 10/26/19 10/30/19 Rx coQ10 (ubiquinol) 200 mg PO QAM 10/26/19 10/30/19 History glimepiride 3 mg PO QAM 10/26/19 10/30/19 History vitamins A,C,Q-dwpf-fbcujh 1 cap PO QPM 10/26/19 10/30/19 History [PreserVision AREDS] acetaminophen 500 mg tablet 1,000 mg PO Q8H PRN 10/30/19 10/30/19 History albuterol sulfate [Ventolin HFA] 1 puff INHALATION Q6H PRN 10/30/19 10/30/19 History budesonide-formoterol HFA 160 2 puffs INH BID #6 gm 10/30/19 10/30/19 Rx mcg-4.5 mcg/actuation aerosol inhaler glimepiride 2 mg PO HS 10/30/19 10/30/19 History simvastatin [Zocor] 40 mg PO HS 10/30/19 10/30/19 History Patient History Medical History Acute bronchitis (Acute) Acute respiratory failure with hypoxia (Acute) Allergic rhinitis due to dust (Acute) Allergic rhinitis due to pollen (Acute) Anemia (Acute) Carotid artery plaque (Acute) Chest pain (Acute) Chronic back pain RLE/HIP RADIATION Chronic obstructive pulmonary disease STABLE COPD exacerbation Depression (Acute) 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) Diabetes mellitus, type 2 NIDDM Disc degeneration, lumbar (Acute) Discoid lupus erythematosus (Acute) Diverticular disease Diverticulosis (Acute) Emphysema, unspecified (Acute) Eye swelling, right Fracture, intertrochanteric, right femur Gallstones Hyperlipidemia (Chronic) Hyperplastic colon polyp (Acute) Hypertension Hypothyroidism Insomnia (Acute) Ischemic stroke (Acute) Low back pain (Acute) Lumbar canal stenosis (Acute) Lung nodule (Acute) Nicotine dependence (Acute) No pertinent family history Osteopenia (Acute) Right foot drop SDAT (senile dementia of Alzheimer's type) (Chronic) Spinal stenosis (Acute) Stroke 10/2017- RESIDUAL RIGHT SIDED WEAKNESS REMAINS; ON PLAVIX UTI (urinary tract infection) (Acute) UTI (urinary tract infection) Vitamin D deficiency (Acute) Surgical History History of augmentation of both breasts History of back surgery History of bilateral tubal ligation Family History Mother Diabetes Stroke Other No pertinent family history Denies family history of Heart disease Colorectal cancer Hypertension Social History Preferred Language: Welsh Communication Ability: Effective Manganese Breaker Required: No Beliefs That Will Affect Care: None marital status: / Current Living Situation: Family Current Living Situation Comment: Lives with son and his Feels Safe at Home: Yes Smoking Status: Former smoker Tobacco Type: cigarettes ; Cigarettes Per Day: 2 ; Second Hand Exposure: No ; Hx Alcohol Use: No Hx Substance Use: No Review of Systems Review of Systems: All systems reviewed & are unremarkable except as noted in HPI & below Physical Exam Constitutional: no acute distress and not ill appearing ENMT: external ear and nose normal, oropharynx normal Respiratory: normal respiratory effort; no respiratory distress Cardiovascular: Extremities: normal capillary refill Musculoskeletal: RLE: skin overlying hip intact. LE shortened and externally rotated while lying in the ED bed. +DF/PF/EHL. Sensation intact to LT in all distributions. Palpable DP and PT pulses. LLE: atraumatic in appearance. Nontender throughout. Psychiatric: A+Ox3, euthymic affect Results & Data ([facility]) Vital Signs (Past 12 Hours) Vital Signs Temp Pulse Pulse Resp BP BP Pulse Ox 10/30/19 15:46 62 18 208/90 H 93 10/30/19 14:42 62 16 196/83 H 95 10/30/19 13:35 36.3 C L 56 L 18 192/84 H 95 Pelvis and R hip AP/LAT radiographs: Right displaced intertrochanteric fracture with comminution, unstable PG Care Time/CCT Total # of Minutes Spent Total Time Spent with Patient: Total time spent is greater than 50% in coordination of care (as documented) at patient's floor/unit and/or counseling patient: Coding Level of Care Code 49902 Initial Inpt Care Lvl 3 (25 - SIGNIFICANT, SEPARATELY IDENTIFIABLE ) Diagnoses T12 vertebral fracture S22.088A Encounter type: initial encounter Fracture morphology: other fracture Fracture type: closed Fracture, intertrochanteric, right femur S72.141A (1) T12 vertebral fracture Encounter type: initial encounter Fracture morphology: other fracture Fracture type: closed Qualified Code(s): S22.088A - Other fracture of T11-T12 vertebra, initial encounter for closed fracture
[2019-10-30] MEDS ORDERED: GLUCAGON FOR INJ 1 MG VIAL SQ PRN (17:37)
[2019-10-30] MEDS ORDERED: ONDANSETRON INJ 2 MG/ML 2 ML VIAL IV PRN (17:37)
[2019-10-30] MEDS ORDERED: CARBOHYDRATES FOR HYPOGLYCEMIA PO PRN (17:37)
[2019-10-30] MEDS ORDERED: DEXTROSE 50% 50 ML SYRINGE IV PRN (17:37)
[2019-10-30] MEDS ORDERED: ALBUTEROL HFA 8 GM INHALER INH PRN (17:37)
[2019-10-30] MEDS ORDERED: GLUCOSE 40% GEL 15 GM TUBE PO PRN (17:37)
[2019-10-30] MEDS ORDERED: GLUCOSE 10 TABS/TUBE PO PRN (17:37)
[2019-10-30] MEDS: HydrALAZINE HCL 20 MG/ML VIAL IV PRN (18:52)
[2019-10-30] MEDS ORDERED: SIMVASTATIN 40 MG TAB PO SCH (20:00)
[2019-10-30] MEDS: SIMVASTATIN 40 MG TAB PO SCH (20:31)
[2019-10-30] MEDS ORDERED: INSULIN ASPART 100 UNITS/ML 3 ML PEN SC SCH (21:00)
[2019-10-31] MEDS ORDERED: Nursing to Pharmacy Communication ONE ×2 (01:34→11:39)
[2019-10-31] MEDS: MoRPHine SULFATE 2 MG/ML CARP IV PRN (05:43)
[2019-10-31] MEDS: LEVOTHYROXINE SODIUM 100 MCG TABLET PO SCH (05:43)
[2019-10-31] MEDS ORDERED: INSULIN ASPART 100 UNITS/ML 3 ML PEN SC SCH (06:00)
--- NOTE | 2019-10-31 06:20 | Electrocardiogram Report ---
Test Reason : Blood Pressure : / mmHG Vent. Rate : 059 BPM Atrial Rate : 059 BPM P-R Int : 164 ms QRS Dur : 108 ms QT Int : 440 ms P-R-T Axes : 025 -16 055 degrees QTc Int : 435 ms Sinus bradycardia Incomplete right bundle branch block Borderline ECG When compared with ECG of 19-AUG-2019 11:29, Borderline criteria for Inferior infarct are no longer Present T wave inversion no longer evident in Inferior leads Confirmed by Blane Henning ([id number]) on 10/31/2019 6:19:53 AM Referred By: REFERRED SELF Confirmed By:Blane Henning
[2019-10-31 07:02] LABS: Hematocrit (blood only) 36.9 % (37-47); Mean Corpuscular Hemoglobin 31.8 pg (25-34); Mean Corpuscular Hgb Conc 32.5 g/dL (32-36); Mean Corpuscular Volume 97.9 fL (80-100); Mean Platelet Volume 9.8 fL (7.4-10.4); Platelet Count 269 K/uL (130-400); RDW Coefficient of Variation 13.4 % (11.5-14.5); RDW Standard Deviation 47.8 fL (36.4-46.3); Red Blood Count 3.77 M/uL (4.2-5.4); White Blood Count 11.38 K/uL (4.8-10.8)
[2019-10-31] MEDS ORDERED: PROPOFOL IV EMULSION 10 MG/ML 20 ML VIAL IV ONE (07:27)
[2019-10-31] MEDS ORDERED: ONDANSETRON INJ 2 MG/ML 2 ML VIAL ONE (07:27)
[2019-10-31] MEDS ORDERED: LIDOCAINE HCL 2% 2 ML VIAL/AMP(20MG/ML) INFIL ONE (07:27)
[2019-10-31] MEDS ORDERED: fentaNYL citrate 100 MCG/2 ML VIAL ONE ×2 (07:28→10:09)
--- NOTE | 2019-10-31 07:28 | Anesthesiology Consultation ---
Date of Service October 31, 2019 History Surgery Operation Date: 10/31/19 10:40 Proposed Procedures p Right IM Nailing - Matthew Casey, Height/Weight Height: 5 ft 7 in Weight: 54 kg Allergies Allergy/AdvReac Type Severity Reaction Status Date / Time metformin AdvReac Intermediate NAUSEA AND Verified 10/30/19 10:12 DIARRHEA varenicline AdvReac Unknown DEPRESSION, Verified 10/30/19 14:55 BAD DREAMS Medications Home Medications Medication Instructions Recorded Confirmed Last Taken Vitamin D3 4,000 unit PO BID 08/28/18 10/30/19 10/30/19 ascorbic acid (vitamin C) 500 mg PO QAM 08/28/18 10/30/19 10/30/19 Januvia 100 mg PO QAM 08/17/19 10/30/19 10/30/19 clopidogrel [Plavix] 75 mg PO QAM 08/17/19 10/30/19 10/30/19 lisinopril 2.5 mg PO QAM 08/17/19 10/30/19 10/30/19 levothyroxine 100 mcg tablet 100 mcg PO QAM #90 tab 10/13/19 10/30/19 10/30/19 Saccharomyces boulardii [Florastor] 250 mg PO BID #20 cap 10/26/19 10/30/19 Unknown cefdinir 300 mg PO BID 7 Days #14 cap 10/26/19 10/30/19 10/30/19 coQ10 (ubiquinol) 200 mg PO QAM 10/26/19 10/30/19 10/30/19 glimepiride 3 mg PO QAM 10/26/19 10/30/19 10/30/19 vitamins A,C,R-sctw-frqopw 1 cap PO QPM 10/26/19 10/30/19 10/29/19 [PreserVision AREDS] acetaminophen 500 mg tablet 1,000 mg PO Q8H PRN 10/30/19 10/30/19 10/30/19 albuterol sulfate [Ventolin HFA] 1 puff INHALATION Q6H PRN 10/30/19 10/30/19 10/30/19 budesonide-formoterol HFA 160 2 puffs INH BID #6 gm 10/30/19 10/30/19 Unknown mcg-4.5 mcg/actuation aerosol inhaler glimepiride 2 mg PO HS 10/30/19 10/30/19 10/29/19 simvastatin [Zocor] 40 mg PO HS 10/30/19 10/30/19 10/29/19 Active Medications Generic Name Dose Route Start Last Admin Trade Name Freq PRN Reason Stop Dose Admin Fluticasone/Vilanterol 1 puffs 10/31/19 09:00 10/31/19 07:38 Breo Ellipta 100/25 Mcg Inh INH 11/30/19 08:59 Not Given DAILY BRINDA Protocol Hydralazine HCl 5 mg 10/30/19 17:55 10/30/19 18:52 Hydralazine Hcl IV 11/29/19 17:54 5 mg Q4H PRN Administration SBP > 190 or DBP > 110 Insulin Aspart 0 units 10/31/19 06:00 10/31/19 06:26 Novolog Flexpen SC 11/30/19 05:59 Not Given Q6 BRINDA Levothyroxine Sodium 100 mcg 10/31/19 06:30 10/31/19 05:43 Synthroid PO 11/30/19 06:29 100 mcg DAILYBB BRINDA Administration Morphine Sulfate 2 mg 10/30/19 17:37 10/31/19 05:43 Morphine Sulfate IV 11/13/19 17:36 2 mg Q4H PRN Administration Pain Simvastatin 40 mg 10/30/19 21:00 10/30/19 20:31 Zocor PO 11/29/19 19:59 40 mg HS BRINDA Administration NPO Date Last Intake of Fluids: 10/30/19 Time Last Intake of Fluids: 23:59 Date Last Intake of Solids: 10/30/19 Time Last Intake of Solids: 23:59 Past Medical History Medical History Acute bronchitis (Acute) Acute respiratory failure with hypoxia (Acute) Allergic rhinitis due to dust (Acute) Allergic rhinitis due to pollen (Acute) Anemia (Acute) Carotid artery plaque (Acute) Chest pain (Acute) Chronic back pain RLE/HIP RADIATION Chronic obstructive pulmonary disease STABLE COPD exacerbation Depression (Acute) 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) Diabetes mellitus, type 2 NIDDM Disc degeneration, lumbar (Acute) Discoid lupus erythematosus (Acute) Diverticular disease Diverticulosis (Acute) Emphysema, unspecified (Acute) Eye swelling, right Fracture, intertrochanteric, right femur Gallstones Hyperlipidemia (Chronic) Hyperplastic colon polyp (Acute) Hypertension Hypothyroidism Insomnia (Acute) Ischemic stroke (Acute) Low back pain (Acute) Lumbar canal stenosis (Acute) Lung nodule (Acute) Nicotine dependence (Acute) No pertinent family history Osteopenia (Acute) Right foot drop SDAT (senile dementia of Alzheimer's type) (Chronic) Spinal stenosis (Acute) Stroke 10/2017- RESIDUAL RIGHT SIDED WEAKNESS REMAINS; ON PLAVIX UTI (urinary tract infection) (Acute) UTI (urinary tract infection) Vitamin D deficiency (Acute) Past Family History Family History Mother Diabetes Stroke Other No pertinent family history Denies family history of Heart disease Colorectal cancer Hypertension Past Surgical History Surgical History History of augmentation of both breasts History of back surgery History of bilateral tubal ligation Social History Smoking Status: Former smoker tobacco type: cigarettes Smoking cigarettes per day: 2 Hx Alcohol Use: No Hx Substance Use: No Physical Exam Vital Signs Last Vital Signs Temp 37.5 C 10/31/19 07:55 Pulse 73 10/31/19 07:55 Resp 20 10/31/19 07:55 BP 183/91 H 10/31/19 07:55 Pulse Ox 92 10/31/19 07:55 Testing Laboratory Results 10/31/19 06:40 10/31/19 06:40 PT 11.0 Seconds (9.0-12.0) 10/30/19 14:10 INR 1.0 (0.9-1.1) 10/30/19 14:10 APTT 22.3 Seconds (21.0-31.0) 10/30/19 14:10 Urine Color Yellow 10/30/19 16:29 Urine Appearance Clear (Clear) 10/30/19 16: Urine pH 6.5 (4.5-7.5) 10/30/19 16:29 Ur Specific [place] 1.020 (1.000-1.030) 10/30/19 16:29 Urine Protein Negative (Negative) 10/30/19 16:29 Urine Glucose (UA) Negative (Negative) 10/30/19 16:29 Urine Ketones Trace (Negative) H 10/30/19 16:29 Urine Nitrite Negative (Negative) 10/30/19 16:29 Ur Leukocyte Esterase Negative (Negative) 10/30/19 16:29 Urine WBC (Auto) 1-5 /hpf (0-5) 10/30/19 16:29 Urine RBC (Auto) 10-30 /hpf (0-4) H 10/30/19 16:29 U Hyaline Cast (Auto) 1-5 /lpf (0-5) 10/30/19 16:29 U Epithel Cells (Auto) 10-20 /lpf (0-5) H 10/30/19 16:29 Urine Bacteria (Auto) Negative (Negative) 10/30/19 16:29 Blood Type A Positive 10/30/19 16:57 Antibody Screen NEGATIVE 10/30/19 16:57 10/31/19 10/30/19 06:03 20:14 POC Glucose 150 H 230 H Electrocardiogram Date: 10/30/19 Sinus bradycardia Incomplete right bundle branch block Borderline ECG When compared with ECG of 19-AUG-2019 11:29, Borderline criteria for Inferior infarct are no longer Present T wave inversion no longer evident in Inferior leads Confirmed by Blane Henning ([id number]) on 10/31/2019 6:19:53 AM Chest X-Ray Date: 10/30/19 1. Findings suggest emphysema. No focal infiltrate to suggest pneumonia. 2. No gross evidence of acute injury. ACT 112: Negative or not required by law. Echocardiogram Date: 12/15/18 EF: 55-60%
[2019-10-31 07:36] LABS: BUN Creatinine Ratio 25.6 (10-20); Creatinine Clr Calc Pharmacy 82.7 ml/min; Est GFR (African American) 108.9; Est GFR (Non-African American) 93.9; Phosphorus 3.2 mg/dl (2.5-4.9); Potassium 3.7 mmol/L (3.5-5.1)
[2019-10-31] MEDS: FLUTICASONE/VILANTEROL 100/25MCG 14 PUFFS/INHALER INH SCH (07:38)
[2019-10-31] MEDS ORDERED: CEFAZOLIN 1,000 MG/7.5 ML IV PUSH IV ONE (08:07)
[2019-10-31] MEDS ORDERED: ONDANSETRON INJ 2 MG/ML 2 ML VIAL IV PRN (08:24)
[2019-10-31] MEDS ORDERED: ePHEDrine sulfate 50 MG/ML AMP IV PRN (08:24)
[2019-10-31] MEDS ORDERED: ATROPINE SULFATE 0.1 MG/ML 10ML SYR IV PRN (08:24)
[2019-10-31] MEDS ORDERED: HYDROmorphone INJ 1 MG/ML SYRINGE IV PRN (08:24)
--- NOTE | 2019-10-31 08:25 | History & Physical Bridge Note ---
Date of Service October 31, 2019 History & Physical Bridge Note I have examined the patient, reviewed the History & Physical and in the interval since the performance of the History & Physical I have noted the following changes of clinical significance: no changes noted
[2019-10-31] MEDS ORDERED: EPINEPHrine INJ 1 MG/ML AMP ONE (08:44)
[2019-10-31] MEDS ORDERED: BUPIVACAINE 0.5 % 5 MG/1 ML MPF 30ML VIAL ONE (08:44)
[2019-10-31] MEDS ORDERED: LARYING-O-JET KIT (LTA) ONE (09:19)
[2019-10-31] MEDS ORDERED: PHENYLEPHRINE 100MCG/ML 5ML SYR ONE (09:19)
[2019-10-31] MEDS ORDERED: ROCURONIUM BROMIDE 10 MG/ML 5 ML VIAL ONE (09:19)
[2019-10-31] MEDS ORDERED: SUCCINYLCHOLINE CHLORIDE 20 MG/ML 10 ML VIAL ONE (09:19)
[2019-10-31] MEDS ORDERED: ePHEDrine sulfate 50 MG/ML SYR ONE (09:42)
--- NOTE | 2019-10-31 09:53 | Fluoroscopy Report ---
FL hip RT 2-3V CLINICAL HISTORY: 79 years-old Female presenting with RT IM NAIL. TECHNIQUE: 3 fluoroscopic image(s) recorded as part of an intraoperative procedure. COMPARISON: 10/30/2019. FINDINGS/IMPRESSION: Intramedullary nail fixation of the right femoral neck and proximal metadiaphysis across the intertro chanteric femur fracture. Distal interlocking screw in place. No malalignment. Right hip joint congru ent. Please see surgical report for further details. Fluoroscopy dosage (mGy): 12.03. Fluoroscopy time: 78.0 seconds. Number or time of high level fluoroscopy (HLF), digital spot, or digital subtraction images: 0. ACT 112: Negative or not required by law. Electronically signed by: Sd Wright M.D. 10/31/2019 9:51 AM
--- NOTE | 2019-10-31 10:07 | Operative Report ---
PG Post Operative Report Pre & Post Diagnosis Operation Date: 10/31/19 10:40 Pre-Op Diagnosis: Right Femur Intertrochanteric Fracture Post-Op Diagnosis: Right Femur Intertrochanteric Fracture I identified the patient and participated in the time-out.: Yes Procedure Operation Date: 10/31/19 10:40 Actual Procedures p Right Hip Closed Reduction and Internal Fixation right intertrochanteric femur fracture with intramedullary nail fixation (Right) - Matthew Casey DO Surgeon Matthew Casey DO Privacy Director None Estimated Blood Loss 30 Findings Consistent with Post-Op Diagnosis Specimens None Complications none Disposition Disposition: Recovery Room Indications Madison is a pleasant 79-year-old female who fell at home yesterday. She sustained a right intertrochanteric hip fracture. She was brought to the emergency room. She was then admitted to the medical service. Orthopedics was consulted to evaluate and treat. After discussions with her and her son, we elected proceed with intramedullary nail fixation of the right hip. Description of Procedure On October 31, 2019 she was brought down from her hospital room to the preoperative holding area. The operative extremity was identified and signed. She was given a preoperative antibiotic and taken back to the operating room. She was put under general anesthesia. She was then put into the fracture table. The right leg was brought out to traction. The right hip was then prepped and draped in sterile fashion. A timeout was done. The patient and the operative extremity was properly identified. Orthogonal fluoroscopic images were used to line up the fracture. Once all is happy with the closed reduction a longitudinal incision was made just superior to the greater trochanter. A guidepin was then placed at the tip of the greater trochanter and advanced down the femoral shaft. Appropriate placement of the guidepin was checked on orthogonal fluoroscopic images. An 18 mm opening reamer was then used to open the femoral canal. An 11 mm Synthes short femoral nail was then placed. An outrigger was used for the helical screw. A separate lateral incision was made for the helical screw. The cannula was then advanced to the lateral cortex. A guidepin was placed into the center center position of the femoral head. The lateral cortex was then drilled and then the screw was drilled. The final 90 mm helical blade was then impacted into place. The fracture was then compressed. The helical blade was then locked. A distal locking screw was then placed. Appropriate position was placed on orthogonal fluoroscopic images. The outrigger was then removed. Final fluoroscopic images showed anatomic reduction of the fracture. The wounds were then irrigated. The fascia was closed with #1 Vicryl suture. The deep layer was closed with 2-0 Vicryl. Skin was closed with 2-0 Vicryl and danial. She was then placed in a soft dressing. She was then extubated. She was then taken to the postanesthesia care unit in stable condition. She tolerated the procedure well. I attest to the content of the Intraoperative Record and any orders documented therein. Any exceptions are noted below.
[2019-10-31] MEDS: fentaNYL citrate 100 MCG/2 ML VIAL IV PRN ×2 (10:55→11:00)
--- NOTE | 2019-10-31 11:10 | XRay Report ---
XR hip RT min 2V HISTORY: 79 years-old Female Post-Operative implant position acute intertrochanteric fracture of the right hip COMPARISON: Pelvis and hip radiographs 10/30/2019 TECHNIQUE: 2 views of the right hip FINDINGS: Status post placement of an intratrochanteric nail with medullary leana and distal fixation cannulated screw fixating the previously described acute intertrochanteric fracture of the right hip. Slight cor tical offset/displacement at the level of the lesser trochanter. There is overall improved near anato richi alignment from comparison. Bone fragment projects over the medial femoral neck suggestive of disp laced lesser trochanteric fracture. Mild right hip osteoarthritis. Expected postoperative soft tissue swelling and deep tissue air with lateral skin danial. IMPRESSION: Improved alignment of the acute intertrochanteric fracture of the right femur status post ORIF. ACT 112: Negative or not required by law. The above report was generated using voice recognition software. It may contain grammatical, syntax o r spelling errors. Electronically signed by: Pedro Palacios M.D. 10/31/2019 11:09 AM
--- NOTE | 2019-10-31 11:19 | Hospitalist Progress Note ---
Date of Service October 31, 2019 Assessment & Plan (1) Fracture, intertrochanteric, right femur: X-ray on admission shows a comminuted intertrochanteric fracture of the right femur. Due to mechanical fall. Patient did not lose consciousness and had no prodrome to indicate an underlying cause. - S/p Closed Reduction and Internal Fixation right intertrochanteric femur fracture with intramedullary nail fixation on 10/[address] Casey - No noted complications. EBL 30 mL - Per ortho, ok to start ASA/Plavix as DVT ppx - Pain control (2) Urinary tract infection: Seen in the ED on 10/26/2019 for abdominal pain that had been ongoing for 2 months after a fall. She was diagnosed with a UTI when her UA showed bacteria, but the patient doesn't really endorse dysuria to me today. Her urine was once again sampled and at this point is clean. - Hold any abx as I feel it is not unlikely that she is getting treated for asymptomatic bacteruria (3) Low back pain: Ongoing since a fall in 06/2019. Plan had been for a Pain Management referral. - Defer pain management consult for now - Pain control for femur and back (4) Hypothyroidism: TSH was 1.3 most recently. - Continue home levothyroxine 100 mcg daily (5) SDAT (senile dementia of Alzheimer's type): Noted on problem list. Patient is somewhat circumferential, but tells an accurate history. - Monitor (6) Ischemic stroke: Presumably why is she is on Plavix. No present exam findings to indicate current CVA. - Restart ASA/Plavix tomorrow - Continue statin (7) Hyperlipidemia: - Continue statin (8) DMII (diabetes mellitus, type 2): A1c was 6.5% on most recent check. - Hold home oral medications - Sliding scale insulin -> Sugars have been 150-230 in the last 24 hours. Will tighten SSI today. (9) COPD (chronic obstructive pulmonary disease): On home maintenance inhaler and albuterol PRN. No wheezing on exam and no reported shortness of breath. - Continue home maintenance inhaler - Albuterol PRN (10) DVT prophylaxis: ASA/Plavix/SCDs Admission and Anticipated Discharge Date Admission Date: October 30, 2019 Subjective Underwent surgery today. Still groggy. Denies pain. Reports no fevers/chills, chest pain, shortness of breath, abdominal pain, nausea, or vomiting. Physical Exam Constitutional: WD/WN, vitals as above + frail appearing; no acute distress Eyes: EOM intact bilaterally; no conjunctival abnormality ENMT: external ear and nose normal, oropharynx normal Neck: trachea midline, no thyromegaly normal visual inspection Respiratory: normal respiratory effort, lungs clear to auscultation no respiratory distress Cardiovascular: RRR, no murmur, no edema Gastrointestinal (Abdomen): Inspection/Auscultation: abdomen normal to inspection; abdomen not distended Musculoskeletal: no cyanosis or clubbing, extremities motor strength 5/5 Skin: no rashes, warm and dry Trauma: + evidence of skin trauma and + abrasion (Right fingers) Neurologic: moves all extremities and awake Psychiatric: Orientation: alert, oriented to person and cooperative Results & Data Results & Data ([facility]) Vital Signs (Past 12 Hours) Vital Signs Temp Pulse Pulse Resp BP Pulse Ox 10/31/19 11:05 36.8 C 77 15 176/70 H 97 10/31/19 10:55 73 14 191/87 H 97 10/31/19 10:45 72 15 191/83 H 97 10/31/19 10:35 71 14 165/78 H 98 10/31/19 10:27 36.4 C L 66 16 195/82 H 100 10/31/19 07:55 37.5 C 73 20 183/91 H 92 PG Care Time/CCT Total # of Minutes Spent Total Time Spent with Patient: Total time spent is greater than 50% in coordination of care (as documented) at patient's floor/unit and/or counseling patient: Coding Level of Care Code 01948 Subseq Hosp Care Lvl 2 Diagnoses Fracture, intertrochanteric, right femur S72.141A Urinary tract infection N30.00 Hematuria presence: without hematuria Urinary tract infection type: acute cystitis Low back pain M54.5 Hypothyroidism E03.9 Hypothyroidism type: unspecified SDAT (senile dementia of Alzheimer's type) G30.1; F02.80 Ischemic stroke I63.9 Hyperlipidemia E78.5 Hyperlipidemia type: unspecified DMII (diabetes mellitus, type 2) E11.9 Diabetes mellitus termite renewal 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 insulin use: without halfway use Diabetes mellitus complication status: without complication COPD (chronic obstructive pulmonary disease) J44.9 COPD type: unspecified COPD DVT prophylaxis Z29.9 (1) Urinary tract infection Hematuria presence: without hematuria Urinary tract infection type: acute cystitis Qualified Code(s): N30.00 - Acute cystitis without hematuria (2) Hypothyroidism Hypothyroidism type: unspecified Qualified Code(s): E03.9 - Hypothyroidism, unspecified (3) Hyperlipidemia Hyperlipidemia type: unspecified Qualified Code(s): E78.5 - Hyperlipidemia, unspecified (4) DMII (diabetes mellitus, type 2) Diabetes mellitus halfway insulin use: without termite renewal inspector use Diabetes mellitus complication status: without complication Qualified Code(s): E11.9 - Type 2 diabetes mellitus without complications (5) COPD (chronic obstructive pulmonary disease) COPD type: unspecified COPD Qualified Code(s): J44.9 - Chronic obstructive pulmonary disease, unspecified
[2019-10-31] MEDS ORDERED: NALOXONE HCL 0.4 MG/1 ML VIAL/CARP IV PRN (11:37)
--- NOTE | 2019-10-31 11:40 | Anesthesiology Progress Note ---
Date of Service October 31, 2019 Anesthesia Post Procedure Vital Signs Vital Signs: Temp Pulse Pulse Pulse Resp BP BP 10/31/19 11:05 36.8 C 77 15 176/70 H 10/31/19 10:55 73 14 191/87 H 10/31/19 10:45 72 15 191/83 H 10/31/19 10:35 71 14 165/78 H 10/31/19 10:27 36.4 C L 66 16 195/82 H 10/31/19 07:55 37.5 C 73 20 183/91 H 10/30/19 22:53 36.7 C 70 16 150/68 H 10/30/19 20:29 163/73 H 10/30/19 17:40 36.7 C 64 16 198/92 H 10/30/19 17:38 36.7 C 64 16 198/92 H 10/30/19 17:06 64 18 180/85 H 10/30/19 15:46 62 18 208/90 H 10/30/19 14:42 62 16 196/83 H 10/30/19 13:35 36.3 C L 56 L 18 192/84 H Pulse Ox 10/31/19 11:05 97 10/31/19 10:55 97 10/31/19 10:45 97 10/31/19 10:35 98 10/31/19 10:27 100 10/31/19 07:55 92 10/30/19 22:53 95 10/30/19 20:29 10/30/19 17:40 93 10/30/19 17:38 93 10/30/19 17:06 95 10/30/19 15:46 93 10/30/19 14:42 95 10/30/19 13:35 95 Pain Intensity Right Leg: Pain Intensity: 3 Transfer of Care Handoff Completed per policy Notes Mental Status: alert / awake / arousable and participated in evaluation Patient Amnestic to Procedure: Yes Nausea / Vomiting: adequately controlled Pain: adequately controlled Airway Patency, RR, SpO2: stable & adequate BP & HR: stable & adequate Hydration State: stable & adequate Anesthetic Complications: no major complications apparent and Pt Satisfied with anesthetic care
[2019-10-31] MEDS: LACTATED RINGER'S 1,000 ML IV SCH ×2 (11:48→23:42)
[2019-10-31] MEDS: HydrALAZINE HCL 20 MG/ML VIAL IV PRN (12:04)
[2019-10-31] MEDS: INSULIN ASPART 100 UNITS/ML 3 ML PEN SC SCH ×2 (12:57→20:51)
[2019-10-31] MEDS: SIMVASTATIN 40 MG TAB PO SCH (20:51)
[2019-10-31] MEDS: ASPIRIN 81 MG ECTAB PO SCH (20:51)
[2019-11-01] MEDS: MoRPHine SULFATE 2 MG/ML CARP IV PRN ×2 (00:25→19:16)
[2019-11-01] MEDS: LEVOTHYROXINE SODIUM 100 MCG TABLET PO SCH (06:27)
[2019-11-01 07:10] LABS: Basophils # (auto) 0.02 K/uL (0-0.2); Basophils % (auto) 0.2 %; Eosinophils # (auto) 0.07 K/uL (0-0.5); Eosinophils % (auto) 0.6 %; Hematocrit (blood only) 31.6 % (37-47); Hemoglobin 10.3 g/dL (12.0-16.0); Immature Granulocytes # (auto) 0.02 K/uL (0.00-0.02); Immature Granulocytes % (auto) 0.2 %; Lymphocytes # (auto) 1.42 K/uL (1.2-3.4); Lymphocytes % (auto) 13.1 %; Mean Corpuscular Hemoglobin 32.2 pg (25-34); Mean Corpuscular Volume 98.8 fL (80-100); Mean Platelet Volume 9.9 fL (7.4-10.4); Monocytes % (auto) 10.2 %; Neutrophils # (auto) 8.18 K/uL (1.4-6.5); Neutrophils % (auto) 75.7 %; Platelet Count 189 K/uL (130-400); RDW Coefficient of Variation 13.4 % (11.5-14.5); RDW Standard Deviation 48.7 fL (36.4-46.3); White Blood Count 10.81 K/uL (4.8-10.8)
[2019-11-01 07:32] LABS: BUN Creatinine Ratio 20.9 (10-20); Calcium 8.8 mg/dl (8.5-10.1); Creatinine Clr Calc Pharmacy 84.5 ml/min; Est GFR (African American) 109.7; Est GFR (Non-African American) 94.6
--- NOTE | 2019-11-01 07:32 | Orthopedic Progress Note ---
Date of Service November 01, 2019 Assessment & Plan (1) Closed intertrochanteric fracture of right hip: Overall she is doing fairly well. She will be seen by physical therapy today for ambulation. I do want her out of bed to a chair today. The dressings can be changed tomorrow. We are going to start her on aspirin and keep her on her Plavix for DVT prophylaxis. She is orthopedically stable for discharge when medically ready. Orthopedic discharge instructions were already placed in the d ischarge summary. She will follow-up with orthopedics in 2 weeks. Present on Admission?: Yes Reji Wallace was seen and examined at bedside this morning. Overall she seems to be doing fairly well. She says she has no pain in the right hip. She has not been up yet. She had no acute events overnight. Physical Exam Musculoskeletal: On physical examination of the right hip, the dressings are clean and dry. Her leg lengths are equal. She has active dorsiflexion and plantarflexion of her right ankle. Results & Data ([facility]) Vital Signs (Past 12 Hours) Vital Signs Temp Pulse Resp BP Pulse Ox 11/01/19 04:02 36.8 C 80 18 164/69 H 98 10/31/19 23:30 36.8 C 88 20 164/78 H 98 Diagnostic Findings Postoperative x-rays of the right hip show the fracture to be in near anatomic alignment without any evidence of hardware complication. PG Care Time/CCT Total # of Minutes Spent Total Time Spent with Patient: Total time spent is greater than 50% in coordination of care (as documented) at patient's floor/unit and/or counseling patient: Coding Level of Care Code None Diagnoses Closed intertrochanteric fracture of right hip S72.144A Encounter type: initial encounter Fracture alignment: nondisplaced (1) Closed intertrochanteric fracture of right hip Encounter type: initial encounter Fracture alignment: nondisplaced Qualified Code(s): S72.144A - Nondisplaced intertrochanteric fracture of right femur, initial encounter for closed fracture
[2019-11-01 07:43] LABS: Mean Corpuscular Hgb Conc 32.6 g/dL (32-36)
[2019-11-01] MEDS: INSULIN ASPART 100 UNITS/ML 3 ML PEN SC SCH ×5 (09:19→21:25)
[2019-11-01] MEDS: FLUTICASONE/VILANTEROL 100/25MCG 14 PUFFS/INHALER INH SCH (09:20)
[2019-11-01] MEDS: CLOPIDOGREL BISULFATE 75 MG TAB PO SCH (09:20)
[2019-11-01] MEDS: ASPIRIN 81 MG ECTAB PO SCH ×3 (09:20→21:23)
[2019-11-01] MEDS: LACTATED RINGER'S 1,000 ML IV SCH ×2 (12:19→19:16)
[2019-11-01] MEDS ORDERED: HALOPERIDOL LACTATE 5 MG/ML 1 ML VIAL IM PRN (17:02)
[2019-11-01] MEDS ORDERED: LACTATED RINGER'S 500 ML IV ONE (17:11)
--- NOTE | 2019-11-01 17:40 | XRay Report ---
SINGLE VIEW CHEST CLINICAL HISTORY: Dyspnea. FINDINGS: 2 AP, portable, upright chest radiographs are compared to study dated 10/30/2019 and correla vicente with chest CT dated 06/24/2019. The examination is significantly degraded by portable technique and patient rotation. The cardiomediastinal silhouette is unremarkable, noting atherosclerotic calcific ation of the thoracic aorta. Emphysema and chronic interstitial thickening are again noted. There is no airspace consolidation or large pleural effusion. No pneumothorax is seen. The skeletal structures are osteopenic. The bony thorax is grossly intact. Calcified breast implants are noted. IMPRESSION: Emphysematous change with no acute cardiopulmonary abnormality. Electronically signed by: David Alford M.D. 11/01/2019 5:39 PM
--- NOTE | 2019-11-01 17:47 | Hospitalist Progress Note ---
Date of Service November 01, 2019 Assessment & Plan (1) Fracture, intertrochanteric, right femur: X-ray on admission shows a comminuted intertrochanteric fracture of the right femur. Due to mechanical fall (patient supposed to use a walker but frequently does not due to dementia). Patient did not lose consciousness and had no prodrome to indicate an underlying cause. - S/p Closed Reduction and Internal Fixation right intertrochanteric femur fracture with intramedullary nail fixation on 10/[address] Casey - No noted complications. EBL 30 mL - Per ortho, started ASA/Plavix as DVT ppx - Pain control Continue to hydrate with IV fluids and not yet taking enough PO (2) Urinary tract infection: Restarted on ceftriaxone given acute confused episode for 3 days to cover given acute tachycardia and possible confusion (3) Low back pain: Ongoing since a fall in 06/2019. Plan had been for a Pain Management referral. - Defer pain management consult for now - Pain control for femur and back (4) Hypothyroidism: TSH was 1.3 most recently. - Continue home levothyroxine 100 mcg daily (5) SDAT (senile dementia of Alzheimer's type): Noted on problem list. Patient is somewhat circumferential, but tells an accurate history. - Monitor (6) Ischemic stroke: Presumably why is she is on Plavix. No present exam findings to indicate current CVA. - Restarted ASA/Plavix - Continue statin (7) Hyperlipidemia: - Continue statin (8) DMII (diabetes mellitus, type 2): A1c was 6.5% - Hold home oral medications - Started lantus 5 units BID. Switch insulin SS to correction only (9) COPD (chronic obstructive pulmonary disease): On home maintenance inhaler and albuterol PRN. No wheezing on exam and no reported shortness of breath. - Continue home maintenance inhaler - Albuterol PRN (10) DVT prophylaxis: ASA/Plavix as per orthopedics SCDs (11) Hypertension: Restarted on home lisinopril 2.5 PO daily. Admission and Anticipated Discharge Date Admission Date: October 30, 2019 Subjective Patient seen in AM and was comfortable in bed. Not orientated to time, place or person but able to tell me she was not in any pain. In the afternoon patient became agitated and pulling off her oxygen. HR in 110s. No chest pain and although she felt short of breath she did not feel this way. Appeared to calm down quickly with reorientation. Discussed her care with her son - he reports her acting this way in hospital is not unusual for her. Given her dementia she gets confused and anxious in hospital. Review of Systems Review of Systems: Unobtainable due to cognitive status Physical Exam Constitutional: well developed and + frail appearing; + not well nourished and no acute distress Eyes: + anicteric sclerae; normal pupil size ENMT: external ear and nose normal, oropharynx normal Neck: normal visual inspection Respiratory: normal respiratory effort, lungs clear to auscultation no respiratory distress Cardiovascular: RRR, no murmur, no edema Gastrointestinal (Abdomen): Percussion/Palpation: abdomen soft; abdomen nontender Skin: no rashes, warm and dry Neurologic: moves all extremities (follows a few simple commands) and awake Psychiatric: Orientation: alert and cooperative; + not oriented x 3 Results & Data Results & Data ([facility]) Vital Signs (Past 12 Hours) Vital Signs Temp Pulse Pulse Resp BP BP Pulse Ox 11/01/19 17:07 120 H 180/74 H 93 11/01/19 15:15 37 C 100 H 18 157/71 H 94 11/01/19 11:29 36.9 C 87 16 164/72 H 97 11/01/19 11:06 95 11/01/19 07:34 36.4 C L 79 16 172/70 H 99 PG Care Time/CCT Total # of Minutes Spent Total Time Spent with Patient: Total time spent is greater than 50% in coordination of care (as documented) at patient's floor/unit and/or counseling patient: Coding Level of Care Code 48063 Subseq Hosp Care Lvl 2 Diagnoses Fracture, intertrochanteric, right femur S72.141A Urinary tract infection N30.00 Hematuria presence: without hematuria Urinary tract infection type: acute cystitis Low back pain M54.5 Hypothyroidism E03.9 Hypothyroidism type: unspecified SDAT (senile dementia of Alzheimer's type) G30.1; F02.80 Ischemic stroke I63.9 Hyperlipidemia E78.5 Hyperlipidemia type: unspecified DMII (diabetes mellitus, type 2) E11.9 Diabetes mellitus complication status: without complication Diabetes mellitus remote computer terminal operator insulin use: without remote computer terminal operator use COPD (chronic obstructive pulmonary disease) J44.9 COPD type: unspecified COPD DVT prophylaxis Z29.9 Hypertension I10 (1) Urinary tract infection Hematuria presence: without hematuria Urinary tract infection type: acute cystitis Qualified Code(s): N30.00 - Acute cystitis without hematuria (2) DMII (diabetes mellitus, type 2) Diabetes mellitus complication status: without complication Diabetes mellitus prison insulin use: without remote computer terminal operator use Qualified Code(s): E11.9 - Type 2 diabetes mellitus without complications (3) Hyperlipidemia Hyperlipidemia type: unspecified Qualified Code(s): E78.5 - Hyperlipidemia, unspecified (4) Hypothyroidism Hypothyroidism type: unspecified Qualified Code(s): E03.9 - Hypothyroidism, unspecified (5) COPD (chronic obstructive pulmonary disease) COPD type: unspecified COPD Qualified Code(s): J44.9 - Chronic obstructive pulmonary disease, unspecified
[2019-11-01] MEDS: cefTRIAXone SODIUM 2,000 MG in DEXTROSE 5% 50 ML IV SCH (18:21)
[2019-11-01] MEDS: INSULIN GLARGINE SOLOSTAR 100 UNITS/ML 3 ML PEN SC SCH (21:16)
[2019-11-01] MEDS: SIMVASTATIN 40 MG TAB PO SCH ×2 (21:17→21:23)
[2019-11-02] MEDS: MoRPHine SULFATE 2 MG/ML CARP IV PRN (03:58)
[2019-11-02] MEDS: LEVOTHYROXINE SODIUM 100 MCG TABLET PO SCH (04:10)
[2019-11-02] MEDS: LACTATED RINGER'S 1,000 ML IV SCH (05:50)
[2019-11-02] MEDS: FLUTICASONE/VILANTEROL 100/25MCG 14 PUFFS/INHALER INH SCH (08:44)
[2019-11-02] MEDS: ASPIRIN 81 MG ECTAB PO SCH ×2 (08:44→20:21)
[2019-11-02] MEDS: CLOPIDOGREL BISULFATE 75 MG TAB PO SCH (08:44)
[2019-11-02 08:47] LABS: Hematocrit (blood only) 27.9 % (37-47); Hemoglobin 9.5 g/dL (12.0-16.0); Mean Corpuscular Hemoglobin 33.2 pg (25-34); Mean Corpuscular Hgb Conc 34.1 g/dL (32-36); Mean Corpuscular Volume 97.6 fL (80-100); Platelet Count 195 K/uL (130-400); RDW Coefficient of Variation 12.9 % (11.5-14.5); RDW Standard Deviation 46.5 fL (36.4-46.3); Red Blood Count 2.86 M/uL (4.2-5.4); White Blood Count 9.85 K/uL (4.8-10.8)
[2019-11-02] MEDS: INSULIN GLARGINE SOLOSTAR 100 UNITS/ML 3 ML PEN SC SCH ×2 (08:48→20:45)
[2019-11-02] MEDS: INSULIN ASPART 100 UNITS/ML 3 ML PEN SC SCH ×4 (08:51→20:45)
[2019-11-02 09:12] LABS: BUN Creatinine Ratio 27.1 (10-20); Calcium 8.6 mg/dl (8.5-10.1); Creatinine Clr Calc Pharmacy 129.6 ml/min; Est GFR (African American) 126.2; Est GFR (Non-African American) 108.9; Potassium 3.2 mmol/L (3.5-5.1)
[2019-11-02] MEDS: ACETAMINOPHEN 500 MG TAB PO PRN (14:00)
[2019-11-02] MEDS: POTASSIUM CHLORIDE 40 MEQ in SODIUM CHLORIDE 0.9% 1000ML 1,000 ML IV SCH (14:41)
[2019-11-02] MEDS: cefTRIAXone SODIUM 2,000 MG in DEXTROSE 5% 50 ML IV SCH (18:05)
[2019-11-02] MEDS: SIMVASTATIN 40 MG TAB PO SCH (20:21)
--- NOTE | 2019-11-02 23:58 | Hospitalist Progress Note ---
Date of Service November 02, 2019 Assessment & Plan (1) Fracture, intertrochanteric, right femur: X-ray on admission shows a comminuted intertrochanteric fracture of the right femur. Due to mechanical fall (patient supposed to use a walker but frequently does not due to dementia). Patient did not lose consciousness and had no prodrome to indicate an underlying cause. - S/p Closed Reduction and Internal Fixation right intertrochanteric femur fracture with intramedullary nail fixation on 10/[address] Casey - No noted complications. EBL 30 mL - Per ortho, ok to start ASA/Plavix as DVT ppx - Pain control (2) Urinary tract infection: Restarted on ceftriaxone 10/31 for 3 days to cover given acute tachycardia and possible confusion (3) Low back pain: Ongoing since a fall in 06/2019. Plan had been for a Pain Management referral. - Defer pain management consult for now - Pain control for femur and back (4) Hypothyroidism: TSH was 1.3 most recently. - Continue home levothyroxine 100 mcg daily (5) SDAT (senile dementia of Alzheimer's type): Noted on problem list. Patient is somewhat circumferential, but tells an accurate history. - Monitor (6) Ischemic stroke: Presumably why is she is on Plavix. No present exam findings to indicate current CVA. - Restarted ASA/Plavix - Continue statin (7) Hyperlipidemia: - Continue statin (8) DMII (diabetes mellitus, type 2): A1c was 6.5% - Hold home oral medications - Continue lantus 5 units BID. Glucose now appears to be better controlled. (9) COPD (chronic obstructive pulmonary disease): On home maintenance inhaler and albuterol PRN. No wheezing on exam and no reported shortness of breath. - Continue home maintenance inhaler - Albuterol PRN (10) Hypertension: Restarted on home lisinopril 2.5 PO daily today. Increase to 5mg tomorrow given continued elevated BP. (11) DVT prophylaxis: ASA/Plavix as per orthopedics SCDs Admission and Anticipated Discharge Date Admission Date: October 30, 2019 Subjective Patient unable to give any history. Not orientated to time place or person. Not eating much as per nursing report. Review of Systems Review of Systems: Unobtainable due to cognitive status Physical Exam Constitutional: well developed and + frail appearing; + not well nourished and no acute distress Eyes: + anicteric sclerae; normal pupil size ENMT: external ear and nose normal, oropharynx normal Neck: normal visual inspection Respiratory: normal respiratory effort, lungs clear to auscultation no respiratory distress Cardiovascular: RRR, no murmur, no edema Gastrointestinal (Abdomen): Percussion/Palpation: abdomen soft; abdomen nontender Skin: no rashes, warm and dry Neurologic: moves all extremities (follows a few simple commands) and awake Psychiatric: Orientation: alert and cooperative; + not oriented x 3 Results & Data Results & Data ([facility]) Vital Signs (Past 12 Hours) Vital Signs Temp Pulse Resp BP Pulse Ox 11/02/19 15:34 36.7 C 79 18 161/70 H 93 PG Care Time/CCT Total # of Minutes Spent Total Time Spent with Patient: Total time spent is greater than 50% in coordination of care (as documented) at patient's floor/unit and/or counseling patient: Coding Level of Care Code 51464 Subseq Hosp Care Lvl 2 Diagnoses Fracture, intertrochanteric, right femur S72.141A Urinary tract infection N30.00 Hematuria presence: without hematuria Urinary tract infection type: acute cystitis Low back pain M54.5 Hypothyroidism E03.9 Hypothyroidism type: unspecified SDAT (senile dementia of Alzheimer's type) G30.1; F02.80 Ischemic stroke I63.9 Hyperlipidemia E78.5 Hyperlipidemia type: unspecified DMII (diabetes mellitus, type 2) E11.9 Diabetes mellitus buttermaker helper insulin use: without custodial use Diabetes mellitus complication status: without complication COPD (chronic obstructive pulmonary disease) J44.9 COPD type: unspecified COPD Hypertension I10 DVT prophylaxis Z29.9 (1) Urinary tract infection Hematuria presence: without hematuria Urinary tract infection type: acute cystitis Qualified Code(s): N30.00 - Acute cystitis without hematuria (2) Hypothyroidism Hypothyroidism type: unspecified Qualified Code(s): E03.9 - Hypothyroidism, unspecified (3) Hyperlipidemia Hyperlipidemia type: unspecified Qualified Code(s): E78.5 - Hyperlipidemia, unspecified (4) DMII (diabetes mellitus, type 2) Diabetes mellitus custodial insulin use: without buttermaker helper use Diabetes mellitus complication status: without complication Qualified Code(s): E11.9 - Type 2 diabetes mellitus without complications (5) COPD (chronic obstructive pulmonary disease) COPD type: unspecified COPD Qualified Code(s): J44.9 - Chronic obstructive pulmonary disease, unspecified
[2019-11-03] MEDS: POTASSIUM CHLORIDE 40 MEQ in SODIUM CHLORIDE 0.9% 1000ML 1,000 ML IV SCH ×2 (01:34→10:41)
[2019-11-03] MEDS: LEVOTHYROXINE SODIUM 100 MCG TABLET PO SCH (05:40)
[2019-11-03 07:27] LABS: Basophils # (auto) 0.02 K/uL (0-0.2); Basophils % (auto) 0.2 %; Eosinophils # (auto) 0.18 K/uL (0-0.5); Eosinophils % (auto) 1.8 %; Hematocrit (blood only) 28.5 % (37-47); Hemoglobin 9.6 g/dL (12.0-16.0); Immature Granulocytes # (auto) 0.02 K/uL (0.00-0.02); Immature Granulocytes % (auto) 0.2 %; Lymphocytes # (auto) 1.25 K/uL (1.2-3.4); Lymphocytes % (auto) 12.4 %; Mean Corpuscular Hemoglobin 32.8 pg (25-34); Mean Corpuscular Hgb Conc 33.7 g/dL (32-36); Mean Corpuscular Volume 97.3 fL (80-100); Mean Platelet Volume 10.2 fL (7.4-10.4); Monocytes # (auto) 0.78 K/uL (0.11-0.59); Monocytes % (auto) 7.7 %; Neutrophils # (auto) 7.83 K/uL (1.4-6.5); Neutrophils % (auto) 77.7 %; Platelet Count 220 K/uL (130-400); RDW Standard Deviation 45.9 fL (36.4-46.3); Red Blood Count 2.93 M/uL (4.2-5.4); White Blood Count 10.08 K/uL (4.8-10.8)
[2019-11-03 08:03] LABS: BUN Creatinine Ratio 24.3 (10-20); Calcium 8.1 mg/dl (8.5-10.1); Creatinine Clr Calc Pharmacy 121.5 ml/min; Est GFR (African American) 123.6; Est GFR (Non-African American) 106.6; Potassium 3.8 mmol/L (3.5-5.1)
[2019-11-03] MEDS: ASPIRIN 81 MG ECTAB PO SCH ×2 (09:12→21:26)
[2019-11-03] MEDS: lisinopriL 5 MG TAB PO SCH (09:12)
[2019-11-03] MEDS: FLUTICASONE/VILANTEROL 100/25MCG 14 PUFFS/INHALER INH SCH (09:13)
[2019-11-03] MEDS: ACETAMINOPHEN 500 MG TAB PO PRN (09:13)
[2019-11-03] MEDS: INSULIN GLARGINE SOLOSTAR 100 UNITS/ML 3 ML PEN SC SCH ×2 (09:22→21:25)
[2019-11-03] MEDS: INSULIN ASPART 100 UNITS/ML 3 ML PEN SC SCH ×4 (09:24→21:27)
[2019-11-03] MEDS: CLOPIDOGREL BISULFATE 75 MG TAB PO SCH (09:30)
[2019-11-03] MEDS: SENNA 8.6 MG TAB PO SCH (17:28)
[2019-11-03] MEDS: NYSTATIN SUSP 500,000 U/5 ML UDC PO SCH ×2 (17:29→21:27)
[2019-11-03] MEDS: cefTRIAXone SODIUM 2,000 MG in DEXTROSE 5% 50 ML IV SCH (17:33)
--- NOTE | 2019-11-03 20:20 | Hospitalist Progress Note ---
Date of Service November 03, 2019 Assessment & Plan (1) Closed intertrochanteric fracture of right hip: POD #3 s/p ORIF by Dr Casey. 25-OH vit D level wnl. DVT proph - asa 81mg BID x 4 weeks. cont PT, OT. needs rehab. pain controlled. (2) Metabolic encephalopathy: I spoke with pt's son by phone. He denies a history of dementia. States she has minimal memory loss. Thus, met encephalopathy 2nd to UTI? other? Treat UTI. Supportive care. Avoid benzos. (3) Acute blood loss anemia: (4) Hypertension: uncontrolled. LIONEL increased to 5mg. if BPs remain high then adjust again. (5) Urinary tract infection: day #3/3 rocephin. stop after today's dose. (6) Hyperlipidemia: cont statin (7) Hypothyroidism: TSH this admission wnl cont synthroid (8) Emphysema, unspecified: recent cxr stable o2 sats stable cont albuterol prn (9) Diabetes mellitus with neuropathy: BSGs wnl with lantus + novolog holding oral agents (10) Candidiasis of mouth and esophagus: start nystatin 5cc qid (11) DVT prophylaxis: asa BID updated son 11/03/19 dispo - SNF - social work assisting with this stop IV fluids Admission and Anticipated Discharge Date Admission Date: October 30, 2019 Subjective patient sitting in chair was confused - did not recall her hip operation, couldn't tell me recent events, etc staff report poor appetite - 25-50% of meals at most had BM yesterday patient w/o complaints during my visit Review of Systems Respiratory: no dyspnea Cardiovascular: no chest pain Gastrointestinal: no abdominal pain Physical Exam Constitutional: + altered mental status; no acute distress ENMT: Mouth: + oral mucosal abnormality (thrush plaques on tongue ) Respiratory: normal respiratory effort, lungs clear to auscultation Cardiovascular: Rate/Rhythm: regular rate and regular rhythm Heart Sounds: normal S1 and normal S2; no murmur Vessels: posterior tibial pulses present and dorsalis pedis pulses present; no JVD Extremities: + edema (right thigh only; no ankle edema) Gastrointestinal (Abdomen): normal bowel sounds, soft, nontender, no hepatosplenomegaly Musculoskeletal: right hip dressings intact Psychiatric: Orientation: alert, oriented to person and oriented to place; + not oriented to time Results & Data Results & Data ([facility]) Vital Signs (Past 12 Hours) Vital Signs Temp Pulse Resp BP Pulse Ox 11/03/19 15:35 37 C 81 17 167/74 H 93 11/03/19 10:37 98 11/03/19 09:30 92 Laboratory Results Laboratory Results - last 24 hr 11/02/19 11/03/19 11/03/19 20:34 06:41 06:41 WBC 10.08 RBC 2.93 L Hgb 9.6 L Hct 28.5 L MCV 97.3 MCH 32.8 MCHC 33.7 RDW Std Deviation 45.9 RDW Coeff of Campbell 13.0 Plt Count 220 MPV 10.2 Immature Gran % (Auto) 0.2 Neut % (Auto) 77.7 Lymph % (Auto) 12.4 [place] % (Auto) 7.7 Eos % (Auto) 1.8 Baso % (Auto) 0.2 Immature Gran # (Auto) 0.02 Neut # (Auto) 7.83 H Lymph # (Auto) 1.25 [place] # (Auto) 0.78 H Eos # (Auto) 0.18 Baso # (Auto) 0.02 Sodium 140 Potassium 3.8 D Chloride 108 H Carbon Dioxide 27 Anion Gap 5.0 BUN 8 Creatinine 0.32 L Est Cr Clr Drug Dosing 121.5 Est GFR ( Amer) 123.6 Est GFR (Non-Af Amer) 106.6 BUN/Creatinine Ratio 24.3 H Glucose 112 H POC Glucose 149 H Calcium 8.1 L 11/03/19 11/03/19 11/03/19 08:20 12:02 16:56 WBC RBC Hgb Hct MCV MCH MCHC RDW Std Deviation RDW Coeff of Campbell Plt Count MPV Immature Gran % (Auto) Neut % (Auto) Lymph % (Auto) [place] % (Auto) Eos % (Auto) Baso % (Auto) Immature Gran # (Auto) Neut # (Auto) Lymph # (Auto) [place] # (Auto) Eos # (Auto) Baso # (Auto) Sodium Potassium Chloride Carbon Dioxide Anion Gap BUN Creatinine Est Cr Clr Drug Dosing Est GFR ( Amer) Est GFR (Non-Af Amer) BUN/Creatinine Ratio Glucose POC Glucose 124 H 142 H 135 H Calcium PG Care Time/CCT Total # of Minutes Spent Total Time Spent with Patient: Total time spent is greater than 50% in coordination of care (as documented) at patient's floor/unit and/or counseling patient: Coding Level of Care Code 45557 Subseq Hosp Care Lvl 2 Diagnoses Closed intertrochanteric fracture of right hip S72.144A Encounter type: initial encounter Fracture alignment: nondisplaced Metabolic encephalopathy G93.41 Acute blood loss anemia D62 Hypertension I10 Hypertension type: essential hypertension Urinary tract infection N30.00 Hematuria presence: without hematuria Urinary tract infection type: acute cystitis Hyperlipidemia E78.5 Hyperlipidemia type: unspecified Hypothyroidism E03.9 Hypothyroidism type: unspecified Emphysema, unspecified J43.9 Emphysema type: unspecified Diabetes mellitus with neuropathy E11.40 Diabetes mellitus type: type 2 Diabetes mellitus joint terminal attack controller insulin use: without joint terminal attack controller use Candidiasis of mouth and esophagus B37.81; B37.0 DVT prophylaxis Z29.9 (1) Closed intertrochanteric fracture of right hip Encounter type: initial encounter Fracture alignment: nondisplaced Qualified Code(s): S72.144A - Nondisplaced intertrochanteric fracture of right femur, initial encounter for closed fracture (2) Hypertension Hypertension type: essential hypertension Qualified Code(s): I10 - Essential (primary) hypertension (3) Urinary tract infection Hematuria presence: without hematuria Urinary tract infection type: acute cystitis Qualified Code(s): N30.00 - Acute cystitis without hematuria (4) Hyperlipidemia Hyperlipidemia type: unspecified Qualified Code(s): E78.5 - Hyperlipidemia, unspecified (5) Hypothyroidism Hypothyroidism type: unspecified Qualified Code(s): E03.9 - Hypothyroidism, unspecified (6) Emphysema, unspecified Emphysema type: unspecified Qualified Code(s): J43.9 - Emphysema, unspecified (7) Diabetes mellitus with neuropathy Diabetes mellitus type: type 2 Diabetes mellitus detention insulin use: without detention use Qualified Code(s): E11.40 - Type 2 diabetes mellitus with diabetic neuropathy, unspecified
[2019-11-03] MEDS: SIMVASTATIN 40 MG TAB PO SCH (21:27)
[2019-11-04] MEDS: LEVOTHYROXINE SODIUM 100 MCG TABLET PO SCH (06:12)
[2019-11-04] MEDS: lisinopriL 5 MG TAB PO SCH (08:59)
[2019-11-04] MEDS: FLUTICASONE/VILANTEROL 100/25MCG 14 PUFFS/INHALER INH SCH (08:59)
[2019-11-04] MEDS: CLOPIDOGREL BISULFATE 75 MG TAB PO SCH (09:00)
[2019-11-04] MEDS: ASPIRIN 81 MG ECTAB PO SCH ×2 (09:00→20:46)
[2019-11-04] MEDS: SENNA 8.6 MG TAB PO SCH (09:01)
[2019-11-04] MEDS: NYSTATIN SUSP 500,000 U/5 ML UDC PO SCH ×5 (09:02→20:46)
[2019-11-04] MEDS: INSULIN GLARGINE SOLOSTAR 100 UNITS/ML 3 ML PEN SC SCH ×2 (09:04→20:46)
[2019-11-04] MEDS: INSULIN ASPART 100 UNITS/ML 3 ML PEN SC SCH ×4 (09:06→20:47)
--- NOTE | 2019-11-04 09:59 | Hospitalist Progress Note ---
Date of Service November 04, 2019 Assessment & Plan (1) Closed intertrochanteric fracture of right hip: * POD #4 s/p ORIF by Dr Casey. * 25-OH vit D level wnl. * H/h stable and improved at 10.7/32.6 * DVT proph - asa 81mg BID x 4 weeks. * cont PT, OT --> needs rehab at discharge -- * Patient from [facility], but will likely need rehab -- CM assisting with placement. No bed available today per most recent note (2) Metabolic encephalopathy: * Improved today -- had episode yesterday given listed history of dementia. * Patient states she does have memory issues * Suspect yesterday encephalopathy secondary to UTI?( UA from 10/25 with E.Coli -- will repeat UA ) vs HTN * Ceftriaxone IV completed 3/3 days treatment * Supportive care, avoid benzos if possible * Continue to monitor (3) Acute blood loss anemia: * Secondary to surgery * H/h stable today (4) Hypertension: * Uncontrolled -- had been 184/87 this morning prior to lisinopril administration * Lisinopril had been increased to 5mg daily --> after administed, BP 155/74 * Continue to monitor -- may need further adjustment, although patient asymptomatic currently (5) Urinary tract infection: * Rocephin completed 11/02 (6) Hyperlipidemia: * Chronic. Stable * Continue Simvastatin (7) Hypothyroidism: * Chronic. Stable * TSH this admission wnl * Cont synthroid 100mcg daily (8) Emphysema, unspecified: * recent cxr stable * o2 sats stable, 90% on RA -- encourage use of IS * cont albuterol prn (9) Diabetes mellitus with neuropathy: * BSGs wnl with lantus + novolog * holding oral agents while inpatient (10) Candidiasis of mouth and esophagus: * Continue nystatin 5cc qid (11) Hypokalemia: * K 3.4 -- oral replacement * Monitor in AM (12) DVT prophylaxis: * asa BID as above for 4 weeks updated son 11/04/19 dispo - SNF - social work assisting with this Admission and Anticipated Discharge Date Admission Date: October 30, 2019 Supervising Physician Co-Signing Physician Notes Attending Attestation - Chart reviewed in detail, care plan d/w DARWIN Em. I agree w/ the green components of her documentation. s/p right hip fracture with ORIF. asa for DVT proph. awaiting SNF placement. UTI treated. COVID-19 PCR pending for SNF placement. Ludwin Salomon MD Subjective Patient resting comfortably in bed. Denies any pain at this time. States she has been eating/drinking without difficulty. She states she consumed approximately 75% of her tray this morning for breakfast. Patient confirms she has worked with PT/OT and is able to move around more than days previously. Denies any numbness/tingling or loss of sensation. Denies any calf tenderness, shortness of breath, chest pain, fevers, chills, n/v/d/c at this time. All questions/concerns addressed. Awaiting covid testing prior to discharge. Review of Systems Review of Systems: All systems reviewed & are unremarkable except as noted in HPI & below Physical Exam Constitutional: WD/WN, vitals as above no acute distress ENMT: thrush Respiratory: normal respiratory effort, lungs clear to auscultation Cardiovascular: RRR, no murmur, no edema Gastrointestinal (Abdomen): normal bowel sounds, soft, nontender, no hepatosp lenomegaly Musculoskeletal: dressing to RIGHT hip - c/d/i Calves non-tender pulses 2+ pt, dp bilaterally Skin: no rashes, warm and dry Neurologic: patellar DTR's 2+ bilat, sensation intact Psychiatric: Orientation: alert, oriented to person, oriented to place, oriented to time and cooperative Lymphatic: no cervical or axillary lymphadenopathy Results & Data Results & Data ([facility]) Vital Signs (Past 12 Hours) Vital Signs Temp Pulse Resp BP Pulse Ox 11/04/19 09:58 155/74 H 11/04/19 07:36 36.3 C L 89 16 184/87 H 11/03/19 23:22 36.8 C 94 H 16 187/73 H 90 Laboratory Results 11/04/19 11/03/19 11/03/19 Range/Units 08:08 20:59 16:56 POC Glucose 132 H 118 H 135 H (70-99) mg/dl 11/03/19 Range/Units 12:02 POC Glucose 142 H (70-99) mg/dl PG Care Time/CCT Total # of Minutes Spent Total Time Spent with Patient: Total time spent is greater than 50% in coordination of care (as documented) at patient's floor/unit and/or counseling patient: Coding Level of Care Code 68914 Subseq Hosp Care Lvl 2 Diagnoses Closed intertrochanteric fracture of right hip S72.144A Encounter type: initial encounter Fracture alignment: nondisplaced Metabolic encephalopathy G93.41 Acute blood loss anemia D62 Hypertension I10 Hypertension type: essential hypertension Urinary tract infection N30.00 Hematuria presence: without hematuria Urinary tract infection type: acute cystitis Hyperlipidemia E78.5 Hyperlipidemia type: unspecified Hypothyroidism E03.9 Hypothyroidism type: unspecified Emphysema, unspecified J43.9 Emphysema type: unspecified Diabetes mellitus with neuropathy E11.40 Diabetes mellitus termite control servicer insulin use: without termite control servicer use Diabetes mellitus type: type 2 Candidiasis of mouth and esophagus B37.81; B37.0 Hypokalemia E87.6 DVT prophylaxis Z29.9 (1) Urinary tract infection Hematuria presence: without hematuria Urinary tract infection type: acute cystitis Qualified Code(s): N30.00 - Acute cystitis without hematuria (2) Hyperlipidemia Hyperlipidemia type: unspecified Qualified Code(s): E78.5 - Hyperlipidemia, unspecified (3) Hypothyroidism Hypothyroidism type: unspecified Qualified Code(s): E03.9 - Hypothyroidism, unspecified (4) Diabetes mellitus with neuropathy Diabetes mellitus termite control servicer insulin use: without fdc use Diabetes mellitus type: type 2 Qualified Code(s): E11.40 - Type 2 diabetes mellitus with diabetic neuropathy, unspecified (5) Emphysema, unspecified Emphysema type: unspecified Qualified Code(s): J43.9 - Emphysema, unspecified (6) Hypertension Hypertension type: essential hypertension Qualified Code(s): I10 - Essential (primary) hypertension (7) Closed intertrochanteric fracture of right hip Encounter type: initial encounter Fracture alignment: nondisplaced Qualified Code(s): S72.144A - Nondisplaced intertrochanteric fracture of right femur, initial encounter for closed fracture
[2019-11-04 11:25] LABS: Hematocrit (blood only) 32.6 % (37-47); Hemoglobin 10.7 g/dL (12.0-16.0); Mean Corpuscular Hemoglobin 31.8 pg (25-34); Mean Corpuscular Hgb Conc 32.8 g/dL (32-36); Mean Corpuscular Volume 96.7 fL (80-100); Mean Platelet Volume 9.7 fL (7.4-10.4); Platelet Count 326 K/uL (130-400); RDW Standard Deviation 45.8 fL (36.4-46.3); Red Blood Count 3.37 M/uL (4.2-5.4); White Blood Count 10.35 K/uL (4.8-10.8)
[2019-11-04 12:14] LABS: BUN Creatinine Ratio 18.1 (10-20); Calcium 9.6 mg/dl (8.5-10.1); Creatinine Clr Calc Pharmacy 76.2 ml/min; Est GFR (Non-African American) 91.5; Potassium 3.4 mmol/L (3.5-5.1)
[2019-11-04] MEDS ORDERED: POTASSIUM CHLORIDE 20 MEQ TABCR PO STA (12:17)
[2019-11-04] MEDS ORDERED: cefTRIAXone SODIUM 2,000 MG in DEXTROSE 5% 50 ML IV SCH (13:00)
[2019-11-04] MEDS: SIMVASTATIN 40 MG TAB PO SCH (20:46)
[2019-11-05] MEDS: LEVOTHYROXINE SODIUM 100 MCG TABLET PO SCH (06:12)
[2019-11-05 06:16] LABS: Basophils # (auto) 0.02 K/uL (0-0.2); Basophils % (auto) 0.3 %; Eosinophils # (auto) 0.23 K/uL (0-0.5); Eosinophils % (auto) 3.7 %; Hematocrit (blood only) 30.8 % (37-47); Hemoglobin 10.2 g/dL (12.0-16.0); Immature Granulocytes # (auto) 0.02 K/uL (0.00-0.02); Immature Granulocytes % (auto) 0.3 %; Lymphocytes # (auto) 1.38 K/uL (1.2-3.4); Lymphocytes % (auto) 22.1 %; Mean Corpuscular Hgb Conc 33.1 g/dL (32-36); Mean Corpuscular Volume 96.6 fL (80-100); Mean Platelet Volume 9.4 fL (7.4-10.4); Monocytes # (auto) 0.51 K/uL (0.11-0.59); Monocytes % (auto) 8.2 %; Neutrophils # (auto) 4.09 K/uL (1.4-6.5); Neutrophils % (auto) 65.4 %; Platelet Count 303 K/uL (130-400); RDW Coefficient of Variation 12.9 % (11.5-14.5); RDW Standard Deviation 45.3 fL (36.4-46.3); Red Blood Count 3.19 M/uL (4.2-5.4); White Blood Count 6.25 K/uL (4.8-10.8)
[2019-11-05 06:47] LABS: BUN Creatinine Ratio 20.7 (10-20); Calcium 8.7 mg/dl (8.5-10.1); Creatinine Clr Calc Pharmacy 102.3 ml/min; Est GFR (African American) 116.8; Est GFR (Non-African American) 100.8; Potassium 3.6 mmol/L (3.5-5.1)
[2019-11-05] MEDS: ASPIRIN 81 MG ECTAB PO SCH ×2 (08:58→21:38)
[2019-11-05] MEDS: FLUTICASONE/VILANTEROL 100/25MCG 14 PUFFS/INHALER INH SCH (08:58)
[2019-11-05] MEDS: SENNA 8.6 MG TAB PO SCH (08:59)
[2019-11-05] MEDS: CLOPIDOGREL BISULFATE 75 MG TAB PO SCH (08:59)
[2019-11-05] MEDS: lisinopriL 5 MG TAB PO SCH (08:59)
--- NOTE | 2019-11-05 09:01 | Hospitalist Progress Note ---
Date of Service November 05, 2019 Assessment & Plan (1) Closed intertrochanteric fracture of right hip: * POD #5 s/p ORIF by Dr Casey. EBL 30cc. Pre-op h/h 13.2/39.3 * 25-OH vit D level wnl. * DVT proph - asa 81mg BID x 4 weeks. * cont PT, OT --> needs rehab at discharge: Patient from [facility], but will likely need rehab -- CM assisting with placement. No bed available currently. Awaiting COVID testing results. CM checking, as this was obtained on 10/30 and we have not had result as of yet * H/h slightly lower, but continues to be stable, currently 10.2/30.8 (2) Metabolic encephalopathy: * Improving -- had episode 11/02 given listed history of dementia. Intermittent confusion, may be related to hospital delirium * Patient states she does have memory issues * -->Suspect encephalopathy secondary to UTI (UA from 10/25 with E.Coli) vs HTN -- ceftriaxone completed (3 days IV ceftriaxone) and HTN improved to 156/66 with increased lisinopril 5mg dosing * Supportive care, avoid benzos if possible -- although patient increasingly tearful today regarding not speaking to her one son much lately even though [place] (could consider addition of low dose SSRI as patient agreeable) * Continue to monitor (3) Acute blood loss anemia: * Secondary to surgery * H/h stable (4) Hypertension: * Had increased lisinopril to 5mg PO daily, with improvement in morning BPs, currently 156/66 * Of note, evening of 11/03 back up to 190/76 -- patient states she is asymptomatic * May benefit from addition of low dose norvasc in the evening to combat this issue * Continue to monitor -- may need further adjustment, ie addition of low dose norvasc vs increased dosing of lisinopril. Would avoid BB as patient with incomplete RBBB and sinus tay on EKG (5) Urinary tract infection: * Rocephin completed 11/02 (6) Hyperlipidemia: * Chronic. Stable * Continue Simvastatin (7) Hypothyroidism: * Chronic. Stable * TSH this admission wnl * Cont synthroid 100mcg daily (8) Emphysema, unspecified: * recent cxr stable * o2 sats stable, improvement from 90% to 95% on RA with encouraged use of incentive spirometer * cont albuterol prn (9) Diabetes mellitus with neuropathy: * BSGs wnl with lantus + novolog * holding oral agents while inpatient (10) Candidiasis of mouth and esophagus: * Continue nystatin 5cc qid (11) Hypokalemia: * RESOLVED -- given oral supplementation for K 3.4 on 11/03 -- likely secondary to previous poor PO intake * K 3.6 * Continue to monitor (12) Depression: * with some anxiety --> Increased over the last several days secondary to family issues--> not on any antidepressant as outpatient * Would avoid benzos given increased confusion. Could consider hydroxyzine prn, although not best option for anticholinergic side effects * Will initiate lexapro 10mg daily. QTc 435ms on most recent EKG 10/29 (13) DVT prophylaxis: * asa BID as above for 4 weeks updated son, Eric 11/04/19 ([phone]) dispo - SNF - social work assisting with this Admission and Anticipated Discharge Date Admission Date: October 30, 2019 Supervising Physician Co-Signing Physician Notes Attending Attestation - Chart reviewed, care plan d/w DARWIN Em. I agree w/ the green components of her progress note documentation. Ludwin Salomon MD Subjective Patient evaluated at bedside this morning. More alert, oriented to person place and time. Not able to tell me who the president is, but was able to state her and her are both libertarian and that they voted for a man she can see but not say his name. She recalls events in the news and eludes to recent events and political news on television. She denies any pain in her right hip, but asked if it was healing. Patient up in bed resting comfortably, and states she ate ALL of her tray today. She has been eating and drinking without difficulty and denies any increased urinary frequency, dysuria, fevers or chills at this time. She denies chest pain, shortness of breath, or visual changes. Demonstrated understanding that we will need to wait for COVID results prior to her returning for rehab. She did become a little tearful when talking about not having as much contact with her son and does feel that something as a combination for depression/anxiety would be helpful. All questions/concerns addressed at this time. Review of Systems Review of Systems: All systems reviewed & are unremarkable except as noted in HPI & below Physical Exam Physical Exam: Constitutional WD/WN, vitals as above no acute distress ENMT minimal white plaques present oropharynx Respiratory normal respiratory effort, lungs clear to auscultation, diminished Cardiovascular RRR, no murmur, no edema Gastrointestinal (Abdomen) normal bowel sounds, soft, nontender, no hepatosplenomegaly Musculoskeletal dressing to RIGHT hip - c/d/i Calves non-tender pulses 2+ pt, dp bilaterally strength equal bilaterally Skin warm and dry Neurologic patellar DTR's 2+ bilat, sensation intact Psychiatric Orientation: alert, oriented to person, oriented to place, oriented to time and cooperative Lymphatic no cervical or axillary lymphadenopathy Results & Data Results & [facility] ([facility]) Vital Signs (Past 12 Hours) Vital Signs Temp Pulse Resp BP BP Pulse Ox 11/05/19 08:57 156/66 H 11/05/19 07:24 36.6 C 65 16 170/67 H 95 11/04/19 23:12 190/76 H 11/04/19 23:10 36.5 C 71 16 166/78 H 94 Laboratory Results 11/05/19 11/05/19 11/05/19 Range/Units 08:07 06:03 06:03 WBC 6.25 (4.8-10.8) K/uL RBC 3.19 L (4.2-5.4) M/uL Hgb 10.2 L (12.0-16.0) g/dL Hct 30.8 L (37-47) % MCV 96.6 (80-100) fL MCH 32.0 (25-34) pg MCHC 33.1 (32-36) g/dL RDW Std Deviation 45.3 (36.4-46.3) fL RDW Coeff of Campbell 12.9 (11.5-14.5) % Plt Count 303 (130-400) K/uL MPV 9.4 (7.4-10.4) fL Immature Gran % (Auto) 0.3 % Neut % (Auto) 65.4 % Lymph % (Auto) 22.1 % [place] % (Auto) 8.2 % Eos % (Auto) 3.7 % Baso % (Auto) 0.3 % Immature Gran # (Auto) 0.02 (0.00-0.02) K/uL Neut # (Auto) 4.09 (1.4-6.5) K/uL Lymph # (Auto) 1.38 (1.2-3.4) K/uL [place] # (Auto) 0.51 (0.11-0.59) K/uL Eos # (Auto) 0.23 (0-0.5) K/uL Baso # (Auto) 0.02 (0-0.2) K/uL Sodium 139 (136-145) mmol/L Potassium 3.6 (3.5-5.1) mmol/L Chloride 105 (98-107) mmol/L Carbon Dioxide 27 (21-32) mmol/L Anion Gap 7.0 (3-11) BUN 8 (7-18) mg/dl Creatinine 0.38 L (0.6-1.2) mg/dl Est Cr Clr Drug Dosing 102.3 ml/min Est GFR ( Amer) 116.8 Est GFR (Non-Af Amer) 100.8 BUN/Creatinine Ratio 20.7 H (10-20) Glucose 121 H (70-99) mg/dl POC Glucose 124 H (70-99) mg/dl Calcium 8.7 (8.5-10.1) mg/dl 11/04/19 11/04/19 11/04/19 Range/Units 20:43 16:58 12:08 WBC (4.8-10.8) K/uL RBC (4.2-5.4) M/uL Hgb (12.0-16.0) g/dL Hct (37-47) % MCV (80-100) fL MCH (25-34) pg MCHC (32-36) g/dL RDW Std Deviation (36.4-46.3) fL RDW Coeff of Campbell (11.5-14.5) % Plt Count (130-400) K/uL MPV (7.4-10.4) fL Immature Gran % (Auto) % Neut % (Auto) % Lymph % (Auto) % [place] % (Auto) % Eos % (Auto) % Baso % (Auto) % Immature Gran # (Auto) (0.00-0.02) K/uL Neut # (Auto) (1.4-6.5) K/uL Lymph # (Auto) (1.2-3.4) K/uL [place] # (Auto) (0.11-0.59) K/uL Eos # (Auto) (0-0.5) K/uL Baso # (Auto) (0-0.2) K/uL Sodium (136-145) mmol/L Potassium (3.5-5.1) mmol/L Chloride (98-107) mmol/L Carbon Dioxide (21-32) mmol/L Anion Gap (3-11) BUN (7-18) mg/dl Creatinine (0.6-1.2) mg/dl Est Cr Clr Drug Dosing ml/min Est GFR ( Amer) Est GFR (Non-Af Amer) BUN/Creatinine Ratio (10-20) Glucose (70-99) mg/dl POC Glucose 155 H 132 H 126 H (70-99) mg/dl Calcium (8.5-10.1) mg/dl 11/04/19 11/04/19 Range/Units 11:14 11:14 WBC 10.35 (4.8-10.8) K/uL RBC 3.37 L (4.2-5.4) M/uL Hgb 10.7 L (12.0-16.0) g/dL Hct 32.6 L (37-47) % MCV 96.7 (80-100) fL MCH 31.8 (25-34) pg MCHC 32.8 (32-36) g/dL RDW Std Deviation 45.8 (36.4-46.3) fL RDW Coeff of Campbell 13.0 (11.5-14.5) % Plt Count 326 (130-400) K/uL MPV 9.7 (7.4-10.4) fL Immature Gran % (Auto) % Neut % (Auto) % Lymph % (Auto) % [place] % (Auto) % Eos % (Auto) % Baso % (Auto) % Immature Gran # (Auto) (0.00-0.02) K/uL Neut # (Auto) (1.4-6.5) K/uL Lymph # (Auto) (1.2-3.4) K/uL [place] # (Auto) (0.11-0.59) K/uL Eos # (Auto) (0-0.5) K/uL Baso # (Auto) (0-0.2) K/uL Sodium 138 (136-145) mmol/L Potassium 3.4 L (3.5-5.1) mmol/L Chloride 103 (98-107) mmol/L Carbon Dioxide 29 (21-32) mmol/L Anion Gap 5.0 (3-11) BUN 9 (7-18) mg/dl Creatinine 0.51 L (0.6-1.2) mg/dl Est Cr Clr Drug Dosing 76.2 ml/min Est GFR ( Amer) 106.0 Est GFR (Non-Af Amer) 91.5 BUN/Creatinine Ratio 18.1 (10-20) Glucose 131 H (70-99) mg/dl POC Glucose (70-99) mg/dl Calcium 9.6 D (8.5-10.1) mg/dl PG Care Time/CCT Total # of Minutes Spent Total Time Spent with Patient: Total time spent is greater than 50% in coordination of care (as documented) at patient's floor/unit and/or counseling patient: Coding Level of Care Code 11943 Subseq Hosp Care Lvl 2 Diagnoses Closed intertrochanteric fracture of right hip S72.144A Encounter type: initial encounter Fracture alignment: nondisplaced Metabolic encephalopathy G93.41 Acute blood loss anemia D62 Hypertension I10 Hypertension type: essential hypertension Urinary tract infection N30.00 Hematuria presence: without hematuria Urinary tract infection type: acute cystitis Hyperlipidemia E78.5 Hyperlipidemia type: unspecified Hypothyroidism E03.9 Hypothyroidism type: unspecified Emphysema, unspecified J43.9 Emphysema type: unspecified Diabetes mellitus with neuropathy E11.40 Diabetes mellitus intermediate insulin use: without intermediate use Diabetes mellitus type: type 2 Candidiasis of mouth and esophagus B37.81; B37.0 Hypokalemia E87.6 Depression F32.9 DVT prophylaxis Z29.9 (1) Urinary tract infection Hematuria presence: without hematuria Urinary tract infection type: acute cystitis Qualified Code(s): N30.00 - Acute cystitis without hematuria (2) Hyperlipidemia Hyperlipidemia type: unspecified Qualified Code(s): E78.5 - Hyperlipidemia, unspecified (3) Hypothyroidism Hypothyroidism type: unspecified Qualified Code(s): E03.9 - Hypothyroidism, unspecified (4) Diabetes mellitus with neuropathy Diabetes mellitus intermediate insulin use: without watermaster use Diabetes mellitus type: type 2 Qualified Code(s): E11.40 - Type 2 diabetes mellitus with diabetic neuropathy, unspecified (5) Emphysema, unspecified Emphysema type: unspecified Qualified Code(s): J43.9 - Emphysema, unspecified (6) Hypertension Hypertension type: essential hypertension Qualified Code(s): I10 - Essential (primary) hypertension (7) Closed intertrochanteric fracture of right hip Encounter type: initial encounter Fracture alignment: nondisplaced Qualified Code(s): S72.144A - Nondisplaced intertrochanteric fracture of right femur, init ial encounter for closed fracture
[2019-11-05] MEDS: INSULIN ASPART 100 UNITS/ML 3 ML PEN SC SCH ×4 (09:02→21:40)
[2019-11-05] MEDS: INSULIN GLARGINE SOLOSTAR 100 UNITS/ML 3 ML PEN SC SCH ×2 (09:02→21:38)
[2019-11-05] MEDS: NYSTATIN SUSP 500,000 U/5 ML UDC PO SCH ×4 (09:07→21:39)
[2019-11-05] MEDS: ESCITALOPRAM OXALATE 10 MG TAB PO SCH (12:36)
[2019-11-05] MEDS: SIMVASTATIN 40 MG TAB PO SCH (21:39)
[2019-11-05] MEDS: ACETAMINOPHEN 500 MG TAB PO PRN (21:45)
[2019-11-06] MEDS: LEVOTHYROXINE SODIUM 100 MCG TABLET PO SCH (05:40)
[2019-11-06 07:23] LABS: Hematocrit (blood only) 29.5 % (37-47); Hemoglobin 10.1 g/dL (12.0-16.0); Mean Corpuscular Hemoglobin 33.1 pg (25-34); Mean Corpuscular Hgb Conc 34.2 g/dL (32-36); Mean Corpuscular Volume 96.7 fL (80-100); Mean Platelet Volume 9.8 fL (7.4-10.4); Platelet Count 376 K/uL (130-400); RDW Coefficient of Variation 12.9 % (11.5-14.5); RDW Standard Deviation 45.3 fL (36.4-46.3); Red Blood Count 3.05 M/uL (4.2-5.4)
[2019-11-06] MEDS: HydrALAZINE HCL 20 MG/ML VIAL IV PRN ×2 (07:45→16:15)
[2019-11-06] MEDS ORDERED: HydrALAZINE HCL 20 MG/ML VIAL IV ONE (07:49)
[2019-11-06 07:53] LABS: BUN Creatinine Ratio 31.8 (10-20); Creatinine Clr Calc Pharmacy 94.8 ml/min; Est GFR (African American) 113.9; Est GFR (Non-African American) 98.3; Potassium 3.4 mmol/L (3.5-5.1)
[2019-11-06] MEDS: ESCITALOPRAM OXALATE 10 MG TAB PO SCH (08:19)
[2019-11-06] MEDS: ASPIRIN 81 MG ECTAB PO SCH ×2 (08:19→20:28)
[2019-11-06] MEDS: lisinopriL 5 MG TAB PO SCH (08:19)
[2019-11-06] MEDS: CLOPIDOGREL BISULFATE 75 MG TAB PO SCH (08:19)
[2019-11-06] MEDS: SENNA 8.6 MG TAB PO SCH (08:19)
[2019-11-06] MEDS: FLUTICASONE/VILANTEROL 100/25MCG 14 PUFFS/INHALER INH SCH (08:20)
[2019-11-06] MEDS: NYSTATIN SUSP 500,000 U/5 ML UDC PO SCH ×4 (08:20→20:28)
[2019-11-06] MEDS: INSULIN ASPART 100 UNITS/ML 3 ML PEN SC SCH ×4 (08:30→20:26)
[2019-11-06] MEDS: INSULIN GLARGINE SOLOSTAR 100 UNITS/ML 3 ML PEN SC SCH ×2 (08:30→20:25)
--- NOTE | 2019-11-06 09:39 | Hospitalist Progress Note ---
Date of Service November 06, 2019 Assessment & Plan (1) Closed intertrochanteric fracture of right hip: * POD #6 s/p ORIF by Dr Casey. EBL 30cc. Pre-op h/h 13.2/39.3 * 25-OH vit D level wnl. * DVT proph - asa 81mg BID x 4 weeks. * cont PT, OT --> needs rehab at discharge: Patient from [facility], but will likely need rehab -- CM assisting with placement. No bed available currently. Awaiting COVID testing results. CM checking, as this was obtained on 10/30 and we have not had result as of yet * H/h slightly low, but continues to be stable, currently 10.1/29.5 -- expect some dilutional effects from IVF (2) Metabolic encephalopathy: *Episode lasting several minutes morning of 11/05 following BM, possibly vasovagal response, as BP 100/60 once back in chair. * Had episode 11/02 given listed history of dementia. Intermittent confusion, may be related to hospital delirium * Patient states she does have memory issues * -->Suspect encephalopathy secondary to UTI (UA from 10/25 with E.Coli) vs HTN -- ceftriaxone completed (3 days IV ceftriaxone) and HTN improved to 156/66 with increased lisinopril 5mg dosing * Supportive care, avoid benzos if possible * Repeat UA ordered for increased confusion this morning * CT Head without acute findings, unchanged from prior study * Will also obtain orthostatic VS, as patient did not consume much of breakfast today * NSS bolus 500cc ordered for BP 100s/60s * Continue to monitor (3) Acute blood loss anemia: * Secondary to surgery * H/h stable (4) Hypertension: * Had increased lisinopril to 5mg PO daily * BP elevated up to 191/74 this morning --> symptomatic later in the morning despite BP 140s/70s * Will increase lisinopril today and continue to monitor * Would avoid AV bill blocking agents as patient with incomplete RBBB and sinus tay on EKG (5) Urinary tract infection: * Rocephin completed 11/02 * Repeat UA to ensure resolution, as patient with AMS this AM (6) Hyperlipidemia: * Chronic. Stable * Continue Simvastatin (7) Hypothyroidism: * Chronic. Stable * TSH this admission wnl * Cont synthroid 100mcg daily (8) Emphysema, unspecified: * recent cxr stable * o2 sats stable, 93% on RA * Continue use of incentive spirometer * cont albuterol prn (9) Diabetes mellitus with neuropathy: * BSGs wnl with lantus + novolog * holding oral agents while inpatient (10) Candidiasis of mouth and esophagus: * Continue nystatin 5cc qid (11) Hypokalemia: * given oral supplementation for K 3.4 on 11/03 -- likely secondary to previous poor PO intake * K 3.4 * Patient with poor PO this AM -- will need to monitor closely * Continue to monitor (12) Depression: * with some anxiety --> Increased over the last several days secondary to family issues--> not on any antidepressant as outpatient * Would avoid benzos given increased confusion. Could consider hydroxyzine prn, although not best option for anticholinergic side effects * Initiated lexapro 10mg daily. QTc 435ms on most recent EKG 10/29 --> will discontinue as patient with possible vasovagal response this morning, but also with QT prolongation on EKG (13) Chest pain: * Episode reported to nursing morning of 11/04, unable to quantify for how long * Trop ordered, <0.015 * EKG with ST depression in anterior leads, T wave inversion in inferior leads, QT lengthened (486ms), vent rate increased by 31bpm * Repeat Trop, EKG * Continue to monitor -- consider tx to telemetry for continuous monitoring if re-curs or repeat EKG/trop with change, although likely related to vasovagal following BM morning of 11/05 (14) DVT prophylaxis: * asa BID as above for 4 weeks updated sonErci 11/05/19 ([phone]) dispo - SNF - social work assisting with this Admission and Anticipated Discharge Date Admission Date: October 30, 2019 Supervising Physician Co-Signing Physician Notes Attending Attestation - Chart reviewed, care plan d/w DARWIN Em. I agree w/ the green components of her documentation. Patient had brief syncopal event following a bowel movement. Prior to syncope she c/o dizziness. Likely vasovagal event in setting of straining at stool. Continues with hospital delirium/encephalopathy - cont supportive care. Avoid sedatives. I suspect underlying mild cognitive dysfunction. Continues to otherwise recover from s/p ORIF for right hip fracture. Other plans per Ms Em. Ludwin Salomon MD Subjective Patient evaluated this morning after episode of reported chest tightness. Patient states she no longer has symptoms as is unable to exact how longs symptoms lasted. She states she did not eat much of her breakfast but that she felt generally well. She stated she was hopeful for discharge today. Approximately 30-40 minutes later, RN asked to re-evaluated. Patient had been up with PT and had to have a BM. After BM patient told therapy that she felt like she was going to pass out and then was sat down in chair. BP was 140s/70s at that time. Patient became unresponsive to questions and stared off in the distance. Upon entering the room, patient continued to not follow commands or answer questions for several minutes before regaining consciousness. She denied any visual changes or headache, dizziness or lightheadedness, chest pain, short ness of breath, nausea at this time, however stated she saw a waterfall off in the corner of the room. BSG was 176. Decision to proceed with CT Head and repeat EKG/trop was made. Review of Systems Review of Systems: All systems reviewed & are unremarkable except as noted in HPI & below Physical Exam Physical Exam: Constitutional WD/WN, vitals as above no acute distress ENMT minimal white plaques present oropharynx normal visual moran by confrontation BASSAM Respiratory normal respiratory effort, lungs clear to auscultation, diminished Cardiovascular RRR, no murmur, no edema Gastrointestinal (Abdomen) normal bowel sounds, soft, nontender, no hepatosplenomegaly Musculoskeletal dressing to RIGHT hip - c/d/i. Hematoma present to lower lateral RIGHT thigh. Calves non-tender pulses 2+ pt, dp bilaterally strength equal bilaterally Skin warm and dry Neurologic patellar DTR's 2+ bilat, sensation intact Psychiatric Orientation: alert, oriented to person, oriented to place. Not oriented to time Lymphatic no cervical or axillary lymphadenopathy Results & Data Results & Data ([facility]) Vital Signs (Past 12 Hours) Vital Signs Temp Pulse Resp BP BP Pulse Ox 11/06/19 09:09 149/78 H 11/06/19 07:31 36.5 C 70 18 191/74 H 93 11/05/19 23:36 36.7 C 74 18 175/71 H 92 Laboratory Results 11/06/19 11/06/19 11/06/19 Range/Units 12:08 10:33 08:13 WBC (4.8-10.8) K/uL RBC (4.2-5.4) M/uL Hgb (12.0-16.0) g/dL Hct (37-47) % MCV (80-100) fL MCH (25-34) pg MCHC (32-36) g/dL RDW Std Deviation (36.4-46.3) fL RDW Coeff of Campbell (11.5-14.5) % Plt Count (130-400) K/uL MPV (7.4-10.4) fL Sodium (136-145) mmol/L Potassium (3.5-5.1) mmol/L Chloride (98-107) mmol/L Carbon Dioxide (21-32) mmol/L Anion Gap (3-11) BUN (7-18) mg/dl Creatinine (0.6-1.2) mg/dl Est Cr Clr Drug Dosing ml/min Est GFR ( Amer) Est GFR (Non-Af Amer) BUN/Creatinine Ratio (10-20) Glucose (70-99) mg/dl POC Glucose 144 H 171 H 171 H (70-99) mg/dl Calcium (8.5-10.1) mg/dl Troponin I (0-0.045) ng/ml 11/06/19 11/06/19 11/06/19 Range/Units 06:32 06:32 06:32 WBC 8.90 (4.8-10.8) K/uL RBC 3.05 L (4.2-5.4) M/uL Hgb 10.1 L (12.0-16.0) g/dL Hct 29.5 L (37-47) % MCV 96.7 (80-100) fL MCH 33.1 (25-34) pg MCHC 34.2 (32-36) g/dL RDW Std Deviation 45.3 (36.4-46.3) fL RDW Coeff of Campbell 12.9 (11.5-14.5) % Plt Count 376 (130-400) K/uL MPV 9.8 (7.4-10.4) fL Sodium 140 (136-145) mmol/L Potassium 3.4 L (3.5-5.1) mmol/L Chloride 106 (98-107) mmol/L Carbon Dioxide 26 (21-32) mmol/L Anion Gap 8.0 (3-11) BUN 13 D (7-18) mg/dl Creatinine 0.41 L (0.6-1.2) mg/dl Est Cr Clr Drug Dosing 94.8 ml/min Est GFR ( Amer) 113.9 Est GFR (Non-Af Amer) 98.3 BUN/Creatinine Ratio 31.8 H (10-20) Glucose 160 H (70-99) mg/dl POC Glucose (70-99) mg/dl Calcium 9.0 (8.5-10.1) mg/dl Troponin I < 0.015 (0-0.045) ng/ml 11/05/19 11/05/19 Range/Units 20:38 17:07 WBC (4.8-10.8) K/uL RBC (4.2-5.4) M/uL Hgb (12.0-16.0) g/dL Hct (37-47) % MCV (80-100) fL MCH (25-34) pg MCHC (32-36) g/dL RDW Std Deviation (36.4-46.3) fL RDW Coeff of Campbell (11.5-14.5) % Plt Count (130-400) K/uL MPV (7.4-10.4) fL Sodium (136-145) mmol/L Potassium (3.5-5.1) mmol/L Chloride (98-107) mmol/L Carbon Dioxide (21-32) mmol/L Anion Gap (3-11) BUN (7-18) mg/dl Creatinine (0.6-1.2) mg/dl Est Cr Clr Drug Dosing ml/min Est GFR ( Amer) Est GFR (Non-Af Amer) BUN/Creatinine Ratio (10-20) Glucose (70-99) mg/dl POC Glucose 184 H 158 H (70-99) mg/dl Calcium (8.5-10.1) mg/dl Troponin I (0-0.045) ng/ml Diagnostic Findings CT Head IMPRESSION: 1. Chronic small vessel ischemic change and old lacunar infarcts, unchanged. No acute intracranial abnormality. PG Care Time/CCT Total # of Minutes Spent Total Time Spent with Patient: Total time spent is greater than 50% in coordination of care (as documented) at patient's floor/unit and/or counseling patient: Coding Level of Care Code 17497 Subs Hosp Care Lvl 3 Diagnoses Closed intertrochanteric fracture of right hip S72.144A Encounter type: initial encounter Fracture alignment: nondisplaced Metabolic encephalopathy G93.41 Acute blood loss anemia D62 Hypertension I10 Hypertension type: essential hypertension Urinary tract infection N30.00 Hematuria presence: without hematuria Urinary tract infection type: acute cystitis Hyperlipidemia E78.5 Hyperlipidemia type: unspecified Hypothyroidism E03.9 Hypothyroidism type: unspecified Emphysema, unspecified J43.9 Emphysema type: unspecified Diabetes mellitus with neuropathy E11.40 Diabetes mellitus custodial insulin use: without 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 termite use Diabetes mellitus type: type 2 Candidiasis of mouth and esophagus B37.81; B37.0 Hypokalemia E87.6 Depression F32.9 Chest pain R07.9 DVT prophylaxis Z29.9 (1) Urinary tract infection Hematuria presence: without hematuria Urinary tract infection type: acute cystitis Qualified Code(s): N30.00 - Acute cystitis without hematuria (2) Hyperlipidemia Hyperlipidemia type: unspecified Qualified Code(s): E78.5 - Hyperlipidemia, unspecified (3) Hypothyroidism Hypothyroidism type: unspecified Qualified Code(s): E03.9 - Hypothyroidism, unspecified (4) Diabetes mellitus with neuropathy Diabetes mellitus 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 termite insulin use: without custodial use Diabetes mellitus type: type 2 Qualified Code(s): E11.40 - Type 2 diabetes mellitus with diabetic neuropathy, unspecified (5) Emphysema, unspecified Emphysema type: unspecified Qualified Code(s): J43.9 - Emphysema, unspecified (6) Hypertension Hypertension type: essential hypertension Qualified Code(s): I10 - Essential (primary) hypertension (7) Closed intertrochanteric fracture of right hip Encounter type: initial encounter Fracture alignment: nondisplaced Qualified Code(s): S72.144A - Nondisplaced intertrochanteric fracture of right femur, initial encounter for closed fracture
[2019-11-06] MEDS ORDERED: SODIUM CHLORIDE 0.9% 1000ML 500 ML IV ONE (10:37)
--- NOTE | 2019-11-06 11:57 | CT Scan Report ---
CT head/brain wo con CLINICAL HISTORY: 79 years-old Female presenting with AMS, hypotensive. TECHNIQUE: Multidetector CT imaging of the head was performed without the use of intravenous contrast . IV contrast: None. One or more dose lowering techniques were used consistent with the principles of ALARA (as low as reasonably achievable), including automatic exposure control, mA or kV adjustment t o individual patient size, and/or use of iterative reconstruction. COMPARISON: 10/30/2019. CT DOSE (mGy.cm): The estimated cumulative dose is 537.48 mGy.cm. FINDINGS: Medical Records Custodian topogram: The patient is edentulous. Proportional ventricular and sulcal prominence, likely age-related parenchymal volume loss. Senescent calcifications in the globus pallidus. No hemorrhage. Periventricular and subcortical white matter h ypoattenuation, nonspecific but likely indicative of chronic small vessel ischemic change. Old lacuna r infarcts in the bilateral basal ganglia and periventricular white matter. These findings are unchan ged. No acute territorial infarct. No mass effect or midline shift. No extra-axial fluid collection. Paranasal sinuses and mastoid air cells clear. Calvarium intact. Absent [place] lenses. IMPRESSION: 1. Chronic small vessel ischemic change and old lacunar infarcts, unchanged. No acute intracranial a bnormality. ACT 112: Negative or not required by law. Electronically signed by: Sd Wright M.D. 11/06/2019 11:55 AM
--- NOTE | 2019-11-06 16:25 | Electrocardiogram Report ---
Test Reason : Blood Pressure : / mmHG Vent. Rate : 090 BPM Atrial Rate : 090 BPM P-R Int : 162 ms QRS Dur : 108 ms QT Int : 398 ms P-R-T Axes : 075 -17 010 degrees QTc Int : 486 ms Normal sinus rhythm Incomplete right bundle branch block Prolonged QT Abnormal ECG When compared with ECG of 30-OCT-2019 14:03, Vent. rate has increased BY [address] now depressed in Anterior leads T wave inversion now evident in Inferior leads QT has lengthened Confirmed by Dominik Gordon ([id number]) on 11/06/2019 4:24:57 PM Referred By: REFERRED SELF Confirmed By:Stewart Gordon
--- NOTE | 2019-11-06 16:29 | Electrocardiogram Report ---
Test Reason : Blood Pressure : / mmHG Vent. Rate : 072 BPM Atrial Rate : 072 BPM P-R Int : 156 ms QRS Dur : 112 ms QT Int : 410 ms P-R-T Axes : 003 -14 -09 degrees QTc Int : 448 ms Normal sinus rhythm Incomplete right bundle branch block Nonspecific ST and T wave abnormality Abnormal ECG When compared with ECG of 06-NOV-2019 08:40, (unconfirmed) No significant change was found Confirmed by Dominik Gordon ([id number] on 11/06/2019 4:28:58 PM Referred By: REFERRED SELF Confirmed By:Stewart Gordon
[2019-11-06] MEDS: SODIUM CHLORIDE 0.9% 1000ML 1,000 ML IV SCH (17:37)
[2019-11-06] MEDS: SIMVASTATIN 40 MG TAB PO SCH (20:28)
[2019-11-06 22:53] LABS: Appearance Urine Cloudy (Clear); Bacteria Urine Automated Negative (Negative); Bilirubin Urine Negative (Negative); Blood Urine Negative (Negative); Cast Urine Automated 0 /lpf (0-5); Color Urine Yellow; Epithelial Cell Urine Auto 0-5 /lpf (0-5); Glucose Urine UA Negative (Negative); Ketones Urine Trace (Negative); Leukocyte Esterase Urine Negative (Negative); Nitrite Urine Negative (Negative); Protein Urine Negative (Negative); RBC Urine Automated 0-4 /hpf (0-4); Specific Gravity Urine 1.016 (1.000-1.030); Urobilinogen Urine Negative (Negative); WBC Urine Automated 0 /hpf (0-5); pH Urine 7.5 (4.5-7.5)
[2019-11-07] MEDS: LEVOTHYROXINE SODIUM 100 MCG TABLET PO SCH (05:10)
[2019-11-07] MEDS: SODIUM CHLORIDE 0.9% 1000ML 1,000 ML IV SCH (05:10)
[2019-11-07 07:19] LABS: Basophils # (auto) 0.03 K/uL (0-0.2); Basophils % (auto) 0.3 %; Eosinophils # (auto) 0.21 K/uL (0-0.5); Eosinophils % (auto) 2.4 %; Hematocrit (blood only) 29.1 % (37-47); Hemoglobin 9.6 g/dL (12.0-16.0); Immature Granulocytes # (auto) 0.03 K/uL (0.00-0.02); Immature Granulocytes % (auto) 0.3 %; Lymphocytes % (auto) 20.2 %; Mean Corpuscular Hemoglobin 32.2 pg (25-34); Mean Corpuscular Volume 97.7 fL (80-100); Mean Platelet Volume 9.4 fL (7.4-10.4); Monocytes # (auto) 0.59 K/uL (0.11-0.59); Monocytes % (auto) 6.6 %; Neutrophils # (auto) 6.24 K/uL (1.4-6.5); Neutrophils % (auto) 70.2 %; Platelet Count 408 K/uL (130-400); RDW Coefficient of Variation 13.2 % (11.5-14.5); RDW Standard Deviation 46.5 fL (36.4-46.3); Red Blood Count 2.98 M/uL (4.2-5.4)
[2019-11-07 07:47] LABS: Albumin Level 2.7 gm/dl (3.4-5.0); Calcium 8.6 mg/dl (8.5-10.1); Creatinine Clr Calc Pharmacy 113.5 ml/min; Est GFR (African American) 122.3; Est GFR (Non-African American) 105.5; Potassium 3.6 mmol/L (3.5-5.1)
[2019-11-07 07:50] LABS: Albumin Globulin Ratio 0.8 (0.9-2); Bilirubin,Total 1.4 mg/dl (0.2-1); Globulin 3.5 gm/dl (2.5-4.0); Total Protein 6.2 gm/dl (6.4-8.2)
[2019-11-07 08:00] VITALS: O2SAT 94
[2019-11-07] MEDS: ASPIRIN 81 MG ECTAB PO SCH (08:46)
[2019-11-07] MEDS: FLUTICASONE/VILANTEROL 100/25MCG 14 PUFFS/INHALER INH SCH (08:46)
[2019-11-07] MEDS: CLOPIDOGREL BISULFATE 75 MG TAB PO SCH (08:47)
[2019-11-07] MEDS: SENNA 8.6 MG TAB PO SCH (08:47)
[2019-11-07] MEDS: NYSTATIN SUSP 500,000 U/5 ML UDC PO SCH ×2 (08:47→13:09)
[2019-11-07] MEDS: INSULIN ASPART 100 UNITS/ML 3 ML PEN SC SCH ×2 (08:52→13:09)
[2019-11-07] MEDS: INSULIN GLARGINE SOLOSTAR 100 UNITS/ML 3 ML PEN SC SCH (08:52)
[2019-11-07] MEDS ORDERED: lisinopriL 10 MG TAB PO SCH (09:00)
[2019-11-07] MEDS: ACETAMINOPHEN 500 MG TAB PO PRN (11:35)
--- NOTE | 2019-11-07 12:02 | Discharge Summary ---
Date of Service November 07, 2019 Admission HPI Per Admitting Provider 79yo F w/ hx of diabetes who presents with right femur fracture after a mechanical fall. Patient was seen by her PCP this morning for ongoing lower back pain as well as ED follow-up for a potential UTI. She was referred to urology for recurrent UTIs, and to pain management for ongoing lower back pain after a fall in June 2019. Per the patient, she and the family went to a farm to look at livestock. The patient had a mechanical fall she walked on the farm. She reports that her right foot slid up on some loose stone and came out from under her. She denies any chest pain, palpitations, lightheadedness, dizziness, or other symptoms prior to the fall. She reports that she did strike her head when she fell, but did not suffer any loss of consciousness. She has some scrapes on her right elbow and right fing er, but otherwise appears uninjured from the fall apart from her right hip fracture. Admission Exam Per Admitting Provider Constitutional: WD/WN, vitals as above + acute distress and + frail appearing Eyes: EOM intact bilaterally; no conjunctival abnormality ENMT: external ear and nose normal, oropharynx normal Neck: trachea midline, no thyromegaly normal visual inspection Respiratory: normal respiratory effort, lungs clear to auscultation no respiratory distress Cardiovascular: RRR, no murmur, no edema Gastrointestinal (Abdomen): Inspection/Auscultation: abdomen normal to inspection; abdomen not distended Musculoskeletal: no cyanosis or clubbing, extremities motor strength 5/5 Skin: no rashes, warm and dry Trauma: + evidence of skin trauma and + abrasion (Right fingers) Neurologic: moves all extremities and awake Psychiatric: Orientation: alert, oriented to person and cooperative Principal Diagnosis Closed intertrochanteric fracture of right hip Discharge Exam Constitutional WD/WN, vitals as above no acute distress Eyes PERRL, conjunctivae normal, anicteric sclerae ENMT external ear and nose normal, oropharynx normal Neck trachea midline, no thyromegaly Respiratory normal respiratory effort, lungs clear to auscultation Cardiovascular RRR, no murmur, no edema Gastrointestinal (Abdomen) normal bowel sounds, soft, nontender, no hepatosplenomegaly Musculoskeletal no cyanosis or clubbing, extremities motor strength 5/5 dressing to R hip c/d/i Skin no rashes, warm and dry Neurologic patellar DTR's 2+ bilat, sensation intact Psychiatric Orientation: alert, oriented to person, oriented to place and cooperative Lymphatic no cervical or axillary lymphadenopathy Discharge Data Allergies Allergy/AdvReac Type Severity Reaction Status Date / Time metformin AdvReac Intermediate NAUSEA AND Verified 10/30/19 10:12 DIARRHEA varenicline AdvReac Unknown DEPRESSION, Verified 10/30/19 14:55 BAD DREAMS Consultations 10/30/19 16:03 Consult Orthopedic Surgery Routine 10/30/19 16:05 ED Decision to Admit Stat 10/31/19 11:37 Consult Case Management - Discharge Planning Routine Procedures Performed Operation Date: 10/31/19 10:40 Actual Procedures p Right Hip Closed Reduction and Internal Fixation(Right) - Matthew Casey, Ordered Studies 10/30/19 13:53 CT cervical spine wo con Stat CT head/brain wo con Stat CXR Finger XRAY Knee XRAY x 2 Hip XRAY X2 10/31/19 07:00 FL fluoroscopy <1hr Routine FL hip RT 2-3V Routine CXR 11/06/19 10:37 CT head/brain wo con Urgent ECHO Hospital Course (1) Closed intertrochanteric fracture of right hip: * s/p ORIF by Dr Casey * 25-OH vit D level wnl. * DVT proph - asa 81mg BID x 4 weeks. * cont PT, OT -- rehab at discharge, [facility]. COVID negative. * H/h low but stable at 9.6/29.1. No s/sx bleeding on exam. Did receive IVF, so some component of dilution. (2) Metabolic encephalopathy: RESOLVED *Episode lasting several minutes morning of 11/05 following BM, possibly vasovagal response, as BP 100/60 once back in chair. * Had episode 11/02 given listed history of dementia. Intermittent confusion, may be related to hospital delirium * Patient states she does have memory issues * -->Suspect encephalopathy secondary to UTI (UA from 10/25 with E.Coli) vs HTN - - ceftriaxone completed (3 days IV ceftriaxone) and HTN improved to 156/66 with increased lisinopril 5mg dosing * Supportive care, avoid benzos if possible * Repeat UA ordered with resolution of infection * CT Head without acute findings, unchanged from prior study (3) Acute blood loss anemia: * Secondary to surgery (4) Hypertension: * Increased lisinopril to 5mg PO daily -- continued at discharge * BP improved to 154/70 * Would avoid AV bill blocking agents as patient with incomplete RBBB and sinus tay on EKG (5) Urinary tract infection: * Rocephin completed 11/02 * Repeated UA to ensure resolution as above (6) Hyperlipidemia: * Chronic. Stable * Continued Simvastatin (7) Hypothyroidism: * Chronic. Stable * TSH this admission wnl * Cont synthroid 100mcg daily (8) Emphysema, unspecified: * recent cxr stable * o2 sats stable, 94% on RA * Continued use of incentive spirometer, albuterol prn (9) Diabetes mellitus with neuropathy: * BSGs wnl with lantus + novolog * holding oral agents while inpatient * Continue outpatient regimen at discharge (10) Candidiasis of mouth and esophagus: * Resolved. Nystatin 5cc qid (11) Hypokalemia: * Resolved. Secondary to poor PO intake * given oral supplementation for K 3.4 on 11/03 * K 3.6 (12) Depression: * with some anxiety --> Increased over the last several days secondary to family issues--> not on any antidepressant as outpatient. No further symptoms expressed on subsequent visit. * Would avoid benzos given increased confusion. Could consider hydroxyzine prn, although not best option for anticholinergic side effects (13) Chest pain: * x 1 episode reported to nursing on morning of 11/04 although patient denied when asked. * Episode reported to nursing morning of 11/04, unable to quantify for how long * Trop <0.015 * EKG with ST depression in anterior leads, T wave inversion in inferior leads, QT lengthened (486ms) -- discontinued lexapro as previously started for increased anxiety. * Repeat EKG with incomplete RBBB, similar to previous EKGs * ECHO without gross abnormality (14) DVT prophylaxis: * Asa BID as above for 4 weeks Discharged to [facility] Total Time Total Time Spent Total Time Spent (In Minutes): 65 Discharge Plan Discharge Items Patient Disposition: Transfer Usp Fac Reason For Visit: RIGHT HIP FRACTURE Discharge Diagnosis: RIGHT HIP FRACTURE Condition on Discharge: Fair Goals: You have been hospitalized for an urgent problem which required surgery. During your stay at [facility], we have made an effort to correct the problem that brought you to the hospital while keeping you as comfortable as possible. Surgery and medications were used to bring your condition under control and your discharge instructions will include directions for any medications you should take after leaving the hospital. Please make sure to follow the advice of your surgeon regarding follow up with the surgeon and with your primary care provider. Activity: As commented below Non-emergency contact: Primary Care Provider and Surgeon Call non-emergency contact if: you have any medication questions, your pain is not controlled and you have a fever Follow-up/Referrals: Alan Wilhelm MD [Primary Care Provider] - Matthew Casey DO [Physician] - (2 weeks post-op -- surgery on 10/30) Diet: Carb Consistent or DM2 and Heart Healthy Addtl Attending Provider Instructions: ORTHOPEDIC INSTRUCTIONS Hip Fracture Activity and Therapy Recommendations: 1. You were shown a series of exercises in the hospital. Do these exercises three times each day if you are able. 2. Get up and walk several times each day if you are capable. Make sure you have assistance is needed. For the first four weeks, try not to stand or walk for more than one hour at a time. If you do stand or walk for more than one hour, you will not hurt anything, but your leg will likely swell. 3. As you feel comfortable, you may change from the walker or crutches to a cane and then to independent walking if you are able. Please be safe. Medications: 1. Narcotic You will likely be sent from the hospital with the narcotic pain medication that worked best throughout your stay. 2. Continue taking your Plavix and start taking the aspirin as prescribed for DVT prophylaxis. 3. Other medications may be given for specific circumstances. If you have any questions, please call the office at [phone]. 4. Resume previous home medications unless otherwise instructed TEDs/Elastic Stockings: The white elastic stockings help limit swelling and prevent blood clots from forming in your legs. The more you wear them, the more they work. Wear them for six weeks. Dressing Care: Hickman can be open to air as long as the incisions are not draining. If the incisions are draining or if the danial are getting caught on your clothes then please cover the danial with dry gauze. Change the dressings as necessary to keep the incision as dry as possible Showering: You may shower 5 days from the day of surgery as long as the incisions are not draining. Do not soak the incision. Let soapy water run over the danial and pat them dry. Things To Watch For: 1. Drainage from the incision site that occurs more than one week after your surgery. 2. Increased redness at the incision site. 3. Fever above 102 degrees Fahrenheit. 4. Unusual chest pain or shortness of breath. 5. Call [facility] at with any of the above problems Follow-Up Visit: Follow-up with Dr. Casey's PA (Matthew Woodall) 2-3 weeks after your day of surgery. He will remove your danial and answer any questions. If you have any additional questions or concerns, Dr Casey is usually in the office at the same time and will be available An appointment was probably scheduled when you signed-up for surgery in the office. If you have any questions call Addtl Glove Former Provider Instructions: You have been hospitalized for fracture of your RIGHT hip. You underwent surgery by Dr. Casey to address this problem. You are being sent home with aspirin and to continue plavix for blood clot prevention. Please follow up with Dr. Casey's office in the next two weeks following your surgery for staple removal and follow-up. You are also being sent home with the following medication changes: -- Your home dose of lisinopril was increased to 10mg PO daily for elevated blood pressures. Please keep all appointments as scheduled. You should follow up with your primary care provider in the next week. If you have any shortness of breath, fever, chest pain, increased drainage from your dressing, or for any other symptoms that are concerning for you, please return to the closest emergency department. It has been a pleasure being a part of the medical team providing for you while you have been in the hospital. Take care! Pending Studies at Discharge: No Stand-Alone Forms: My [facility] Skilled Items Patient informed of condition?: Yes DNR: No Discharge Level of Care: Skilled Communicable Disease: No Discharge Prognosis: Improving Lines: None Urinary Catheter: No Medications and DC Order Prescriptions: New aspirin 81 mg Tablet,Delayed Release (Dr/Ec) 81 mg PO BID 30 Days Qty: 60 RF: 0 lisinopril 10 mg Tablet 10 mg PO QAM 30 Days Qty: 30 RF: 0 Continued levothyroxine 100 mcg tablet 100 mcg PO QAM Qty: 90 RF: 3 acetaminophen [Tylenol Extra Strength] 500 mg tablet 1,000 mg PO Q8H PRN (Reason: Pain) RF: 0 Symbicort 160-4.5 mcg/actuation HFA aerosol inhaler 2 puffs INH BID Qty: 6 RF: 1 clopidogrel [Plavix] 75 mg tablet 75 mg PO QAM RF: 0 Januvia 100 mg tablet 100 mg PO QAM RF: 0 glimepiride 2 mg tablet 2 mg PO HS RF: 0 simvastatin [Zocor] 40 mg tablet 40 mg PO HS RF: 0 albuterol sulfate [Ventolin HFA] 90 mcg/actuation HFA aerosol inhaler 1 puff INHALATION Q6H PRN (Reason: Wheezing) RF: 0 ascorbic acid (vitamin C) 500 mg Tablet 500 mg PO QAM RF: 0 Vitamin D3 4,000 unit Capsule 4,000 unit PO BID RF: 0 PreserVision AREDS [id number] Capsule 1 cap PO QPM RF: 0 coQ10 (ubiquinol) 200 mg Capsule 200 mg PO QAM RF: 0 glimepiride 2 mg tablet 3 mg PO QAM RF: 0 Florastor 250 mg capsule 250 mg PO BID Qty: 20 RF: 0 Discontinued lisinopril 2.5 mg Tablet 2.5 mg PO QAM RF: 0 cefdinir 300 mg capsule 300 mg PO BID 7 Days Qty: 14 RF: 0 Discharge Orders: Discharge Order (Routine); Ordered 11/07/19 Ordered By: Bhavna Em Admission Data Admit Date/Time: 10/30/19 16:51 Attending Provider: Ludwin Salomon Admit Provider: Talat Mcgill Primary Care Provider: Alan Wilhelm Other Providers: Julio Larsen ; Talat Mcgill ; [facility] ; Tapan Cook ; Ros Jenkins at [place] ; Kaushik Adair Other Interventions: Discharge Summary Assessment (RN) Last Done: 11/07/19 14:19 DC Date/Time DO NOT enter until pt leaves facility: 11/07/19 14:45 Supervising Physician Co-Signing Physician Notes Attending Attestation and Discharge Note - Chart reviewed, discharge care plan d/w DARWIN Em. I agree w/ the green components of her discharge documentation. I had went to perform a discharge physical exam on date of discharge and patient already had been picked up by transport. Thus, a bedside physical exam was not performed. 79yo female with ? cognitive impairment who presented with right hip fracture. Underwent ORIF by Dr Matthew Casey on 10/30. Post-op course complicated by suspected UTI, mild acute blood loss anemia (about 2 gm drop), and metabolic encephalopathy as well as an episode of brief syncope. The latter occurred after she had been straining to have a bowel movement. Work-up was negative for the event. COVID-19 test in preparation for admission to [facility] was NEGATIVE. Patient indeed transferred to [facility] for ongoing rehab. Ludwin Salomon MD Coding Level of Care Code D/C Day Management >30 mins Diagnoses Closed intertrochanteric fracture of right hip S72.144A Encounter type: initial encounter Fracture alignment: nondisplaced Metabolic encephalopathy G93.41 Acute blood loss anemia D62 Hypertension I10 Hypertension type: essential hypertension Urinary tract infection N30.00 Hematuria presence: without hematuria Urinary tract infection type: acute cystitis Hyperlipidemia E78.5 Hyperlipidemia type: unspecified Hypothyroidism E03.9 Hypothyroidism type: unspecified Emphysema, unspecified J43.9 Emphysema type: unspecified Diabetes mellitus with neuropathy E11.40 Diabetes mellitus terminal operator insulin use: without terminal operator use Diabetes mellitus type: type 2 Candidiasis of mouth and esophagus B37.81; B37.0 Hypokalemia E87.6 Depression F32.9 Chest pain R07.9 DVT prophylaxis Z29.9
[2019-11-07 14:37] VITALS: BP 154/70; PULSE 72; TEMP 98.1
[2019-11-08 06:20] LABS: SARS CoV2 RNA (COVID-19) Not Detected (Not Detected)
== END 2019-11-07 14:45 | DRG 480 ==
LOC: ED 13:33 → SUATTDRO 16:51 → 3E 16:51

== ENCOUNTER 2020-05-28 13:41 | Inpatient (IN) ==
--- NOTE | 2020-05-28 15:12 | Electrocardiogram Report ---
Test Reason : Blood Pressure : / mmHG Vent. Rate : 082 BPM Atrial Rate : 082 BPM P-R Int : 158 ms QRS Dur : 102 ms QT Int : 366 ms P-R-T Axes : 030 026 035 degrees QTc Int : 427 ms Poor data quality, interpretation may be adversely affected Normal sinus rhythm Incomplete right bundle branch block Cannot rule out Inferior infarct (cited on or before 25-MAY-2020) Abnormal ECG When compared with ECG of 25-MAY-2020 13:41, Questionable change in initial forces of Inferior leads Confirmed by Ady Spann ([id number]) on 05/28/2020 3:11:50 PM Referred By: Confirmed By:Ady Spann
[2020-05-28] MEDS ORDERED: SODIUM CHLORIDE 0.9% 1000ML 1,000 ML IV SCH (15:15)
[2020-05-28] MEDS ORDERED: SODIUM CHLORIDE 0.9% 500 ML IV SCH (15:15)
--- NOTE | 2020-05-28 15:58 | Emergency Department Note ---
Impression & Plan AMS (altered mental status) ED Provider Note INFORMANT: Patient ED PROVIDER(S): Renan Larios MD CHIEF COMPLAINT: Altered mental status PLAN: Disposition: Admitted Condition: Good MEDICAL DECISION MAKING: The patient presented to emergency department due to change mental status. She had a mild leukocytosis noted. The patient's CBC also showed a mild anemia. Chemistry panel, troponin, LFTs and TSH were negative. Urinalysis did not reveal any clear signs of infection. ECG showed a normal sinus rhythm without acute ischemia. Covid was negative. The patient's head CT does not reveal any acute findings. Nursing did note that the patient has significant diarrhea. This may be contributing to her condition. A C. difficile test was ordered but stool was not unable to be collected for a clean specimen. Given the issues the patient will need further management in the hospital. The patient was hydrated in the ER. Consultation was made with the [facility] service. Patient was evaluated in the ER and admitted for further management. Triage Nursing notes reviewed and agree them. Additional history obtained from patient's daughter Prior medical records reviewed regarding her recent visits. Vital Signs: reviewed and remarkable for no significant abnormalities Differential diagnosis: Infection, hypoglycemia, electrolyte abnormalities, overdose, toxicologic, cardiac sources, intracerebral event, neurologic, trauma, as well as other pathologies. Diagnostics interpreted by me: ECG: Rate:82 Rhythm:Normal sinus [place]:Normal QRS:irbbb ST segements:No elevation or depression Other:No PACs or PVCs.inf Q Cardiac Monitoring: None Imaging studies: Infection, hypoglycemia, electrolyte abnormalities, overdose, toxicologic, cardiac sources, intracerebral event, neurologic, trauma, as well as other pathologies. Consultation(s): [facility] service HPI: The patient is a 80 year old female who presents to the Emergency Room with complaints of AMS. This started a few days ago and is worsening. She was diagnosed with E.coli UTI and treated. Currently on cefedinir. Daughter notes she hasnt been her self despite treatment. Her assisted living staff were concerned with lack of improvement and change in MS. EMS summoned. The patient also notes the following associated symptoms, general malaise. The patient has taken no new relieving factors. Pt denies LOC, headache, fevers, chills, diaphoresis, visual changes, neck pain, chest pain, breathing difficulties, nausea, vomiting, abdominal pain, new back pain, melena, hematochezia, urinary symptoms, numbness, focal weakness,, lymphadenopathy, rash, or other complaints. ROS: See above HPI for pertinent positives & negatives. A total of 10 systems reviewed and were otherwise negative. PAST MEDICAL HISTORY:See Below,UTI PAST SURGICAL HISTORY:See Below, FAMILY HISTORY:See Below SOCIAL HISTORY:See Below, lives in HOME MEDICATIONS:See Below ALLERGIES:See Below VITALS:See Below PHYSICAL EXAMINATION: GENERAL: Awake,tired-appearing, in no distress HENT: Normocephalic, atraumatic. Oropharynx unremarkable. EYES: Normal conjunctiva. Sclera non-icteric. NECK: Inspection normal. Non-tender. Supple. No nuchal rigidity. FROM. No masses. RESPIRATORY: Clear to auscultation. No wheezes. No rales. Normal respiratory effort. CARDIAC: Normal rate. Normal rhythm. No murmurs. No rubs. Extremities warm and well perfused. Pulses equal. No JVD. GI: Soft, non-distended. No tenderness to palpation. No rebound or guarding. No masses. RECTAL: Deferred. MUSCULOSKELETAL: Atraumatic. Chest examination reveals no tenderness. The back is symmetrical on inspection without obvious abnormality. There is no CVA tenderness to palpation. No joint edema. LOWER EXTREMITIES: Calves are equal size bilaterally and non-tender. No edema. No discoloration. NEURO: Altered sensorium. No focal sensory or motor deficits noted. Generalized weakness noted. SKIN: No rash or jaundice noted. 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 Diabetes mellitus, type 2 NIDDM Disc degeneration, lumbar Discoid lupus erythematosus Diverticular disease Diverticulosis Emphysema, unspecified Eye swelling, right Gallstones Hyperlipidemia Hyperplastic colon polyp Hypertension Hypothyroidism Insomnia Ischemic stroke Low back pain Lumbar canal stenosis Lung nodule Nicotine dependence No pertinent family history Osteopenia Right foot drop SDAT (senile dementia of Alzheimer's type) Spinal stenosis Stroke 10/2017- RESIDUAL RIGHT SIDED WEAKNESS REMAINS; ON PLAVIX UTI (urinary tract infection) UTI (urinary tract infection) Vitamin D deficiency Surgical History History of augmentation of both breasts History of back surgery History of bilateral tubal ligation Family History Mother Diabetes Stroke Other No pertinent family history Denies family history of Heart disease Colorectal cancer Hypertension Social History Smoking Status: Current some day smoker Tobacco Type: Cigarettes Cigarettes Per Day: 2; Second Hand Exposure: No; Hx Alcohol Use: No Hx Substance Use: No Preferred Language: French Communication Ability: Effective Visual Impairment: No Limitations [employer] Supervisor Required: No Beliefs That Will Affect Care: None marital status: / Current Living Situation: Personal Care Facility Current Living Situation Comment: Lives at [facility]--assisted living Feels Safe at Home: Yes Safety Concerns: Feels Safe At This Time Assistive Devices: Denture - Upper, Denture - Lower and Walker Allergies Allergies Allergy/AdvReac Type Severity Reaction Status Date / Time metformin AdvReac Intermediate NAUSEA AND Verified 05/28/20 18:17 DIARRHEA varenicline AdvReac Unknown DEPRESSION, Verified 05/28/20 18:17 BAD DREAMS Home Meds Home Medications Medication Instructions Recorded Confirmed ascorbic acid (vitamin C) 500 mg PO BID 08/28/18 05/28/20 PreserVision AREDS 1 cap PO QPM 10/26/19 05/28/20 acetaminophen 500 mg tablet 1,000 mg PO Q8H PRN 10/30/19 05/28/20 albuterol sulfate [Ventolin HFA] 1 puff INHALATION Q6H PRN 10/30/19 05/28/20 Saccharomyces boulardii 250 mg PO BID 05/25/20 05/28/20 cholecalciferol (vitamin D3) 125 mcg PO DAILY 05/25/20 05/28/20 zinc gluconate 50 mg PO BID 05/25/20 05/28/20 clopidogrel [Plavix] 75 mg PO DAILY 05/28/20 05/28/20 coQ10 (ubiquinol) 200 mg PO DAILY 05/28/20 05/28/20 fluticasone furoate-vilanterol 1 ea INHALATION DAILY 05/28/20 05/28/20 [Wilson Lira] glimepiride 2 mg PO HS 05/28/20 05/28/20 glimepiride 3 mg PO DAILY 05/28/20 05/28/20 Previous Rx's Medication Instructions Recorded levothyroxine 100 mcg tablet 100 mcg PO QAM #90 tab 10/13/19 simvastatin 40 mg tablet 40 mg PO HS #90 tab 01/28/20 sitagliptin 100 mg tablet 100 mg PO QAM #90 tab 02/18/20 cefdinir 300 mg PO BID 10 Days #20 cap 05/25/20 Results & Data (ED) Vital Signs Vital Signs - 24 hr 05/28/20 13:45 05/28/20 15:06 05/28/20 15:20 Temperature 37.2 C Temperature Source Oral Pulse Rate 82 77 Pulse Rate [Apical] Pulse Rate from SpO2 Sensor Pulse Rhythm Regular Pulse Strength Normal Respiratory Rate 21 23 Respiratory Effort / Characteristics Non-Labored Spontaneous Respiratory Depth Normal Respiratory Pattern Regular Blood Pressure 152/74 H Blood Pressure [Right Arm] Blood Pressure Mean 100 Blood Pressure Mean [Right Arm] Blood Pressure Position Lying Pulse Oximetry 94 100 Oxygen Delivery Method Room Air Room Air Sepsis Recent Fever Within 48 Hours No Sepsis New/Unexplained Change in Mental Status No Sepsis Action Taken by Nursing No Action Required 05/28/20 15:30 05/28/20 16:27 05/28/20 16:30 Temperature Temperature Source Pulse Rate 79 86 86 Pulse Rate [Apical] Pulse Rate from SpO2 Sensor 86 82 Pulse Rhythm Pulse Strength Respiratory Rate 24 20 18 Respiratory Effort / Characteristics Respiratory Depth Respiratory Pattern Blood Pressure 150/75 H 149/88 H Blood Pressure [Right Arm] Blood Pressure Mean 104 107 Blood Pressure Mean [Right Arm] Blood Pressure Position Pulse Oximetry 99 100 Oxygen Delivery Method Sepsis Recent Fever Within 48 Hours Sepsis New/Unexplained Change in Mental Status Sepsis Action Taken by Nursing 05/28/20 18:01 05/28/20 19:00 Temperature Temperature Source Pulse Rate 71 Pulse Rate [Apical] 71 Pulse Rate from SpO2 Sensor 69 Pulse Rhythm Pulse Strength Respiratory Rate 21 18 Respiratory Effort / Characteristics Respiratory Depth Respiratory Pattern Blood Pressure 159/69 H Blood Pressure [Right Arm] 179/77 H Blood Pressure Mean 77 Blood Pressure Mean [Right Arm] 111 Blood Pressure Position Pulse Oximetry 96 Oxygen Delivery Method Room Air Sepsis Recent Fever Within 48 Hours Sepsis New/Unexplained Change in Mental Status Sepsis Action Taken by Nursing Laboratory Data Result diagrams: 05/28/20 15:27 05/28/20 15:27 Lab Results 05/28/20 05/28/20 05/28/20 Range/Units 15:27 15:27 15:27 WBC 12.72 H (4.8-10.8) K/uL RBC 3.54 L (4.2-5.4) M/uL Hgb 11.6 L (12.0-16.0) g/dL Hct 34.3 L (37-47) % MCV 96.9 (80-100) fL MCH 32.8 (25-34) pg MCHC 33.8 (32-36) g/dL RDW Std Deviation 43.6 (36.4-46.3) fL RDW Coeff of Campbell 12.2 (11.5-14.5) % Plt Count 480 H (130-400) K/uL MPV 9.2 (7.4-10.4) fL Immature Gran % (Auto) 0.4 % Neut % (Auto) 75.4 % Lymph % (Auto) 13.6 % [place] % (Auto) 9.4 % Eos % (Auto) 1.1 % Baso % (Auto) 0.1 % Neut # (Auto) 9.59 H (1.4-6.5) K/uL Lymph # (Auto) 1.73 (1.2-3.4) K/uL [place] # (Auto) 1.20 H (0.11-0.59) K/uL Eos # (Auto) 0.14 (0-0.5) K/uL Baso # (Auto) 0.01 (0-0.2) K/uL Immature Gran # (Auto) 0.05 H (0.00-0.02) K/uL Sodium 137 (136-145) mmol/L Potassium 4.2 (3.5-5.1) mmol/L Chloride 105 (98-107) mmol/L Carbon Dioxide 28 (21-32) mmol/L Anion Gap 4.0 (3-11) BUN 10 (7-18) mg/dl Creatinine 0.57 L (0.6-1.2) mg/dl Est Cr Clr Drug Dosing 69.2 ml/min Est GFR ( Amer) 101.5 Est GFR (Non-Af Amer) 87.6 BUN/Creatinine Ratio 17.8 (10-20) Glucose 81 (70-99) mg/dl Lactate 1.3 (0.4-2.0) mmol/L Calcium 9.4 (8.5-10.1) mg/dl Magnesium 2.1 (1.8-2.4) mg/dl Total Bilirubin 0.5 (0.2-1) mg/dl AST 22 (15-37) U/L ALT 20 (12-78) U/L Alkaline Phosphatase 84 (45-117) U/L Troponin I < 0.015 (0-0.045) ng/ml Total Protein 8.4 H (6.4-8.2) gm/dl Albumin 3.0 L (3.4-5.0) gm/dl Globulin 5.4 H (2.5-4.0) gm/dl Albumin/Globulin Ratio 0.6 L (0.9-2) TSH 0.558 (0.300-4.500) uIu/ml Urine Color Urine Appearance (Clear) Urine pH (4.5-7.5) Ur Specific [place] (1.000-1.030) Urine Protein (Negative) Urine Glucose (UA) (Negative) Urine Ketones (Negative) Urine Blood (Negative) Urine Nitrite (Negative) Urine Bilirubin (Negative) Urine Urobilinogen (Negative) Ur Leukocyte Esterase (Negative) SARS-CoV-2 Ag (Rapid) (Negative) 05/28/20 05/28/20 Range/Units 15:58 16:25 WBC (4.8-10.8) K/uL RBC (4.2-5.4) M/uL Hgb (12.0-16.0) g/dL Hct (37-47) % MCV (80-100) fL MCH (25-34) pg MCHC (32-36) g/dL RDW Std Deviation (36.4-46.3) fL RDW Coeff of [place] (11.5-14.5) % Plt Count (130-400) K/uL MPV (7.4-10.4) fL Immature Gran % (Auto) % Neut % (Auto) % Lymph % (Auto) % [place] % (Auto) % Eos % (Auto) % Baso % (Auto) % Neut # (Auto) (1.4-6.5) K/uL Lymph # (Auto) (1.2-3.4) K/uL [place] # (Auto) (0.11-0.59) K/uL Eos # (Auto) (0-0.5) K/uL Baso # (Auto) (0-0.2) K/uL Immature Gran # (Auto) (0.00-0.02) K/uL Sodium (136-145) mmol/L Potassium (3.5-5.1) mmol/L Chloride (98-107) mmol/L Carbon Dioxide (21-32) mmol/L Anion Gap (3-11) BUN (7-18) mg/dl Creatinine (0.6-1.2) mg/dl Est Cr Clr Drug Dosing ml/min Est GFR ( Amer) Est GFR (Non-Af Amer) BUN/Creatinine Ratio (10-20) Glucose (70-99) mg/dl Lactate (0.4-2.0) mmol/L Calcium (8.5-10.1) mg/dl Magnesium (1.8-2.4) mg/dl Total Bilirubin (0.2-1) mg/dl AST (15-37) U/L ALT (12-78) U/L Alkaline Phosphatase (45-117) U/L Troponin I (0-0.045) ng/ml Total Protein (6.4-8.2) gm/dl Albumin (3.4-5.0) gm/dl Globulin (2.5-4.0) gm/dl Albumin/Globulin Ratio (0.9-2) TSH (0.300-4.500) uIu/ml Urine Color Yellow Urine Appearance Clear (Clear) Urine pH 6.0 (4.5-7.5) Ur Specific [place] 1.023 (1.000-1.030) Urine Protein Negative (Negative) Urine Glucose (UA) Negative (Negative) Urine Ketones Trace H (Negative) Urine Blood Negative (Negative) Urine Nitrite Negative (Negative) Urine Bilirubin Negative (Negative) Urine Urobilinogen Negative (Negative) Ur Leukocyte Esterase Negative (Negative) SARS-CoV-2 Ag (Rapid) Negative (Negative) Administered Medications Ascorbic Acid (Ascorbic Acid 500 Mg Tab) 500 mg PO BID BRINDA Stop: 06/27/20 20:59 Last Admin: 05/28/20 22:11 Dose: 500 mg Documented by: [id number] Multivitamins/Minerals (Cerovite Adv Formula Tab) 1 tab PO QPM BRINDA Stop: 06/27/20 20:59 Last Admin: 05/28/20 22:11 Dose: 1 tab Documented by: [id number] Discontinued Medications Sodium Chloride (Nss) 500 mls @ 999 mls/hr IV .Q31M BRINDA Stop: 05/28/20 15:45 Last Infusion: 05/28/20 18:20 Dose: 0 mls/hr Documented by: [id number] Admin: 05/28/20 17:45 Dose: 999 mls/hr Documented by: [id number] Sodium Chloride (Nss 1000ml) 1,000 mls @ 125 mls/hr IV .Q8H BRINDA Stop: 05/28/20 23:14 Last Admin: 05/28/20 17:45 Dose: 125 mls/hr Documented by: [id number] Ioversol (Ioversol 100ml) 94 ml IV ONCE ONE Stop: 05/28/20 20:27 Last Admin: 05/28/20 20:27 Dose: 94 ml Documented by: [id number] Discharge Plan Visit Data Chief Complaint: Urinary Symptoms ED Provider: Renan Larios Discharge Problem: AMS (altered mental status) Patient Disposition: Admitted As Inpatient Discharge Instructions Interventions: ED Discharge Assessment Last Done: 05/28/20 19:55
[2020-05-28 16:01] LABS: Basophils # (auto) 0.01 K/uL (0-0.2); Basophils % (auto) 0.1 %; Eosinophils # (auto) 0.14 K/uL (0-0.5); Eosinophils % (auto) 1.1 %; Hematocrit (blood only) 34.3 % (37-47); Hemoglobin 11.6 g/dL (12.0-16.0); Immature Granulocytes # (auto) 0.05 K/uL (0.00-0.02); Immature Granulocytes % (auto) 0.4 %; Lymphocytes # (auto) 1.73 K/uL (1.2-3.4); Lymphocytes % (auto) 13.6 %; Mean Corpuscular Hemoglobin 32.8 pg (25-34); Mean Corpuscular Hgb Conc 33.8 g/dL (32-36); Mean Corpuscular Volume 96.9 fL (80-100); Mean Platelet Volume 9.2 fL (7.4-10.4); Monocytes % (auto) 9.4 %; Neutrophils # (auto) 9.59 K/uL (1.4-6.5); Neutrophils % (auto) 75.4 %; Platelet Count 480 K/uL (130-400); RDW Coefficient of Variation 12.2 % (11.5-14.5); RDW Standard Deviation 43.6 fL (36.4-46.3); Red Blood Count 3.54 M/uL (4.2-5.4); White Blood Count 12.72 K/uL (4.8-10.8)
[2020-05-28 16:19] LABS: Alanine Aminotransferase 20 U/L (12-78); Aspartate Aminotransferase 22 U/L (15-37); BUN Creatinine Ratio 17.8 (10-20); Blood Urea Nitrogen 10 mg/dl (7-18); Calcium 9.4 mg/dl (8.5-10.1); Carbon Dioxide 28 mmol/L (21-32); Chloride 105 mmol/L (98-107); Creatinine Clr Calc Pharmacy 69.2 ml/min; Est GFR (African American) 101.5; Est GFR (Non-African American) 87.6; Glucose 81 mg/dl (70-99); Magnesium 2.1 mg/dl (1.8-2.4); Potassium 4.2 mmol/L (3.5-5.1); Sodium 137 mmol/L (136-145)
[2020-05-28 16:29] LABS: Albumin Globulin Ratio 0.6 (0.9-2); Alkaline Phosphatase 84 U/L (45-117); Bilirubin,Total 0.5 mg/dl (0.2-1); Globulin 5.4 gm/dl (2.5-4.0); Thyroid Stimulating Hormone 0.558 uIu/ml (0.300-4.500); Total Protein 8.4 gm/dl (6.4-8.2); Troponin I < 0.015 ng/ml (0-0.045)
[2020-05-28 16:38] LABS: Appearance Urine Clear (Clear); Bilirubin Urine Negative (Negative); Blood Urine Negative (Negative); Color Urine Yellow; Glucose Urine UA Negative (Negative); Ketones Urine Trace (Negative); Leukocyte Esterase Urine Negative (Negative); Nitrite Urine Negative (Negative); Protein Urine Negative (Negative); Specific Gravity Urine 1.023 (1.000-1.030); Urobilinogen Urine Negative (Negative)
--- NOTE | 2020-05-28 16:41 | XRay Report ---
XR chest 1V portable HISTORY: weakness COMPARISON: Chest 05/25/2020. FINDINGS: No pneumothorax. No pleural effusions. The heart is normal in size. No evidence for pulmona ry edema. No new focal lung consolidations to suggest pneumonia. Bilateral breast implants are again noted. No acute fractures. The bones are osteopenic. IMPRESSION: No acute process. ACT 112: Negative or not required by law. Electronically signed by: Adilson Burgess M.D. 05/28/2020 4:40 PM
--- NOTE | 2020-05-28 17:17 | CT Scan Report ---
HEAD CT NONCONTRAST CT DOSE: 614.27 mGy.cm HISTORY: Altered mental status. TECHNIQUE: Multiaxial CT images of the head were performed without the use of intravenous contrast. A utomated exposure control was utilized for this study. A dose lowering technique was utilized adheri ng to the principles of ALARA. Comparison: Head CT 05/25/2020. Findings: The paranasal sinuses and mastoid air cells are clear. The calvarium and skull base are int act. There is no mass, hematoma, midline shift, acute infarct. White matter hypodensity is nonspecifi c but suggestive of moderate microvascular ischemic change. The ventricles and sulci demonstrate mild age-related involutional changes. Old bilateral basal ganglia lacunar infarcts and calcifications re main unchanged. Impression: No significant change compared to the prior study. No acute intracranial abnormality. ACT 112: Negative or not required by law. Electronically signed by: Adilson Burgess M.D. 05/28/2020 5:15 PM
--- NOTE | 2020-05-28 18:45 | History & Physical Report ---
Date of Service May 28, 2020 Assessment & Plan (1) Acute alteration in mental status: Unclear etiology on admission Elevated WBC and generalized weakness and confusion with indicate infective etiology - UA now clear (we will continue treatment with ceftriaxone if no alternative etiology found and c. diff ruled out), follow-up blood cultures, CT abdomen/pelvis with IV contrast to assess diarrhea for possible colitis indicating C. difficile, follow-up C. difficile and stool culture. If above etiology negative for infection will get MRI without contrast to assess for CVA possibly affecting her speech/swallowing causing general malnourishment leading to generalized confusion and weakness. Possible just antibiotic associated diarrhea and malnutrition after UTI (2) Generalized weakness: Bilateral equal upper > lower extremity, no hyperreflexia on exam. Workup as above. (3) Hypothyroidism: TSH WNL Continue levothyroxine 100 mcg PO daily (4) Diabetes mellitus type 2 with complications: HbA1C 6.5. Repeat with AM labs. Hold home diabetes medications. Novolog correction factor only (5) History of CVA (cerebrovascular accident): Continue clopidogrel. Hold simvastatin given generalized weakness. (6) DVT prophylaxis: Given observation status will hold off chemical anticoagulation at the present time. SCDs of dubious benefit and risk of falls with patient with altered mental state. History of Present Illness Primary Care Provider: Marty Mckenna is an 80-year-old female who presents to the ER from assisted living with altered mental status. Unable to get any history from the patient. She is alert but disorientated x3, able to follow simple one-step commands and denies any pain but is generally confused. History taken from previous ER notes and daughter at bedside. Her daughter reports abrupt change in the patient's mental status over the last week. She was brought to the ER 4 days ago for concern for a stroke but the daughter recognize=d her acute confusion as similar to prior occasions with a UTI and urine culture was subsequently positive for E. coli. She was treated with ceftriaxone in the ER and sent back to [facility] cefdinir. Her daughter reports she has had some diarrhea but basically never rebounded how she usually dose after a UTI. ER note reports she was back to her baseline in the ER however this is disputed by her daughter who reports she has never improved from whatever occurred a week ago. She is now bilaterally week and unable to get up from bed. Occasionally says the odd word. Her daughter does not think she has been eating. Patient's baseline is conversational, mobilizes with a walker. She is currently far from her baseline mental status. She does report the patient had a stroke affecting her right side many years ago but had good recovery from this. Allergies Allergy/AdvReac Type Severity Reaction Status Date / Time metformin AdvReac Intermediate NAUSEA AND Verified 05/28/20 18:17 DIARRHEA varenicline AdvReac Unknown DEPRESSION, Verified 05/28/20 18:17 BAD DREAMS Home Medications Medication Instructions Recorded Confirmed Type ascorbic acid (vitamin C) 500 mg PO BID 08/28/18 05/28/20 History levothyroxine 100 mcg tablet 100 mcg PO QAM #90 tab 10/13/19 05/28/20 Rx PreserVision AREDS 1 cap PO QPM 10/26/19 05/28/20 History acetaminophen 500 mg tablet 1,000 mg PO Q8H PRN 10/30/19 05/28/20 History albuterol sulfate [Ventolin HFA] 1 puff INHALATION Q6H PRN 10/30/19 05/28/20 History simvastatin 40 mg tablet 40 mg PO HS #90 tab 01/28/20 05/28/20 Rx sitagliptin 100 mg tablet 100 mg PO QAM #90 tab 02/18/20 05/28/20 Rx Saccharomyces boulardii 250 mg PO BID 05/25/20 05/28/20 History cefdinir 300 mg PO BID 10 Days #20 cap 05/25/20 05/28/20 Rx cholecalciferol (vitamin D3) 125 mcg PO DAILY 05/25/20 05/28/20 History zinc gluconate 50 mg PO BID 05/25/20 05/28/20 History clopidogrel [Plavix] 75 mg PO DAILY 05/28/20 05/28/20 History coQ10 (ubiquinol) 200 mg PO DAILY 05/28/20 05/28/20 History fluticasone furoate-vilanterol 1 ea INHALATION DAILY 05/28/20 05/28/20 History [Breo Ellipta] glimepiride 2 mg PO HS 05/28/20 05/28/20 History glimepiride 3 mg PO DAILY 05/28/20 05/28/20 History Past Med/Surg History Medical History (Updated 05/29/20 @ 07:27 by Ludwin Tarango MD) Acute bronchitis Acute respiratory failure with hypoxia Allergic rhinitis due to dust Allergic rhinitis due to pollen Anemia Carotid artery plaque Chest pain Chronic back pain RLE/HIP RADIATION Chronic obstructive pulmonary disease STABLE COPD exacerbation Depression Diabetes mellitus type 2 with complications Diabetes mellitus with neuropathy Diabetes mellitus, type 2 NIDDM Disc degeneration, lumbar Discoid lupus erythematosus Diverticular disease Diverticulosis Emphysema, unspecified Eye swelling, right Gallstones Hyperlipidemia Hyperplastic colon polyp Hypertension Hypothyroidism Insomnia Ischemic stroke Low back pain Lumbar canal stenosis Lung nodule Nicotine dependence No pertinent family history Osteopenia Right foot drop SDAT (senile dementia of Alzheimer's type) Spinal stenosis Stroke 10/2017- RESIDUAL RIGHT SIDED WEAKNESS REMAINS; ON PLAVIX UTI (urinary tract infection) UTI (urinary tract infection) Vitamin D deficiency Surgical History History of augmentation of both breasts History of back surgery History of bilateral tubal ligation Family History Mother Diabetes Stroke Other No pertinent family history Denies family history of Heart disease Colorectal cancer Hypertension Social History Smoking Status: Current some day smoker Tobacco Type: Cigarettes Cigarettes Per Day: 2; Second Hand Exposure: No; Hx Alcohol Use: No Hx Substance Use: No Preferred Language: Maori Communication Ability: Effective Visual Impairment: No Limitations Call Centre Supervisor Required: No Beliefs That Will Affect Care: None marital status: / Current Living Situation: Personal Care Facility Current Living Situation Comment: Lives at [facility]--assisted living Feels Safe at Home: Yes Safety Concerns: Feels Safe At This Time Assistive Devices: Denture - Upper, Denture - Lower and Walker Review of Systems Review of Systems: Unobtainable due to cognitive status Physical Exam Constitutional: well developed and + cachectic; + not well nourished and no acute distress Eyes: PERRL, conjunctivae normal, anicteric sclerae ENMT: Mouth: + dry oral mucous membranes; no oral mucosal abnormality (No thrush) Neck: trachea midline, no thyromegaly Respiratory: normal respiratory effort, lungs clear to auscultation (Poor inspiratory effort) Cardiovascular: RRR, no murmur, no edema Gastrointestinal (Abdomen): normal bowel sounds, soft, nontender, no hepatosplenomegaly Musculoskeletal: no cyanosis or clubbing, extremities motor strength 5/5 Skin: no rashes, warm and dry (No areas of cellulitis) Neurologic: moves all extremities, awake (Slowly follows one-step commands) and + confused; no focal motor deficits (No lateralizing weakness) Speech / Cognition: + abnormal speech (Says any a few words) Motor/Sensory: + tremor; no pronator drift Cranial Nerves: normal facial strength Psychiatric: Orientation: alert; + not oriented x 3 Genitourinary: no CVA tenderness Results & Data Results & Data ([facility]) Vital Signs (Past 12 Hours) Vital Signs Temp Pulse Resp BP Pulse Ox 05/28/20 18:01 71 21 159/69 H 05/28/20 16:30 86 18 149/88 H 100 05/28/20 16:27 86 20 150/75 H 99 05/28/20 15:30 79 24 05/28/20 15:20 77 23 05/28/20 15:06 100 05/28/20 13:45 37.2 C 82 21 152/74 H [address] NONCONTRAST Impression: No significant change compared to the prior study. No acute intracranial abnormality. XR chest 1V portable IMPRESSION: No acute process. Medications Administered ECG Indication: altered mental status Rate (beats per minute): 82 Rhythm: normal sinus Findings: + RBBB (Incomplete) Comparison ECG Date: from (May 25, 2020) Change: no significant change Code Status & VTE Plan Code Status DNR/DNI VTE Prophylaxis Plan VTE Prophylaxis will be ordered: Yes PG Care Time/CCT Total # of Minutes Spent Total Time Spent with Patient: Total time spent is greater than 50% in coordination of care (as documented) at patient's floor/unit and/or counseling patient: Coding Level of Care Code 15123 OBS Care - Level 3 Diagnoses Acute alteration in mental status R41.82 Generalized weakness R53.1 Hypothyroidism E03.9 Hypothyroidism type: unspecified Diabetes mellitus type 2 with complications E11.8 History of CVA (cerebrovascular accident) Z86.73 DVT prophylaxis Z29.9 (1) Hypothyroidism Hypothyroidism type: unspecified Qualified Code(s): E03.9 - Hypothyroidism, unspecified
[2020-05-28] MEDS ORDERED: IOVERSOL 100ml IV ONE (20:26)
[2020-05-28] MEDS: ASCORBIC ACID 500 MG TAB PO SCH (22:11)
[2020-05-28] MEDS: CEROVITE ADV FORMULA TAB PO SCH (22:11)
[2020-05-29] MEDS: LEVOTHYROXINE SODIUM 100 MCG TABLET PO SCH (06:00)
[2020-05-29] MEDS ORDERED: GLUCOSE 10 TABS/TUBE PO PRN (07:24)
[2020-05-29] MEDS ORDERED: DEXTROSE 50% 50 ML SYRINGE IV PRN (07:24)
[2020-05-29] MEDS ORDERED: GLUCOSE 40% GEL 15 GM TUBE PO PRN (07:24)
[2020-05-29] MEDS ORDERED: GLUCAGON FOR INJ 1 MG VIAL SQ PRN (07:24)
[2020-05-29] MEDS ORDERED: CARBOHYDRATES FOR HYPOGLYCEMIA PO PRN (07:24)
[2020-05-29] MEDS ORDERED: LACTATED RINGER'S 1,000 ML IV SCH (07:30)
--- NOTE | 2020-05-29 07:33 | CT Scan Report ---
ABDOMEN AND PELVIS CT WITH IV CONTRAST CT DOSE: 233.29 mGycm HISTORY: diarrhea, ?colitis TECHNIQUE: Multiaxial CT images of the abdomen and pelvis were performed following the use of intrave nous contrast. A dose lowering technique was utilized adhering to the principles of ALARA. COMPARISON STUDY: Abdomen and pelvis CT 10/26/2019. FINDINGS: Mild motion artifact. Small patchy densities within the lung bases posteriorly. This favors mild dependent change. No pneumoperitoneum. No pneumatosis. Internal fixation hardware noted within the proximal right femur. Stable sclerotic focus within the left posterior iliac bone. This favors a bone island. Old compression deformity at T12 is again noted. Cholelithiasis. The liver, pancreas, sp idalia, and adrenal glands unremarkable. There is a duplicated IVC. Severe calcified plaque within the normal caliber abdominal aorta. No retroperitoneal lymphadenopathy. No hydronephrosis. Stable 7 mm hy podense lesion within the left kidney. This is technically too small to characterize but favors a cys t. The bladder, uterus, bilateral adnexa are within normal limits. Colonic diverticulosis. No evidenc e for acute diverticulitis. No bowel wall thickening or obstruction. The visualized appendix is unrem arkable. IMPRESSION: 1. Motion artifact. 2. No definite bowel wall thickening or obstruction. 3. Colonic diverticulosis. No evidence for acute diverticulitis. 4. Cholelithiasis. 5. Additional findings as described above. ACT 112: Negative or not required by law. Electronically signed by: Adilson Burgess M.D. 05/29/2020 7:31 AM
[2020-05-29 07:48] LABS: Basophils # (auto) 0.02 K/uL (0-0.2); Basophils % (auto) 0.2 %; Eosinophils # (auto) 0.08 K/uL (0-0.5); Eosinophils % (auto) 0.7 %; Hematocrit (blood only) 33.2 % (37-47); Hemoglobin 10.9 g/dL (12.0-16.0); Immature Granulocytes # (auto) 0.04 K/uL (0.00-0.02); Immature Granulocytes % (auto) 0.4 %; Lymphocytes # (auto) 1.32 K/uL (1.2-3.4); Lymphocytes % (auto) 11.8 %; Mean Corpuscular Hemoglobin 32.1 pg (25-34); Mean Corpuscular Hgb Conc 32.8 g/dL (32-36); Mean Corpuscular Volume 97.6 fL (80-100); Mean Platelet Volume 9.2 fL (7.4-10.4); Monocytes # (auto) 0.92 K/uL (0.11-0.59); Monocytes % (auto) 8.3 %; Neutrophils # (auto) 8.76 K/uL (1.4-6.5); Neutrophils % (auto) 78.6 %; Platelet Count 439 K/uL (130-400); RDW Coefficient of Variation 12.3 % (11.5-14.5); RDW Standard Deviation 43.7 fL (36.4-46.3); White Blood Count 11.14 K/uL (4.8-10.8)
[2020-05-29 08:24] LABS: Albumin Level 2.5 gm/dl (3.4-5.0); BUN Creatinine Ratio 13.6 (10-20); Calcium 8.8 mg/dl (8.5-10.1); Est GFR (African American) 108.9; Potassium 3.8 mmol/L (3.5-5.1)
[2020-05-29 08:28] LABS: Albumin Globulin Ratio 0.6 (0.9-2); Bilirubin,Total 0.5 mg/dl (0.2-1); Globulin 4.3 gm/dl (2.5-4.0); Total Protein 6.8 gm/dl (6.4-8.2)
[2020-05-29] MEDS: INSULIN ASPART 100 UNITS/ML 3 ML PEN SC SCH ×4 (08:41→21:34)
[2020-05-29] MEDS: FLUTICASONE/VILANTEROL 100/25MCG 14 PUFFS/INHALER INH SCH (08:42)
[2020-05-29] MEDS: ASCORBIC ACID 500 MG TAB PO SCH ×2 (08:42→20:30)
[2020-05-29] MEDS: CLOPIDOGREL BISULFATE 75 MG TAB PO SCH (08:42)
[2020-05-29] MEDS: CHOLECALCIFEROL 1,000 UNITS 25 MCG TAB PO SCH (08:42)
[2020-05-29 09:50] LABS: Estimated Average Glucose 151 mg/dl; Hemoglobin A1C 6.9 % (4.5-5.6)
--- NOTE | 2020-05-29 10:25 | Magnetic Resonance Report ---
MRI OF THE BRAIN WITHOUT IV CONTRAST CLINICAL HISTORY: Expressive dysphasia. COMPARISON STUDY: CT of the brain dated 05/28/2020. TECHNIQUE: MRI of the brain was performed utilizing various T1 and T2-weighted sequences in the axial , sagittal, and coronal planes. IV contrast was not administered for this examination. FINDINGS: Brain parenchyma: There is age-related involutional change noting advanced confluent subcortical and periventricular microangiopathic disease. Mineralization is noted in the basal ganglia. There is no h emorrhage or mass effect. There is no restricted diffusion to suggest acute ischemia. Rodriguez-white candelario er differentiation is preserved. No extra-axial fluid collection is seen. Chronic lacunar infarcts ar e noted in the periventricular white matter. The cerebellar tonsils are normal in configuration. Ventricles, sulci, and cisterns: Prominent secondary to involutional change. Pituitary and sella: Unremarkable. Intracranial vasculature: Normal flow voids are maintained at the skull base. Orbits: The bony orbits are grossly intact. Orbital contents are normal in appearance noting bilatera l ocular lens implants. Sinuses and mastoids: The paranasal sinuses are clear. There are small mastoid effusions. Calvarium: Unremarkable. Cervical cord: Partially visualized cervical spinal cord is normal in morphology and signal intensity . IMPRESSION: No acute intracranial abnormality. ACT 112: Negative or not required by law. Electronically signed by: David Alford M.D. 05/29/2020 10:23 AM
--- NOTE | 2020-05-29 14:28 | Hospitalist Progress Note ---
Date of Service May 29, 2020 Assessment & Plan (1) Acute alteration in mental status: Unclear etiology on admission; however she has baseline dementia. At this moment, patient appears confused, but this likely is her baseline after conversation with her son Eric on the phone. She is slow to answer question but does answer and she was oriented to her name and time (month and year). She does have elevated WBC, and will continue oral cefdinir. will hold further fluids at this time as LR is not compatible with Ceftriaxone (in case patient requires IV antibiotics) and her labs appear normal. No diarrhea at this time. If this reoccurs will obtain stool specimen for c diff. MRI of brain was negative. procal negative. finish antibiotics on 06/05. (2) Generalized weakness: Bilateral equal upper > lower extremity, no hyperreflexia on exam. Workup as above. will obtain PT and OT evals prior to discharge. (3) Hypothyroidism: TSH WNL Continue levothyroxine 100 mcg PO daily (4) Diabetes mellitus type 2 with complications: HbA1C 6.5. Repeat with AM labs. Hold home diabetes medications. Novolog correction factor only (5) History of CVA (cerebrovascular accident): Continue clopidogrel. Hold simvastatin given generalized weakness. (6) DVT prophylaxis: Given observation status will hold off chemical anticoagulation at the present time. SCDs of dubious benefit and risk of falls with patient with altered mental state. Admission and Anticipated Discharge Date Admission Date: May 28, 2020 Subjective Patient was slow to answer questions. But today she was aware of the month and year. She had no complaints for me: no pain, nausea, vomiting, dysuria, change in vision. Had discussion with Eric on the phone: he reports that she wa sdiagnosed with dementia and from what I described appears to be her baseline. Review of Systems Review of Systems: Unobtainable due to cognitive status Physical Exam Physical Exam: Constitutional: well developed and + frail appearing; no acute distress Eyes: + anicteric sclerae; normal pupil size ENMT: external ear and nose normal, oropharynx normal Neck: normal visual inspection Respiratory: normal respiratory effort, lungs clear to auscultation no respiratory distress Cardiovascular: RRR, no murmur, no edema Gastrointestinal (Abdomen): Percussion/Palpation: abdomen soft; abdomen nontender Skin: no rashes, warm and dry Neurologic: moves all extremities (follows a few simple commands) and awake Psychiatric: Orientation: alert and cooperative; + oriented to person and time (knows month and year) Results & Data Results & Data ([facility]) Vital Signs (Past 12 Hours) Vital Signs Temp Pulse Pulse Resp BP Pulse Ox 05/29/20 08:30 75 05/29/20 07:55 37.0 C 61 19 144/73 H 90 05/29/20 03:55 36.5 C 75 16 153/69 H 95 PG Care Time/CCT Total # of Minutes Spent Total Time Spent with Patient: Total time spent is greater than 50% in coordination of care (as documented) at patient's floor/unit and/or counseling patient: Coding Level of Care Code 32293 Subseq Hosp Care Lvl 3 Diagnoses Acute alteration in mental status R41.82 Generalized weakness R53.1 Hypothyroidism E03.9 Hypothyroidism type: unspecified Diabetes mellitus type 2 with complications E11.8 History of CVA (cerebrovascular accident) Z86.73 DVT prophylaxis Z29.9 (1) Hypothyroidism Hypothyroidism type: unspecified Qualified Code(s): E03.9 - Hypothyroidism, unspecified
[2020-05-29] MEDS ORDERED: SODIUM CHLORIDE 0.9% 1000ML 1,000 ML IV SCH (14:30)
[2020-05-29] MEDS ORDERED: CEFDINIR 300 MG CAP PO ONE (15:00)
[2020-05-29] MEDS ORDERED: ACETAMINOPHEN 325 MG TAB PO PRN (20:23)
[2020-05-29] MEDS: CEROVITE ADV FORMULA TAB PO SCH (20:30)
[2020-05-29] MEDS: CEFDINIR 300 MG CAP PO SCH (20:30)
[2020-05-30] MEDS: LEVOTHYROXINE SODIUM 100 MCG TABLET PO SCH (06:06)
[2020-05-30 06:09] LABS: Basophils # (auto) 0.01 K/uL (0-0.2); Basophils % (auto) 0.1 %; Hematocrit (blood only) 32.5 % (37-47); Hemoglobin 10.8 g/dL (12.0-16.0); Immature Granulocytes # (auto) 0.03 K/uL (0.00-0.02); Immature Granulocytes % (auto) 0.3 %; Lymphocytes # (auto) 1.33 K/uL (1.2-3.4); Lymphocytes % (auto) 13.8 %; Mean Corpuscular Hemoglobin 31.9 pg (25-34); Mean Corpuscular Hgb Conc 33.2 g/dL (32-36); Mean Corpuscular Volume 95.9 fL (80-100); Monocytes # (auto) 0.83 K/uL (0.11-0.59); Monocytes % (auto) 8.6 %; Neutrophils # (auto) 7.33 K/uL (1.4-6.5); Neutrophils % (auto) 76.2 %; Platelet Count 408 K/uL (130-400); RDW Coefficient of Variation 12.3 % (11.5-14.5); RDW Standard Deviation 43.3 fL (36.4-46.3); Red Blood Count 3.39 M/uL (4.2-5.4); White Blood Count 9.63 K/uL (4.8-10.8)
[2020-05-30 06:35] LABS: BUN Creatinine Ratio 11.2 (10-20); Calcium 8.5 mg/dl (8.5-10.1); Creatinine Clr Calc Pharmacy 95.7 ml/min; Est GFR (Non-African American) 99.2; Potassium 3.6 mmol/L (3.5-5.1)
[2020-05-30] MEDS: ASCORBIC ACID 500 MG TAB PO SCH ×2 (08:27→20:15)
[2020-05-30] MEDS: CLOPIDOGREL BISULFATE 75 MG TAB PO SCH (08:27)
[2020-05-30] MEDS: CEFDINIR 300 MG CAP PO SCH ×2 (08:27→20:15)
[2020-05-30] MEDS: FLUTICASONE/VILANTEROL 100/25MCG 14 PUFFS/INHALER INH SCH (08:27)
[2020-05-30] MEDS: CHOLECALCIFEROL 1,000 UNITS 25 MCG TAB PO SCH (08:27)
[2020-05-30] MEDS: INSULIN ASPART 100 UNITS/ML 3 ML PEN SC SCH ×4 (08:28→21:15)
--- NOTE | 2020-05-30 14:00 | Hospitalist Progress Note ---
Date of Service May 30, 2020 Assessment & Plan (1) Acute alteration in mental status: Unclear etiology on admission; however she has baseline dementia. At this moment, patient appears confused, but this likely is her baseline. - Continue oral cefdinir. - MRI of brain was negative for acute stroke on 05/28. - Finish antibiotics on 06/03. - Plan for discharge back home on 05/31. (2) Generalized weakness: Bilateral equal upper > lower extremity, no hyperreflexia on exam. - Workup as above. - Will obtain PT and OT evals prior to discharge. (3) Hypothyroidism: TSH was WNL this admission. - Continue levothyroxine 100 mcg PO daily (4) Diabetes mellitus type 2 with complications: HbA1C was 6.9% this admission. - Hold home diabetes medications. - Novolog correction factor only - Blood sugars in the 130 - 170 in the last 24 hours. (5) History of CVA (cerebrovascular accident): As above, no indication of recent stroke. - Continue clopidogrel. - Hold simvastatin given generalized weakness. (6) DVT prophylaxis: [facility] Admission and Anticipated Discharge Date Admission Date: May 29, 2020 Subjective Reports she is "tired" today, but otherwise reports no fevers/chills, chest pain, shortness of breath, abdominal pain, nausea, or vomiting. Physical Exam Constitutional: WD/WN, vitals as above Eyes: EOM intact bilaterally; no conjunctival abnormality ENMT: external ear and nose normal, oropharynx normal Neck: trachea midline, no thyromegaly normal visual inspection Respiratory: normal respiratory effort, lungs clear to auscultation no respiratory distress Cardiovascular: RRR, no murmur, no edema Gastrointestinal (Abdomen): Inspection/Auscultation: abdomen normal to inspection; abdomen not distended Musculoskeletal: no cyanosis or clubbing, extremities motor strength 5/5 Skin: no rashes, warm and dry Neurologic: moves all extremities and awake Psychiatric: Orientation: alert, oriented to person and cooperative Results & Data Results & Data ([facility]) Vital Signs (Past 12 Hours) Vital Signs Temp Pulse Pulse Resp BP Pulse Ox 05/30/20 08:07 36.8 C 67 18 153/78 H 92 05/30/20 07:15 61 05/30/20 03:52 36.6 C 67 18 162/66 H 91 PG Care Time/CCT Total # of Minutes Spent Total Time Spent with Patient: Total time spent is greater than 50% in coordination of care (as documented) at patient's floor/unit and/or counseling patient: Coding Level of Care Code 84492 Subseq Hosp Care Lvl 2 Diagnoses Acute alteration in mental status R41.82 Generalized weakness R53.1 Hypothyroidism E03.9 Hypothyroidism type: unspecified Diabetes mellitus type 2 with complications E11.8 History of CVA (cerebrovascular accident) Z86.73 DVT prophylaxis Z29.9 (1) Hypothyroidism Hypothyroidism type: unspecified Qualified Code(s): E03.9 - Hypothyroidism, unspecified
[2020-05-30] MEDS: CEROVITE ADV FORMULA TAB PO SCH (20:15)
[2020-05-31] MEDS: LEVOTHYROXINE SODIUM 100 MCG TABLET PO SCH (04:48)
[2020-05-31 06:49] LABS: Hematocrit (blood only) 31.9 % (37-47); Hemoglobin 10.8 g/dL (12.0-16.0); Mean Corpuscular Hemoglobin 32.2 pg (25-34); Mean Corpuscular Hgb Conc 33.9 g/dL (32-36); Mean Corpuscular Volume 95.2 fL (80-100); Mean Platelet Volume 9.1 fL (7.4-10.4); Platelet Count 467 K/uL (130-400); RDW Coefficient of Variation 12.3 % (11.5-14.5); RDW Standard Deviation 42.8 fL (36.4-46.3); Red Blood Count 3.35 M/uL (4.2-5.4); White Blood Count 9.82 K/uL (4.8-10.8)
[2020-05-31 07:20] LABS: BUN Creatinine Ratio 18.9 (10-20); Calcium 9.1 mg/dl (8.5-10.1); Creatinine Clr Calc Pharmacy 99.7 ml/min; Est GFR (Non-African American) 100.9; Magnesium 1.8 mg/dl (1.8-2.4); Potassium 3.7 mmol/L (3.5-5.1)
[2020-05-31] MEDS: CHOLECALCIFEROL 1,000 UNITS 25 MCG TAB PO SCH (08:00)
[2020-05-31] MEDS: CEFDINIR 300 MG CAP PO SCH (08:00)
[2020-05-31] MEDS: ASCORBIC ACID 500 MG TAB PO SCH (08:00)
[2020-05-31] MEDS: FLUTICASONE/VILANTEROL 100/25MCG 14 PUFFS/INHALER INH SCH (08:00)
[2020-05-31] MEDS: CLOPIDOGREL BISULFATE 75 MG TAB PO SCH (08:00)
[2020-05-31] MEDS: INSULIN ASPART 100 UNITS/ML 3 ML PEN SC SCH ×2 (08:16→12:18)
--- NOTE | 2020-05-31 17:16 | Discharge Summary ---
Date of Service May 31, 2020 Admission HPI Per Admitting Provider Chaz Mckenna is an 80-year-old female who presents to the ER from assisted living with altered mental status. Unable to get any history from the patient. She is alert but disorientated x3, able to follow simple one-step commands and denies any pain but is generally confused. History taken from previous ER notes and daughter at bedside. Her daughter reports abrupt change in the patient's mental status over the last week. She was brought to the ER 4 days ago for concern for a stroke but the daughter recognize=d her acute confusion as similar to prior occasions with a UTI and urine culture was subsequently positive for E. coli. She was treated with ceftriaxone in the ER and sent back to assisted living on cefdinir. Her daughter reports she has had some diarrhea but basically never rebounded how she usually dose after a UTI. ER note reports she was back to her baseline in the ER however this is disputed by her daughter who reports she has never improved from whatever occurred a week ago. She is now bilaterally week and unable to get up from bed. Occasionally says the odd word. Her daughter does not think she has been eating. Patient's baseline is conversational, mobilizes with a walker. She is currently far from her baseline mental status. She does report the patient had a stroke affecting her right side many years ago but had good recovery from this. Principal Diagnosis Altered mental status Discharge Exam Constitutional WD/WN, vitals as above Eyes EOM intact bilaterally; no conjunctival abnormality ENMT external ear and nose normal, oropharynx normal Neck trachea midline, no thyromegaly normal visual inspection Respiratory normal respiratory effort, lungs clear to auscultation no respiratory distress Cardiovascular RRR, no murmur, no edema Gastrointestinal (Abdomen) Inspection/Auscultation: abdomen normal to inspection; abdomen not distended Musculoskeletal no cyanosis or clubbing, extremities motor strength 5/5 Skin no rashes, warm and dry Neurologic moves all extremities and awake Psychiatric Orientation: alert, oriented to person and cooperative Discharge Data Allergies Allergy/AdvReac Type Severity Reaction Status Date / Time metformin AdvReac Intermediate NAUSEA AND Verified 05/28/20 18:17 DIARRHEA varenicline AdvReac Unknown DEPRESSION, Verified 05/28/20 18:17 BAD DREAMS Consultations 05/28/20 18:20 ED Decision to Admit Stat Ordered Studies 05/28/20 CT head/brain wo con Stat 05/28/20 18:32 CT abd pelvis IV con only Stat 05/28/20 22:17 MR brain wo con Routine Hospital Course (1) Acute alteration in mental status: Unclear etiology on admission; however she has baseline dementia. At this moment, patient appears confused, but this likely is her baseline. - Continue oral cefdinir. - MRI of brain was negative for acute stroke on 05/28. - Finish antibiotics on 06/03. - Possibly hypoglycemia? She is on medium-dose glimepiride, and her A1c is only 6.9%. Held evening dose in hopes that this improves any episodes of altered mental status. (2) Generalized weakness: Bilateral equal upper > lower extremity, no hyperreflexia on exam. - Workup as above. (3) Hypothyroidism: TSH was WNL this admission. - Continue levothyroxine 100 mcg PO daily (4) Diabetes mellitus type 2 with complications: HbA1C was 6.9% this admission. - Held home diabetes medications while inpatient. - Novolog correction factor only - Only really needed 1-2 units of insulin at any time. - STOPPED evening dose of glimepiride in case hypoglycemic events were possibly causing altered mental status. (5) History of CVA (cerebrovascular accident): As above, no indication of recent stroke. - Continue clopidogrel. - Held simvastatin given generalized weakness, but I don't think this is really a big cause. (6) DVT prophylaxis: SCDs Total Time Total Time Spent Total Time Spent (In Minutes): 35 Discharge Plan Discharge Items Patient Disposition: Personal Usp Reason For Visit: ALTERED MENTAL STATUS Discharge Diagnosis: Altered mental status Activity: Resume your previous activity Non-emergency contact: Primary Care Provider Call non-emergency contact if: your symptoms worsen Follow-up/Referrals: Marty Saldaña [Primary Care Provider] - (CALLED DR SALDAÑA'S OFFICE AND NED[place] STATED PATIENT WILL SEE M.D. IN RETIREMENT ROTATION.) Diet: Heart Healthy Addtl Attending Provider Instructions: Ms. Mckenna was admitted for altered mental status; however, we did not find a source. Urine and blood were tested and did not indicate ongoing infection that was not being covered by the oral antibiotics from the urology team. An MRI of the brain showed some chronic (long-standing), small strokes, but no clear-cut new stroke. A CT scan of the abdomen and pelvis did not show any intestinal issues. One possibility would be a low blood sugar. Glimepiride can cause low blood sugars if people aren't eating as much. Doses higher than 4 mg a day have relatively small positive benefit, so holding the evening dose may help and will have very little downside in terms of blood sugar levels. Pending Studies at Discharge: No Stand-Alone Forms: [employer], Smoking Cessation Skilled Items Patient informed of condition?: No DNR: Yes Discharge Level of Care: Other Communicable Disease: No Discharge Prognosis: Stable Lines: None Urinary Catheter: No Medications and DC Order Prescriptions: Continued levothyroxine 100 mcg tablet 100 mcg PO QAM Qty: 90 RF: 3 simvastatin [Zocor] 40 mg tablet 40 mg PO HS Qty: 90 RF: 3 Januvia 100 mg tablet 100 mg PO QAM Qty: 90 RF: 3 acetaminophen [Tylenol Extra Strength] 500 mg tablet 1,000 mg PO Q8H PRN (Reason: Pain) RF: 0 albuterol sulfate [Ventolin HFA] 90 mcg/actuation HFA aerosol inhaler 1 puff INHALATION Q6H PRN (Reason: Wheezing) RF: 0 ascorbic acid (vitamin C) 500 mg Tablet 500 mg PO BID RF: 0 PreserVision AREDS [id number] Capsule 1 cap PO QPM RF: 0 cefdinir 300 mg capsule 300 mg PO BID 10 Days Qty: 20 RF: 0 Saccharomyces boulardii 250 mg Capsule 250 mg PO BID RF: 0 cholecalciferol (vitamin D3) 125 mcg (5,000 unit) Tablet 125 mcg PO DAILY RF: 0 zinc gluconate 50 mg Tablet 50 mg PO BID RF: 0 clopidogrel [Plavix] 75 mg tablet 75 mg PO DAILY RF: 0 glimepiride 2 mg tablet 3 mg PO DAILY RF: 0 coQ10 (ubiquinol) 200 mg Capsule 200 mg PO DAILY RF: 0 Breo Ellipta 100-25 mcg/dose blister with device 1 ea INHALATION DAILY RF: 0 Discontinued glimepiride 2 mg tablet 2 mg PO HS RF: 0 Discharge Orders: Discharge Order (Routine); Ordered 05/31/20 Ordered By: Talat Mcgill Admission Data Admit Date/Time: 05/29/20 21:37 Attending Provider: Talat Mcgill Admit Provider: Ludwin Tarango Primary Care Provider: Marty Saldaña Other Providers: Ludwin Tarango Other Interventions: Discharge Summary Assessment (RN) Last Done: 05/31/20 13:28 Coding Level of Care Code D/C Day Management >30 mins Diagnoses Acute alteration in mental status R41.82 Generalized weakness R53.1 Hypothyroidism E03.9 Hypothyroidism type: unspecified Diabetes mellitus type 2 with complications E11.8 History of CVA (cerebrovascular accident) Z86.73 DVT prophylaxis Z29.9
== END 2020-05-31 14:36 | disposition home or self-care (01) | DRG 638 ==
LOC: 2W 13:41 → ED 13:41 → SUATTDRO 19:39 → 2W 19:55 → SUATTDRO 05-29 21:37 → 2W 05-31 01:05

== ENCOUNTER 2020-12-28 06:11 | Inpatient (IN) ==
[2020-12-28 06:33] LABS: Basophils # (auto) 0.03 K/uL (0-0.2); Basophils % (auto) 0.3 %; Eosinophils # (auto) 0.13 K/uL (0-0.5); Eosinophils % (auto) 1.3 %; Hematocrit (blood only) 40.1 % (37-47); Hemoglobin 13.4 g/dL (12.0-16.0); Immature Granulocytes # (auto) 0.02 K/uL (0.00-0.02); Immature Granulocytes % (auto) 0.2 %; Lymphocytes # (auto) 1.95 K/uL (1.2-3.4); Lymphocytes % (auto) 19.8 %; Mean Corpuscular Hemoglobin 32.7 pg (25-34); Mean Corpuscular Hgb Conc 33.4 g/dL (32-36); Mean Corpuscular Volume 97.8 fL (80-100); Mean Platelet Volume 10.4 fL (7.4-10.4); Monocytes % (auto) 8.1 %; Neutrophils # (auto) 6.94 K/uL (1.4-6.5); Neutrophils % (auto) 70.3 %; Platelet Count 268 K/uL (130-400); RDW Coefficient of Variation 13.3 % (11.5-14.5); RDW Standard Deviation 47.7 fL (36.4-46.3); White Blood Count 9.87 K/uL (4.8-10.8)
[2020-12-28 06:42] LABS: Appearance Urine Clear (Clear); Bacteria Urine Automated 4+ (Negative); Bilirubin Urine Negative (Negative); Blood Urine Negative (Negative); Color Urine Yellow; Epithelial Cell Urine Auto 0-5 /lpf (0-5); Glucose Urine UA Negative (Negative); Ketones Urine Negative (Negative); Leukocyte Esterase Urine 1+ (Negative); Nitrite Urine Positive (Negative); Protein Urine Negative (Negative); RBC Urine Automated 0-4 /hpf (0-4); Specific Gravity Urine 1.015 (1.000-1.030); Urobilinogen Urine Negative (Negative); WBC Urine Automated >30 /hpf (0-5); pH Urine 6.5 (4.5-7.5)
[2020-12-28 06:45] LABS: Partial Thromboplastin Time 25.6 Seconds (21.0-31.0); Prothrombin Time 10.6 Seconds (9.0-12.0)
[2020-12-28 06:53] LABS: Alanine Aminotransferase 21 U/L (12-78); Albumin Level 3.8 gm/dl (3.4-5.0); Aspartate Aminotransferase 19 U/L (15-37); Blood Urea Nitrogen 18 mg/dl (7-18); Calcium 9.3 mg/dl (8.5-10.1); Carbon Dioxide 28 mmol/L (21-32); Chloride 110 mmol/L (98-107); Creatinine Clr Calc Pharmacy 67.1 ml/min; Est GFR (African American) 97.2 ml/min; Est GFR (Non-African American) 83.9 ml/min; Glucose 175 mg/dl (70-99); Potassium 3.8 mmol/L (3.5-5.1); Sodium 141 mmol/L (136-145)
--- NOTE | 2020-12-28 06:55 | XRay Report ---
XR chest 1V portable HISTORY: 80 years-old Female Confusion acutely altered mental status COMPARISON: Chest radiograph 05/28/2020 TECHNIQUE: Portable AP view of the chest FINDINGS: Calcified bilateral breast implants. The cardiomediastinal and hilar silhouettes are within normal li mits. There is no pneumothorax, pleural effusion, airspace consolidation or overt pulmonary edema. Le ft shoulder rotator cuff calcific tendinosis versus calcific bursitis. Degenerative changes of the sh oulders and spine. IMPRESSION: No acute process. ACT 112: Negative or not required by law. The above report was generated using voice recognition software. It may contain grammatical, syntax o r spelling errors. Electronically signed by: Jonathan Palacios M.D. 12/28/2020 6:53 AM
--- NOTE | 2020-12-28 07:00 | Emergency Department Note ---
Impression & Plan Acute confusion ED Provider Note INFORMANT: Patient ED PROVIDER(S): Renan Larios MD CHIEF COMPLAINT: Confusion PLAN: Disposition: Admitted Condition: Good Outpatient prescription management: none Referral: None MEDICAL DECISION MAKING: Patient presented with acute confusion despite being treated as an outpatient for a UTI. She did note some continued urinary symptoms. The patient was nonfocal on examination. She underwent head CT imaging which was negative. Her blood work did not reveal any significant leukocytosis or anemia. She had hyperglycemia noted. Electrolytes otherwise unremarkable. She was hydrated. Urinalysis was concerning for infection. She was treated with a dose of IV cefepime. Given the confusion and patient's current state further management in the hospital was felt to be appropriate. She did have an ECG performed and this did not show any acute findings either. [facility] The patient was evaluated in the ER and admitted for further management. Triage Nursing notes reviewed and agree them. Vital Signs: reviewed and remarkable for no significant abnormalities Differential diagnosis: Infection, dehydration, metabolic abnormality, hypo/hyperglycemia, electrolyte disturbance, anemia, hypoxia, cardiac sources, intracerebral event, toxicologic, neurologic, as well as other pathologies. Diagnostics interpreted by me: ECG: Twelve-lead ECG reveals normal sinus rhythm at 61 bpm. There is an incomplete right bundle branch block present. No ST elevation or depression. No PACs or PVCs. Cardiac Monitoring: Cardiac monitoring ordered by me: The patient was placed on continuous cardiac monitoring and observed. It revealed a normal sinus rhythm at 69 beats per minute without ectopy or evidence of dysrhythmia. Imaging studies: Head CT: A noncontrast CT scan of the head was performed and was negative for tumor, fracture, intracranial hemorrhage, or other acute pathology. Chest x-ray. Findings: A chest x-ray was performed and revealed no pneumothorax, effusion, infiltrate, pulmonary edema, free air under the diaphragm, or wide mediastinum. Impression: No acute disease. HPI: The patient is a 80 year old female who presents to the Emergency Room with complaints of confusion. This started a week ago and is persisting. The patient also notes the following associated symptoms, weakness. The patient has recently been treated for a UTI for relieving factors. Current pain is rated as 0/10. Staff at her assisted living told EMS that symptoms have not improved with abx treatment and she was more confused. Pt denies LOC, headache, fevers, chills, diaphoresis, visual changes, neck pain, chest pain, breathing difficulties, nausea, vomiting, abdominal pain, back pain, melena, hematochezia, numbness, lymphadenopathy, rash, or other complaints. ROS: See above HPI for pertinent positives & negatives. A total of 10 systems reviewed and were otherwise negative. PAST MEDICAL HISTORY:See Below , UTI PAST SURGICAL HISTORY:See Below, FAMILY HISTORY:See Below SOCIAL HISTORY:See Below, retired HOME MEDICATIONS:See Below ALLERGIES:See Below VITALS:See Below PHYSICAL EXAMINATION: GENERAL: Awake, tired appearing, in no distress HENT: Normocephalic, atraumatic. Oropharynx unremarkable. EYES: Normal conjunctiva. Sclera non-icteric. NECK: Inspection normal. Non-tender. Supple. No nuchal rigidity. FROM. No masses. RESPIRATORY: Clear to auscultation. No wheezes. No rales. Normal respiratory effort. CARDIAC: Normal rate. Normal rhythm. No murmurs. No rubs. Extremities warm and well perfused. Pulses equal. No JVD. GI: Soft, non-distended. No tenderness to palpation. No rebound or guarding. No masses. RECTAL: Deferred. MUSCULOSKELETAL: Atraumatic. Chest examination reveals no tenderness. The back is symmetrical on inspection without obvious abnormality. There is no CVA tenderness to palpation. No joint edema. LOWER EXTREMITIES: Calves are equal size bilaterally and non-tender. No edema. No discoloration. NEURO: Mildly confused, slow to respond but otherwise Normal sensorium. No focal sensory or motor deficits noted. SKIN: No rash or jaundice noted. Renan Larios MD Past Med/Surg History Medical History (Updated 12/28/20 @ 09:30 by Ludwin Salomon) Acute respiratory failure with hypoxia Allergic rhinitis due to dust Allergic rhinitis due to pollen Anemia Carotid artery plaque Chronic back pain RLE/HIP RADIATION Chronic obstructive pulmonary disease STABLE Depression Diabetes mellitus with neuropathy Disc degeneration, lumbar Discoid lupus erythematosus Diverticular disease Gallstones Hyperlipidemia Hyperplastic colon polyp Hypertension Hypothyroidism Insomnia Ischemic stroke Lumbar canal stenosis Lung nodule Nicotine dependence No pertinent family history Osteopenia Right foot drop SDAT (senile dementia of Alzheimer's type) Spinal stenosis Stroke 10/2017- RESIDUAL RIGHT SIDED WEAKNESS REMAINS; ON PLAVIX UTI (urinary tract infection) Vitamin D deficiency Surgical History History of augmentation of both breasts History of back surgery History of bilateral tubal ligation Family History Mother , in her 50s Diabetes Stroke Father , in his 80s 2nd "old age" No problems noted. Other No pertinent family history Denies family history of Heart disease Colorectal cancer Hypertension Social History (Updated 12/28/20 @ 09:17 by Ludwin Salomon) Smoking Status: Former smoker Tobacco Type: Cigarettes Second Hand Exposure: No; Hx Alcohol Use: No Hx Substance Use: No Preferred Language: Greek Communication Ability: Effective Visual Impairment: No Limitations F[employer] President [employer] Ceo Required: No Beliefs That Will Affect Care: Orthodoxy marital status: / Current Living Situation: Assisted Current Living Situation Comment: Lives at [facility]--assisted living in [place], [place] current occupational status: 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 How many Children do You have: 4 other: originally from [place] Feels Safe at Home: Yes Safety Concerns: Feels Safe At This Time Assistive Devices: Denture - Upper, Denture - Lower and Walker Allergies Allergies Allergy/AdvReac Type Severity Reaction Status Date / Time varenicline AdvReac Severe DEPRESSION, Verified 12/28/20 11:34 BAD DREAMS metformin AdvReac Intermediate NAUSEA AND Verified 12/28/20 08:08 DIARRHEA Home Meds Home Medications Medication Instructions Recorded Confirmed PreserVision AREDS 1 cap PO HS 10/26/19 12/28/20 acetaminophen 500 mg tablet 1,000 mg PO Q8H PRN 10/30/19 12/28/20 albuterol sulfate [Ventolin HFA] 1 puff INHALATION Q6H PRN 10/30/19 12/28/20 Saccharomyces boulardii [Florastor] 250 mg PO BID 05/25/20 12/28/20 cholecalciferol (vitamin D3) 125 mcg PO QAM 05/25/20 12/28/20 [Vitamin D3] zinc gluconate 50 mg PO BIDM 05/25/20 12/28/20 Breo Ellipta 1 ea INHALATION QAM 05/28/20 12/28/20 clopidogrel [Plavix] 75 mg PO QAM 05/28/20 12/28/20 coQ10 (ubiquinol) 200 mg PO QAM 05/28/20 12/28/20 glimepiride [Amaryl] 3 mg PO QAM 05/28/20 12/28/20 celecoxib [Celebrex] 100 mg PO BID 12/28/20 12/28/20 gabapentin [Neurontin] 100 mg PO HS 12/28/20 12/28/20 levothyroxine [Synthroid] 100 mcg PO DAILYBB 12/28/20 12/28/20 nitrofurantoin monohyd/m-cryst 100 mg PO BID 12/28/20 12/28/20 [Macrobid] Previous Rx's Medication Instructions Recorded simvastatin 40 mg tablet 40 mg PO HS #90 tab 01/28/20 sitagliptin 100 mg tablet 100 mg PO QAM #90 tab 02/18/20 Results & Data (ED) Vital Signs Vital Signs - 24 hr 12/28/20 06:13 12/28/20 06:17 12/28/20 06:30 Temperature 36.9 C Temperature Source Oral Pulse Rate 59 L 66 64 Pulse Rate from SpO2 Sensor 65 65 Pulse Strength Normal Respiratory Rate 18 22 21 Respiratory Effort / Characteristics Non-Labored Spontaneous Respiratory Depth Normal Respiratory Pattern Regular Blood Pressure 168/76 H 168/76 H 155/80 H Blood Pressure Mean 106 106 105 Blood Pressure Position Lying Pulse Oximetry 96 94 94 Oxygen Delivery Method Room Air Sepsis Recent Fever Within 48 Hours No Sepsis New/Unexplained Change in Mental Status Yes Sepsis Action Taken by Nursing No Action Required 12/28/20 07:00 12/28/20 07:13 12/28/20 07:33 Temperature Temperature Source Pulse Rate 56 L 57 L Pulse Rate from SpO2 Sensor 57 L 57 L Pulse Strength Respiratory Rate 19 Respiratory Effort / Characteristics Respiratory Depth Respiratory Pattern Blood Pressure 135/71 145/73 H Blood Pressure Mean 92 97 Blood Pressure Position Pulse Oximetry 94 95 Oxygen Delivery Method Room Air Sepsis Recent Fever Within 48 Hours Sepsis New/Unexplained Change in Mental Status Sepsis Action Taken by Nursing 12/28/20 08:00 12/28/20 08:31 12/28/20 09:00 Temperature Temperature Source Pulse Rate 58 L 55 L 57 L Pulse Rate from SpO2 Sensor Pulse Strength Respiratory Rate 13 17 Respiratory Effort / Characteristics Respiratory Depth Respiratory Pattern Blood Pressure 157/69 H 175/68 H 152/79 H Blood Pressure Mean 98 103 103 Blood Pressure Position Pulse Oximetry Oxygen Delivery Method Sepsis Recent Fever Within 48 Hours Sepsis New/Unexplained Change in Mental Status Sepsis Action Taken by Nursing Laboratory Data Result diagrams: 12/28/20 Unknown 12/28/20 Unknown Lab Results 12/28/20 12/28/20 12/28/20 Range/Units 06:25 07:10 07:10 Urine Color Yellow Urine Appearance Clear (Clear) Urine pH 6.5 (4.5-7.5) Ur Specific Marshall 1.015 (1.000-1.030) Urine Protein Negative (Negative) Urine Glucose (UA) Negative (Negative) Urine Ketones Negative (Negative) Urine Blood Negative (Negative) Urine Nitrite Positive A (Negative) Urine Bilirubin Negative (Negative) Urine Urobilinogen Negative (Negative) Ur Leukocyte Esterase 1+ H (Negative) Urine WBC (Auto) >30 H (0-5) /hpf Urine RBC (Auto) 0-4 (0-4) /hpf U Hyaline Cast (Auto) 5-10 H (0-5) /lpf U Epithel Cells (Auto) 0-5 (0-5) /lpf Urine Bacteria (Auto) 4+ H (Negative) COVID-19 Eval Order Covid19 at [facility] SARS-CoV-2 (PCR) NEGATIVE (Negative) Administered Medications Potassium Chloride/Sodium Chloride (Normal Saline W/20 Meq Kcl) 20 meq in 1,000 mls @ 75 mls/hr IV .[id number] BRINDA Stop: 12/29/20 00:40 Last Admin: 12/28/20 12:46 Dose: 75 mls/hr Documented by: [id number] Insulin Aspart (Insulin Aspart 100 Units/Ml 3 Ml Pen) 0 units SC ACHS BRINDA Stop: 01/27/21 11:29 Last Admin: 12/28/20 12:50 Dose: Not Given Documented by: [id number] Pantoprazole Sodium (Pantoprazole 40 Mg Tab) 40 mg PO QAM BRINDA Stop: 01/27/21 11:44 Last Admin: 12/28/20 12:50 Dose: 40 mg Documented by: [id number] Discontinued Medications Sodium Chloride (Nss 1000ml) 1,000 mls @ 125 mls/hr IV .Q8H STA Stop: 12/28/20 15:00 Last Admin: 12/28/20 07:33 Dose: 125 mls/hr Documented by: [id number] Cefepime HCl (Maxipime) 2,000 mg in 20 mls @ 5 mls/min IV NOW STA; Protocol Stop: 12/28/20 08:01 Last Admin: 12/28/20 08:58 Dose: 5 mls/min Documented by: [id number] Imaging Data Radiologist's Impression: Chest X-Ray 12/28/20 06:18 XR chest 1V portable HISTORY: 80 years-old Female Confusion acutely altered mental status COMPARISON: Chest radiograph 05/28/2020 TECHNIQUE: Portable AP view of the chest FINDINGS: Calcified bilateral breast implants. The cardiomediastinal and hilar silhouettes are within normal limits. There is no pneumothorax, pleural effusion, airspace consolidation or overt pulmonary edema. Left shoulder rotator cuff calcific tendinosis versus calcific bursitis. Degenerative changes of the shoulders and spine. IMPRESSION: No acute process. ACT 112: Negative or not required by law. The above report was generated using voice recognition software. It may contain grammatical, syntax or spelling errors. Electronically signed by: Jonathan Palacios M.D. 12/28/2020 6:[address] 12/28/20 07:01 CT head/brain wo con CLINICAL HISTORY: 80 years-old Female with ams. Acutely altered mental status with urinary tract infection TECHNIQUE: Multiple axial CT images of the head were obtained without contrast. A dose lowering technique was utilized adhering to the principles of ALARA. CT DOSE: 537.48 mGy.cm COMPARISON: Head CT 05/28/2020 FINDINGS: No acute intracranial hemorrhage, midline shift, intracranial mass, hydroce phalus, territorial ischemia or abnormal extra-axial collection. Age-related involutional changes. White matter hypodensities suggestive of chronic microvascular ischemic disease. Cerebral vascular and senescent basal ganglia calcifications. Chronic appearing lacunar infarcts of the basal ganglia. The calvarium is intact. Prior bilateral lens repair. The paranasal sinuses, mastoid air cells, and middle ear cavities are clear. IMPRESSION: No acute intracranial abnormality. ACT 112: Negative or not required by law. The above report was generated using voice recognition software. It may contain grammatical, syntax or spelling errors. Electronically signed by: Jonathan Palacios M.D. 12/28/2020 7:34 AM Discharge Plan Visit Data Chief Complaint: Confusion Stated Complaint: CONFUSED ED Provider: Renan Larios Discharge Problem: Acute confusion Patient Disposition: Admitted As Inpatient Discharge Instructions Interventions: ED Discharge Assessment Last Done: 12/28/20 10:00
[2020-12-28] MEDS ORDERED: SODIUM CHLORIDE 0.9% 1000ML 1,000 ML IV STA (07:01)
[2020-12-28 07:04] LABS: Alkaline Phosphatase 59 U/L (45-117); Bilirubin,Total 1.2 mg/dl (0.2-1); Globulin 3.7 gm/dl (2.5-4.0); Total Protein 7.5 gm/dl (6.4-8.2); Troponin I < 0.015 ng/ml (0-0.045)
--- NOTE | 2020-12-28 07:35 | CT Scan Report ---
CT head/brain wo con CLINICAL HISTORY: 80 years-old Female with ams. Acutely altered mental status with urinary tract inf ection TECHNIQUE: Multiple axial CT images of the head were obtained without contrast. A dose lowering tech nique was utilized adhering to the principles of ALARA. CT DOSE: 537.48 mGy.cm COMPARISON: Head CT 05/28/2020 FINDINGS: No acute intracranial hemorrhage, midline shift, intracranial mass, hydrocephalus, territorial ischem ia or abnormal extra-axial collection. Age-related involutional changes. White matter hypodensities s uggestive of chronic microvascular ischemic disease. Cerebral vascular and senescent basal ganglia ca lcifications. Chronic appearing lacunar infarcts of the basal ganglia. The calvarium is intact. Prior bilateral lens repair. The paranasal sinuses, mastoid air cells, and m iddle ear cavities are clear. IMPRESSION: No acute intracranial abnormality. ACT 112: Negative or not required by law. The above report was generated using voice recognition software. It may contain grammatical, syntax o r spelling errors. Electronically signed by: Jonathan Palacios M.D. 12/28/2020 7:34 AM
[2020-12-28] MEDS ORDERED: CEFEPIME 2,000 MG/20 ML VIAL IV STA (07:58)
--- NOTE | 2020-12-28 08:26 | History & Physical Report ---
Date of Service December 28, 2020 Assessment & Plan (1) UTI (urinary tract infection): recent urine cx with klebsiella, pansensitive. resulted in early December at [facility]. Rx - macrobid. should have cleared with such. rechecking urine cx. in the event she now has a new UTI and/or a resistant pathogen will broaden the antibiotic to cover for ESBL, etc - thus, use ertapenem daily. due to recurrent UTIs will obtain CT a/p - stone protocol; r/o stones, other urinary tract abnormalities. (2) Acute metabolic encephalopathy: 2nd to UTI? Other? Supportive care, treat the UTI, and follow for improvement. (3) COPD (chronic obstructive pulmonary disease): no exacerbation at this time cont home inhalers O2 sats stable (4) Diabetes mellitus with neuropathy: BSGs ac/hs novolog sliding scale/correction HOLD amaryl ok to cont januvia for now (5) Discoid lupus erythematosus: records indicate such. I don't see active discoid lupus on exam today. (6) History of CVA (cerebrovascular accident): noted. cont plavix for secondary prevention. (7) Hyperlipidemia: cont statin agent. (8) Hypertension: despite a dx of such, and despite high BPs while in the ER, she is not on medications. reason?? follow BPs - add CCB low-dose if needed. (9) Hypothyroidism: TSH 2.1 today. Cont synthroid as is. (10) SDAT (senile dementia of Alzheimer's type): Noted. With superimposed encephalopathy. See above. (11) DVT prophylaxis: heparin 5000 BID updated pt's daughter by phone today place in observation will likely need PT, OT freddy gentle IV hydration ordered labs in am History of Present Illness Chief Complaint: "I don't know why I'm here" Primary Care Provider: Marty Saldaña 80yo female with h/o T2DM, recurrent UTIs, COPD, prior tobacco dependence, HTN, prior stroke on plavix for prevention, and Alzheimer's dementia presents via ambulance from [facility] in [place] due to altered mental status. The patient was significantly altered for recent events (although she knew she was at [facility] and that it was Sunday) and thus couldn't provide much historical information. She does state "I've been getting a lot of UTIs." Per the ER record and speaking with the ER attending she was treated for a UTI recently with macrobid. Despite such she woke up "not feeling well" this am. This coupled with the altered MS prompted the ER visit. I obtained her urine cx from [facility] which was collected on 12/15 and resulted on 12/17. She grew pansensitive klebsiella pneumoniae. Patient denied any prior h/o kidney stones. Allergies Allergy/AdvReac Type Severity Reaction Status Date / Time varenicline AdvReac Severe DEPRESSION, Verified 12/28/20 11:34 BAD DREAMS metformin AdvReac Intermediate NAUSEA AND Verified 12/28/20 08:08 DIARRHEA Home Medications Medication Instructions Recorded Confirmed Type PreserVision AREDS 1 cap PO HS 10/26/19 12/28/20 History acetaminophen 500 mg tablet 1,000 mg PO Q8H PRN 10/30/19 12/28/20 History albuterol sulfate [Ventolin HFA] 1 puff INHALATION Q6H PRN 10/30/19 12/28/20 History simvastatin 40 mg tablet 40 mg PO HS #90 tab 01/28/20 12/28/20 Rx sitagliptin 100 mg tablet 100 mg PO QAM #90 tab 02/18/20 12/28/20 Rx Saccharomyces boulardii [Florastor] 250 mg PO BID 05/25/20 12/28/20 History cholecalciferol (vitamin D3) 125 mcg PO QAM 05/25/20 12/28/20 History [Vitamin D3] zinc gluconate 50 mg PO BIDM 05/25/20 12/28/20 History Breo Ellipta 1 ea INHALATION QAM 05/28/20 12/28/20 History clopidogrel [Plavix] 75 mg PO QAM 05/28/20 12/28/20 History coQ10 (ubiquinol) 200 mg PO QAM 05/28/20 12/28/20 History glimepiride [Amaryl] 3 mg PO QAM 05/28/20 12/28/20 History celecoxib [Celebrex] 100 mg PO BID 12/28/20 12/28/20 History gabapentin [Neurontin] 100 mg PO HS 12/28/20 12/28/20 History levothyroxine [Synthroid] 100 mcg PO DAILYBB 12/28/20 12/28/20 History nitrofurantoin monohyd/m-cryst 100 mg PO BID 12/28/20 12/28/20 History [Macrobid] Past Med/Surg History Medical History (Updated 12/28/20 @ 09:30 by Ludwin Salomon) Acute respiratory failure with hypoxia Allergic rhinitis due to dust Allergic rhinitis due to pollen Anemia Carotid artery plaque Chronic back pain RLE/HIP RADIATION Chronic obstructive pulmonary disease STABLE Depression Diabetes mellitus with neuropathy Disc degeneration, lumbar Discoid lupus erythematosus Diverticular disease Gallstones Hyperlipidemia Hyperplastic colon polyp Hypertension Hypothyroidism Insomnia Ischemic stroke Lumbar canal stenosis Lung nodule Nicotine dependence No pertinent family history Osteopenia Right foot drop SDAT (senile dementia of Alzheimer's type) Spinal stenosis Stroke 10/2017- RESIDUAL RIGHT SIDED WEAKNESS REMAINS; ON PLAVIX UTI (urinary tract infection) Vitamin D deficiency Surgical History History of augmentation of both breasts History of back surgery History of bilateral tubal ligation Family History Mother , in her 50s Diabetes Stroke Father , in his 80s 2nd "old age" No problems noted. Other No pertinent family history Denies family history of Heart disease Colorectal cancer Hypertension Social History (Updated 12/28/20 @ 09:17 by Ludwin Salomon) Smoking Status: Former smoker Tobacco Type: Cigarettes Second Hand Exposure: No; Hx Alcohol Use: No Hx Substance Use: No Preferred Language: Nepalese Communication Ability: Effective Visual Impairment: No Limitations Advertising Sales Associate Required: No Beliefs That Will Affect Care: Baptist marital status: / Current Living Situation: [facility] Current Living Situation Comment: Lives at [facility]--assisted living in [place], [place] current occupational status: 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 How many Children do You have: 4 other: originally from [place] Feels Safe at Home: Yes Safety Concerns: Feels Safe At This Time Assistive Devices: Walker Review of Systems Constitutional: + chills (kept c/o being cold in ER), + fatigue, + weakness and + anorexia; no fever, no body aches and no weight loss Eyes: no worsening vision Ear, Nose, Mouth, Throat: no sore throat and no dysphagia Respiratory: no cough and no dyspnea Cardiovascular: no chest pain Gastrointestinal: no abdominal pain, no nausea, no vomiting and no di arrhea/loose stools Genitourinary: no dysuria Musculoskeletal: + joint pain (chronic ) Integumentary: no rash Neurologic: + generalized weakness; no localized weakness and no loss of sensation Psychiatric: + confusion Endocrine: endorses that she has DM but can't give details Hematologic / Lymphatic: no easy bleeding Physical Exam Constitutional: + ill appearing, + altered mental status and + frail appearing; no acute distress Eyes: PERRL ENMT: Ears: + unable to visualize TM (right; left TM seen, however, and normal landmarks ) Mouth: + dry oral mucous membranes Neck: trachea midline, no thyromegaly Respiratory: normal respiratory effort, lungs clear to auscultation Auscultation: + diminished lung sounds (bases) Cardiovascular: Rate/Rhythm: regular rate and regular rhythm Heart Sounds: normal S1 and normal S2; no murmur Vessels: posterior tibial pulses present and dorsalis pedis pulses present; no JVD Extremities: no edema (although LLE is mildly larger than RLE) Gastrointestinal (Abdomen): normal bowel sounds, soft, nontender, no hepatosplenomegaly (no flank tenderness to palpation ) Musculoskeletal: Extremities: no clubbing Skin: no rashes, warm and dry Neurologic: right arm/leg nearly 5/5; left arm/left leg 5/5 strength; no facial droop Psychiatric: Orientation: alert, oriented to person and oriented to place; + not oriented to time (didn't know the year ) Lymphatic: no cervical lymphadenopathy Results & Data Results & Data ([facility]) Vital Signs (Past 12 Hours) Vital Signs Temp Pulse Resp BP Pulse Ox 12/28/20 07:00 56 L 135/71 94 12/28/20 06:30 64 21 155/80 H 94 12/28/20 06:17 66 22 168/76 H 94 12/28/20 06:13 36.9 C 59 L 18 168/76 H 96 Laboratory Results Laboratory Results - last 24 hr 12/28/20 12/28/20 12/28/20 06:25 07:10 07:10 WBC RBC Hgb Hct MCV MCH MCHC RDW Std Deviation RDW Coeff of Campbell Plt Count MPV Immature Gran % (Auto) Neut % (Auto) Lymph % (Auto) Canyon % (Auto) Eos % (Auto) Baso % (Auto) Neut # (Auto) Lymph # (Auto) Canyon # (Auto) Eos # (Auto) Baso # (Auto) Immature Gran # (Auto) PT INR APTT PTT Ratio Sodium Potassium Chloride Carbon Dioxide Anion Gap BUN Creatinine Est Cr Clr Drug Dosing Est GFR ( Amer) Est GFR (Non-Af Amer) BUN/Creatinine Ratio Glucose Calcium Magnesium Total Bilirubin AST ALT Alkaline Phosphatase Troponin I Total Protein Albumin Globulin Albumin/Globulin Ratio TSH Urine Color Yellow Urine Appearance Clear Urine pH 6.5 Ur Specific Norris 1.015 Urine Protein Negative Urine Glucose (UA) Negative Urine Ketones Negative Urine Blood Negative Urine Nitrite Positive A Urine Bilirubin Negative Urine Urobilinogen Negative Ur Leukocyte Esterase 1+ H Urine WBC (Auto) >30 H Urine RBC (Auto) 0-4 U Hyaline Cast (Auto) 5-10 H U Epithel Cells (Auto) 0-5 Urine Bacteria (Auto) 4+ H COVID-19 Eval Order Covid19 at [facility] SARS-CoV-2 (PCR) NEGATIVE 12/28/20 12/28/20 12/28/20 Unknown Unknown Unknown WBC 9.87 RBC 4.10 L Hgb 13.4 Hct 40.1 MCV 97.8 MCH 32.7 MCHC 33.4 RDW Std Deviation 47.7 H RDW Coeff of Campbell 13.3 Plt Count 268 MPV 10.4 Immature Gran % (Auto) 0.2 Neut % (Auto) 70.3 Lymph % (Auto) 19.8 Canyon % (Auto) 8.1 Eos % (Auto) 1.3 Baso % (Auto) 0.3 Neut # (Auto) 6.94 H Lymph # (Auto) 1.95 Canyon # (Auto) 0.80 H Eos # (Auto) 0.13 Baso # (Auto) 0.03 Immature Gran # (Auto) 0.02 PT 10.6 INR 1.0 APTT 25.6 PTT Ratio 1.0 Sodium 141 Potassium 3.8 Chloride 110 H Carbon Dioxide 28 Anion Gap 3.0 BUN 18 Creatinine 0.65 Est Cr Clr Drug Dosing 67.1 Est GFR ( Amer) 97.2 Est GFR (Non-Af Amer) 83.9 BUN/Creatinine Ratio 28.0 H Glucose 175 H Calcium 9.3 Magnesium 2.0 Total Bilirubin 1.2 H AST 19 ALT 21 Alkaline Phosphatase 59 Troponin I < 0.015 Total Protein 7.5 Albumin 3.8 Globulin 3.7 Albumin/Globulin Ratio 1.0 TSH 2.100 Urine Color Urine Appearance Urine pH Ur Specific Norris Urine Protein Urine Glucose (UA) Urine Ketones Urine Blood Urine Nitrite Urine Bilirubin Urine Urobilinogen Ur Leukocyte Esterase Urine WBC (Auto) Urine RBC (Auto) U Hyaline Cast (Auto) U Epithel Cells (Auto) Urine Bacteria (Auto) COVID-19 Eval Order SARS-CoV-2 (PCR) Diagnostic Findings Chest X-Ray 12/28/20 06:18 XR chest 1V portable HISTORY: 80 years-old Female Confusion acutely altered mental status COMPARISON: Chest radiograph 05/28/2020 TECHNIQUE: Portable AP view of the chest FINDINGS: Calcified bilateral breast implants. The cardiomediastinal and hilar silhouettes are within normal limits. There is no pneumothorax, pleural effusion, airspace consolidation or overt pulmonary edema. Left shoulder rotator cuff calcific tendinosis versus calcific bursitis. Degenerative changes of the shoulders and spine. IMPRESSION: No acute process. ACT 112: Negative or not required by law. The above report was generated using voice recognition software. It may contain grammatical, syntax or spelling errors. Electronically signed by: Jonathan Palacios M.D. 12/28/2020 6:[address] 12/28/20 07:01 CT head/brain wo con CLINICAL HISTORY: 80 years-old Female with ams. Acutely altered mental status with urinary tract infection TECHNIQUE: Multiple axial CT images of the head were obtained without contrast. A dose lowering technique was utilized adhering to the principles of ALARA. CT DOSE: 537.48 mGy.cm COMPARISON: Head CT 05/28/2020 FINDINGS: No acute intracranial hemorrhage, midline shift, intracranial mass, hydrocephalus, territorial ischemia or abnormal extra-axial collection. Age- related involutional changes. White matter hypodensities suggestive of chronic microvascular ischemic disease. Cerebral vascular and senescent basal ganglia calcifications. Chronic appearing lacunar infarcts of the basal ganglia. The calvarium is intact. Prior bilateral lens repair. The paranasal sinuses, mastoid air cells, and middle ear cavities are clear. IMPRESSION: No acute intracranial abnormality. ACT 112: Negative or not required by law. The above report was generated using voice recognition software. It may contain grammatical, syntax or spelling errors. Electronically signed by: Jonathan Palacios M.D. 12/28/2020 7:34 AM EKG - my reading - NSR, IRBBB, NS ST changes inferiorly Code Status & VTE Plan Code Status DNR/DNI VTE Prophylaxis Plan VTE Prophylaxis will be ordered: Yes PG Care Time/CCT Total # of Minutes Spent Total Time Spent with Patient: Total time spent is greater than 50% in coordination of care (as documented) at patient's floor/unit and/or counseling patient: Coding Level of Care Code INT OBSERVATION CARE 70M LVL 3 Diagnoses UTI (urinary tract infection) N39.0 Hematuria presence: without hematuria Urinary tract infection type: site unspecified Acute metabolic encephalopathy G93.41 COPD (chronic obstructive pulmonary disease) J44.9 COPD type: unspecified COPD Diabetes mellitus with neuropathy E11.40 Diabetes mellitus fdc insulin use: without manager intermediate use Diabetes mellitus type: type 2 Discoid lupus erythematosus L93.0 History of CVA (cerebrovascular accident) Z86.73 Hyperlipidemia E78.5 Hyperlipidemia type: unspecified Hypertension I10 Hypertension type: essential hypertension Hypothyroidism E03.9 Hypothyroidism type: unspecified SDAT (senile dementia of Alzheimer's type) G30.1; F02.80 DVT prophylaxis Z29.9 (1) UTI (urinary tract infection) Hematuria presence: without hematuria Urinary tract infection type: site unspecified Qualified Code(s): N39.0 - Urinary tract infection, site not specified (2) Hyperlipidemia Hyperlipidemia type: unspecified Qualified Code(s): E78.5 - Hyperlipidemia, unspecified (3) Hypothyroidism Hypothyroidism type: unspecified Qualified Code(s): E03.9 - Hypothyroidism, unspecified (4) Diabetes mellitus with neuropathy Diabetes mellitus manager intermediate insulin use: without fdc use Diabetes mellitus type: type 2 Qualified Code(s): E11.40 - Type 2 diabetes mellitus with diabetic neuropathy, unspecified (5) COPD (chronic obstructive pulmonary disease) COPD type: unspecified COPD Qualified Code(s): J44.9 - Chronic obstructive pulmonary disease, unspecified (6) Hypertension Hypertension type: essential hypertension Qualified Code(s): I10 - Essential (primary) hypertension
--- NOTE | 2020-12-28 10:44 | CT Scan Report ---
ABDOMEN AND PELVIS CT WITHOUT CONTRAST CT DOSE: 240.00 mGy.cm HISTORY: Acute generalized abdominal pain with recent urinary tract infection recurrent UTI, eval fo r stone TECHNIQUE: Multiaxial CT images of the abdomen and pelvis were performed without contrast. A dose lo wering technique was utilized adhering to the principles of ALARA. COMPARISON STUDY: CT abdomen and pelvis 05/28/2020 FINDINGS: Study is degraded by respiratory motion artifact. Mild subsegmental bibasilar atelectasis/scarring. T here is no pneumatosis or pneumoperitoneum. The unenhanced spleen, mildly atrophic pancreas, adrenal glands and liver appear unremarkable. Mildly distended gallbladder with cholelithiasis. No CT evidenc e of acute cholecystitis. Unremarkable appearance of the kidneys. No definite urolith or obstructive uropathy. There is an 11 m m linear radiodensity of the right hemipelvis on image 273 in the region of the right ureterovesicula r junction which is new from comparison and may be intraluminal within the adjacent bowel. Unremarkab le urinary bladder, uterus and adnexa. Extensive calcified plaque of the abdominal aorta without aneu rysm. No adenopathy. Mild wall thickening of the distal esophagus. No bowel obstruction or bowel wall thickening. Moderate fecal retention of the rectum. Colonic diverticulosis. No CT evidence of acute diverticulitis. Nonin flamed appendix. Unremarkable soft tissues. Streak artifact from right hip total joint arthroplasty. Degenerative changes of the left hip, pelvis and spine. T12 burst fracture with retropulsion, unchang ed from comparison. IMPRESSION: 1. No urolith or obstructive uropathy identified. 2. No bowel obstruction or bowel wall thickening. 3. Colonic diverticulosis. 4. Cholelithiasis. 5. Additional findings as above. ACT 112: Negative or not required by law. The above report was generated using voice recognition software. It may contain grammatical, syntax o r spelling errors. Electronically signed by: Jonathan Palacios M.D. 12/28/2020 10:43 AM
[2020-12-28] MEDS ORDERED: ALBUTEROL HFA 8 GM INHALER INH PRN (11:21)
[2020-12-28] MEDS ORDERED: ONDANSETRON INJ 2 MG/ML 2 ML VIAL IV PRN (11:21)
[2020-12-28] MEDS ORDERED: NSS + 20MEQ KCL 20 MEQ/1,000 ML BAG IV SCH (11:21)
[2020-12-28] MEDS ORDERED: ACETAMINOPHEN 500 MG TAB PO PRN (11:39)
[2020-12-28] MEDS ORDERED: DEXTROSE 50% 50 ML SYRINGE IV PRN (11:45)
[2020-12-28] MEDS ORDERED: GLUCOSE 40% GEL 15 GM TUBE PO PRN (11:45)
[2020-12-28] MEDS ORDERED: CARBOHYDRATES FOR HYPOGLYCEMIA PO PRN (11:45)
[2020-12-28] MEDS ORDERED: GLUCOSE 10 TABS/TUBE PO PRN (11:45)
[2020-12-28] MEDS ORDERED: GLUCAGON FOR INJ 1 MG VIAL IM PRN (11:45)
[2020-12-28] MEDS: INSULIN ASPART 100 UNITS/ML 3 ML PEN SC SCH ×3 (12:50→20:43)
[2020-12-28] MEDS: PANTOprazole 40 MG TAB PO SCH (12:50)
--- NOTE | 2020-12-28 14:09 | Ultrasound Report ---
ABDOMINAL ULTRASOUND, RIGHT UPPER QUADRANT HISTORY: gallstones, abdominal distension, altered mental status; eval cholecyst. COMPARISON: Abdomen and pelvis CT 12/28/2020. FINDINGS: Pancreas: The pancreas demonstrates a normal echotexture. Liver: Unremarkable. Gallbladder: Multiple small gallstones. No definite gallbladder wall thickening. The technologist rep orted a positive sonographic Tran sign. CBD: 6 mm. Questionable punctate 3 mm echogenic focus within the common bile duct. This could represe nt a small stone. Right kidney: No hydronephrosis. IMPRESSION: 1. Cholelithiasis. The technologist reported a positive sonographic Tran sign. No definite gallblad laura wall thickening. These findings are nonspecific but could represent a developing acute cholecysti tis. Clinical correlation recommended. 2. Normal caliber common bile duct. There is a 3 mm echogenic focus within the common bile which coul d represent a nonobstructing stone. ACT 112: Negative or not required by law. Electronically signed by: Adilson Burgess M.D. 12/28/2020 2:07 PM
[2020-12-28] MEDS: ERTAPENEM SODIUM 1,000 MG in SODIUM CHLORIDE 0.9% 50 ML IV SCH (16:49)
--- NOTE | 2020-12-28 18:27 | Electrocardiogram Report ---
Test Reason : Blood Pressure : / mmHG Vent. Rate : 061 BPM Atrial Rate : 061 BPM P-R Int : 170 ms QRS Dur : 110 ms QT Int : 404 ms P-R-T Axes : 000 -28 015 degrees QTc Int : 406 ms Poor data quality, interpretation may be adversely affected Normal sinus rhythm with sinus arrhythmia Incomplete right bundle branch block Borderline ECG When compared with ECG of 28-MAY-2020 13:51, QRS axis Shifted left Minimal criteria for Inferior infarct are no longer Present Confirmed by Dominik Gordon ([id number]) on 12/28/2020 6:27:21 PM Referred By: Confirmed By:Stewart Gordon
[2020-12-28] MEDS: SIMVASTATIN 40 MG TAB PO SCH (20:39)
[2020-12-28] MEDS: CEROVITE ADV FORMULA TAB PO SCH (20:39)
[2020-12-28] MEDS: GABAPENTIN 100 MG CAP PO SCH (20:39)
[2020-12-28] MEDS: SACCHAROMYCES BOULARDII 250 MG CAP PO SCH (20:39)
[2020-12-28] MEDS: HEPARIN SOD 5,000 UNIT/0.5 ML VIAL SQ SCH (20:40)
[2020-12-29] MEDS: LEVOTHYROXINE SODIUM 100 MCG TABLET PO SCH (05:34)
[2020-12-29 06:51] LABS: Albumin Level 3.4 gm/dl (3.4-5.0); BUN Creatinine Ratio 28.2 (10-20); Calcium 9.2 mg/dl (8.5-10.1); Creatinine Clr Calc Pharmacy 82.4 ml/min; Est GFR (African American) 108.1 ml/min; Est GFR (Non-African American) 93.3 ml/min; Potassium 3.7 mmol/L (3.5-5.1)
[2020-12-29 06:54] LABS: Bilirubin Direct 0.2 mg/dl (0-0.2); Bilirubin,Total 1.1 mg/dl (0.2-1)
[2020-12-29] MEDS: SITagliptin PHOSPHATE 100 MG TAB PO SCH (07:27)
[2020-12-29] MEDS: HEPARIN SOD 5,000 UNIT/0.5 ML VIAL SQ SCH ×2 (07:28→21:39)
[2020-12-29] MEDS: CHOLECALCIFEROL 1,000 UNITS 25 MCG TAB PO SCH (07:28)
[2020-12-29] MEDS: CLOPIDOGREL BISULFATE 75 MG TAB PO SCH (07:28)
[2020-12-29] MEDS: PANTOprazole 40 MG TAB PO SCH (07:28)
[2020-12-29] MEDS: SACCHAROMYCES BOULARDII 250 MG CAP PO SCH ×2 (07:28→21:39)
[2020-12-29] MEDS: FLUTICASONE/VILANTEROL 100/25MCG 14 PUFFS/INHALER INH SCH (07:29)
[2020-12-29] MEDS: INSULIN ASPART 100 UNITS/ML 3 ML PEN SC SCH ×4 (09:16→21:24)
[2020-12-29] MEDS: ERTAPENEM SODIUM 1,000 MG in SODIUM CHLORIDE 0.9% 50 ML IV SCH (18:27)
--- NOTE | 2020-12-29 19:13 | Magnetic Resonance Report ---
MR MRCP HISTORY: 80 years-old Female ?CBD stone on CT, gallstones acute right upper quadrant abdominal pain COMPARISON: Right upper quadrant abdominal ultrasound and CT abdomen and pelvis studies 12/28/2020 TECHNIQUE: MRCP without the use of IV contrast was obtained according to institutional protocol. FINDINGS: T12 compression deformity with retropulsion. Partially imaged 1.9 cm T2 hyperintense focus is noted w ithin the left paraspinal tissues of the lower thoracic spine distribution which may be on a postsurg ical basis. The imaged lower chest is unremarkable. Orthopedic hardware of the right proximal femur. Clear lung bases. The study is mildly motion degraded. 8 mm T2 hyperintense structure suggestive of a cyst is present w ithin the interpolar left kidney. No hydronephrosis. No abdominal aortic aneurysm or adenopathy. No b owel obstruction or bowel wall thickening. There is mild gallbladder distention. Layering cholelithiasis without gallbladder wall thickening or pericholecystic fluid. Normal caliber of the pancreatic duct. The common bile duct is normal in calib er measuring 4 mm. No biliary ductal filling defects or strictures identified. IMPRESSION: 1. Mild gallbladder distention with cholelithiasis. 2. No biliary ductal dilation or evidence of choledocholithiasis. ACT 112: Negative or not required by law. The above report was generated using voice recognition software. It may contain grammatical, syntax o r spelling errors. Electronically signed by: Jonathan Palacios M.D. 12/29/2020 7:12 PM
[2020-12-29] MEDS: CEROVITE ADV FORMULA TAB PO SCH (21:39)
[2020-12-29] MEDS: SIMVASTATIN 40 MG TAB PO SCH (21:39)
[2020-12-29] MEDS: GABAPENTIN 100 MG CAP PO SCH (21:39)
[2020-12-29] MEDS: QUEtiapine FUMARATE 25 MG TABLET PO SCH (23:03)
--- NOTE | 2020-12-29 23:09 | Hospitalist Progress Note ---
Date of Service December 29, 2020 Assessment & Plan (1) UTI (urinary tract infection): Plan: 2nd GNR recently treated for klebsiella UTI that was pansensitive uncertain why it did not clear with appropriate Rx CT abd/pelvis without kidney or bladder stones or other pathology (2) Acute metabolic encephalopathy: Plan: ongoing 2nd to UTI, hospital psychosis, etc - all in setting of baseline dementia (3) COPD (chronic obstructive pulmonary disease): Plan: stable (4) Diabetes mellitus with neuropathy: Plan: controlled (5) Discoid lupus erythematosus: Plan: no evidence of active disease (6) History of CVA (cerebrovascular accident): Plan: noted (7) Hyperlipidemia: (8) Hypertension: Plan: uncontrolled was not on meds at [facility] follow - may need Rx (9) Hypothyroidism: Plan: TSH wnl this admission (10) SDAT (senile dementia of Alzheimer's type): Plan: moderate-severe at baseline (11) Gallstone: Plan: awaiting MRCP to r/o choledocholithiasis & signs of acute cholecystitis no abdominal pain on exam today (12) DVT prophylaxis: Plan: 1. cont ertapenem; narrow abx once urine culture has finalized 2. await MRCP 3. will likely need low-dose antipsychotic tonight for delirium/agitation - start seroquel 12.5mg HS 4. consider Rx for HTN 5. cont heparin for DVT proph updated son by phone this evening Admission and Anticipated Discharge Date Admission Date: December 29, 2020 Subjective patient sitting in chair during the visit unable to offer any meaningful history or ROS she does deny abdominal pain staff report no issues overnight did eat breakfast - no N/V by report Review of Systems Review of Systems: Unobtainable due to cognitive status Physical Exam Constitutional: + altered mental status; no acute distress ENMT: external ear and nose normal, oropharynx normal Respiratory: normal respiratory effort, lungs clear to auscultation Cardiovascular: RRR, no murmur, no edema Heart Sounds: normal S1 and normal S2 Vessels: posterior tibial pulses present and dorsalis pedis pulses present; no JVD Gastrointestinal (Abdomen): normal bowel sounds, soft, nontender, no hepatosplenomegaly Skin: no rashes, warm and dry Psychiatric: Orientation: alert and oriented to person; + not oriented to place and + not oriented to time Results & Data Results & Data ([facility]) Laboratory Results Laboratory Results - last 24 hr 12/29/20 12/29/20 12/29/20 06:05 08:54 11:59 Sodium 141 Potassium 3.7 Chloride 112 H Carbon Dioxide 28 Anion Gap 1.0 L BUN 13 Creatinine 0.47 L Est Cr Clr Drug Dosing 82.4 Est GFR ( Amer) 108.1 Est GFR (Non-Af Amer) 93.3 BUN/Creatinine Ratio 28.2 H Glucose 120 H POC Glucose 123 H 186 H Calcium 9.2 Total Bilirubin 1.1 H Direct Bilirubin 0.2 AST 13 L ALT 19 Alkaline Phosphatase 55 Total Protein 7.0 Albumin 3.4 Lipase 162 12/29/20 12/29/20 18:13 21:12 Sodium Potassium Chloride Carbon Dioxide Anion Gap BUN Creatinine Est Cr Clr Drug Dosing Est GFR ( Amer) Est GFR (Non-Af Amer) BUN/Creatinine Ratio Glucose POC Glucose 124 H 124 H Calcium Total Bilirubin Direct Bilirubin AST ALT Alkaline Phosphatase Total Protein Albumin Lipase PG Care Time/CCT Total # of Minutes Spent Total Time Spent with Patient: Total time spent is greater than 50% in coordination of care (as documented) at patient's floor/unit and/or counseling patient: Coding Level of Care Code 32190 Subseq Hosp Care Lvl 2 Diagnoses UTI (urinary tract infection) N39.0 Hematuria presence: without hematuria Urinary tract infection type: site unspecified Acute metabolic encephalopathy G93.41 COPD (chronic obstructive pulmonary disease) J44.9 COPD type: unspecified COPD Diabetes mellitus with neuropathy E11.40 Diabetes mellitus fci insulin use: without fci use Diabetes mellitus type: type 2 Discoid lupus erythematosus L93.0 History of CVA (cerebrovascular accident) Z86.73 Hyperlipidemia E78.5 Hyperlipidemia type: unspecified Hypertension I10 Hypertension type: essential hypertension Hypothyroidism E03.9 Hypothyroidism type: unspecified SDAT (senile dementia of Alzheimer's type) G30.1; F02.80 DVT prophylaxis Z29.9 Gallstone K80.20 (1) UTI (urinary tract infection) Hematuria presence: without hematuria Urinary tract infection type: site unspecified Qualified Code(s): N39.0 - Urinary tract infection, site not specified (2) Hyperlipidemia Hyperlipidemia type: unspecified Qualified Code(s): E78.5 - Hyperlipidemia, unspecified (3) Hypothyroidism Hypothyroidism type: unspecified Qualified Code(s): E03.9 - Hypothyroidism, unspecified (4) Diabetes mellitus with neuropathy 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
[2020-12-30] MEDS: LEVOTHYROXINE SODIUM 100 MCG TABLET PO SCH (06:00)
[2020-12-30 07:14] LABS: BUN Creatinine Ratio 26.2 (10-20); Calcium 9.1 mg/dl (8.5-10.1); Creatinine Clr Calc Pharmacy 88.1 ml/min; Est GFR (African American) 110.5 ml/min; Est GFR (Non-African American) 95.3 ml/min; Potassium 3.7 mmol/L (3.5-5.1)
[2020-12-30] MEDS: PANTOprazole 40 MG TAB PO SCH (07:30)
[2020-12-30] MEDS: SACCHAROMYCES BOULARDII 250 MG CAP PO SCH ×2 (07:30→20:41)
[2020-12-30] MEDS: SITagliptin PHOSPHATE 100 MG TAB PO SCH (07:30)
[2020-12-30] MEDS: CHOLECALCIFEROL 1,000 UNITS 25 MCG TAB PO SCH (07:30)
[2020-12-30] MEDS: CLOPIDOGREL BISULFATE 75 MG TAB PO SCH (07:30)
[2020-12-30] MEDS: FLUTICASONE/VILANTEROL 100/25MCG 14 PUFFS/INHALER INH SCH (07:31)
[2020-12-30] MEDS: HEPARIN SOD 5,000 UNIT/0.5 ML VIAL SQ SCH ×2 (07:31→20:41)
[2020-12-30] MEDS: lisinopril 10 MG TAB PO SCH (10:21)
[2020-12-30] MEDS: cephALEXin 500 MG CAP PO SCH ×2 (10:21→20:41)
[2020-12-30] MEDS: ADVANCED PROBIOTIC 1250 MG CAPSULE PO SCH (10:22)
[2020-12-30] MEDS: INSULIN ASPART 100 UNITS/ML 3 ML PEN SC SCH ×4 (10:23→20:43)
[2020-12-30] MEDS ORDERED: HALOPERIDOL LACTATE 5 MG/ML 1 ML VIAL IM STA (13:41)
[2020-12-30] MEDS ORDERED: QUEtiapine FUMARATE 25 MG TABLET PO STA (13:41)
[2020-12-30] MEDS: SIMVASTATIN 40 MG TAB PO SCH (20:39)
[2020-12-30] MEDS: QUEtiapine FUMARATE 25 MG TABLET PO SCH (20:40)
[2020-12-30] MEDS: GABAPENTIN 100 MG CAP PO SCH (20:40)
[2020-12-30] MEDS: CEROVITE ADV FORMULA TAB PO SCH (20:41)
--- NOTE | 2020-12-30 21:23 | Hospitalist Progress Note ---
Date of Service December 30, 2020 Assessment & Plan (1) UTI (urinary tract infection): Plan: 2nd klebsiella recently treated for klebsiella UTI that was pansensitive klebsiella species on current urine cx INTERMEDIATE SENSITIVITY to macrobid which is what she was prescribed about 2 week ago at [facility] this is the probable reason why she did not clear the UTI CT abd/pelvis without kidney or bladder stones or other pathology change ertapenem to keflex 500mg BID plan 7 day course of IV/PO abx (2) Acute metabolic encephalopathy: Plan: ongoing 2nd to UTI, hospital psychosis, etc - all in setting of baseline dementia haldol NOW due to significant agitation then seroquel 12.5mg at HS standing (3) COPD (chronic obstructive pulmonary disease): Plan: stable (4) Diabetes mellitus with neuropathy: Plan: controlled (5) Discoid lupus erythematosus: Plan: no evidence of active disease (6) History of CVA (cerebrovascular accident): Plan: noted (7) Hyperlipidemia: (8) Hypertension: Plan: uncontrolled was not on meds at [facility] start lisinopril 10mg daily (9) Hypothyroidism: Plan: TSH wnl this admission cont synthroid w/o changes (10) SDAT (senile dementia of Alzheimer's type): Plan: moderate-severe at baseline she seems to have parkinsonian type features -- Lewy-Body dementia rather than Alzheimer's?? (11) Gallstone: Plan: MRCP WITHOUT choledocholithiasis or signs of acute cholecystitis no abdominal pain on exam nor any GI symptoms at this time (12) DVT prophylaxis: Plan: heparin 5000 BID Plan: updated son by phone 12/29 needs PT, OT freddy to ensure safe d/c back to [facility] Admission and Anticipated Discharge Date Admission Date: December 29, 2020 Subjective saw patient twice today first visit was mid-day she was standing in the middle of the room trying to walk a nurse was with her to ensure her safety just prior to my arrival apparently she had been combative, trying to hit the nursing staff I brought the recliner chair close to her and she refused to sit down she also refused to sit on the edge of the bed she was asked nonsensical questions during the visit could not offer any meaningful history or ROS since she was uncooperative I ordered 2mg IM haldol which worked well for her symptoms from that point forward she was less agitated and directable per staff I visited her a 2nd time late in the afternoon during the 2nd visit she allowed me to examine her Review of Systems Review of Systems: Unobtainable due to cognitive status Physical Exam Constitutional: + acute distress (agitated ), + altered mental status and + frail appearing masked facies/parkinsonian type appearance ENMT: external ear and nose normal, oropharynx normal Respiratory: normal respiratory effort, lungs clear to auscultation Auscult ation: + diminished lung sounds (bases) Cardiovascular: Rate/Rhythm: regular rate and regular rhythm Heart Sounds: normal S1 and normal S2; no murmur Vessels: posterior tibial pulses present and dorsalis pedis pulses present; no JVD Extremities: no edema (although LLE is mildly larger than RLE) Gastrointestinal (Abdomen): normal bowel sounds, soft, nontender, no hepatosplenomegaly Skin: no rashes, warm and dry Neurologic: masked facies; parkinsonian type features; low-pitched voice Psychiatric: Orientation: alert and oriented to person; + not oriented to place and + not oriented to time Thought Content: + cognitive distortions and + delusions Results & Data Results & Data ([facility]) Vital Signs (Past 12 Hours) Vital Signs Temp Pulse Resp BP Pulse Ox 12/30/20 16:40 65 16 129/72 96 12/30/20 14:00 36.3 C L 51 L 16 123/71 98 Laboratory Results Laboratory Results - last 24 hr 12/30/20 12/30/20 12/30/20 05:49 08:08 12:02 Sodium 140 Potassium 3.7 Chloride 109 H Carbon Dioxide 29 Anion Gap 2.0 L BUN 12 Creatinine 0.44 L Est Cr Clr Drug Dosing 88.1 Est GFR ( Amer) 110.5 Est GFR (Non-Af Amer) 95.3 BUN/Creatinine Ratio 26.2 H Glucose 117 H POC Glucose 144 H 133 H Calcium 9.1 Specimen Hemolysis 12/30/20 12/30/20 17:00 20:40 Sodium Potassium Chloride Carbon Dioxide Anion Gap BUN Creatinine Est Cr Clr Drug Dosing Est GFR ( Amer) Est GFR (Non-Af Amer) BUN/Creatinine Ratio Glucose POC Glucose 141 H 133 H Calcium Specimen Hemolysis PG Care Time/CCT Total # of Minutes Spent Total Time Spent with Patient: Total time spent is greater than 50% in coordination of care (as documented) at patient's floor/unit and/or counseling patient: Coding Level of Care Code 24973 Subseq Hosp Care Lvl 2 Diagnoses UTI (urinary tract infection) N39.0 Hematuria presence: without hematuria Urinary tract infection type: site unspecified Acute metabolic encephalopathy G93.41 COPD (chronic obstructive pulmonary disease) J44.9 COPD type: unspecified COPD Diabetes mellitus with neuropathy E11.40 Diabetes mellitus terminal computer operator insulin use: without terminal computer operator use Diabetes mellitus type: type 2 Discoid lupus erythematosus L93.0 History of CVA (cerebrovascular accident) Z86.73 Hyperlipidemia E78.5 Hyperlipidemia type: unspecified Hypertension I10 Hypertension type: essential hypertension Hypothyroidism E03.9 Hypothyroidism type: unspecified SDAT (senile dementia of Alzheimer's type) G30.1; F02.80 Gallstone K80.20 DVT prophylaxis Z29.9 (1) UTI (urinary tract infection) Hematuria presence: without hematuria Urinary tract infection type: site unspecified Qualified Code(s): N39.0 - Urinary tract infection, site not specified (2) Hyperlipidemia Hyperlipidemia type: unspecified Qualified Code(s): E78.5 - Hyperlipidemia, unspecified (3) Hypothyroidism Hypothyroidism type: unspecified Qualified Code(s): E03.9 - Hypothyroidism, unspecified (4) Diabetes mellitus with neuropathy Diabetes mellitus halfway insulin use: without halfway use Diabetes mellitus type: type 2 Qualified Code(s): E11.40 - Type 2 diabetes mellitus with diabetic neuropathy, unspecified (5) COPD (chronic obstructive pulmonary disease) COPD type: unspecified COPD Qualified Code(s): J44.9 - Chronic obstructive pulmonary disease, unspecified (6) Hypertension Hypertension type: essential hypertension Qualified Code(s): I10 - Essential (primary) hypertension
[2020-12-31] MEDS: LEVOTHYROXINE SODIUM 100 MCG TABLET PO SCH (06:27)
[2020-12-31] MEDS: INSULIN ASPART 100 UNITS/ML 3 ML PEN SC SCH ×4 (09:46→21:14)
[2020-12-31] MEDS: HEPARIN SOD 5,000 UNIT/0.5 ML VIAL SQ SCH ×2 (09:53→21:13)
[2020-12-31] MEDS: FLUTICASONE/VILANTEROL 100/25MCG 14 PUFFS/INHALER INH SCH (09:53)
[2020-12-31] MEDS: SACCHAROMYCES BOULARDII 250 MG CAP PO SCH ×2 (09:54→21:14)
[2020-12-31] MEDS: SITagliptin PHOSPHATE 100 MG TAB PO SCH (09:54)
[2020-12-31] MEDS: cephALEXin 500 MG CAP PO SCH ×2 (09:54→21:13)
[2020-12-31] MEDS: PANTOprazole 40 MG TAB PO SCH (09:54)
[2020-12-31] MEDS: lisinopril 10 MG TAB PO SCH (09:54)
[2020-12-31] MEDS: CLOPIDOGREL BISULFATE 75 MG TAB PO SCH (09:54)
[2020-12-31] MEDS: ADVANCED PROBIOTIC 1250 MG CAPSULE PO SCH (09:54)
[2020-12-31] MEDS: CHOLECALCIFEROL 1,000 UNITS 25 MCG TAB PO SCH (09:54)
[2020-12-31] MEDS ORDERED: HALOPERIDOL LACTATE 5 MG/ML 1 ML VIAL IM STA (19:29)
[2020-12-31] MEDS: GABAPENTIN 100 MG CAP PO SCH (21:13)
[2020-12-31] MEDS: QUEtiapine FUMARATE 25 MG TABLET PO SCH (21:14)
[2020-12-31] MEDS: SIMVASTATIN 40 MG TAB PO SCH (21:14)
[2020-12-31] MEDS: CEROVITE ADV FORMULA TAB PO SCH (21:14)
--- NOTE | 2020-12-31 23:04 | Hospitalist Progress Note ---
Date of Service December 31, 2020 Assessment & Plan (1) UTI (urinary tract infection): Plan: 2nd klebsiella recently treated for klebsiella UTI that was pansensitive klebsiella species on current urine cx INTERMEDIATE SENSITIVITY to macrobid which is what she was prescribed about 2 week ago at [facility] this is the probable reason why she did not clear the UTI CT abd/pelvis without kidney or bladder stones or other pathology change ertapenem to keflex 500mg BID plan 7 day course of IV/PO abx (2) Acute metabolic encephalopathy: Plan: ongoing 2nd to UTI, hospital psychosis, etc - all in setting of baseline dementia which seems severe remains on seroquel 12.5mg at HS standing (3) COPD (chronic obstructive pulmonary disease): Plan: stable no flare o2 sats wnl (4) Diabetes mellitus with neuropathy: Plan: controlled (5) Discoid lupus erythematosus: Plan: no evidence of active disease (6) History of CVA (cerebrovascular accident): Plan: noted (7) Hyperlipidemia: (8) Hypertension: Plan: improved with starting lisinopril 10mg daily (9) Hypothyroidism: Plan: TSH wnl this admission remains on synthroid (10) SDAT (senile dementia of Alzheimer's type): Plan: moderate-severe at baseline she seems to have parkinsonian type features -- Lewy-Body dementia rather than Alzheimer's?? (11) Gallstone: Plan: MRCP WITHOUT choledocholithiasis or signs of acute cholecystitis no abdominal pain on exam nor any GI symptoms at this time (12) DVT prophylaxis: Plan: heparin 5000 BID Plan: updated son by phone 12/29 and again today, 12/31 he asks questions about her confusion, delusions, etc. answered his questions, discussed the above, told him plan check b12, b1 level in am to be complete w/ respect to delirium work-up cont seroquel HS scheduled cont keflex for UTI [facility] will not take patient back due to need for rehab SW discussed with son -- referrals made to SNF will be here for weekend Admission and Anticipated Discharge Date Admission Date: December 29, 2020 Subjective uneventful day today did not need 1:1 sitter (previously needed such due to agitation, occasional combativeness) got the seroquel last pm and apparently slept well eating fair at best during my visit she was resting in bed she muttered some things that were difficult to understand she was calm, but remains confused unable to offer any meaningful history or ros Review of Systems Review of Systems: Unobtainable due to cognitive status Physical Exam Constitutional: + altered mental status and + frail appearing; no acute distress masked facies?? ENMT: external ear and nose normal, oropharynx normal Neck: trachea midline, no thyromegaly Respiratory: normal respiratory effort, lungs clear to auscultation Auscultation: + diminished lung sounds (bases); no crackles and no wheezes Cardiovascular: Rate/Rhythm: regular rate and regular rhythm Heart Sounds: normal S1 and normal S2; no murmur Vessels: posterior tibial pulses present and dorsalis pedis pulses present; no JVD Extremities: no edema (although LLE is mildly larger than RLE) Gastrointestinal (Abdomen): normal bowel sounds, soft, nontender, no hepatosplenomegaly Skin: no rashes, warm and dry Neurologic: masked facies - parkinsonism?? Psychiatric: Orientation: alert and oriented to person; + not oriented to place and + not oriented to time Affect: + flat affect Results & Data Results & Data ([facility]) Vital Signs (Past 12 Hours) Vital Signs Temp Pulse Pulse Resp BP Pulse Ox 12/31/20 22:00 110 H 152/87 H 12/31/20 15:05 37.0 C 78 14 148/78 H 93 Laboratory Results Laboratory Results - last 24 hr 12/31/20 12/31/20 12/31/20 07:56 12:13 17:09 POC Glucose 112 H 165 H 138 H 12/31/20 20:42 POC Glucose 144 H PG Care Time/CCT Total # of Minutes Spent Total Time Spent with Patient: Total time spent is greater than 50% in coordination of care (as documented) at patient's floor/unit and/or counseling patient: Coding Level of Care Code 12195 Subseq Hosp Care Lvl 2 Diagnoses UTI (urinary tract infection) N39.0 Urinary tract infection type: site unspecified Hematuria presence: without hematuria Acute metabolic encephalopathy G93.41 COPD (chronic obstructive pulmonary disease) J44.9 COPD type: unspecified COPD Diabetes mellitus with neuropathy E11.40 Diabetes mellitus type: type 2 Diabetes mellitus skilled nursing insulin use: without skilled nursing use Discoid lupus erythematosus L93.0 History of CVA (cerebrovascular accident) Z86.73 Hyperlipidemia E78.5 Hyperlipidemia type: unspecified Hypertension I10 Hypertension type: essential hypertension Hypothyroidism E03.9 Hypothyroidism type: unspecified SDAT (senile dementia of Alzheimer's type) G30.1; F02.80 Gallstone K80.20 DVT prophylaxis Z29.9 (1) UTI (urinary tract infection) Urinary tract infection type: site unspecified Hematuria presence: without hematuria Qualified Code(s): N39.0 - Urinary tract infection, site not s pecified (2) COPD (chronic obstructive pulmonary disease) COPD type: unspecified COPD Qualified Code(s): J44.9 - Chronic obstructive pulmonary disease, unspecified (3) Diabetes mellitus with neuropathy Diabetes mellitus type: type 2 Diabetes mellitus 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
[2021-01-01] MEDS: LEVOTHYROXINE SODIUM 100 MCG TABLET PO SCH (05:49)
[2021-01-01 07:56] LABS: Hematocrit (blood only) 38.9 % (37-47); Hemoglobin 13.1 g/dL (12.0-16.0); Mean Corpuscular Hemoglobin 32.4 pg (25-34); Mean Corpuscular Hgb Conc 33.7 g/dL (32-36); Mean Corpuscular Volume 96.3 fL (80-100); Mean Platelet Volume 9.8 fL (7.4-10.4); Platelet Count 242 K/uL (130-400); RDW Coefficient of Variation 13.1 % (11.5-14.5); RDW Standard Deviation 45.9 fL (36.4-46.3); Red Blood Count 4.04 M/uL (4.2-5.4)
[2021-01-01 08:26] LABS: BUN Creatinine Ratio 29.8 (10-20); Calcium 9.4 mg/dl (8.5-10.1); Creatinine Clr Calc Pharmacy 74.5 ml/min; Est GFR (African American) 104.6 ml/min; Est GFR (Non-African American) 90.2 ml/min; Potassium 3.9 mmol/L (3.5-5.1)
[2021-01-01] MEDS: cephALEXin 500 MG CAP PO SCH ×2 (08:28→20:42)
[2021-01-01] MEDS: CHOLECALCIFEROL 1,000 UNITS 25 MCG TAB PO SCH (08:29)
[2021-01-01] MEDS: CLOPIDOGREL BISULFATE 75 MG TAB PO SCH (08:30)
[2021-01-01] MEDS: FLUTICASONE/VILANTEROL 100/25MCG 14 PUFFS/INHALER INH SCH (08:31)
[2021-01-01] MEDS: HEPARIN SOD 5,000 UNIT/0.5 ML VIAL SQ SCH ×2 (08:32→20:43)
[2021-01-01] MEDS: ADVANCED PROBIOTIC 1250 MG CAPSULE PO SCH (08:32)
[2021-01-01] MEDS: lisinopril 10 MG TAB PO SCH (08:33)
[2021-01-01] MEDS: SACCHAROMYCES BOULARDII 250 MG CAP PO SCH ×2 (08:34→20:42)
[2021-01-01] MEDS: PANTOprazole 40 MG TAB PO SCH (08:34)
[2021-01-01] MEDS: SERTRALINE HCL 50 MG TABLET PO SCH (08:35)
[2021-01-01] MEDS: SITagliptin PHOSPHATE 100 MG TAB PO SCH (08:36)
[2021-01-01] MEDS: INSULIN ASPART 100 UNITS/ML 3 ML PEN SC SCH ×4 (08:42→21:01)
[2021-01-01] MEDS: THIAMINE HCL 200 MG in SODIUM CHLORIDE 0.9% 50 ML IV SCH ×2 (10:23→20:47)
[2021-01-01] MEDS: QUEtiapine FUMARATE 25 MG TABLET PO SCH (20:42)
[2021-01-01] MEDS: SIMVASTATIN 40 MG TAB PO SCH (20:42)
[2021-01-01] MEDS: GABAPENTIN 100 MG CAP PO SCH (20:43)
[2021-01-01] MEDS: CEROVITE ADV FORMULA TAB PO SCH (20:43)
--- NOTE | 2021-01-01 22:23 | Hospitalist Progress Note ---
Date of Service January 01, 2021 Assessment & Plan (1) UTI (urinary tract infection): Plan: 2nd klebsiella recently treated for klebsiella UTI at the [facility] with macrobid klebsiella species again grew on current urine cx with INTERMEDIATE SENSITIVITY to macrobid which is probably why her UTI did not resolve CT abd/pelvis without kidney or bladder stones or other pathology changed ertapenem to keflex 500mg BID plan 7-10 day course of IV/PO abx I recommended AGAINST prophylactic abx suspect that urinary incontinence in setting of her dementia is the primary reason for recurrent UTIs (2) Acute metabolic encephalopathy: Plan: ongoing but improved today 2nd to UTI, hospital psychosis, etc - all in setting of baseline dementia which seems severe remains on seroquel 12.5mg at HS standing b12 wnl b1 pending - on thiamine empirically until level returns (3) COPD (chronic obstructive pulmonary disease): Plan: stable no flare o2 sats wnl (4) Diabetes mellitus with neuropathy: Plan: controlled (5) Discoid lupus erythematosus: Plan: no evidence of active disease (6) History of CVA (cerebrovascular accident): Plan: noted (7) Hyperlipidemia: (8) Hypertension: Plan: stable on lisinopril 10mg daily (9) Hypothyroidism: Plan: TSH wnl this admission remains on synthroid (10) SDAT (senile dementia of Alzheimer's type): Plan: moderate-severe at baseline she seems to have parkinsonian type features -- Lewy-Body dementia rather than Alzheimer's?? 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 consider namenda? (11) Gallstone: Plan: MRCP WITHOUT choledocholithiasis or signs of acute cholecystitis no abdominal pain on exam nor any GI symptoms at this time (12) DVT prophylaxis: Plan: heparin 5000 BID Plan: updated son by phone 12/29 and again 12/31 updated pt's daughter extensively at bedside today (about 20-25 min visit at bedside) will need rehab at SNF prior to returning to [facility] total visit time today about 35 minutes Admission and Anticipated Discharge Date Admission Date: December 29, 2020 Subjective patient sitting in chair near the window she knew she was in the hospital today she knew her daughter's name who was there for a visit daughter asked about her recurrent UTIs, prophylactic abx, the delirium, her dementia, urology consult after d/c, SNF for rehab, etc discussed all these issues per staff patient has been calm today eating fair at best Review of Systems Review of Systems: Unobtainable due to cognitive status Physical Exam Constitutional: + altered mental status and + frail appearing; no acute distress ENMT: external ear and nose normal, oropharynx normal Respiratory: normal respiratory effort, lungs clear to auscultation Auscultation: + diminished lung sounds (bases); no crackles and no wheezes Cardiovascular: Rate/Rhythm: regular rate and regular rhythm Heart Sounds: normal S1 and normal S2; no murmur Vessels: posterior tibial pulses present and dorsalis pedis pulses present; no JVD Extremities: no edema (although LLE is mildly larger than RLE) Gastrointestinal (Abdomen): normal bowel sounds, soft, nontender, no hepatosplenomegaly Skin: no rashes, warm and dry Neurologic: masked facies type affect Psychiatric: Orientation: alert, oriented to person and oriented to place; + not oriented to time Affect: + flat affect Results & Data Results & Data ([facility]) Vital Signs (Past 12 Hours) Vital Signs Temp Pulse Resp BP Pulse Ox 01/01/21 16:19 36.5 C 60 16 119/73 96 Laboratory Results Laboratory Results - last 24 hr 01/01/21 01/01/21 01/01/21 07:33 07:33 07:33 WBC 10.00 RBC 4.04 L Hgb 13.1 Hct 38.9 MCV 96.3 MCH 32.4 MCHC 33.7 RDW Std Deviation 45.9 RDW Coeff of Campbell 13.1 Plt Count 242 MPV 9.8 Sodium Potassium Chloride Carbon Dioxide Anion Gap BUN Creatinine Est Cr Clr Drug Dosing Est GFR ( Amer) Est GFR (Non-Af Amer) BUN/Creatinine Ratio Glucose POC Glucose Calcium Vitamin B1 Pending Vitamin B12 400 01/01/21 01/01/21 01/01/21 07:33 08:15 12:14 WBC RBC Hgb Hct MCV MCH MCHC RDW Std Deviation RDW Coeff of Campbell Plt Count MPV Sodium 141 Potassium 3.9 Chloride 110 H Carbon Dioxide 28 Anion Gap 4.0 BUN 16 Creatinine 0.52 L Est Cr Clr Drug Dosing 74.5 Est GFR ( Amer) 104.6 Est GFR (Non-Af Amer) 90.2 BUN/Creatinine Ratio 29.8 H Glucose 109 H POC Glucose 105 H 140 H Calcium 9.4 Vitamin B1 Vitamin B12 01/01/21 01/01/21 17:16 20:37 WBC RBC Hgb Hct MCV MCH MCHC RDW Std Deviation RDW Coeff of Campbell Plt Count MPV Sodium Potassium Chloride Carbon Dioxide Anion Gap BUN Creatinine Est Cr Clr Drug Dosing Est GFR ( Amer) Est GFR (Non-Af Amer) BUN/Creatinine Ratio Glucose POC Glucose 129 H 135 H Calcium Vitamin B1 Vitamin B12 PG Care Time/CCT Total # of Minutes Spent Total Time Spent with Patient: Total time spent is greater than 50% in coordination of care (as documented) at patient's floor/unit and/or counseling patient: Coding Level of Care Code 90045 Subseq Hosp Care Lvl 3 Diagnoses UTI (urinary tract infection) N39.0 Hematuria presence: without hematuria Urinary tract infection type: site unspecified Acute metabolic encephalopathy G93.41 COPD (chronic obstructive pulmonary disease) J44.9 COPD type: unspecified COPD Diabetes mellitus with neuropathy E11.40 Diabetes mellitus 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 bug 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 insulin use: without fci use Diabetes mellitus type: type 2 Discoid lupus erythematosus L93.0 History of CVA (cerebrovascular accident) Z86.73 Hyperlipidemia E78.5 Hyperlipidemia type: unspecified Hypertension I10 Hypertension type: essential hypertension Hypothyroidism E03.9 Hypothyroidism type: unspecified SDAT (senile dementia of Alzheimer's type) G30.1; F02.80 Gallstone K80.20 DVT prophylaxis Z29.9 (1) UTI (urinary tract infection) Hematuria presence: without hematuria Urinary tract infection type: site unspecified Qualified Code(s): N39.0 - Urinary tract infection, site not specified (2) Hyperlipidemia Hyperlipidemia type: unspecified Qualified Code(s): E78.5 - Hyperlipidemia, unspecified (3) Hypothyroidism Hypothyroidism type: unspecified Qualified Code(s): E03.9 - Hypothyroidism, unspecified (4) Diabetes mellitus with neuropathy Diabetes mellitus bed bug 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 insulin use: without fci use Diabetes mellitus type: type 2 Qualified Code(s): E11.40 - Type 2 diabetes mellitus with diabetic neuropathy, unspecified (5) COPD (chronic obstructive pulmonary disease) COPD type: unspecified COPD Qualified Code(s): J44.9 - Chronic obstructive pulmonary disease, unspecified (6) Hypertension Hypertension type: essential hypertension Qualified Code(s): I10 - Essential (primary) hypertension
[2021-01-02] MEDS: LEVOTHYROXINE SODIUM 100 MCG TABLET PO SCH (06:11)
[2021-01-02] MEDS: SACCHAROMYCES BOULARDII 250 MG CAP PO SCH ×2 (08:53→21:44)
[2021-01-02] MEDS: ADVANCED PROBIOTIC 1250 MG CAPSULE PO SCH (08:54)
[2021-01-02] MEDS: CLOPIDOGREL BISULFATE 75 MG TAB PO SCH (08:54)
[2021-01-02] MEDS: CHOLECALCIFEROL 1,000 UNITS 25 MCG TAB PO SCH (08:55)
[2021-01-02] MEDS: SERTRALINE HCL 50 MG TABLET PO SCH (08:55)
[2021-01-02] MEDS: SITagliptin PHOSPHATE 100 MG TAB PO SCH (08:55)
[2021-01-02] MEDS: cephALEXin 500 MG CAP PO SCH ×2 (08:56→21:43)
[2021-01-02] MEDS: PANTOprazole 40 MG TAB PO SCH (08:56)
[2021-01-02] MEDS: lisinopril 10 MG TAB PO SCH (08:56)
[2021-01-02] MEDS: HEPARIN SOD 5,000 UNIT/0.5 ML VIAL SQ SCH ×2 (08:56→21:45)
[2021-01-02] MEDS: FLUTICASONE/VILANTEROL 100/25MCG 14 PUFFS/INHALER INH SCH (08:56)
[2021-01-02] MEDS: INSULIN ASPART 100 UNITS/ML 3 ML PEN SC SCH ×4 (09:01→21:16)
[2021-01-02] MEDS: THIAMINE HCL 200 MG in SODIUM CHLORIDE 0.9% 50 ML IV SCH ×2 (09:07→21:51)
[2021-01-02] MEDS: QUEtiapine FUMARATE 25 MG TABLET PO SCH (21:43)
[2021-01-02] MEDS: GABAPENTIN 100 MG CAP PO SCH (21:43)
[2021-01-02] MEDS: CEROVITE ADV FORMULA TAB PO SCH (21:44)
[2021-01-02] MEDS: SIMVASTATIN 40 MG TAB PO SCH (21:45)
--- NOTE | 2021-01-02 22:48 | Hospitalist Progress Note ---
Date of Service January 02, 2021 Assessment & Plan (1) UTI (urinary tract infection): Plan: 2nd klebsiella clinically resolving patient also had klebsiella UTI at the [facility] in early December - treated with macrobid klebsiella species again grew on current urine cx with INTERMEDIATE SENSITIVITY to macrobid (which is probably why her UTI did not resolve following Rx in early December) CT abd/pelvis without kidney or bladder stones or other pathology changed ertapenem to keflex 500mg BID once final cx resulted plan 7-10 day course of IV/PO abx day #6 of Rx Daughter asked about prophylactic abx for recurrent UTIs -- I recommended AGAINST prophylactic abx due to induction of resistance with such (and it often doesn't work any way) suspect that urinary incontinence in setting of her dementia is the primary reason for recurrent UTIs (2) Acute metabolic encephalopathy: Plan: cont to improve last 48 hours has been calm & cooperative; not as much hallucinations/delusions 2nd to UTI, hospital psychosis, etc - all in setting of baseline dementia which seems severe remains on seroquel 12.5mg at HS b12 wnl b1 pending - on thiamine empirically until level returns (3) COPD (chronic obstructive pulmonary disease): Plan: stable no flare o2 sats wnl (4) Diabetes mellitus with neuropathy: Plan: controlled (5) Discoid lupus erythematosus: Plan: no evidence of active disease (6) History of CVA (cerebrovascular accident): Plan: noted (7) Hyperlipidemia: (8) Hypertension: Plan: stable & controlled on lisinopril 10mg daily (9) Hypothyroidism: Plan: TSH wnl this admission remains on synthroid (10) SDAT (senile dementia of Alzheimer's type): Plan: moderate-severe at baseline she seems to have parkinsonian type features -- Lewy-Body dementia rather than Alzheimer's?? 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 consider namenda? (11) Gallstone: Plan: MRCP WITHOUT choledocholithiasis or signs of acute cholecystitis no abdominal pain on exam nor any GI symptoms at this time (12) DVT prophylaxis: Plan: heparin 5000 BID Plan: updated son by phone 12/29 and again 12/31 updated pt's daughter extensively at bedside yesterday and again today will need rehab at SNF prior to returning to [facility] according to case management notes Admission and Anticipated Discharge Date Admission Date: December 29, 2020 Subjective no events overnight slept well following the seroquel I arrived at the pt's bedside about the time the pt's daughter was arriving the patient knew her daughter's name she couldn't tell me she was in the hospital unable to offer any meaningful history or ros nursing flowsheets show improved PO intake - took 75% of lunch today Review of Systems Review of Systems: Unobtainable due to cognitive status Physical Exam Constitutional: + altered mental status; no acute distress ENMT: external ear and nose normal, oropharynx normal Respiratory: normal respiratory effort, lungs clear to auscultation Cardiovascular: Rate/Rhythm: regular rate and regular rhythm Heart Sounds: normal S1 and normal S2; no murmur Vessels: posterior tibial pulses present and dorsalis pedis pulses present; no JVD Extremities: no edema Gastrointestinal (Abdomen): normal bowel sounds, soft, nontender, no hepatosplenomegaly Skin: no rashes, warm and dry Neurologic: moves all extremities; no focal motor deficits affect is "masked" / parkinsonian like Psychiatric: Orientation: alert and oriented to person; + not oriented to place and + not oriented to time Results & Data Results & Data ([facility]) Vital Signs (Past 12 Hours) Vital Signs Temp Pulse Resp BP Pulse Ox 01/02/21 14:16 36.9 C 65 14 121/71 91 Laboratory Results Laboratory Results - last 24 hr 01/02/21 01/02/21 01/02/21 08:24 12:14 17:03 POC Glucose 147 H 140 H 132 H 01/02/21 20:58 POC Glucose 135 H PG Care Time/CCT Total # of Minutes Spent Total Time Spent with Patient: Total time spent is greater than 50% in coordination of care (as documented) at patient's floor/unit and/or counseling patient: Coding Level of Care Code 88729 Subseq Hosp Care Lvl 2 Diagnoses UTI (urinary tract infection) N39.0 Urinary tract infection type: site unspecified Hematuria presence: without hematuria Acute metabolic encephalopathy G93.41 COPD (chronic obstructive pulmonary disease) J44.9 COPD type: unspecified COPD Diabetes mellitus with neuropathy E11.40 Diabetes mellitus type: type 2 Diabetes mellitus long-term insulin use: without long-term use Discoid lupus erythematosus L93.0 History of CVA (cerebrovascular accident) Z86.73 Hyperlipidemia E78.5 Hyperlipidemia type: unspecified Hypertension I10 Hypertension type: essential hypertension Hypothyroidism E03.9 Hypothyroidism type: unspecified SDAT (senile dementia of Alzheimer's type) G30.1; F02.80 Gallstone K80.20 DVT prophylaxis Z29.9 (1) UTI (urinary tract infection) Urinary tract infection type: site unspecified Hematuria presence: without hematuria Qualified Code(s): N39.0 - Urinary tract infection, site not specified (2) COPD (chronic obstructive pulmonary disease) COPD type: unspecified COPD Qualified Code(s): J44.9 - Chronic obstructive pulmonary disease, unspecified (3) Diabetes mellitus with neuropathy Diabetes mellitus type: type 2 Diabetes mellitus long-term insulin use: without long-term use Qualified Code(s): E11.40 - Type 2 diabetes mellitus with diabetic neuropathy, unspecified (4) Hyperlipidemia Hyperlipidemia type: unspecified Qualified Code(s): E78.5 - Hyperlipidemia, unspecified (5) Hypertension Hypertension type: essential hypertension Qualified Code(s): I10 - Essential (primary) hypertension (6) Hypothyroidism Hypothyroidism type: unspecified Qualified Code(s): E03.9 - Hypothyroidism, unspecified
[2021-01-03] MEDS: LEVOTHYROXINE SODIUM 100 MCG TABLET PO SCH (06:21)
[2021-01-03] MEDS: CHOLECALCIFEROL 1,000 UNITS 25 MCG TAB PO SCH (09:41)
[2021-01-03] MEDS: lisinopril 10 MG TAB PO SCH (09:41)
[2021-01-03] MEDS: ADVANCED PROBIOTIC 1250 MG CAPSULE PO SCH (09:42)
[2021-01-03] MEDS: PANTOprazole 40 MG TAB PO SCH (09:42)
[2021-01-03] MEDS: CLOPIDOGREL BISULFATE 75 MG TAB PO SCH (09:42)
[2021-01-03] MEDS: cephALEXin 500 MG CAP PO SCH ×2 (09:42→20:36)
[2021-01-03] MEDS: FLUTICASONE/VILANTEROL 100/25MCG 14 PUFFS/INHALER INH SCH (09:43)
[2021-01-03] MEDS: HEPARIN SOD 5,000 UNIT/0.5 ML VIAL SQ SCH ×2 (09:43→20:46)
[2021-01-03] MEDS: SERTRALINE HCL 50 MG TABLET PO SCH (09:43)
[2021-01-03] MEDS: SACCHAROMYCES BOULARDII 250 MG CAP PO SCH ×2 (09:43→20:44)
[2021-01-03] MEDS: SITagliptin PHOSPHATE 100 MG TAB PO SCH (09:44)
[2021-01-03] MEDS: INSULIN ASPART 100 UNITS/ML 3 ML PEN SC SCH ×4 (09:46→21:44)
[2021-01-03] MEDS: THIAMINE HCL 200 MG in SODIUM CHLORIDE 0.9% 50 ML IV SCH ×2 (10:00→20:52)
--- NOTE | 2021-01-03 12:51 | Hospitalist Progress Note ---
Date of Service January 03, 2021 Assessment & Plan (1) UTI (urinary tract infection): Plan: 2nd klebsiella clinically resolving patient also had klebsiella UTI at the [facility] in early December - treated with macrobid klebsiella species again grew on current urine cx with INTERMEDIATE SENSITIVITY to macrobid (which is probably why her UTI did not resolve following Rx in early December) CT abd/pelvis without kidney or bladder stones or other pathology changed ertapenem to keflex 500mg BID once final cx resulted plan 7-10 day course of IV/PO abx day #6 of Rx Daughter asked about prophylactic abx for recurrent UTIs -- agree with prior provider and recommended AGAINST prophylactic abx due to induction of resistance with suc suspect that urinary incontinence in setting of her dementia and diabetes is the primary reason for recurrent UTIs (2) Acute metabolic encephalopathy: Plan: cont to improve last 48 hours has been calm & cooperative; not as much hallucinations/delusions 2nd to UTI, hospital psychosis, etc - all in setting of baseline dementia which seems severe remains on seroquel 12.5mg at HS b12 wnl b1 pending - on thiamine empirically until level returns, can be switched to PO on discharge (3) COPD (chronic obstructive pulmonary disease): Plan: stable no flare o2 sats wnl (4) Diabetes mellitus with neuropathy: Plan: controlled (5) Discoid lupus erythematosus: Plan: no evidence of active disease (6) History of CVA (cerebrovascular accident): Plan: noted (7) Hyperlipidemia: (8) Hypertension: Plan: stable & controlled on lisinopril 10mg daily (9) Hypothyroidism: Plan: TSH wnl this admission remains on synthroid (10) SDAT (senile dementia of Alzheimer's type): Plan: moderate-severe at baseline she seems to have parkinsonian type features -- Lewy-Body dementia rather than Alzheimer's?? 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 consider namenda? (11) Gallstone: Plan: MRCP WITHOUT choledocholithiasis or signs of acute cholecystitis no abdominal pain on exam nor any GI symptoms at this time (12) DVT prophylaxis: Plan: heparin 5000 BID Plan: updated son by phone 01/03 Medically stable for discharge pending placement will need rehab at SNF prior to returning to [facility] according to case management notes Admission and Anticipated Discharge Date Admission Date: December 29, 2020 Subjective No complaints from patient. Mostly flat affect making incomprehensible sounds but occasional complete sentence. Updated her son over the phone. Awaiting placement at this time. Review of Systems Review of Systems: Unobtainable due to cognitive status Physical Exam Constitutional: + altered mental status (mumbling words); no acute distress ENMT: external ear and nose normal, oropharynx normal Respiratory: normal respiratory effort, lungs clear to auscultation Cardiovascular: Rate/Rhythm: regular rate and regular rhythm Heart Sounds: no murmur Extremities: no edema Gastrointestinal (Abdomen): normal bowel sounds, soft, nontender, no hepatosplenomegaly Skin: no rashes, warm and dry Neurologic: moves all extremities; no focal motor deficits Psychiatric: Orientation: alert and oriented to person; + not oriented to place and + not oriented to time Results & Data Results & Data ([facility]) Vital Signs (Past 12 Hours) Vital Signs Temp Pulse Resp BP Pulse Ox 01/03/21 06:08 37.1 C 60 18 151/81 H 95 PG Care Time/CCT Total # of Minutes Spent Total Time Spent with Patient: Total time spent is greater than 50% in coordination of care (as documented) at patient's floor/unit and/or counseling patient: Coding Level of Care Code 48301 Subseq Hosp Care Lvl 1 Diagnoses UTI (urinary tract infection) N39.0 Hematuria presence: without hematuria Urinary tract infection type: site unspecified Acute metabolic encephalopathy G93.41 COPD (chronic obstructive pulmonary disease) J44.9 COPD type: unspecified COPD Diabetes mellitus with neuropathy E11.40 Diabetes mellitus correction insulin use: without intermediate frame tender use Diabetes mellitus type: type 2 Discoid lupus erythematosus L93.0 History of CVA (cerebrovascular accident) Z86.73 Hyperlipidemia E78.5 Hyperlipidemia type: unspecified Hypertension I10 Hypertension type: essential hypertension Hypothyroidism E03.9 Hypothyroidism type: unspecified SDAT (senile dementia of Alzheimer's type) G30.1; F02.80 Gallstone K80.20 DVT prophylaxis Z29.9 (1) UTI (urinary tract infection) Hematuria presence: without hematuria Urinary tract infection type: site unspecified Qualified Code(s): N39.0 - Urinary tract infection, site not specified (2) Hyperlipidemia Hyperlipidemia type: unspecified Qualified Code(s): E78.5 - Hyperlipidemia, unspecified (3) Hypothyroidism Hypothyroidism type: unspecified Qualified Code(s): E03.9 - Hypothyroidism, unspecified (4) Diabetes mellitus with neuropathy Diabetes mellitus correction insulin use: without correction use Diabetes mellitus type: type 2 Qualified Code(s): E11.40 - Type 2 diabetes mellitus with diabetic neuropathy, unspecified (5) COPD (chronic obstructive pulmonary disease) COPD type: unspecified COPD Qualified Code(s): J44.9 - Chronic obstructive pulmonary disease, unspecified (6) Hypertension Hypertension type: essential hypertension Qualified Code(s): I10 - Essential (primary) hypertension
[2021-01-03] MEDS: QUEtiapine FUMARATE 25 MG TABLET PO SCH (20:36)
[2021-01-03] MEDS: CEROVITE ADV FORMULA TAB PO SCH (20:36)
[2021-01-03] MEDS: SIMVASTATIN 40 MG TAB PO SCH (20:44)
[2021-01-03] MEDS: GABAPENTIN 100 MG CAP PO SCH (20:45)
[2021-01-04] MEDS: LEVOTHYROXINE SODIUM 100 MCG TABLET PO SCH (06:13)
[2021-01-04] MEDS: SACCHAROMYCES BOULARDII 250 MG CAP PO SCH (09:34)
[2021-01-04] MEDS: lisinopril 10 MG TAB PO SCH (09:35)
[2021-01-04] MEDS: SITagliptin PHOSPHATE 100 MG TAB PO SCH (09:35)
[2021-01-04] MEDS: ADVANCED PROBIOTIC 1250 MG CAPSULE PO SCH (09:35)
[2021-01-04] MEDS: CLOPIDOGREL BISULFATE 75 MG TAB PO SCH (09:35)
[2021-01-04] MEDS: PANTOprazole 40 MG TAB PO SCH (09:35)
[2021-01-04] MEDS: SERTRALINE HCL 50 MG TABLET PO SCH (09:35)
[2021-01-04] MEDS: FLUTICASONE/VILANTEROL 100/25MCG 14 PUFFS/INHALER INH SCH (09:36)
[2021-01-04] MEDS: CHOLECALCIFEROL 1,000 UNITS 25 MCG TAB PO SCH (09:36)
[2021-01-04] MEDS: HEPARIN SOD 5,000 UNIT/0.5 ML VIAL SQ SCH (09:37)
[2021-01-04] MEDS: THIAMINE HCL 200 MG in SODIUM CHLORIDE 0.9% 50 ML IV SCH (09:37)
[2021-01-04] MEDS: INSULIN ASPART 100 UNITS/ML 3 ML PEN SC SCH ×2 (09:38→13:20)
--- NOTE | 2021-01-04 17:03 | Discharge Summary ---
Date of Service January 04, 2021 Admission HPI Per Admitting Provider 80yo female with h/o T2DM, recurrent UTIs, COPD, prior tobacco dependence, HTN, prior stroke on plavix for prevention, and Alzheimer's dementia presents via ambulance from [facility] in [place] due to altered mental status. The patient was significantly altered for recent events (although she knew she was at [facility] and that it was Sunday) and thus couldn't provide much historical information. She does state "I've been getting a lot of UTIs." Per the ER record and speaking with the ER attending she was treated for a UTI recently with macrobid. Despite such she woke up "not feeling well" this am. This coupled with the altered MS prompted the ER visit. I obtained her urine cx from [facility] which was collected on 12/15 and resulted on 12/17. She grew pansensitive klebsiella pneumoniae. Patient denied any prior h/o kidney stones. Admission Exam Per Admitting Provider Constitutional: + ill appearing, + altered mental status and + frail appearing; no acute distress Eyes: PERRL ENMT: Ears: + unable to visualize TM (right; left TM seen, however, and normal landmarks ) Mouth: + dry oral mucous membranes Neck: trachea midline, no thyromegaly Respiratory: normal respiratory effort, lungs clear to auscultation Auscultation: + diminished lung sounds (bases) Cardiovascular: Rate/Rhythm: regular rate and regular rhythm Heart Sounds: normal S1 and normal S2; no murmur Vessels: posterior tibial pulses present and dorsalis pedis pulses present; no JVD Extremities: no edema (although LLE is mildly larger than RLE) Gastrointestinal (Abdomen): normal bowel sounds, soft, nontender, no hepatosplenomegaly (no flank tenderness to palpation ) Musculoskeletal: Extremities: no clubbing Skin: no rashes, warm and dry Neurologic: right arm/leg nearly 5/5; left arm/left leg 5/5 strength; no facial droop Psychiatric: Orientation: alert, oriented to person and oriented to place; + not oriented to time (didn't know the year ) Lymphatic: no cervical lymphadenopathy Principal Diagnosis Altered mental status, Urine tract infection Dementia Discharge Exam Constitutional + altered mental status (mumbling words); no acute distress ENMT external ear and nose normal, oropharynx normal Respiratory normal respiratory effort, lungs clear to auscultation Cardiovascular Rate/Rhythm: regular rate and regular rhythm Heart Sounds: no murmur Extremities: no edema Gastrointestinal (Abdomen) normal bowel sounds, soft, nontender, no hepatosplenomegaly Skin no rashes, warm and dry Neurologic moves all extremities; no focal motor deficits Psychiatric Orientation: alert and oriented to person; + not oriented to place and + not oriented to time Discharge Data Allergies Allergy/AdvReac Type Severity Reaction Status Date / Time varenicline AdvReac Severe DEPRESSION, Verified 12/28/20 11:34 BAD DREAMS metformin AdvReac Intermediate NAUSEA AND Verified 12/28/20 08:08 DIARRHEA Consultations 12/28/20 08:18 ED Decision to Admit Stat Ordered Studies 12/28/20 07:01 CT head/brain wo con Stat IMPRESSION: No acute intracranial abnormality. 12/28/20 09:12 CT abd pelvis wo con Stat IMPRESSION: 1. No urolith or obstructive uropathy identified. 2. No bowel obstruction or bowel wall thickening. 3. Colonic diverticulosis. 4. Cholelithiasis. 5. Additional findings as above. 12/28/20 13:30 US gallbladder Routine IMPRESSION: 1. Cholelithiasis. The technologist reported a positive sonographic Tran sign. No definite gallbladder wall thickening. These findings are nonspecific but could represent a developing acute cholecystitis. Clinical correlation recommended. 2. Normal caliber common bile duct. There is a 3 mm echogenic focus within the common bile which could represent a nonobstructing stone. 12/29/20 19:53 MR MRCP Routine IMPRESSION: 1. Mild gallbladder distention with cholelithiasis. 2. No biliary ductal dilation or evidence of choledocholithiasis. Hospital Course (1) UTI (urinary tract infection): (2) Acute metabolic encephalopathy: (3) COPD (chronic obstructive pulmonary disease): (4) Diabetes mellitus with neuropathy: (5) Discoid lupus erythematosus: (6) History of CVA (cerebrovascular accident): (7) Hyperlipidemia: (8) Hypertension: (9) Hypothyroidism: (10) SDAT (senile dementia of Alzheimer's type): (11) Gallstone: (12) DVT prophylaxis: Madison Mckenna was admitted to [facility] from December 28- 2020 due to altered mental status. She was subsequently treated for a UTI and now finished her antibiotics. Due to hallucinations and agitation at night due to suspected underlying dementia she was started on Seroquel. B1 level pending on discharge. She was started on PO thiamine. She was also started on sertraline for suspected depression. Total Time Total Time Spent Total Time Spent (In Minutes): 45 Discharge Plan Discharge Items Patient Disposition: Transfer Inpatient Rehab Fac Reason For Visit: ALTERED MENTAL STATUS, UTI Discharge Diagnosis: Altered mental status, Urine tract infection Activity: Resume your previous activity Non-emergency contact: Primary Care Provider Call non-emergency contact if: you have any medication questions and your symptoms worsen Follow-up/Referrals: Marty Saldaña [Primary Care Provider] - Diet: Carb Consistent or DM2 Addtl Attending Provider Instructions: Madison Mckenna was admitted to [facility] from December 28-2020 due to altered mental status. She was subsequently treated for a UTI and now finished her antibiotics. Due to hallucinations and agitation at night due to suspected underlying dementia she was started on Seroquel. B1 level pending on discharge. She was started on PO thiamine. She was also started on sertraline for suspected depression. Pending Studies at Discharge: Yes Stand-Alone Forms: My [facility] Skilled Items Patient informed of condition?: Yes DNR: Yes Discharge Level of Care: Acute rehab Communicable Disease: No Discharge Prognosis: Stable Lines: None Urinary Catheter: No Medications and DC Order Prescriptions: New pantoprazole 40 mg Tablet,Delayed Release (Dr/Ec) 40 mg PO QAM Qty: 30 RF: 0 sertraline 50 mg Tablet 25 mg PO QAM Qty: 15 RF: 0 quetiapine 25 mg Tablet 12.5 mg PO HS Qty: 15 RF: 0 Continued simvastatin [Zocor] 40 mg tablet 40 mg PO HS Qty: 90 RF: 3 Januvia 100 mg tablet 100 mg PO QAM Qty: 90 RF: 3 acetaminophen [Tylenol Extra Strength] 500 mg tablet 1,000 mg PO Q8H PRN (Reason: Pain) RF: 0 albuterol sulfate [Ventolin HFA] 90 mcg/actuation HFA aerosol inhaler 1 puff INHALATION Q6H PRN (Reason: Wheezing) RF: 0 PreserVision AREDS [id number] Capsule 1 cap PO HS RF: 0 Saccharomyces boulardii [Florastor] 250 mg Capsule 250 mg PO BID RF: 0 cholecalciferol (vitamin D3) [Vitamin D3] 125 mcg (5,000 unit) Tablet 125 mcg PO QAM RF: 0 zinc gluconate 50 mg Tablet 50 mg PO BIDM RF: 0 clopidogrel [Plavix] 75 mg tablet 75 mg PO QAM RF: 0 coQ10 (ubiquinol) 200 mg Capsule 200 mg PO QAM RF: 0 Breo Ellipta 100-25 mcg/dose blister with device 1 ea INHALATION QAM RF: 0 gabapentin [Neurontin] 100 mg capsule 100 mg PO HS RF: 0 celecoxib [Celebrex] 100 mg capsule 100 mg PO BID RF: 0 levothyroxine [Synthroid] 100 mcg tablet 100 mcg PO DAILYBB RF: 0 Changed glimepiride [Amaryl] 2 mg tablet 2 mg PO QAM Qty: 0 RF: 0 Discontinued nitrofurantoin monohyd/m-cryst [Macrobid] 100 mg capsule 100 mg PO BID RF: 0 Discharge Orders: Discharge Order (Routine); Ordered 01/04/21 Ordered By: Ludwin Tarango Admission Data Admit Date/Time: 12/29/20 16:23 Attending Provider: Ludwin Tarango Admit Provider: Ludwin Salomon Primary Care Provider: Marty Saldaña Other Providers: Ludwin Salomon ; [facility] ; [facility] ; [facility], Other Interventions: Discharge Summary Assessment (RN) Last Done: 01/04/21 17:03 Coding Level of Care Code D/C DAY MANAGEMENT >30 MINS Diagnoses UTI (urinary tract infection) N39.0 Hematuria presence: without hematuria Urinary tract infection type: site unspecified Acute metabolic encephalopathy G93.41 COPD (chronic obstructive pulmonary disease) J44.9 COPD type: unspecified COPD Diabetes mellitus with neuropathy E11.40 Diabetes mellitus intermediate teacher insulin use: without intermediate teacher use Diabetes mellitus type: type 2 Discoid lupus erythematosus L93.0 History of CVA (cerebrovascular accident) Z86.73 Hyperlipidemia E78.5 Hyperlipidemia type: unspecified Hypertension I10 Hypertension type: essential hypertension Hypothyroidism E03.9 Hypothyroidism type: unspecified SDAT (senile dementia of Alzheimer's type) G30.1; F02.80 Gallstone K80.20 DVT prophylaxis Z29.9
== END 2021-01-04 17:30 | DRG 689 ==
LOC: 3W 06:11 → ED 06:11 → 3W 10:00 → SUATTDRO 12-29 16:23 → 3W 12-29 16:23